=== PATIENT | female | born 1940 | race Caucasian/White ===

== ENCOUNTER 2016-08-16 03:02 | Emergency (ER) | payer MEDICARE, OTHER ==
[2016-08-16 03:07] VITALS: RESP 18; TEMP 98
[2016-08-16] MEDS ORDERED: SODIUM CHLORIDE 0.9% 1,000 ML IV STA (03:54)
[2016-08-16] MEDS ORDERED: METOCLOPRAMIDE 5 MG/ML 2 ML VIAL IVP STA (03:55)
[2016-08-16] MEDS ORDERED: FAMOTIDINE 20 MG/2 ML VIAL IV STA (03:55)
[2016-08-16] MEDS ORDERED: KETOROLAC 30 MG/ML 1 ML VIAL IVP STA (03:55)
[2016-08-16] MEDS ORDERED: diphenhydrAMINE 50 MG/ML 1 ML VIAL IVP STA (03:55)
[2016-08-16] MEDS ORDERED: ONDANSETRON ODT 4 MG TAB PO STA (03:56)
--- NOTE | 2016-08-16 03:58 | ED ---
General Adult HPI - General Chief complaint: Neuro Symptoms/Deficit Stated complaint: numbness Time Seen by Provider: 08/16/16 03:40 Source: patient, RN notes reviewed, old records reviewed Mode of arrival: ambulatory Limitations: no limitations - History of Present Illness Initial comments: This is a 68-year-old female ER with multiple complaints. Patient has multiple nonspecific neurological complaints as well as complaining of rash and itching. Nausea and vomiting. Patient recently had steroid injections in her neck versus severe arthritis. Symptoms having numbness and tingling is tingling in her extremities. Patient also suffered from nausea today. No chest pain or shortness of breath, no fevers. No other complaints - Related Data Home Medications Medication Instructions Recorded Confirmed Omeprazole [PriLOSEC] 20 mg PO AC-BRKFST 01/07/15 12/05/15 Nitroglycerin Sl Tabs [Nitrostat] 0.4 mg SUBLINGUAL Q5M PRN 04/10/15 12/05/15 Dicyclomine [Bentyl] 20 mg PO BID 06/26/15 12/05/15 Aspirin EC [Ecotrin] 325 mg PO DAILY 06/28/15 12/05/15 Simvastatin [Zocor] 20 mg PO HS 08/05/15 12/05/15 Albuterol Inhaler [Ventolin Hfa 2 puff INHALATION RT-Q6H PRN 08/06/15 12/05/15 Inhaler] buPROPion HCL [Wellbutrin SR] 100 mg PO DAILY 08/06/15 12/05/15 Losartan Potassium [Cozaar] 100 mg PO DAILY 09/01/15 12/05/15 Ciprofloxacin HCl [Cipro] 500 mg PO DAILY 12/03/15 12/05/15 Previous Rx's Medication Instructions Recorded Clopidogrel [Plavix] 75 mg PO DAILY tab 07/02/15 Famotidine [Pepcid] 20 mg PO DAILY #30 tablet 08/16/15 traMADol HCL [Ultram] 50 mg PO Q6HR PRN #30 tab 08/16/16 Allergies Allergy/AdvReac Type Severity Reaction Status Date / Time codeine Allergy Severe Dyspnea Verified 08/16/16 03:07 hydromorphone HCl Allergy Severe Hallucinati Verified 08/16/16 03:07 [From Dilaudid] ons iodine Allergy Severe Dyspnea Verified 08/16/16 03:07 Penicillins Allergy Severe Rash/Hives Verified 08/16/16 03:07 Sulfa (Sulfonamide Allergy Severe Rash/Hives Verified 08/16/16 03:07 Antibiotics) prednisone Allergy Unknown Verified 08/16/16 03:07 Review of Systems ROS Statement: Those systems with pertinent positive or pertinent negative responses have been documented in the HPI. ROS Other: All systems not noted in ROS Statement are negative. Past Medical History Past Medical History: CVA/TIA, Deep Vein Thrombosis (DVT), GERD/Reflux, Hyperlipidemia, Hypertension, Myocardial Infarction ([place]), Osteoarthritis (OA) Additional Past Medical History / Comment(s): 06-15-15 admitted with confusion, disorientation,paranoid behavior decreased appetite not eating or drinking, clincial impression: acute psychosis,dehydration,mental status change, hypomagnesemia . 06/08/15 admitted with clinical impression of TIA, spasm cervical paraspinal muscle. Other HX: 01/07/15 TIA, 01/08/15 [place], 2014 DVT to left arm, generalized arthiritis, R index finger injury 3 yrs ago-wears immoblizer. Last Myocardial Infarction Date:: 01/08/15 History of Any Multi-Drug Resistant Organisms: C-DIFF Date of last positivie culture/infection: 09/30/14 MDRO Source:: stool Past Surgical History: Breast Surgery, Section, Cholecystectomy, Heart Catheterization With Stent, Hernia Repair Additional Past Surgical History / Comment(s): 01/09/15 PTCA with stent to obtuse marginal branch of circ and stent to mid LAD, bilateral augmentation, 3 C -Sections, ventral hernia repair, bilateral cataract removal with lens implants , picc line in and out for ABX tx for C-Diff. Past Anesthesia/Blood Transfusion Reactions: No Reported Reaction, Family History of Problems w/ Anesthesia Additional Past Anesthesia/Blood Transfusion Reaction / Comment(s): Pt has never recieved blood. Date of Last Stent Placement:: 01/09/15 Past Psychological History: Anxiety Additional Psychological History / Comment(s): Pt states she lives with her significant other and her cat-Princess Booth. She uses no assistive device. She can drive. Smoking Status: Former smoker Past Alcohol Use History: None Reported Additional Past Alcohol Use History / Comment(s): Pt quit smoking in 2010. Past Drug Use History: None Reported - Past Family History Mother Additional Family Medical History / Comment(s): Mother had a brain aneurysm. She after brain surgery at age 88 yrs. Father Family Medical History: CVA/TIA, Diabetes Mellitus, Hypertension Additional Family Medical History / Comment(s): Father of a CVA. General Exam Limitations: no limitations General appearance: alert, in no apparent distress Head exam: Present: atraumatic, normocephalic, normal inspection Eye exam: Present: normal appearance, PERRL, EOMI. Absent: scleral icterus, conjunctival injection, periorbital swelling ENT exam: Present: normal exam, mucous membranes moist Neck exam: Present: normal inspection. Absent: tenderness, meningismus, lymphadenopathy Respiratory exam: Present: normal lung sounds bilaterally. Absent: respiratory distress, wheezes, rales, rhonchi, stridor Cardiovascular Exam: Present: regular rate, normal rhythm, normal heart sounds. Absent: systolic murmur, diastolic murmur, rubs, gallop, clicks GI/Abdominal exam: Present: soft, normal bowel sounds. Absent: distended, tenderness, guarding, rebound, rigid Extremities exam: Present: normal inspection, full ROM, normal capillary refill. Absent: tenderness, pedal edema, joint swelling, calf tenderness Back exam: Present: normal inspection Neurological exam: Present: alert, oriented X3, CN II-XII intact Psychiatric exam: Present: normal affect, normal mood Skin exam: Present: warm, dry, intact, normal color. Absent: rash Course Vital Signs 08/16/16 08/16/16 08/16/16 03:05 05:06 05:50 Temperature 98 F Pulse Rate 89 64 65 Respiratory 18 18 18 Rate Blood Pressure 131/83 139/92 177/75 O2 Sat by Pulse 99 97 97 Oximetry - Reevaluation(s) Reevaluation #1: 08/16/16 06:05 Patient has known complicate medical history to this hospital. Reevaluation #2: 08/16/16 06:05 Patient is asking for pain medication and she states she is taking nothing for pain or anxiety at this time EKG Findings - EKG Comments: EKG Findings:: EKG shows sinus rhythm rate of 62, CO 178, QRS 86, QTC 448 Medical Decision Making - Medical Decision Making Seven-day female year with multiple nonspecific symptoms, patient found to have low potassium which is replaced, chronic pain and she'll be treated with pain control patient can be discharged home - Lab Data Result diagrams: 08/16/16 04:15 08/16/16 04:15 Lab Results 08/16/16 08/16/16 08/16/16 Range/Units 04:15 04:15 04:15 WBC 8.7 (3.8-10.6) k/uL RBC 4.52 (3.80-5.40) m/uL Hgb 12.9 (11.4-16.0) gm/dL Hct 38.8 (34.0-46.0) % MCV 85.9 (80.0-100.0) fL MCH 28.6 (25.0-35.0) pg MCHC 33.3 (31.0-37.0) g/dL RDW 15.6 H (11.5-15.5) % Plt Count 273 (150-450) k/uL Neutrophils % 66 % Lymphocytes % 24 % Monocytes % 6 % Eosinophils % 2 % Basophils % 1 % Neutrophils # 5.8 (1.3-7.7) k/uL Lymphocytes # 2.1 (1.0-4.8) k/uL Monocytes # 0.5 (0-1.0) k/uL Eosinophils # 0.2 (0-0.7) k/uL Basophils # 0.1 (0-0.2) k/uL Sodium 140 (137-145) mmol/L Potassium 2.8 L* (3.5-5.1) mmol/L Chloride 103 (98-107) mmol/L Carbon Dioxide 23 (22-30) mmol/L Anion Gap 14 mmol/L BUN 31 H (7-17) mg/dL Creatinine 0.94 (0.52-1.04) mg/dL Est GFR (MDRD) Af Amer >60 (>60 ml/min/1.73 sqM) Est GFR (MDRD) Non-Af 58 (>60 ml/min/1.73 sqM) Glucose 107 H (74-99) mg/dL Calcium 9.3 (8.4-10.2) mg/dL Phosphorus 3.4 (2.5-4.5) mg/dL Magnesium 1.7 (1.6-2.3) mg/dL Total Bilirubin 0.6 (0.2-1.3) mg/dL AST 17 (14-36) U/L ALT 24 (9-52) U/L Alkaline Phosphatase 143 H (38-126) U/L Total Creatine Kinase 97 (30-135) U/L CK-MB (CK-2) 1.1 (0.0-2.4) ng/mL CK-MB (CK-2) Rel Index 1.1 C-Reactive Protein 6.4 (<10.0) mg/L Total Protein 7.3 (6.3-8.2) g/dL Albumin 4.1 (3.5-5.0) g/dL Disposition Clinical Impression: Hypokalemia, Paresthesia Disposition: HOME SELF-CARE Condition: Good Instructions: Hypokalemia (ED) Prescriptions: traMADol HCL [Ultram] 50 mg PO Q6HR PRN #30 tab PRN Reason: Pain Referrals: Daren Marinelli MD [Primary Care Provider] - 1-2 days
[2016-08-16 04:44] LABS: ALT 24 U/L (9-52); AST 17 U/L (14-36); Alkaline Phosphatase 143 U/L (38-126); Anion Gap 14 mmol/L; Blood Urea Nitrogen 31 mg/dL (7-17); Calcium 9.3 mg/dL (8.4-10.2); Carbon Dioxide 23 mmol/L (22-30); Chloride 103 mmol/L (98-107); Glucose 107 mg/dL (74-99); Magnesium 1.7 mg/dL (1.6-2.3); Non-African American GFR(MDRD) 58 (>60 ml/min/1.73 sqM); Phosphorous 3.4 mg/dL (2.5-4.5); Sodium 140 mmol/L (137-145); Total Bilirubin 0.6 mg/dL (0.2-1.3); Total Protein 7.3 g/dL (6.3-8.2)
[2016-08-16 04:45] LABS: Potassium 2.8 mmol/L (3.5-5.1)
[2016-08-16 04:46] LABS: Basophils # (A) 0.1 k/uL (0-0.2); Basophils % (A) 1 %; CH 28.2; CHCM 32.9; Eosinophils # (A) 0.2 k/uL (0-0.7); Eosinophils % (A) 2 %; HCT 38.8 % (34.0-46.0); HDW 2.89; HGB 12.9 gm/dL (11.4-16.0); Luc # (Auto) 0.19; Luc % (Auto) 2; Lymphocytes # (A) 2.1 k/uL (1.0-4.8); Lymphocytes % (A) 24 %; MCH 28.6 pg (25.0-35.0); MCHC 33.3 g/dL (31.0-37.0); MCV 85.9 fL (80.0-100.0); Mean Platelet Volume 7.1; Monocytes # (A) 0.5 k/uL (0-1.0); Monocytes % (A) 6 %; Neutrophils # (A) 5.8 k/uL (1.3-7.7); Neutrophils % (A) 66 %; RBC 4.52 m/uL (3.80-5.40); RDW 15.6 % (11.5-15.5); WBC 8.7 k/uL (3.8-10.6); WBC (Perox) 9.27
[2016-08-16 05:01] LABS: C Reactive Protein 6.4 mg/L (<10.0)
[2016-08-16 05:06] LABS: Creatine Kinase MB 1.1 ng/mL (0.0-2.4)
[2016-08-16] MEDS ORDERED: POTASSIUM CHLORIDE ER 20 MEQ TAB.ER PO STA (05:17)
[2016-08-16] MEDS ORDERED: MORPHINE SULFATE 4 MG/ML SYRINGE IVP STA (05:48)
[2016-08-16] MEDS ORDERED: LORazepam 2 MG/ML SYRINGE IV STA (05:48)
[2016-08-16] MEDS ORDERED: ONDANSETRON 4 MG/2 ML VIAL IVP STA (06:10)
[2016-08-16 06:30] VITALS: BP 169/91; PULSE 68
== END 2016-08-16 06:32 | disposition home or self-care (01) ==
LOC: EC 03:02
DX: E87.6 Hypokalemia (principal); R20.9 Unspecified disturbances of skin sensation; G89.29 Other chronic pain; R21 Rash and other nonspecific skin eruption; K21.9 Gastro-esophageal reflux disease without esophagitis; E78.5 Hyperlipidemia, unspecified; I10 Essential (primary) hypertension; I25.2 Old myocardial infarction; M19.90 Unspecified osteoarthritis, unspecified site; F41.9 Anxiety disorder, unspecified; Z53.20 Procedure and treatment not carried out because of patient's decision for unspecified reasons; Z87.891 Personal history of nicotine dependence; Z79.899 Other long term (current) drug therapy; Z79.82 Long term (current) use of aspirin; Z88.5 Allergy status to narcotic agent; Z88.0 Allergy status to penicillin; Z88.2 Allergy status to sulfonamides; Z88.8 Allergy status to other drugs, medicaments and biological substances; Z95.5 Presence of coronary angioplasty implant and graft
CPT/HCPCS: 36415; 93005; 80053; 82550; 82553; 83735; 84100; 85025; 86140; 99284; 96374; 96375 ×5; 96361 ×2; J2270; J1200; J2765; J2405; J1885

== ENCOUNTER 2016-09-27 17:02 | Emergency (ER) | payer MEDICARE, OTHER ==
[2016-09-27 17:15] VITALS: RESP 16
--- NOTE | 2016-09-27 18:11 | ED ---
General Adult HPI - General Chief complaint: Neuro Symptoms/Deficit Stated complaint: Dizzy, swollen feet Time Seen by Provider: 09/27/16 17:40 Source: patient, RN notes reviewed Mode of arrival: wheelchair Limitations: no limitations - History of Present Illness Initial comments: This is a 76-year-old female who presents to the emergency department with past history of cardiac stents. Patient states today she comes in because her feet are more swollen than normal and she had an episode of slight dizziness. Patient states she did not pass out and never believe she was going to. Patient states she's also been dealing with some ruptured breast implant and given her some chronic chest pain. Patient states that pain is been ongoing for weeks and it continues today. Patient denies any shortness of breath or difficulty breathing today. Patient denies any sweating. Patient denies abdominal pain patient denies nausea vomiting diarrhea. Patient denies any visual disturbance or speech disturbance. Patient states she has a very mild headache today. Patient denies any areas of numbness or weakness that are focal. Patient denies any recent history of fever or chills - Related Data Home Medications Medication Instructions Recorded Confirmed Omeprazole [PriLOSEC] 20 mg PO AC-BRKFST 01/07/15 12/05/15 Nitroglycerin Sl Tabs [Nitrostat] 0.4 mg SUBLINGUAL Q5M PRN 04/10/15 12/05/15 Dicyclomine [Bentyl] 20 mg PO BID 06/26/15 12/05/15 Aspirin EC [Ecotrin] 325 mg PO DAILY 06/28/15 12/05/15 Simvastatin [Zocor] 20 mg PO HS 08/05/15 12/05/15 Albuterol Inhaler [Ventolin Hfa 2 puff INHALATION RT-Q6H PRN 08/06/15 12/05/15 Inhaler] buPROPion HCL [Wellbutrin SR] 100 mg PO DAILY 08/06/15 12/05/15 Losartan Potassium [Cozaar] 100 mg PO DAILY 09/01/15 12/05/15 Ciprofloxacin HCl [Cipro] 500 mg PO DAILY 12/03/15 12/05/15 Previous Rx's Medication Instructions Recorded Clopidogrel [Plavix] 75 mg PO DAILY tab 07/02/15 Famotidine [Pepcid] 20 mg PO DAILY #30 tablet 08/16/15 traMADol HCL [Ultram] 50 mg PO Q6HR PRN #30 tab 08/16/16 Allergies Allergy/AdvReac Type Severity Reaction Status Date / Time codeine Allergy Unknown Dyspnea Verified 09/27/16 19:32 Penicillins Allergy Unknown Rash/Hives Verified 09/27/16 19:32 Sulfa (Sulfonamide Allergy Unknown Rash/Hives Verified 09/27/16 19:32 Antibiotics) hydrocodone Allergy Rash/Hives Verified 09/27/16 19:32 prednisone Allergy Dyspnea Verified 09/27/16 19:32 hydromorphone HCl AdvReac Severe Hallucinati Verified 09/27/16 19:32 [From Dilaudid] ons chocolate flavor AdvReac Cough Verified 09/27/16 19:32 Iodinated Contrast Media - AdvReac Nausea & Verified 09/27/16 19:32 Oral and Vomiting milk AdvReac Cough Verified 09/27/16 19:32 Review of Systems ROS Statement: Those systems with pertinent positive or pertinent negative responses have been documented in the HPI. ROS Other: All systems not noted in ROS Statement are negative. Past Medical History Past Medical History: CVA/TIA, Deep Vein Thrombosis (DVT), GERD/Reflux, Hyperlipidemia, Hypertension, Myocardial Infarction ([place]), Osteoarthritis (OA) Additional Past Medical History / Comment(s): 3 admitted with confusion, disorientation,paranoid behavior decreased appetite not eating or drinking, clincial impression: acute psychosis,dehydration,mental status change, hypomagnesemia . 06/08/15 admitted with clinical impression of TIA, spasm cervical paraspinal muscle. Other HX: 01/07/15 TIA, 01/08/15 [place], 2014 DVT to left arm, generalized arthiritis, R index finger injury 3 yrs ago-wears immoblizer. Last Myocardial Infarction Date:: 01/08/15 History of Any Multi-Drug Resistant Organisms: C-DIFF Date of last positivie culture/infection: 09/30/14 MDRO Source:: stool Past Surgical History: Breast Surgery, Section, Cholecystectomy, Heart Catheterization With Stent, Hernia Repair Additional Past Surgical History / Comment(s): 01/09/15 PTCA with stent to obtuse marginal branch of circ and stent to mid LAD, bilateral augmentation, 3 C -Sections, ventral hernia repair, bilateral cataract removal with lens implants , picc line in and out for ABX tx for C-Diff. Past Anesthesia/Blood Transfusion Reactions: No Reported Reaction, Family History of Problems w/ Anesthesia Additional Past Anesthesia/Blood Transfusion Reaction / Comment(s): Pt has never recieved blood. Date of Last Stent Placement:: 01/09/15 Past Psychological History: Anxiety Additional Psychological History / Comment(s): Pt states she lives with her significant other and her cat-Princess Booth. She uses no assistive device. She can drive. Smoking Status: Former smoker Past Alcohol Use History: None Reported Additional Past Alcohol Use History / Comment(s): Pt quit smoking in 2010. Past Drug Use History: None Reported - Past Family History Mother Additional Family Medical History / Comment(s): Mother had a brain aneurysm. She after brain surgery at age 88 yrs. Father Family Medical History: CVA/TIA, Diabetes Mellitus, Hypertension Additional Family Medical History / Comment(s): Father of a CVA. General Exam - General Exam Comments Initial Comments: GENERAL: Patient is well-developed and well-nourished. Patient is nontoxic and well- hydrated and is in no acute distress. ENT: Neck is soft and supple. No significant lymphadenopathy is noted. Oropharynx is clear. Moist mucous membranes. Neck has full range of motion without eliciting any pain. EYES: The sclera were anicteric and conjunctiva were pink and moist. Extraocular movements were intact and pupils were equal round and reactive to light. Eyelids were unremarkable. PULMONARY: Unlabored respirations. Good breath sounds bilaterally. No audible rales rhonchi or wheezing was noted. CARDIOVASCULAR: There is a regular rate and rhythm without any murmurs gallops or rubs. ABDOMEN: Soft and nontender with normal bowel sounds. No palpable organomegaly was noted. There is no palpable pulsatile mass. SKIN: Skin is clear with no lesions or rashes and otherwise unremarkable. NEUROLOGIC: Patient is alert and oriented x3. Cranial nerves II through XII are grossly intact. Motor and sensory are also intact. Normal speech, volume and content. Symmetrical smile. MUSCULOSKELETAL: Normal extremities with adequate strength and full range of motion. Minimal edema to the feet. No calf tenderness. LYMPHATICS: No significant lymphadenopathy is noted PSYCHIATRIC: Normal psychiatric evaluation. Normal interpersonal interactions appears functionally intact in deals appropriately with others. No signs of depression. No signs of anxiety. Limitations: no limitations Course Vital Signs 06/14/17 06/14/17 06/14/17 17:09 19:55 19:58 Temperature 98.2 F 97.6 F 98.3 F Pulse Rate 64 58 L 62 Respiratory 16 20 16 Rate Blood Pressure 120/71 126/77 123/68 O2 Sat by Pulse 97 97 97 Oximetry Medical Decision Making - Medical Decision Making EKG shows a sinus rhythm with occasional PAC at [address] interval is 170 QRS is 80 QT interval is 408 QTC is 424. Patient's EKG shows no ST segment elevation or depression or T-wave abdomen is noted. I compared the EKG to an old EKG no acute abnormalities are noted. I discussed the results with the patient and discussed the possibility of staying patient insisted she does not want to stay and wanted to go home. - Lab Data Result diagrams: 09/27/16 17:50 09/27/16 17:50 Lab Results 09/27/16 09/27/16 09/27/16 Range/Units 17:50 17:50 17:50 WBC 7.6 (3.8-10.6) k/uL RBC 4.34 (3.80-5.40) m/uL Hgb 12.4 (11.4-16.0) gm/dL Hct 38.6 (34.0-46.0) % MCV 88.8 (80.0-100.0) fL MCH 28.5 (25.0-35.0) pg MCHC 32.1 (31.0-37.0) g/dL RDW 15.1 (11.5-15.5) % Plt Count 241 (150-450) k/uL Neutrophils % 67 % Lymphocytes % 21 % Monocytes % 7 % Eosinophils % 2 % Basophils % 1 % Neutrophils # 5.0 (1.3-7.7) k/uL Lymphocytes # 1.6 (1.0-4.8) k/uL Monocytes # 0.6 (0-1.0) k/uL Eosinophils # 0.2 (0-0.7) k/uL Basophils # 0.0 (0-0.2) k/uL PT (9.0-12.0) sec INR (<1.1) APTT (22.0-30.0) sec Sodium 141 (137-145) mmol/L Potassium 3.1 L (3.5-5.1) mmol/L Chloride 105 (98-107) mmol/L Carbon Dioxide 23 (22-30) mmol/L Anion Gap 13 mmol/L BUN 23 H (7-17) mg/dL Creatinine 1.31 H (0.52-1.04) mg/dL Est GFR (MDRD) Af Amer 48 (>60 ml/min/1.73 sqM) Est GFR (MDRD) Non-Af 39 (>60 ml/min/1.73 sqM) Glucose 114 H (74-99) mg/dL Calcium 9.2 (8.4-10.2) mg/dL Magnesium 1.5 L (1.6-2.3) mg/dL Total Bilirubin 0.5 (0.2-1.3) mg/dL AST 20 (14-36) U/L ALT 21 (9-52) U/L Alkaline Phosphatase 113 (38-126) U/L Total Creatine Kinase 103 (30-135) U/L CK-MB (CK-2) 1.1 (0.0-2.4) ng/mL CK-MB (CK-2) Rel Index 1.1 Troponin I <0.012 (0.000-0.034) ng/mL Total Protein 7.0 (6.3-8.2) g/dL Albumin 4.1 (3.5-5.0) g/dL 09/27/16 Range/Units 17:50 WBC (3.8-10.6) k/uL RBC (3.80-5.40) m/uL Hgb (11.4-16.0) gm/dL Hct (34.0-46.0) % MCV (80.0-100.0) fL MCH (25.0-35.0) pg MCHC (31.0-37.0) g/dL RDW (11.5-15.5) % Plt Count (150-450) k/uL Neutrophils % % Lymphocytes % % Monocytes % % Eosinophils % % Basophils % % Neutrophils # (1.3-7.7) k/uL Lymphocytes # (1.0-4.8) k/uL Monocytes # (0-1.0) k/uL Eosinophils # (0-0.7) k/uL Basophils # (0-0.2) k/uL PT 11.7 (9.0-12.0) sec INR 1.2 (<1.1) APTT 19.0 L (22.0-30.0) sec Sodium (137-145) mmol/L Potassium (3.5-5.1) mmol/L Chloride (98-107) mmol/L Carbon Dioxide (22-30) mmol/L Anion Gap mmol/L BUN (7-17) mg/dL Creatinine (0.52-1.04) mg/dL Est GFR (MDRD) Af Amer (>60 ml/min/1.73 sqM) Est GFR (MDRD) Non-Af (>60 ml/min/1.73 sqM) Glucose (74-99) mg/dL Calcium (8.4-10.2) mg/dL Magnesium (1.6-2.3) mg/dL Total Bilirubin (0.2-1.3) mg/dL AST (14-36) U/L ALT (9-52) U/L Alkaline Phosphatase (38-126) U/L Total Creatine Kinase (30-135) U/L CK-MB (CK-2) (0.0-2.4) ng/mL CK-MB (CK-2) Rel Index Troponin I (0.000-0.034) ng/mL Total Protein (6.3-8.2) g/dL Albumin (3.5-5.0) g/dL Disposition Clinical Impression: Pedal edema Disposition: HOME SELF-CARE Condition: Good Instructions: Edema (ED) Referrals: Daren Marinelli MD [Primary Care Provider] - 1-2 days Time of Disposition: 19:29
[2016-09-27 18:29] LABS: Basophils % (A) 1 %; CH 28.7; CHCM 32.5; Eosinophils # (A) 0.2 k/uL (0-0.7); Eosinophils % (A) 2 %; HCT 38.6 % (34.0-46.0); HDW 2.85; HGB 12.4 gm/dL (11.4-16.0); Luc # (Auto) 0.13; Luc % (Auto) 2; Lymphocytes # (A) 1.6 k/uL (1.0-4.8); Lymphocytes % (A) 21 %; MCH 28.5 pg (25.0-35.0); MCHC 32.1 g/dL (31.0-37.0); MCV 88.8 fL (80.0-100.0); Monocytes # (A) 0.6 k/uL (0-1.0); Monocytes % (A) 7 %; Neutrophils % (A) 67 %; RBC 4.34 m/uL (3.80-5.40); RDW 15.1 % (11.5-15.5); WBC 7.6 k/uL (3.8-10.6); WBC (Perox) 7.87
[2016-09-27 18:37] LABS: Calcium 9.2 mg/dL (8.4-10.2); Magnesium 1.5 mg/dL (1.6-2.3); Potassium 3.1 mmol/L (3.5-5.1); Total Bilirubin 0.5 mg/dL (0.2-1.3)
[2016-09-27 18:38] LABS: INR 1.2 (<1.1); Prothrombin Time 11.7 sec (9.0-12.0)
[2016-09-27 18:49] LABS: Creatine Kinase 103 U/L (30-135)
--- NOTE | 2016-09-27 18:49 | XR ---
EXAMINATION TYPE: XR chest 2V DATE OF EXAM: 09/27/2016 COMPARISON: 11/04/2015 HISTORY: Chest pain TECHNIQUE: Frontal and lateral views of the chest are obtained. FINDINGS: There is no heart failure nor confluent pneumonic infiltrate. There are no hilar masses. T here is no sign of pleural effusion. Bony thorax is intact. There are bilateral breast implants with calcification. IMPRESSION: No active cardiopulmonary disease. Normal heart. No change.
[2016-09-27 19:01] LABS: Creatine Kinase MB 1.1 ng/mL (0.0-2.4); Troponin I <0.012 ng/mL (0.000-0.034)
[2016-09-27 20:07] VITALS: BP 123/68; PULSE 62; TEMP 98.3
== END 2016-09-27 20:08 | disposition home or self-care (01) ==
LOC: EC 17:02
DX: R60.0 Localized edema (principal); I49.1 Atrial premature depolarization; R42 Dizziness and giddiness; R51 Headache; R07.9 Chest pain, unspecified; E78.5 Hyperlipidemia, unspecified; I10 Essential (primary) hypertension; K21.9 Gastro-esophageal reflux disease without esophagitis; M19.90 Unspecified osteoarthritis, unspecified site; Z87.891 Personal history of nicotine dependence; Z79.82 Long term (current) use of aspirin; Z79.899 Other long term (current) drug therapy; Z88.0 Allergy status to penicillin; Z88.2 Allergy status to sulfonamides; Z88.5 Allergy status to narcotic agent; Z88.8 Allergy status to other drugs, medicaments and biological substances; Z91.011 Allergy to milk products; Z91.018 Allergy to other foods; Z91.09 Other allergy status, other than to drugs and biological substances; Z95.5 Presence of coronary angioplasty implant and graft
CPT/HCPCS: 36415; 71020; 80053; 82550; 82553; 83735; 84484; 85025; 85610; 85730; 93005; 99284

== ENCOUNTER → 2016-10-02 | Outpatient (CLI) | payer MEDICARE, OTHER ==
--- NOTE | 2016-10-02 19:16 | CT ---
EXAMINATION TYPE: CT brain wo con DATE OF EXAM: 10/02/2016 COMPARISON: 04/03/2016 HISTORY: Dizziness and syncope. CT DLP: 1012.7 mGycm Automated exposure control for dose reduction was used. FINDINGS: There is cerebral cortical atrophy. There is no mass effect nor midline shift. There is no sign of in tracranial hemorrhage. The calvarium is intact. IMPRESSION: CEREBRAL ATROPHY. NO ACUTE INTRACRANIAL ABNORMALITY. NO ADVERSE CHANGE COMPARED TO OLD EXAM. THERE IS PROBABLY MILD CHRONIC SMALL VESSEL ISCHEMIA.
== END | disposition home or self-care (01) ==
LOC: RADCTMAIN 18:57
PROVIDERS: ATTEND Psychiatry & Neurology Neurology
DX: G31.9 Degenerative disease of nervous system, unspecified (principal); Z88.0 Allergy status to penicillin; Z88.2 Allergy status to sulfonamides; Z88.5 Allergy status to narcotic agent
CPT/HCPCS: 70450

== ENCOUNTER → 2017-07-17 | Outpatient (CLI) | payer MEDICARE, OTHER ==
--- NOTE | 2017-07-18 14:35 | XR ---
EXAMINATION TYPE: XR chest 2V DATE OF EXAM: 07/17/2017 COMPARISON: 09/27/2016 INDICATION: Cough chest discomfort TECHNIQUE: Frontal and lateral views of the chest are obtained. FINDINGS: The heart size is normal. The pulmonary vasculature is normal. The lungs are clear. There is hyperinflation flattening the diaphragms suggestive for COPD. Bilatera l breast prostheses are evident. IMPRESSION: 1. No acute pulmonary process.
== END | disposition home or self-care (01) ==
LOC: RADXRMAIN 16:41
PROVIDERS: ATTEND Family Medicine
DX: R05 Cough (principal)
CPT/HCPCS: 71046

== ENCOUNTER 2017-07-21 15:48 | Emergency (ER) | payer MEDICARE, OTHER ==
[2017-07-21] MEDS ORDERED: SODIUM CHLORIDE 0.9% 1,000 ML IV STA (17:38)
[2017-07-21] MEDS ORDERED: HYDROcodone/APAP 10-325MG 1 EACH TAB PO ONE (17:41)
[2017-07-21 18:21] LABS: Basophils % (A) 0 %; Eosinophils # (A) 0.1 k/uL (0-0.7); Eosinophils % (A) 1 %; HCT 43.1 % (34.0-46.0); HGB 14.2 gm/dL (11.4-16.0); Lymphocytes # (A) 2.1 k/uL (1.0-4.8); Lymphocytes % (A) 19 %; MCH 27.8 pg (25.0-35.0); MCHC 32.9 g/dL (31.0-37.0); MCV 84.5 fL (80.0-100.0); Mean Platelet Volume 7.4; Monocytes # (A) 0.8 k/uL (0-1.0); Monocytes % (A) 7 %; Neutrophils # (A) 7.9 k/uL (1.3-7.7); Neutrophils % (A) 71 %; Platelet Count 281 k/uL (150-450); RDW 13.5 % (11.5-15.5); WBC 11.2 k/uL (3.8-10.6)
[2017-07-21 18:30] LABS: Albumin 4.5 g/dL (3.5-5.0); Calcium 10.1 mg/dL (8.4-10.2); Total Bilirubin 0.3 mg/dL (0.2-1.3); Total Protein 7.6 g/dL (6.3-8.2)
[2017-07-21 18:33] LABS: Potassium 2.9 mmol/L (3.5-5.1)
[2017-07-21] MEDS ORDERED: POTASSIUM BICARBONATE/CIT AC 20 MEQ TABLET.EFF PO ONE (18:34)
[2017-07-21 18:36] LABS: INR 1.1 (<1.2); Prothrombin Time 10.4 sec (9.0-12.0)
[2017-07-21 18:42] LABS: Creatine Kinase 60 U/L (30-135)
--- NOTE | 2017-07-21 18:42 | CT ---
EXAMINATION TYPE: CT brain wo con DATE OF EXAM: 07/21/2017 HISTORY: Facial numbness. CT DLP: 1046.4 mGycm. Automated Exposure Control for Dose Reduction was Utilized. TECHNIQUE: CT scan of the head is performed without contrast. COMPARISON: CT brain 06/04/2016 FINDINGS: There is no acute intracranial hemorrhage or midline shift identified. There is diffuse v entricular and sulcal prominence consistent with diffuse age-related cerebral atrophy. There is low- attenuation in the periventricular white matter consistent with chronic small vessel ischemic change. The globes are intact and the visualized sinuses are clear. Patchy soft tissue density bilateral ex tra auditory canals is felt to reflect cerumen. IMPRESSION: No acute intracranial hemorrhage or midline shift. There is mild to moderate diffuse ag e-related cerebral atrophy and chronic small vessel ischemic change redemonstrated without significan t change from prior
[2017-07-21 18:54] LABS: Creatine Kinase MB 0.8 ng/mL (0.0-2.4); Troponin I <0.012 ng/mL (0.000-0.034)
--- NOTE | 2017-07-21 19:04 | XR ---
EXAMINATION TYPE: XR chest 2V DATE OF EXAM: 07/21/2017 COMPARISON: Chest x-ray from 4 days ago. HISTORY: Weakness and altered mental status. TECHNIQUE: Frontal and lateral views of the chest are obtained. FINDINGS: There is chronic parenchymal change without suspicious focal air space opacity, pleural ef fusion, or pneumothorax seen. The cardiac silhouette size is within normal limits. The osseous str uctures are intact. Rim calcified breast implants are redemonstrated. IMPRESSION: Chronic changes without acute cardiopulmonary process. No significant change from prior.
--- NOTE | 2017-07-21 19:05 | XR ---
EXAMINATION TYPE: XR cervical spine comp DATE OF EXAM: 07/21/2017 TECHNIQUE: Frontal, lateral, oblique, swimmers, and open mouth view of the cervical spine are obtaine d. HISTORY: Pain numbness and neck pain. COMPARISON: None FINDINGS: The cervical spine is visualized in its entirety from C1 thru the top of T1 level, it is s traightened in alignment without evidence of acute fracture or dislocation. There is grade 1 retrolis thesis of C4 on C5 and C5 on C6. The pre-vertebral soft tissue appears within normal limits. The C1- C2 articulation is within normal limits on the open mouth view. Vertebral body heights are maintaine d. There is moderate disc space narrowing and spurring C4-C5 and C5-C6 levels. There is mild disc spa ce narrowing C6-C7 level. The oblique images are within normal limits. There is fairly severe left-si ded carotid bulb calcification. Consider nonemergent carotid ultrasound follow-up. IMPRESSION: No acute fracture or dislocation is seen in the cervical spine.
[2017-07-21 19:09] LABS: Partial Thromboplastin Time 21.3 sec (22.0-30.0)
[2017-07-21 20:07] LABS: Appearance,Urine Clear (Clear); Bilirubin,Urine Negative (Negative); Blood,Urine Small (Negative); Color,Urine Light Yellow; Glucose,Urine (UA) Negative (Negative); Hyaline Casts,Urine 29 /lpf (0-2); Ketones,Urine Negative (Negative); Leukocyte Esterase,Urine Negative (Negative); Mucus,Urine Rare /hpf; Nitrite,Urine Negative (Negative); Protein,Urine Negative (Negative); RBC,Urine 8 /hpf (0-5); Specific Gravity,Urine 1.009 (1.001-1.035); Squamous Epithelial Cell,Urine <1 /hpf (0-4); Urobilinogen,Urine <2.0 mg/dL (<2.0); WBC,Urine 1 /hpf (0-5)
[2017-07-21 20:18] VITALS: RESP 18
[2017-07-21] MEDS ORDERED: ONDANSETRON ODT 4 MG TAB PO STA (20:27)
--- NOTE | 2017-07-21 20:27 | ED ---
General Adult HPI - General Chief complaint: Recheck/Abnormal Lab/Rx Stated complaint: Leg numbness Time Seen by Provider: 07/21/17 17:24 Source: patient Mode of arrival: wheelchair Limitations: no limitations - History of Present Illness Initial comments: 77 years O female presents with generalized weakness she said I have a headache never facial numbness she saying my arms hurt my legs hurt and I'm very very weak she also had a UTI and she was treated for UTIs and she is wondering if the UTIs and has resolved she has been taking now diaphoretic she has been taking her metoprolol along with the Lasix which she added she denies any fall that's no trauma to explain the pain in the arms and legs she does have pain medication she does take [place] at home and Motrin for her degenerative joint disease numbness of the head and the face been going on off and on for about a year now review of system is otherwise unremarkable - Related Data Home Medications Medication Instructions Recorded Confirmed Dicyclomine [Bentyl] 20 mg PO BID 06/26/15 07/21/17 Aspirin EC [Ecotrin Low Dose] 81 mg PO DAILY 07/21/17 07/21/17 Bumetanide [Bumex] 1 mg PO DAILY 07/21/17 07/21/17 Ibuprofen [Motrin] 800 mg PO TID PRN 07/21/17 07/21/17 Losartan [Cozaar] 50 mg PO DAILY 07/21/17 07/21/17 Metoprolol Tartrate [Lopressor] 12.5 mg PO DAILY 07/21/17 07/21/17 Pantoprazole [Protonix] 40 mg PO DAILY 07/21/17 07/21/17 Pravastatin Sodium [Pravachol] 20 mg PO HS 07/21/17 07/21/17 Previous Rx's Medication Instructions Recorded Famotidine [Pepcid] 20 mg PO DAILY #30 tablet 08/16/15 Potassium Chloride Oral Liquid 20 meq PO DAILY #10 ml 07/21/17 Allergies Allergy/AdvReac Type Severity Reaction Status Date / Time codeine Allergy Unknown Dyspnea Verified 07/21/17 17:47 Penicillins Allergy Unknown Rash/Hives Verified 07/21/17 17:47 Sulfa (Sulfonamide Allergy Unknown Rash/Hives Verified 07/21/17 17:47 Antibiotics) hydrocodone Allergy Rash/Hives Verified 07/21/17 17:47 prednisone Allergy Dyspnea Verified 07/21/17 17:47 hydromorphone HCl AdvReac Severe Hallucinati Verified 07/21/17 17:47 [From Dilaudid] ons chocolate flavor AdvReac Cough Verified 07/21/17 17:47 Iodinated Contrast- Oral and AdvReac Nausea & Verified 07/21/17 17:47 IV Dye Vomiting [Iodinated Contrast Media - Oral and] milk AdvReac Cough Verified 07/21/17 17:47 Review of Systems ROS Statement: Those systems with pertinent positive or pertinent negative responses have been documented in the HPI. ROS Other: All systems not noted in ROS Statement are negative. Past Medical History Past Medical History: CVA/TIA, Deep Vein Thrombosis (DVT), GERD/Reflux, Hyperlipidemia, Hypertension, Myocardial Infarction ([place]), Osteoarthritis ([place]) Additional Past Medical History / Comment(s): 06-15-15 admitted with confusion, disorientation,paranoid behavior decreased appetite not eating or drinking, clincial impression: acute psychosis,dehydration,mental status change, hypomagnesemia . 06/08/15 admitted with clinical impression of TIA, spasm cervical paraspinal muscle. Other HX: 01/07/15 TIA, 01/08/15 [place], 2014 DVT to left arm, generalized arthiritis, R index finger injury 3 yrs ago-wears immoblizer. Last Myocardial Infarction Date:: 01/08/15 History of Any Multi-Drug Resistant Organisms: C-DIFF Date of last positivie culture/infection: 09/30/14 MDRO Source:: stool Past Surgical History: Breast Surgery, Section, Cholecystectomy, Heart Catheterization With Stent, Hernia Repair Additional Past Surgical History / Comment(s): 01/09/15 PTCA with stent to obtuse marginal branch of circ and stent to mid LAD, bilateral augmentation, 3 C -Sections, ventral hernia repair, bilateral cataract removal with lens implants , picc line in and out for ABX tx for C-Diff. Past Anesthesia/Blood Transfusion Reactions: No Reported Reaction, Family History of Problems w/ Anesthesia Additional Past Anesthesia/Blood Transfusion Reaction / Comment(s): Pt has never recieved blood. Date of Last Stent Placement:: 01/09/15 Past Psychological History: Anxiety Smoking Status: Former smoker Past Alcohol Use History: None Reported Past Drug Use History: None Reported - Past Family History Mother Additional Family Medical History / Comment(s): Mother had a brain aneurysm. She after brain surgery at age 88 yrs. Father Family Medical History: CVA/TIA, Diabetes Mellitus, Hypertension Additional Family Medical History / Comment(s): Father of a CVA. General Exam Limitations: no limitations Course Vital Signs 07/21/17 07/21/17 07/21/17 15:50 18:00 19:37 Temperature 97.2 F L Pulse Rate 102 H 72 88 Respiratory 18 16 16 Rate Blood Pressure 130/58 123/79 124/58 O2 Sat by Pulse 98 93 L 98 Oximetry 07/21/17 20:17 Temperature Pulse Rate 68 Respiratory 18 Rate Blood Pressure 115/75 O2 Sat by Pulse 97 Oximetry During assessment. I noticed potassium is 2.9, she was given 40 mEq by mouth white count is 11.2 INR is unremarkable troponin is unremarkable EKG didn't show any STEMI urinalysis chest x-ray both unremarkable cervical spine is without any fracture brain CT with and without any major pathology my black female was faxed T she feels better now she be gone home on a potassium 20 mEq daily for next 5 days she was advised to eat a banana a day and now follow with family doctor in about 7 days because she is ALSO taking 2 different now than usual takes either she needs one spironolactone or if she needs to stay on a potassium EKG Findings - EKG Comments: EKG Findings:: EKG is normal sinus rhythm with a marked sinus arrhythmia with premature supraventricular complexes ventricular rate 79 MS interval is 192 and QRS duration is 88 QT/QTc is 336/46. This EKG does not reveal any ST elevation or timing Medical Decision Making - Lab Data Result diagrams: 07/21/17 17:50 07/21/17 17:50 Lab Results 07/21/17 07/21/17 07/21/17 Range/Units 17:50 17:50 17:50 WBC 11.2 H (3.8-10.6) k/uL RBC 5.10 (3.80-5.40) m/uL Hgb 14.2 (11.4-16.0) gm/dL Hct 43.1 (34.0-46.0) % MCV 84.5 (80.0-100.0) fL MCH 27.8 (25.0-35.0) pg MCHC 32.9 (31.0-37.0) g/dL RDW 13.5 (11.5-15.5) % Plt Count 281 (150-450) k/uL Neutrophils % 71 % Lymphocytes % 19 % Monocytes % 7 % Eosinophils % 1 % Basophils % 0 % Neutrophils # 7.9 H (1.3-7.7) k/uL Lymphocytes # 2.1 (1.0-4.8) k/uL Monocytes # 0.8 (0-1.0) k/uL Eosinophils # 0.1 (0-0.7) k/uL Basophils # 0.0 (0-0.2) k/uL PT (9.0-12.0) sec INR (<1.2) APTT (22.0-30.0) sec Sodium 141 (137-145) mmol/L Potassium 2.9 L* (3.5-5.1) mmol/L Chloride 96 L (98-107) mmol/L Carbon Dioxide 25 (22-30) mmol/L Anion Gap 20 mmol/L BUN 61 H (7-17) mg/dL Creatinine 1.40 H (0.52-1.04) mg/dL Est GFR (CKD-EPI)AfAm 41 (>60 ml/min/1.73 sqM) Est GFR (CKD-EPI)NonAf 36 (>60 ml/min/1.73 sqM) Glucose 118 H (74-99) mg/dL Calcium 10.1 (8.4-10.2) mg/dL Total Bilirubin 0.3 (0.2-1.3) mg/dL AST 15 (14-36) U/L ALT 21 (9-52) U/L Alkaline Phosphatase 138 H (38-126) U/L Total Creatine Kinase 60 (30-135) U/L CK-MB (CK-2) 0.8 (0.0-2.4) ng/mL CK-MB (CK-2) Rel Index 1.3 Troponin I <0.012 (0.000-0.034) ng/mL Total Protein 7.6 (6.3-8.2) g/dL Albumin 4.5 (3.5-5.0) g/dL Urine Color Urine Appearance (Clear) Urine pH (5.0-8.0) Ur Specific Dexter (1.001-1.035) Urine Protein (Negative) Urine Glucose (UA) (Negative) Urine Ketones (Negative) Urine Blood (Negative) Urine Nitrite (Negative) Urine Bilirubin (Negative) Urine Urobilinogen (<2.0) mg/dL Ur Leukocyte Esterase (Negative) Urine RBC (0-5) /hpf Urine WBC (0-5) /hpf Ur Squamous Epith Cells (0-4) /hpf Hyaline Casts (0-2) /lpf Urine Mucus (None) /hpf 07/21/17 07/21/17 Range/Units 17:50 19:30 WBC (3.8-10.6) k/uL RBC (3.80-5.40) m/uL Hgb (11.4-16.0) gm/dL Hct (34.0-46.0) % MCV (80.0-100.0) fL MCH (25.0-35.0) pg MCHC (31.0-37.0) g/dL RDW (11.5-15.5) % Plt Count (150-450) k/uL Neutrophils % % Lymphocytes % % Monocytes % % Eosinophils % % Basophils % % Neutrophils # (1.3-7.7) k/uL Lymphocytes # (1.0-4.8) k/uL Monocytes # (0-1.0) k/uL Eosinophils # (0-0.7) k/uL Basophils # (0-0.2) k/uL PT 10.4 (9.0-12.0) sec INR 1.1 (<1.2) APTT 21.3 L (22.0-30.0) sec Sodium (137-145) mmol/L Potassium (3.5-5.1) mmol/L Chloride (98-107) mmol/L Carbon Dioxide (22-30) mmol/L Anion Gap mmol/L BUN (7-17) mg/dL Creatinine (0.52-1.04) mg/dL Est GFR (CKD-EPI)AfAm (>60 ml/min/1.73 sqM) Est GFR (CKD-EPI)NonAf (>60 ml/min/1.73 sqM) Glucose (74-99) mg/dL Calcium (8.4-10.2) mg/dL Total Bilirubin (0.2-1.3) mg/dL AST (14-36) U/L ALT (9-52) U/L Alkaline Phosphatase (38-126) U/L Total Creatine Kinase (30-135) U/L CK-MB (CK-2) (0.0-2.4) ng/mL CK-MB (CK-2) Rel Index Troponin I (0.000-0.034) ng/mL Total Protein (6.3-8.2) g/dL Albumin (3.5-5.0) g/dL Urine Color Light Yellow Urine Appearance Clear (Clear) Urine pH 6.0 (5.0-8.0) Ur Specific Dexter 1.009 (1.001-1.035) Urine Protein Negative (Negative) Urine Glucose (UA) Negative (Negative) Urine Ketones Negative (Negative) Urine Blood Small H (Negative) Urine Nitrite Negative (Negative) Urine Bilirubin Negative (Negative) Urine Urobilinogen <2.0 (<2.0) mg/dL Ur Leukocyte Esterase Negative (Negative) Urine RBC 8 H (0-5) /hpf Urine WBC 1 (0-5) /hpf Ur Squamous Epith Cells <1 (0-4) /hpf Hyaline Casts 29 H (0-2) /lpf Urine Mucus Rare H (None) /hpf Disposition Clinical Impression: Generalized weakness, Hypokalemia Disposition: HOME SELF-CARE Condition: Good Instructions: Hypokalemia (ED) Prescriptions: Potassium Chloride Oral Liquid 20 meq PO DAILY #10 ml Referrals: Daren Marinelli MD [Primary Care Provider] - 1-2 days
[2017-07-21 20:35] VITALS: BP 107/62; PULSE 71; TEMP 97.1
== END 2017-07-21 20:44 | disposition home or self-care (01) ==
LOC: EC 15:48
DX: E87.6 Hypokalemia (principal); R53.1 Weakness; K21.9 Gastro-esophageal reflux disease without esophagitis; E78.5 Hyperlipidemia, unspecified; I10 Essential (primary) hypertension; I25.2 Old myocardial infarction; Z87.891 Personal history of nicotine dependence; Z79.82 Long term (current) use of aspirin; Z79.899 Other long term (current) drug therapy; Z88.0 Allergy status to penicillin; Z91.041 Radiographic dye allergy status; Z91.011 Allergy to milk products; Z88.2 Allergy status to sulfonamides; Z88.5 Allergy status to narcotic agent; Z88.8 Allergy status to other drugs, medicaments and biological substances; Z91.018 Allergy to other foods
CPT/HCPCS: 36415; 70450; 71046; 72050; 80053; 81001; 82550; 82553; 82607; 82746; 84484; 85025; 85610; 85730; 93005; 96360; 96361; 99284

== ENCOUNTER 2017-09-03 15:00 | Emergency (ER) | payer MEDICARE, OTHER ==
[2017-09-03 15:11] VITALS: BP 135/75; PULSE 73; RESP 18; TEMP 97.2
--- NOTE | 2017-09-03 15:25 | ED ---
General Adult HPI - General Chief complaint: Wound/Laceration Stated complaint: ripped ear lobe Time Seen by Provider: 09/03/17 15:09 Source: patient, RN notes reviewed Mode of arrival: ambulatory Limitations: no limitations - History of Present Illness Initial comments: 77-year-old female presents to the emergency department for a chief complaint of right earlobe tear. Patient states the tear began quite sometime ago but is not sure of an exact time. Today patient noticed her earring fell out. She states the very bottom of the ear lobe must have torn through earlier today. Patient states she contacted her doctor who told her to go to the emergency department. Patient has no other complaints at this time including shortness of breath, chest pain, abdominal pain, nausea or vomiting, headache, or visual changes. - Related Data Home Medications Medication Instructions Recorded Confirmed Dicyclomine [Bentyl] 20 mg PO BID 06/26/15 07/21/17 Aspirin EC [Ecotrin Low Dose] 81 mg PO DAILY 07/21/17 07/21/17 Bumetanide [Bumex] 1 mg PO DAILY 07/21/17 07/21/17 Ibuprofen [Motrin] 800 mg PO TID PRN 07/21/17 07/21/17 Losartan [Cozaar] 50 mg PO DAILY 07/21/17 07/21/17 Metoprolol Tartrate [Lopressor] 12.5 mg PO DAILY 07/21/17 07/21/17 Pantoprazole [Protonix] 40 mg PO DAILY 07/21/17 07/21/17 Pravastatin Sodium [Pravachol] 20 mg PO HS 07/21/17 07/21/17 Previous Rx's Medication Instructions Recorded Famotidine [Pepcid] 20 mg PO DAILY #30 tablet 08/16/15 Potassium Chloride Oral Liquid 20 meq PO DAILY #10 ml 07/21/17 Allergies Allergy/AdvReac Type Severity Reaction Status Date / Time codeine Allergy Unknown Dyspnea Verified 09/03/17 15:27 Penicillins Allergy Unknown Rash/Hives Verified 09/03/17 15:27 Sulfa (Sulfonamide Allergy Unknown Rash/Hives Verified 09/03/17 15:27 Antibiotics) hydrocodone Allergy Rash/Hives Verified 09/03/17 15:27 prednisone Allergy Dyspnea Verified 09/03/17 15:27 hydromorphone HCl AdvReac Severe Hallucinati Verified 09/03/17 15:27 [From Dilaudid] ons chocolate flavor AdvReac Cough Verified 09/03/17 15:27 Iodinated Contrast- Oral and AdvReac Nausea & Verified 09/03/17 15:27 IV Dye Vomiting [Iodinated Contrast Media - Oral and] milk AdvReac Cough Verified 09/03/17 15:27 Review of Systems ROS Statement: Those systems with pertinent positive or pertinent negative responses have been documented in the HPI. ROS Other: All systems not noted in ROS Statement are negative. Past Medical History Past Medical History: CVA/TIA, Deep Vein Thrombosis (DVT), GERD/Reflux, Hyperlipidemia, Hypertension, Myocardial Infarction ([place]), Osteoarthritis ([place]) Additional Past Medical History / Comment(s): 06-15-15 admitted with confusion, disorientation,paranoid behavior decreased appetite not eating or drinking, clincial impression: acute psychosis,dehydration,mental status change, hypomagnesemia . 06/08/15 admitted with clinical impression of TIA, spasm cervical paraspinal muscle. Other HX: 01/07/15 TIA, 01/08/15 [place], 2014 DVT to left arm, generalized arthiritis, R index finger injury 3 yrs ago-wears immoblizer. Last Myocardial Infarction Date:: 01/08/15 History of Any Multi-Drug Resistant Organisms: C-DIFF Date of last positivie culture/infection: 09/30/14 MDRO Source:: stool Past Surgical History: Breast Surgery, Section, Cholecystectomy, Heart Catheterization With Stent, Hernia Repair Additional Past Surgical History / Comment(s): 01/09/15 PTCA with stent to obtuse marginal branch of circ and stent to mid LAD, bilateral augmentation, 3 C -Sections, ventral hernia repair, bilateral cataract removal with lens implants , picc line in and out for ABX tx for C-Diff. Past Anesthesia/Blood Transfusion Reactions: No Reported Reaction, Family History of Problems w/ Anesthesia Additional Past Anesthesia/Blood Transfusion Reaction / Comment(s): Pt has never recieved blood. Date of Last Stent Placement:: 01/09/15 Past Psychological History: Anxiety Smoking Status: Former smoker Past Alcohol Use History: None Reported Past Drug Use History: None Reported - Past Family History Mother Additional Family Medical History / Comment(s): Mother had a brain aneurysm. She after brain surgery at age 88 yrs. Father Family Medical History: CVA/TIA, Diabetes Mellitus, Hypertension Additional Family Medical History / Comment(s): Father of a CVA. General Exam Limitations: no limitations General appearance: alert, in no apparent distress Head exam: Present: atraumatic, normocephalic, normal inspection ENT exam: Absent: normal external ear exam (There is a 1 cm tear through the right earlobe. Margins of the wound are already completely healed. There is no open skin whatsoever. No signs of infection.) Respiratory exam: Present: normal lung sounds bilaterally. Absent: respiratory distress, wheezes, rales, rhonchi, stridor Cardiovascular Exam: Present: regular rate, normal rhythm, normal heart sounds. Absent: systolic murmur, diastolic murmur, rubs, gallop, clicks Course Vital Signs 09/03/17 15:06 Temperature 97.2 F L Pulse Rate 73 Respiratory 18 Rate Blood Pressure 135/75 O2 Sat by Pulse 96 Oximetry Medical Decision Making - Medical Decision Making 77-year-old female presents to the emergency department for a chief complaint of healed earlobe tear on the right side. Patient states this began quite some time ago although she is unsure of how long, at least months. However, today the very distal aspect of the earlobe tore in her earring fell out. Patient has no other complaints. On exam there is a tear from the mid right earlobe down through the distal aspect. All margins of the tear are completely healed. There is no break in the skin whatsoever. No signs of infection. Patient was educated that we cannot suture this as it is already healed because it will not come together. Patient will have to follow-up with ENT. Steri-Strips were applied to keep the 2 flaps of the earlobe together for comfort. She is to return to the emergency room if she has any worsening symptoms. Disposition Clinical Impression: Healing laceration Disposition: HOME SELF-CARE Condition: Good Instructions: Laceration (ED) Additional Instructions: Please follow-up with ENT at your earliest convenience. Please return to the emergency department if you have any worsening symptoms or signs of infection. Otherwise follow-up with primary care in 1-2 days. Is patient prescribed a controlled substance at d/c from ED?: No Referrals: Daren Marinelli MD [Primary Care Provider] - 1-2 days Rod Schrader MD [STAFF PHYSICIAN] - 1-2 days Time of Disposition: 15:23
== END 2017-09-03 15:50 | disposition home or self-care (01) ==
LOC: EC 15:00
DX: S01.311A Laceration without foreign body of right ear, initial encounter (principal); E78.5 Hyperlipidemia, unspecified; I10 Essential (primary) hypertension; I25.2 Old myocardial infarction; K21.9 Gastro-esophageal reflux disease without esophagitis; Z86.73 Personal history of transient ischemic attack (TIA), and cerebral infarction without residual deficits; F41.9 Anxiety disorder, unspecified; Z87.891 Personal history of nicotine dependence; Z79.82 Long term (current) use of aspirin; Z79.899 Other long term (current) drug therapy; Z88.5 Allergy status to narcotic agent; Z88.0 Allergy status to penicillin; Z88.2 Allergy status to sulfonamides; Z88.8 Allergy status to other drugs, medicaments and biological substances; Z91.011 Allergy to milk products; Z91.041 Radiographic dye allergy status; Z91.018 Allergy to other foods; Z95.5 Presence of coronary angioplasty implant and graft
CPT/HCPCS: 99282

== ENCOUNTER 2017-10-25 09:41 | Emergency (ER) | payer MEDICARE, OTHER ==
[2017-10-25 10:00] VITALS: RESP 18
[2017-10-25] MEDS ORDERED: SODIUM CHLORIDE 0.9% 1,000 ML IV STA (10:18)
[2017-10-25] MEDS ORDERED: ONDANSETRON 4 MG/2 ML VIAL IVP STA ×2 (10:18→12:53)
--- NOTE | 2017-10-25 10:29 | ED ---
General Adult HPI - General Chief complaint: Abdominal Pain Stated complaint: Vomiting, SIde Pain Time Seen by Provider: 10/25/17 10:11 Source: patient Mode of arrival: wheelchair Limitations: no limitations - History of Present Illness Initial comments: Patient 77-year-old female presented to the emergency room today with multiple complaints. Patient does admit that she was feeling constipation she took a laxative. She states that she was on the toilet this morning. She is not sure what happened but she ended up on the ground. She states most of fall off to the left side. She states that she does have some pain to the left lower ribs. Patient admits that she is been feeling nauseated for the last few days appetites been somewhat decreased. She does not that she was able have a loose bowel movement this morning no signs of blood. Denies any other complaints or symptoms currently. Says she talked her family doctor advised come to the emergency room for possible dehydration. Patient denies any recent fever, chills, shortness of breath, chest pain, back pain, numbness or tingling, dysuria or hematuria, constipation or diarrhea, headaches or visual changes, or any other complaints. - Related Data Home Medications Medication Instructions Recorded Confirmed Dicyclomine [Bentyl] 20 mg PO BID 06/26/15 10/25/17 Aspirin EC [Ecotrin Low Dose] 81 mg PO DAILY 07/21/17 10/25/17 Bumetanide [Bumex] 1 mg PO DAILY 07/21/17 10/25/17 Ibuprofen [Motrin] 800 mg PO TID PRN 07/21/17 10/25/17 Losartan [Cozaar] 50 mg PO DAILY 07/21/17 10/25/17 Metoprolol Tartrate [Lopressor] 12.5 mg PO DAILY 07/21/17 10/25/17 Pantoprazole [Protonix] 40 mg PO DAILY 07/21/17 10/25/17 Docusate [Colace] 100 mg PO DAILY 10/25/17 10/25/17 Previous Rx's Medication Instructions Recorded Famotidine [Pepcid] 20 mg PO DAILY #30 tablet 08/16/15 Potassium Chloride [K-Tab ER] 10 meq PO DAILY #6 tablet.er 10/25/17 Allergies Allergy/AdvReac Type Severity Reaction Status Date / Time codeine Allergy Unknown Dyspnea Verified 10/25/17 10:44 Penicillins Allergy Unknown Rash/Hives Verified 10/25/17 10:44 Sulfa (Sulfonamide Allergy Unknown Rash/Hives Verified 10/25/17 10:44 Antibiotics) hydrocodone Allergy Rash/Hives Verified 10/25/17 10:44 prednisone Allergy Dyspnea Verified 10/25/17 10:44 hydromorphone HCl AdvReac Severe Hallucinati Verified 10/25/17 10:44 [From Dilaudid] ons chocolate flavor AdvReac Cough Verified 10/25/17 10:44 Iodinated Contrast- Oral and AdvReac Nausea & Verified 10/25/17 10:44 IV Dye Vomiting [Iodinated Contrast Media - Oral and] milk AdvReac Cough Verified 10/25/17 10:44 Review of Systems ROS Statement: Those systems with pertinent positive or pertinent negative responses have been documented in the HPI. ROS Other: All systems not noted in ROS Statement are negative. Past Medical History Past Medical History: CVA/TIA, Deep Vein Thrombosis (DVT), GERD/Reflux, Hyperlipidemia, Hypertension, Myocardial Infarction (LA), Osteoarthritis (OA) Additional Past Medical History / Comment(s): 06-15-15 admitted with confusion, disorientation,paranoid behavior decreased appetite not eating or drinking, clincial impression: acute psychosis,dehydration,mental status change, hypomagnesemia . 06/08/15 admitted with clinical impression of TIA, spasm cervical paraspinal muscle. Other HX: 01/07/15 TIA, 01/08/15 [place], 2014 DVT to left arm, generalized arthiritis, R index finger injury 3 yrs ago-wears immoblizer. Last Myocardial Infarction Date:: 01/08/15 History of Any Multi-Drug Resistant Organisms: C-DIFF Date of last positivie culture/infection: 09/30/14 MDRO Source:: stool Past Surgical History: Breast Surgery, Section, Cholecystectomy, Heart Catheterization With Stent, Hernia Repair Additional Past Surgical History / Comment(s): 01/09/15 PTCA with stent to obtuse marginal branch of circ and stent to mid LAD, bilateral augmentation, 3 C -Sections, ventral hernia repair, bilateral cataract removal with lens implants , picc line in and out for ABX tx for C-Diff. Past Anesthesia/Blood Transfusion Reactions: No Reported Reaction, Family History of Problems w/ Anesthesia Additional Past Anesthesia/Blood Transfusion Reaction / Comment(s): Pt has never recieved blood. Date of Last Stent Placement:: 01/09/15 Past Psychological History: Anxiety Smoking Status: Former smoker Past Alcohol Use History: None Reported Past Drug Use History: None Reported - Past Family History Mother Additional Family Medical History / Comment(s): Mother had a brain aneurysm. She after brain surgery at age 88 yrs. Father Family Medical History: CVA/TIA, Diabetes Mellitus, Hypertension Additional Family Medical History / Comment(s): Father of a CVA. General Exam - General Exam Comments Initial Comments: General: The patient is awake and alert, in no distress, and does not appear acutely ill. Eye: Pupils are equal, round and reactive to light, extra-ocular movements are intact. No nystagmus. There is normal conjunctiva bilaterally. No signs of icterus. Ears, nose, mouth and throat: There are moist mucous membranes and no oral lesions. Neck: The neck is supple, there is no tenderness or JVD. Cardiovascular: There is a regular rate and rhythm. No murmur, rub or gallop is appreciated. Respiratory: Lungs are clear to auscultation, respirations are non-labored, breath sounds are equal. No wheezes, stridor, rales, or rhonchi. Gastrointestinal: Mild discomfort in the epigastric and upper quadrants. No rebound, guarding or CVA tenderness. Musculoskeletal: Normal ROM, no tenderness. Strength 5/5. Sensation intact. Pulses equal bilaterally 2+. Tender palpation over the left lateral lower ribs. No Step-off or deformity. Neurological: A&O x 3. CN II-XII intact, There are no obvious motor or sensory deficits. Coordination appears grossly intact. Speech is normal. Skin: Skin is warm and dry and no rashes or lesions are noted. Psychiatric: Cooperative, appropriate mood & affect, normal judgment. Limitations: no limitations Course Vital Signs 10/25/17 10/25/17 09:54 11:27 Temperature 98.3 F Pulse Rate 60 66 Respiratory 18 18 Rate Blood Pressure 122/83 129/69 O2 Sat by Pulse 95 99 Oximetry Medical Decision Making - Medical Decision Making Patient's labs been reviewed does show potassium 2.8. Patient does admit that she was told in the past that her potassium was low. Patient states that she was taking potassium supplement for a while but stopped taking it on her own because the pills were too large. Patient states she believes she has a few left over at home. Patient remaining labs been reviewed. Her x-rays are negative for any acute new abnormality. Results were discussed with patient. Patient is doing well at this time feeling better will be discharged home after receiving oral and IV potassium. Advised follow-up with family doctor have a repeat potassium test performed and will be given a prescription for potassium to go home with. - Lab Data Result diagrams: 10/25/17 10:45 10/25/17 10:45 Lab Results 10/25/17 10/25/17 10/25/17 Range/Units 10:45 10:45 10:45 WBC 11.2 H (3.8-10.6) k/uL RBC 5.02 (3.80-5.40) m/uL Hgb 14.6 (11.4-16.0) gm/dL Hct 43.8 (34.0-46.0) % MCV 87.2 (80.0-100.0) fL MCH 29.0 (25.0-35.0) pg MCHC 33.3 (31.0-37.0) g/dL RDW 14.0 (11.5-15.5) % Plt Count 269 (150-450) k/uL Neutrophils % 86 % Lymphocytes % 8 % Monocytes % 5 % Eosinophils % 0 % Basophils % 0 % Neutrophils # 9.6 H (1.3-7.7) k/uL Lymphocytes # 0.9 L (1.0-4.8) k/uL Monocytes # 0.5 (0-1.0) k/uL Eosinophils # 0.0 (0-0.7) k/uL Basophils # 0.0 (0-0.2) k/uL Sodium 140 (137-145) mmol/L Potassium 2.8 L* (3.5-5.1) mmol/L Chloride 101 (98-107) mmol/L Carbon Dioxide 23 (22-30) mmol/L Anion Gap 16 mmol/L BUN 41 H (7-17) mg/dL Creatinine 1.29 H (0.52-1.04) mg/dL Est GFR (CKD-EPI)AfAm 46 (>60 ml/min/1.73 sqM) Est GFR (CKD-EPI)NonAf 40 (>60 ml/min/1.73 sqM) Glucose 143 H (74-99) mg/dL Calcium 9.6 (8.4-10.2) mg/dL Total Bilirubin 0.6 (0.2-1.3) mg/dL AST 32 (14-36) U/L ALT 30 (9-52) U/L Alkaline Phosphatase 161 H (38-126) U/L Total Protein 7.4 (6.3-8.2) g/dL Albumin 4.6 (3.5-5.0) g/dL Amylase 82 (30-110) U/L Lipase 94 (23-300) U/L Urine Color Yellow Urine Appearance Clear (Clear) Urine pH 6.0 (5.0-8.0) Ur Specific [place] 1.005 (1.001-1.035) Urine Protein Negative (Negative) Urine Glucose (UA) Negative (Negative) Urine Ketones Negative (Negative) Urine Blood Small (Negative) Urine Nitrite Negative (Negative) Urine Bilirubin Negative (Negative) Urine Urobilinogen <2.0 (<2.0) mg/dL Ur Leukocyte Esterase Moderate (Negative) Urine RBC 2 (0-5) /hpf Urine WBC 3 (0-5) /hpf Ur Squamous Epith Cells 1 (0-4) /hpf Urine Bacteria Rare H (None) /hpf Disposition Clinical Impression: Hypokalemia Disposition: HOME SELF-CARE Condition: Good Instructions: Hypokalemia (ED), Rib Contusion (ED) Additional Instructions: Please use medication as discussed. Please have repeat potassium level performed Please follow-up with family doctor in the next 2 days. Please return to emergency room if the symptoms increase or worsen or for any other concerns. Prescriptions: Potassium Chloride [K-Tab ER] 10 meq PO DAILY #6 tablet.er Is patient prescribed a controlled substance at d/c from ED?: No Referrals: Daren Marinelli MD [Primary Care Provider] - 1-2 days Time of Disposition: 12:13
[2017-10-25 11:07] LABS: Albumin 4.6 g/dL (3.5-5.0); Total Protein 7.4 g/dL (6.3-8.2)
[2017-10-25 11:08] LABS: Calcium 9.6 mg/dL (8.4-10.2); Total Bilirubin 0.6 mg/dL (0.2-1.3)
[2017-10-25 11:10] LABS: Potassium 2.8 mmol/L (3.5-5.1)
[2017-10-25 11:11] LABS: Basophils % (A) 0 %; Eosinophils % (A) 0 %; HCT 43.8 % (34.0-46.0); HGB 14.6 gm/dL (11.4-16.0); Lymphocytes # (A) 0.9 k/uL (1.0-4.8); Lymphocytes % (A) 8 %; MCHC 33.3 g/dL (31.0-37.0); MCV 87.2 fL (80.0-100.0); Mean Platelet Volume 6.9; Monocytes # (A) 0.5 k/uL (0-1.0); Monocytes % (A) 5 %; Neutrophils # (A) 9.6 k/uL (1.3-7.7); Neutrophils % (A) 86 %; Platelet Count 269 k/uL (150-450); RBC 5.02 m/uL (3.80-5.40); WBC 11.2 k/uL (3.8-10.6)
--- NOTE | 2017-10-25 11:14 | XR ---
EXAMINATION TYPE: XR ribs LT w pa chest xray DATE OF EXAM: 10/25/2017 CLINICAL HISTORY: Left-sided chest and rib pain after fall injury. TECHNIQUE: Single frontal view of the chest is obtained. A frontal and oblique images of the left-nanci ed ribs are acquired. COMPARISON: Chest x-ray July 21, 2017 FINDINGS: There is chronic parenchymal change with lateral right apical scarring. There is no focal air space opacity, pleural effusion, or pneumothorax seen. The cardiac silhouette size is within nor mal limits. Overlying rim calcified breast implants are redemonstrated. The osseous structures remai n demineralized. Dedicated images of the left-sided ribs show no acute displaced fractures. Cholecystectomy clips are incidentally seen. IMPRESSION: 1. Chronic changes without acute pulmonary process. 2. No acute displaced left-sided rib fractures are evident.
--- NOTE | 2017-10-25 11:16 | XR ---
EXAMINATION TYPE: XR KUB DATE OF EXAM: 10/25/2017 11:09 AM CLINICAL HISTORY: Left-sided pain after fall injury. TECHNIQUE: Two Upright KUB images of the abdomen are obtained. COMPARISON: Abdominal x-ray August 12, 2015. FINDINGS: There is some paucity of bowel gas. Gas is seen in nondistended stomach as well as small an d large bowel loops throughout the abdomen and pelvis. Cholecystectomy clips are present. Prominence of right hepatic lobe is redemonstrated. There is underlying scoliosis with moderate multilevel spurr ing and disc space narrowing in the mid to lower lumbar spine. No pneumoperitoneum is present. IMPRESSION: Overall nonobstructive bowel gas pattern.
[2017-10-25] MEDS ORDERED: POTASSIUM CHLORIDE ER 20 MEQ TAB.ER PO STA (11:27)
[2017-10-25] MEDS ORDERED: POTASSIUM CHLORIDE 20 MEQ in WATER FOR INJECTION 1 100ML.BAG IVPB STA (11:27)
[2017-10-25 11:49] LABS: Appearance,Urine Clear (Clear); Color,Urine Yellow; Glucose,Urine (UA) Negative (Negative); Protein,Urine Negative (Negative); Specific Gravity,Urine 1.005 (1.001-1.035)
[2017-10-25 11:50] LABS: Bilirubin,Urine Negative (Negative); Blood,Urine Small (Negative); Ketones,Urine Negative (Negative); Leukocyte Esterase,Urine Moderate (Negative); Nitrite,Urine Negative (Negative); RBC,Urine 2 /hpf (0-5); Urobilinogen,Urine <2.0 mg/dL (<2.0); WBC,Urine 3 /hpf (0-5)
[2017-10-25 11:51] LABS: Bacteria,Urine Rare /hpf; Squamous Epithelial Cell,Urine 1 /hpf (0-4)
[2017-10-25 15:20] VITALS: BP 126/60; PULSE 68; TEMP 97.8
== END 2017-10-25 15:20 | disposition home or self-care (01) ==
LOC: EC 09:41
DX: E87.6 Hypokalemia (principal); R07.81 Pleurodynia; K21.9 Gastro-esophageal reflux disease without esophagitis; I10 Essential (primary) hypertension; I25.2 Old myocardial infarction; F41.9 Anxiety disorder, unspecified; Z90.49 Acquired absence of other specified parts of digestive tract; Z98.61 Coronary angioplasty status; Z86.73 Personal history of transient ischemic attack (TIA), and cerebral infarction without residual deficits; Z87.891 Personal history of nicotine dependence; Z79.82 Long term (current) use of aspirin; Z79.899 Other long term (current) drug therapy; Z88.5 Allergy status to narcotic agent; Z88.0 Allergy status to penicillin; Z88.2 Allergy status to sulfonamides; Z88.8 Allergy status to other drugs, medicaments and biological substances; Z91.018 Allergy to other foods; Z91.041 Radiographic dye allergy status; Z91.011 Allergy to milk products; Z53.20 Procedure and treatment not carried out because of patient's decision for unspecified reasons; W18.12XA Fall from or off toilet with subsequent striking against object, initial encounter
CPT/HCPCS: 36415; 80053; 82150; 83690; 85025; 81001; 71101; 74018; 99284; 96365; 96366 ×2; 96375; 96361; J3480; J2405

== ENCOUNTER → 2018-03-26 | Outpatient (CLI) | payer MEDICARE, OTHER ==
--- NOTE | 2018-03-26 13:09 | US ---
EXAMINATION TYPE: US abdomen complete DATE OF EXAM: 03/26/2018 COMPARISON: US 08/01/17, CT 08/10/13 CLINICAL HISTORY: R10.9 Unspecified abdominal pain. Right sided abdominal pain radiating to back. EXAM MEASUREMENTS: Liver Length: 15.2 cm Gallbladder Wall: Surgically absent cm CBD: 0.6 cm Spleen: 8.3 cm Right Kidney: 9.8 x 5.3 x 4.0 cm Left Kidney: 10.0 x 5.0 x 4.4 cm Pancreas: Tail obscured by overlying bowel gas Liver: wnl Gallbladder: Surgically absent Evidence for sonographic Cai's sign: No CBD: wnl Spleen: wnl Right Kidney: No hydronephrosis or masses seen Left Kidney: cyst medially = 0.9 x 1.0 x 0.7 cm Upper IVC: wnl Abd Aorta: wnl The visualized liver is slightly heterogeneous. The intrahepatic portion of the IVC and proximal abd ominal aorta are within normal limits. Gallbladder is surgically absent. Common bile duct is unremar kable. The visualized portions of the pancreas are homogenous. Distal body and tail are obscured by overlying bowel gas on images saved. The spleen is unremarkable. Kidneys are symmetric and free of h ydronephrosis. No renal lesions are seen on images saved. IMPRESSION: No suspicious findings seen on ultrasound to account for patient's symptoms. Right-sided ventral wall hernia noted on comparison CT may cause symptoms of right-sided pain.
== END | disposition home or self-care (01) ==
LOC: RADUSWWP 10:50
PROVIDERS: ATTEND Family Medicine
DX: K43.9 Ventral hernia without obstruction or gangrene (principal)
CPT/HCPCS: 76700

== ENCOUNTER 2018-07-11 08:13 | Inpatient (IN) | payer MEDICARE, OTHER ==
--- NOTE | 2018-07-11 08:42 | ED ---
General Adult HPI - General Chief complaint: Weakness Stated complaint: weakness, facial numbness Time Seen by Provider: 07/11/18 08:24 Source: patient Mode of arrival: ambulatory Limitations: no limitations - History of Present Illness Initial comments: Dictation was produced using [employer] dictation software. please excuse any grammatical, word or spelling errors. Chief Complaint: 78-year-old female past medical history of hypertension, CVA, GERD, dyslipidemia, hypertension presents with generalized weakness. History of Present Illness: 78-year-old female with multiple comorbidities. She presents today for generalized weakness over the last 3 days. Patient was recently started on Lasix and metolazone. Ever since that she feels like her symptoms have been acutely worsening. Patient has no focal deficits. She does report feeling slightly tingly and her skin especially in the bilateral lower extremities. Denies any shortness of breath. Patient states that she is weak to a point where she is having difficulty walking and needs support. No nausea vomiting or diarrhea. Patient does report having Cheryl urinations. She was prescribed a potassium supplementation however hasn't been taking it as prescri bed. The ROS documented in this emergency department record has been reviewed and confirmed by me. Those systems with pertinent positive or negative responses have been documented in the HPI. All other systems are other negative and/or noncontributory. PHYSICAL EXAM: General Impression: Alert and oriented x3, not in acute distress HEENT: Normocephalic atraumatic, extra-ocular movements intact, pupils equal and reactive to light bilaterally, mucous membranes moist. Cardiovascular: Heart regular rate and rhythm, S1&S2 audible, no murmurs, rubs or gallops Chest: Lungs clear to auscultation bilaterally, no rhonchi, no wheeze, no rales Abdomen: Bowel sounds present, abdomen soft, non-tender, non-distended, no organomegaly Musculoskeletal: Pulses present and equal in all extremities, no peripheral edema Motor: no focal deficits noted, generalized weakness with 4-5 strength to the lower extremity functions Neurological: CN II-XII grossly intact, no focal motor or sensory deficits noted Skin: Intact with no visualized rashes Psych: Normal affect and mood ED course: 78yo Female multiple comorbidities presents with generalized weakness. Vital signs upon arrival are within acceptable limits.EKG shows severely prolonged QT with a QT interval measurement of 595. Laboratory evaluation obtained. CBC is unremarkable. Patient does have a potassium of 2.8 with a mild anion gap acidosis likely secondary to dehydration. Patient given intravenous fluids and potassium replacement. Given degree of hypokalemia with EKG changes we will plan to have patient admitted to cardiac telemetry for cardiac monitoring and inpatient management of symptoms. EKG interpretation: Ventricular rate 82, sinus rhythm with sinus arrhythmia, AR interval 182, QRS 86, QTC 595. EKG consistent with prolonged QT - Related Data Home Medications Medication Instructions Recorded Confirmed Aspirin EC [Ecotrin Low Dose] 81 mg PO DAILY 07/21/17 07/11/18 Ibuprofen [Motrin] 800 mg PO TID PRN 07/21/17 07/11/18 Metoprolol Tartrate [Lopressor] 12.5 mg PO HS 07/21/17 07/11/18 Pantoprazole [Protonix] 40 mg PO DAILY 07/21/17 07/11/18 Dicyclomine [Bentyl] 20 mg PO BID 07/11/18 07/11/18 Furosemide [Lasix] 40 mg PO BID 07/11/18 07/11/18 Hydrocodone/Acetaminophen [[place] 1 tab PO Q12H 07/11/18 07/11/18 10-325] Metolazone [Zaroxolyn] 2.5 mg PO DAILY 07/11/18 07/11/18 Potassium Chloride [Klor-Con 20] 20 meq PO DAILY 07/11/18 07/11/18 Pravastatin Sodium [Pravachol] 20 mg PO HS 07/11/18 07/11/18 Previous Rx's Medication Instructions Recorded Famotidine [Pepcid] 20 mg PO DAILY #30 tablet 08/16/15 Allergies Allergy/AdvReac Type Severity Reaction Status Date / Time codeine Allergy Unknown Dyspnea Verified 07/11/18 08:53 Penicillins Allergy Unknown Rash/Hives Verified 07/11/18 08:53 Sulfa (Sulfonamide Allergy Unknown Rash/Hives Verified 07/11/18 08:53 Antibiotics) hydrocodone Allergy Rash/Hives Verified 07/11/18 08:53 prednisone Allergy Dyspnea Verified 07/11/18 08:53 hydromorphone HCl AdvReac Severe Hallucinati Verified 07/11/18 08:53 [From Dilaudid] ons chocolate flavor AdvReac Cough Verified 07/11/18 08:53 Iodinated Contrast- Oral and AdvReac Nausea & Verified 07/11/18 08:53 IV Dye Vomiting [Iodinated Contrast Media - Oral and] milk AdvReac Cough Verified 07/11/18 08:53 Review of Systems ROS Statement: Those systems with pertinent positive or pertinent negative responses have been documented in the HPI. ROS Other: All systems not noted in ROS Statement are negative. Past Medical History Past Medical History: CVA/TIA, Deep Vein Thrombosis (DVT), GERD/Reflux, Hyperlipidemia, Hypertension, Myocardial Infarction (CT), Osteoarthritis (OA) Additional Past Medical History / Comment(s): 06-15-15 admitted with confusion,disorientation,paranoid behavior decreased appetite not eating or drinking,clincial impression: acute psychosis,dehydration,mental status change,hypomagnesemia . 06/08/15 admitted with clinical impression of TIA, spasm cervical paraspinal muscle. Other HX: 01/07/15 TIA, 01/08/15 CT, 2013 DVT to left arm, generalized arthiritis, R index finger injury 3 yrs ago-wears immoblizer. Last Myocardial Infarction Date:: 01/08/15 History of Any Multi-Drug Resistant Organisms: C-DIFF Date of last positivie culture/infection: 09/30/14 MDRO Source:: stool Past Surgical History: Breast Surgery, Section, Cholecystectomy, Heart Catheterization With Stent, Hernia Repair Additional Past Surgical History / Comment(s): 01/09/15 PTCA with stent to obtuse marginal branch of circ and stent to mid LAD, bilateral augmentation, 3 C-Sections, ventral hernia repair, bilateral cataract removal with lens implan ts, picc line in and out for ABX tx for C-Diff. Past Anesthesia/Blood Transfusion Reactions: No Reported Reaction, Family History of Problems w/ Anesthesia Additional Past Anesthesia/Blood Transfusion Reaction / Comment(s): Pt has never recieved blood. Date of Last Stent Placement:: 01/09/15 Past Psychological History: Anxiety Smoking Status: Former smoker Past Alcohol Use History: None Reported Past Drug Use History: None Reported - Past Family History Mother Additional Family Medical History / Comment(s): Mother had a brain aneurysm. She after brain surgery at age 88 yrs. Father Family Medical History: CVA/TIA, Diabetes Mellitus, Hypertension Additional Family Medical History / Comment(s): Father of a CVA. General Exam Limitations: no limitations Course Vital Signs 07/11/18 07/11/18 07/11/18 08:15 08:58 10:36 Temperature 97.6 F Pulse Rate 91 83 63 Respiratory 20 18 18 Rate Blood Pressure 106/64 116/93 122/78 O2 Sat by Pulse 96 96 98 Oximetry Medical Decision Making - Lab Data Result diagrams: 07/11/18 08:40 07/11/18 08:47 Lab Results 07/11/18 07/11/18 Range/Units 08:40 08:47 WBC 10.4 (3.8-10.6) k/uL RBC 5.69 H (3.80-5.40) m/uL Hgb 16.1 H (11.4-16.0) gm/dL Hct 49.1 H (34.0-46.0) % MCV 86.2 (80.0-100.0) fL MCH 28.3 (25.0-35.0) pg MCHC 32.8 (31.0-37.0) g/dL RDW 13.8 (11.5-15.5) % Plt Count 343 (150-450) k/uL Neutrophils % 73 % Lymphocytes % 18 % Monocytes % 6 % Eosinophils % 1 % Basophils % 1 % Neutrophils # 7.6 (1.3-7.7) k/uL Lymphocytes # 1.8 (1.0-4.8) k/uL Monocytes # 0.6 (0-1.0) k/uL Eosinophils # 0.1 (0-0.7) k/uL Basophils # 0.1 (0-0.2) k/uL Sodium 136 L (137-145) mmol/L Potassium 2.8 L (3.5-5.1) mmol/L Chloride 89 L (98-107) mmol/L Carbon Dioxide 26 (22-30) mmol/L Anion Gap 21 mmol/L BUN 51 H (7-17) mg/dL Creatinine 1.69 H (0.52-1.04) mg/dL Est GFR (CKD-EPI)AfAm 33 (>60 ml/min/1.73 sqM) Est GFR (CKD-EPI)NonAf 28 (>60 ml/min/1.73 sqM) Glucose 171 H (74-99) mg/dL Calcium 10.2 (8.4-10.2) mg/dL Ionized Calcium Yong 4.1 L (4.5-5.3) mg/dL Magnesium 1.9 (1.6-2.3) mg/dL Disposition Clinical Impression: QT prolongation, Dehydration, Hypokalemia Disposition: ADMITTED IP TO THIS HOSP Condition: Fair Referrals: Daren Marinelli MD [Primary Care Provider] - 1-2 days Decision Time: 10:49
[2018-07-11 09:00] LABS: Basophils # (A) 0.1 k/uL (0-0.2); Basophils % (A) 1 %; Eosinophils # (A) 0.1 k/uL (0-0.7); Eosinophils % (A) 1 %; HCT 49.1 % (34.0-46.0); HGB 16.1 gm/dL (11.4-16.0); Lymphocytes # (A) 1.8 k/uL (1.0-4.8); Lymphocytes % (A) 18 %; MCH 28.3 pg (25.0-35.0); MCHC 32.8 g/dL (31.0-37.0); MCV 86.2 fL (80.0-100.0); Mean Platelet Volume 7.2; Monocytes # (A) 0.6 k/uL (0-1.0); Monocytes % (A) 6 %; Neutrophils # (A) 7.6 k/uL (1.3-7.7); Neutrophils % (A) 73 %; Platelet Count 343 k/uL (150-450); RBC 5.69 m/uL (3.80-5.40); RDW 13.8 % (11.5-15.5); WBC 10.4 k/uL (3.8-10.6)
[2018-07-11 09:13] LABS: Calcium 10.2 mg/dL (8.4-10.2)
--- NOTE | 2018-07-11 09:14 | XR ---
EXAMINATION TYPE: XR chest 1V portable DATE OF EXAM: 07/11/2018 HISTORY: Shortness of breath. COMPARISON: 10/25/2017 TECHNIQUE: Single view of the chest is submitted. FINDINGS: Demonstrated are scattered senescent parenchymal change. There is no evidence for focal infiltrate. The heart is stable. Hilar and mediastinal structures are within normal limits. Degenerative changes are seen of the dorsal spine. Calcified breast implants noted. IMPRESSION: 1. Chronic changes without evidence for acute pulmonary disease.
[2018-07-11] MEDS ORDERED: SODIUM CHLORIDE 0.9% 500 ML IV STA (09:27)
[2018-07-11 10:10] LABS: Ionized Calcium 4.1 mg/dL (4.5-5.3)
[2018-07-11 10:18] LABS: Magnesium 1.9 mg/dL (1.6-2.3); Potassium 2.8 mmol/L (3.5-5.1)
[2018-07-11] MEDS ORDERED: MAGNESIUM OXIDE 400 MG TAB PO STA (10:25)
[2018-07-11] MEDS ORDERED: NALOXONE 0.4 MG/ML 1 ML VIAL IV PRN (10:46)
[2018-07-11] MEDS ORDERED: POTASSIUM BICARBONATE/CIT AC 20 MEQ TABLET.EFF PO ONE (10:47)
[2018-07-11] MEDS: POTASSIUM CHLORIDE 20 MEQ in WATER FOR INJECTION 1 100ML.BAG IVPB SCH ×2 (10:58→15:55)
[2018-07-11] MEDS: SODIUM CHLORIDE 0.9% 1,000 ML IV SCH ×2 (11:03→20:54)
[2018-07-11 12:03] VITALS: BMI 25.7
[2018-07-11] MEDS ORDERED: IBUPROFEN 800 MG TAB PO PRN (13:29)
[2018-07-11] MEDS ORDERED: MAGNESIUM SULFATE-D5W PMX 1 GM in DEXTROSE/WATER 1 100ML.BAG IVPB ONE (14:00)
[2018-07-11] MEDS: HYDROcodone/APAP 10-325MG 1 EACH TAB PO SCH (14:45)
[2018-07-11] MEDS: FUROSEMIDE 40 MG TAB PO SCH (15:50)
--- NOTE | 2018-07-11 16:14 | P.HPIM ---
History of Present Illness H&P Date: 07/11/18 Chief Complaint: Muscle cramps. Since physical 78-year-old white female with known history of hypertension who was noncompliant taking her potassium with Lasix and came in with significant muscle cramping and difficulty ambulating. 7 happening for the last several days. She usually is fairly compliant with medication. The patient was evaluated in the emergency room found have hypomagnesemia and hypokalemia which is symptomatic. EKG does show increased QT interval. She states significant lower extremity and "allover body," cramping. The patient is a former smoker with history of element of COPD. Otherwise, remote history of Clostridium difficile. She is tolerating diet without significant diarrhea started. Review of Systems Constitutional: Reports as per HPI Eyes: denies blurred vision, denies pain Ears, nose, mouth and throat: Denies headache, Denies sore throat Cardiovascular: Denies chest pain, Denies shortness of breath Respiratory: Denies cough Gastrointestinal: Denies abdominal pain, Denies diarrhea, Denies nausea, Denies vomiting Genitourinary: Denies dysuria, Denies hematuria Musculoskeletal: Reports muscle cramps, Reports myalgias Integumentary: Denies pruritus, Denies rash Neurological: Denies numbness, Denies weakness Psychiatric: Denies anxiety, Denies depression Endocrine: Reports fatigue, Denies weight change Past Medical History Past Medical History: Chest Pain / Angina, CVA/TIA, Deep Vein Thrombosis (DVT), GERD/Reflux, Hyperlipidemia, Hypertension, Osteoarthritis (OA) Additional Past Medical History / Comment(s): Pt states she never had TIA/CVA-t hey were ruled out however 2016 medical record documents TIA, DVT L arm, arthritis multiple joints, cervical muscle spasms, R index finger injury and uses splint prn, constipation. Last Myocardial Infarction Date:: 01/08/15 History of Any Multi-Drug Resistant Organisms: C-DIFF Date of last positivie culture/infection: 2013 MDRO Source:: stool Past Surgical History: Breast Surgery, Section, Cholecystectomy, Heart Catheterization With Stent, Hernia Repair Additional Past Surgical History / Comment(s): 01/09/15 PTCA with stent to obtuse marginal branch of circ and stent to mid LAD, bilateral augmentation, 3 C-Sections, ventral hernia repair, bilateral cataract removal with lens implants, picc line in and out for ABX tx for C-Diff. Past Anesthesia/Blood Transfusion Reactions: No Reported Reaction, Motion Sickn ess Additional Past Anesthesia/Blood Transfusion Reaction / Comment(s): Pt has never recieved blood. Date of Last Stent Placement:: 01/09/15 Smoking Status: Former smoker - Past Family History Mother Additional Family Medical History / Comment(s): Mother had a brain aneurysm. She after brain surgery at age 88 yrs. Father Family Medical History: CVA/TIA, Diabetes Mellitus, Hypertension Additional Family Medical History / Comment(s): Father of a CVA. Medications and Allergies Home Medications Medication Instructions Recorded Confirmed Type Famotidine [Pepcid] 20 mg PO DAILY #30 tablet 08/16/15 07/11/18 Rx Aspirin EC [Ecotrin Low Dose] 81 mg PO DAILY 07/21/17 07/11/18 History Ibuprofen [Motrin] 800 mg PO TID PRN 07/21/17 07/11/18 History Metoprolol Tartrate [Lopressor] 12.5 mg PO HS 07/21/17 07/11/18 History Pantoprazole [Protonix] 40 mg PO DAILY 07/21/17 07/11/18 History Dicyclomine [Bentyl] 20 mg PO BID 07/11/18 07/11/18 History Furosemide [Lasix] 40 mg PO BID 07/11/18 07/11/18 History Hydrocodone/Acetaminophen [[place] 1 tab PO Q12H 07/11/18 07/11/18 History 10-325] Metolazone [Zaroxolyn] 2.5 mg PO DAILY 07/11/18 07/11/18 History Potassium Chloride [Klor-Con 20] 20 meq PO DAILY 07/11/18 07/11/18 History Pravastatin Sodium [Pravachol] 20 mg PO HS 07/11/18 07/11/18 History Allergies Allergy/AdvReac Type Severity Reaction Status Date / Time codeine Allergy Unknown Dyspnea Verified 07/11/18 08:53 Penicillins Allergy Unknown Rash/Hives Verified 07/11/18 08:53 Sulfa (Sulfonamide Allergy Unknown Rash/Hives Verified 07/11/18 08:53 Antibiotics) prednisone Allergy Dyspnea Verified 07/11/18 08:53 hydromorphone HCl AdvReac Severe Hallucinati Verified 07/11/18 08:53 [From Dilaudid] ons chocolate flavor AdvReac Cough Verified 07/11/18 08:53 Iodinated Contrast- Oral and AdvReac Nausea & Verified 07/11/18 08:53 IV Dye Vomiting [Iodinated Contrast Media - Oral and] milk AdvReac Cough Verified 07/11/18 08:53 Physical Exam Vitals: Vital Signs Temp Pulse Pulse Resp BP BP Pulse Ox 07/11/18 12:00 98.5 F 83 20 155/89 98 07/11/18 11:31 64 18 119/98 98 07/11/18 10:36 63 18 122/78 98 07/11/18 08:58 83 18 116/93 96 07/11/18 08:15 97.6 F 91 20 106/64 96 Intake and Output 07/11/18 07/11/18 07/11/18 06:59 14:59 22:59 Other: # Voids 1 Weight 68.039 kg - Constitutional General appearance: obese - EENT Eyes: no abnormal pupil - Neck Neck: no lymphadenopathy - Respiratory Respiratory: bilateral: CTA - Cardiovascular Rhythm: regular Heart sounds: normal: S1, S2 Abnormal Heart Sounds: no S3 Gallop - Gastrointestinal General gastrointestinal: soft, no tenderness - Integumentary Integumentary: no cellulitis, no cyanotic, no jaundiced, no rash - Musculoskeletal Musculoskeletal: generalized weakness - Psychiatric Psychiatric: A&O x's 3, appropriate affect Results CBC & Chem 7: 07/11/18 08:40 07/11/18 08:47 Labs: Abnormal Lab Results - Last 24 Hours (Table) 07/11/18 07/11/18 Range/Units 08:40 08:47 RBC 5.69 H (3.80-5.40) m/uL Hgb 16.1 H (11.4-16.0) gm/dL Hct 49.1 H (34.0-46.0) % Sodium 136 L (137-145) mmol/L Potassium 2.8 L (3.5-5.1) mmol/L Chloride 89 L (98-107) mmol/L BUN 51 H (7-17) mg/dL Creatinine 1.69 H (0.52-1.04) mg/dL Glucose 171 H (74-99) mg/dL Ionized Calcium Yong 4.1 L (4.5-5.3) mg/dL Thrombosis Risk Factor Assmnt - Choose All That Apply Any of the Below Risk Factors Present?: Yes Other Risk Factors: Yes Each Risk Factor Represents 3 Points: Age 75 years or older, History of DVT/PE Other congenital or acquired thrombophilia - If yes, enter type in comment: No Thrombosis Risk Factor Assessment Total Risk Factor Score: 6 Thrombosis Risk Factor Assessment Level: High Risk Assessment and Plan (1) Dehydration Current Visit: Yes Status: Acute Code(s): E86.0 - DEHYDRATION SNOMED Code(s): 20241524 (2) QT prolongation Current Visit: Yes Status: Acute Code(s): R94.31 - ABNORMAL ELECTROCARDIOGRAM [ECG] [EKG] SNOMED Code(s): 647108843 (3) Essential (primary) hypertension Current Visit: No Status: Acute Code(s): I10 - ESSENTIAL (PRIMARY) HYPERTENSION SNOMED Code(s): 23408345 (4) Hypomagnesemia Current Visit: No Status: Acute Code(s): E83.42 - HYPOMAGNESEMIA SNOMED Code(s): 122886502 (5) Weakness Current Visit: No Status: Acute Code(s): R53.1 - WEAKNESS SNOMED Code(s): 28341880 (6) Hypokalemia Current Visit: Yes Status: Acute Code(s): E87.6 - HYPOKALEMIA SNOMED Code(s): 78778240 Plan: Placed on appropriate electrode protocols for replacement. Check CMP and magnesium in a.m. Appreciate consultants input. Consult medications. Otherwise, she is a full code at this time. Time with Patient: Greater than 30
[2018-07-11 18:58] LABS: Calcium 9.2 mg/dL (8.4-10.2); Magnesium 2.4 mg/dL (1.6-2.3); Potassium 3.1 mmol/L (3.5-5.1)
[2018-07-11] MEDS: PRAVASTATIN SODIUM 20 MG TAB PO SCH (20:52)
[2018-07-11] MEDS: METOPROLOL TARTRATE 12.5 MG TAB PO SCH (20:52)
[2018-07-11] MEDS: DICYCLOMINE 20 MG TAB PO SCH (20:52)
[2018-07-11] MEDS ORDERED: Potassium Replacement Protocol 1 EACH MISC MISCELLANE PRN (21:57)
[2018-07-11] MEDS: POTASSIUM CHLORIDE ER 20 MEQ TAB.ER PO SCH ×2 (22:18→23:13)
[2018-07-11] MEDS: MELATONIN 3 MG TABLET PO SCH (23:14)
[2018-07-12] MEDS: POTASSIUM CHLORIDE ER 20 MEQ TAB.ER PO SCH ×6 (00:46→22:46)
[2018-07-12] MEDS: HYDROcodone/APAP 10-325MG 1 EACH TAB PO SCH ×2 (00:46→13:37)
[2018-07-12] MEDS: SODIUM CHLORIDE 0.9% 1,000 ML IV SCH ×2 (05:18→15:44)
[2018-07-12 06:15] LABS: Appearance,Urine Clear (Clear); Bacteria,Urine Rare /hpf; Bilirubin,Urine Negative (Negative); Blood,Urine Small (Negative); Color,Urine Light Yellow; Glucose,Urine (UA) Negative (Negative); Ketones,Urine Negative (Negative); Leukocyte Esterase,Urine Trace (Negative); Nitrite,Urine Negative (Negative); PH, Urine 7.5 (5.0-8.0); Protein,Urine Negative (Negative); RBC,Urine 9 /hpf (0-5); Specific Gravity,Urine 1.012 (1.001-1.035); Squamous Epithelial Cell,Urine 1 /hpf (0-4); Urobilinogen,Urine <2.0 mg/dL (<2.0)
[2018-07-12] MEDS: PANTOPRAZOLE 40 MG TABLET PO SCH (06:25)
[2018-07-12 07:13] LABS: Calcium 8.9 mg/dL (8.4-10.2); Magnesium 2.4 mg/dL (1.6-2.3); Potassium 2.8 mmol/L (3.5-5.1)
[2018-07-12] MEDS: METOLAZONE 2.5 MG TAB PO SCH (08:13)
[2018-07-12] MEDS: ASPIRIN 81 MG PO SCH (08:13)
[2018-07-12] MEDS: DICYCLOMINE 20 MG TAB PO SCH ×2 (08:13→21:40)
[2018-07-12] MEDS: FAMOTIDINE 20 MG TAB PO SCH (08:13)
[2018-07-12] MEDS: FUROSEMIDE 40 MG TAB PO SCH ×2 (08:14→17:22)
[2018-07-12] MEDS: METOPROLOL TARTRATE 12.5 MG TAB PO SCH (21:40)
[2018-07-12] MEDS: PRAVASTATIN SODIUM 20 MG TAB PO SCH (21:40)
[2018-07-12] MEDS: MELATONIN 3 MG TABLET PO SCH (21:44)
[2018-07-12] MEDS ORDERED: TEMAZEPAM 15 MG CAP PO STA (22:12)
[2018-07-13] MEDS: HYDROcodone/APAP 10-325MG 1 EACH TAB PO SCH ×2 (02:12→11:19)
[2018-07-13] MEDS: SODIUM CHLORIDE 0.9% 1,000 ML IV SCH ×3 (02:15→20:47)
[2018-07-13] MEDS: PANTOPRAZOLE 40 MG TABLET PO SCH (06:36)
[2018-07-13 08:13] LABS: Magnesium 2.2 mg/dL (1.6-2.3); Potassium 3.4 mmol/L (3.5-5.1)
[2018-07-13] MEDS: ASPIRIN 81 MG PO SCH (09:27)
[2018-07-13] MEDS: DICYCLOMINE 20 MG TAB PO SCH ×2 (09:27→20:46)
[2018-07-13] MEDS: FAMOTIDINE 20 MG TAB PO SCH (09:27)
[2018-07-13] MEDS: METOLAZONE 2.5 MG TAB PO SCH (09:27)
[2018-07-13] MEDS: FUROSEMIDE 40 MG TAB PO SCH ×2 (09:27→16:27)
[2018-07-13] MEDS ORDERED: MORPHINE SULFATE 4 MG/ML SYRINGE IVP PRN (17:34)
[2018-07-13] MEDS ORDERED: POTASSIUM CHLORIDE ER 20 MEQ TAB.ER PO STA (17:36)
--- NOTE | 2018-07-13 17:47 | P.PN ---
Subjective conservation worker hospitalist covering for over the weekend, this is the first day i am taking care of the pt This is a pleasant 6 years old female with past medical history of GERD, hyperlipidemia, hypertension, deep venous thrombosis, CVA/TIA, angina. Presents because of pain in her lower extremity for about one week that affects her working. She feels pain in her thighs and legs and when she stands up on the top of her feet as well. She feels like a crampy. She says that her, help her for about one hour. On admission her potassium was 2.8 and she was admitted for low potassium thoughts might causing crampy leg pain. Potassium was replaced and today is 3.4, however patient still complaining from left pain. When examined the nora ent and her strength in both legs looks 5/5 in both for extension and flexion. She does not think is also her legs are weak but she thinks that the pain is affecting her when she walks. Patient couldn't stand up by herself and she worked back and forth however her gait was different than her normal because of her pain. She denies urinary incontinence. She's been constipated for 2 days, she she is ready uses stool softeners which were prescribed here. she denies chest pain or dyspnea. No other complaints. Patient states that she has chronic back pain for many lifetime and she had MRI of the lower back about 1 year ago. She follows up with Dr. Elam for pain management for her to [facility] to get open MRI as she cannot stand the regular MRI for she is claustrophobic. Objective - Vital Signs Vital signs: Vital Signs Temp 98.2 F 07/13/18 04:00 Pulse 63 07/13/18 16:00 Resp 16 07/13/18 16:00 BP 135/83 07/13/18 16:00 Pulse Ox 97 07/13/18 16:00 Intake & Output 07/12/18 07/13/18 07/13/18 18:59 06:59 18:59 Intake Total 720 400 Balance 720 400 Weight 74.2 kg Intake: Oral 720 400 Other: Voiding Method Toilet Toilet # Voids 3 1 2 - Exam GENERAL: The patient is alert and oriented x3, not in any acute distress. Well developed, well nourished. HEENT: Pupils are round and equally reacting to light. EOMI. No scleral icterus. No conjunctival pallor. Normocephalic, atraumatic. No pharyngeal erythema. No thyromegaly. CARDIOVASCULAR: S1 and S2 present. No murmurs, rubs, or gallops. PULMONARY: Chest is clear to auscultation, no wheezing or crackles. ABDOMEN: Soft, nontender, nondistended, normoactive bowel sounds. No palpable organomegaly. MUSCULOSKELETAL: No joint swelling or deformity. EXTREMITIES: No cyanosis, clubbing, or pedal edema. -NEUROLOGICAL: Gross neurological examination did not reveal any focal deficits. her lower extremities are nontender, strength is 5/5 in both lower extremities for with extension and flexion. No back tenderness. Patient couldn't walk with some difficulty due to pain in her legs. SKIN: No rashes. - Labs CBC & Chem 7: 07/11/18 08:40 07/13/18 06:47 Labs: Abnormal Lab Results - Last 24 Hours (Table) 07/13/18 Range/Units 06:47 Potassium 3.4 L (3.5-5.1) mmol/L Assessment and Plan Assessment: bilateral lower extremity pain hypokalemia Difficulty walking secondary to above acute kidney injury, present on admission. Trace CURRENTLY Hypokalemia history of GERD Hyperlipidemia Hypertension Plan: this is a pleasant 6 years old female who presents because of bilateral lower extremity pain with difficulty walking.I offered for the patient to transfer her to another hospital where neurologist can evaluate her as there is no neurologist in this hospital. She understands that however she does not want to be transferred to another facility's. Also I offered to do MRI of the lower back also she refused as she cannot tolerate it. Even if medication is prescribed for her. As an alternative she agrees to do a CAT scan of the lumbar spine. also patient told me she does not want surgery if is indicated for her because of her age. Also we will do Doppler of the lower extremity to rule out DVT. If her pain management with IV morphine to which she agrees to it. also we'll hold metolazone Labs and medication were reviewed.. Continue same treatment. Continue with symptomatic treatment. Resume home medication. Monitor lytes and vitals. DVT and GI prophylaxis. Further recommendations of the clinical course of the patient DVT prophylaxis: Subcutaneous heparin GI Prophylaxis: Pepcid PT/OT: Pending Prognosis is guarded
[2018-07-13] MEDS: DOCUSATE 100 MG CAP PO SCH (18:17)
--- NOTE | 2018-07-13 18:22 | CT ---
EXAMINATION TYPE: CT lumbar spine wo con DATE OF EXAM: 07/13/2018 6:11 PM COMPARISON: MRI of the lumbar spine dated 08/27/2015 HISTORY: Back pain and bilateral leg pain, no injury CT DLP: 826.4 mGycm Automated exposure control for dose reduction was used. TECHNIQUE: Unenhanced CT of the lumbar spine was performed. Bone and soft tissue window settings are submitted as well as coronal and sagittal reconstructions. FINDINGS: There is a levoscoliosis of the thoracolumbar junction with slight dextroconvexity of the l ower lumbar spine. Advanced multilevel degenerative disc disease is seen of the lumbar spine with mul tilevel anterior osteophytes, intervertebral disc space narrowing, vacuum disc disease, endplate scle rosis, Schmorl's nodes, and extensive facet arthropathy. There is grade 1 anterolisthesis of L4 on L5 likely secondary to extensive hypertrophic facet changes. There is very minimal retrolisthesis of L2 on L3 with posterior osteophytes throughout the lumbar spine. No vertebral body height loss. Moderate retained colonic stool burden, cholelithiasis, and moderate atherosclerosis of the abdominal aorta and its branches are seen in the limited visualized portions of the abdomen. Bibasilar atelect asis is seen as well as cardiomegaly and the visualized limited portions of the thorax. Spinal canal is limited in evaluation on CT. There is mild generalized osseous demineralization present L1-L2: There is a posterior projecting osteophyte, broad-based disc bulge, and facet arthropathy resu lting in mild left and moderate right neural foraminal narrowing and mild spinal canal stenosis. L2-L3: There are extensive hypertrophic facet changes, small posterior projecting osteophyte, and at least broad-based disc bulge with ligamentum flavum buckling creating severe spinal canal stenosis, m oderate right neural foraminal narrowing and severe left neural foraminal narrowing. L3-L4: There is ligamentum flavum buckling, facet arthropathy, and a broad-based disc bulge creating moderate spinal canal stenosis, severe left neural foraminal narrowing and moderate right neural fora babs narrowing. L4-L5: There is disc uncovering and a probable left lateral disc herniation in combination with ligam entum flavum buckling and facet arthropathy appearing to create severe impingement of the left exitin g L4 nerve root and moderate right neural foraminal narrowing with moderate spinal canal stenosis. L5-S1: There is a probable central disc herniation superimposed upon a broad-based disc bulge with po sterior projecting osteophyte and facet arthropathy creating moderate bilateral neural foraminal narr owing and mild spinal canal stenosis. IMPRESSION: 1. Advanced multilevel degenerative disc disease, generalized osseous demineralization, multilevel ma lalignment that is likely degenerative basis, and scoliosis of the lumbar spine resulting in variable degrees of neural foraminal narrowing and spinal canal stenosis throughout the lumbar spine as descr ibed above. 2. Probable central disc herniation at L5-S1 and probable left lateral disc herniation at L4-L5 resul ting in impingement of the exiting left L4 nerve root. These findings could be further evaluated with MRI. 3. No evidence of vertebral body height loss nor acute fracture of the lumbar spine.
--- NOTE | 2018-07-13 18:59 | US ---
EXAMINATION TYPE: US venous doppler duplex LE DATE OF EXAM: 07/13/2018 6:45 PM COMPARISON: NONE CLINICAL HISTORY: Rule out DVT. Pain bilateral legs SIDE PERFORMED: bilateral TECHNIQUE: The lower extremity deep venous system is examined utilizing real time linear array sonog renae with graded compression, doppler sonography and color-flow sonography. VESSELS IMAGED: External Iliac Vein (EIV) Common Femoral Vein Deep Femoral Vein Greater Saphenous Vein * Femoral Vein Popliteal Vein Small Saphenous Vein * Proximal Calf Veins (* superficial vessels) Grayscale, color doppler, spectral doppler imaging performed of the deep veins of the lower extremiti es. There is normal flow, compressibility, vascular waveforms as seen. Right Leg: No evidence of DVT Left Leg: No evidence of DVT as visualized, patient unable to tolerate compression at lower femoral vein IMPRESSION: No sonographic evidence of deep venous thrombosis within the bilateral lower extremities however the patient was unable to tolerate compression of the lower femoral vein on the left slightl y limiting evaluation at this location.
[2018-07-13] MEDS: PRAVASTATIN SODIUM 20 MG TAB PO SCH (20:46)
[2018-07-13] MEDS: SENNOSIDES 8.6 MG TAB PO SCH (20:46)
[2018-07-13] MEDS: METOPROLOL TARTRATE 12.5 MG TAB PO SCH (20:46)
[2018-07-13] MEDS: HEPARIN SODIUM,PORCINE 5,000 UNIT/ML 1 ML VIAL SQ SCH (20:46)
[2018-07-13] MEDS: MELATONIN 3 MG TABLET PO SCH (20:47)
[2018-07-13] MEDS ORDERED: DEXAMETHASONE SOD PHOSPHATE 10 MG/ML 1 ML VIAL IV STA (22:48)
[2018-07-14] MEDS: HYDROcodone/APAP 10-325MG 1 EACH TAB PO SCH ×2 (03:06→16:06)
[2018-07-14] MEDS: PANTOPRAZOLE 40 MG TABLET PO SCH (06:25)
[2018-07-14] MEDS: DEXAMETHASONE SOD PHOSPHATE 4 MG/ML 1 ML VIAL IV SCH ×4 (06:25→23:46)
[2018-07-14] MEDS: SENNOSIDES 8.6 MG TAB PO SCH (08:32)
[2018-07-14] MEDS: HEPARIN SODIUM,PORCINE 5,000 UNIT/ML 1 ML VIAL SQ SCH ×2 (08:32→21:04)
[2018-07-14] MEDS: ASPIRIN 81 MG PO SCH (08:33)
[2018-07-14] MEDS: FAMOTIDINE 20 MG TAB PO SCH (08:33)
[2018-07-14] MEDS: DOCUSATE 100 MG CAP PO SCH ×2 (08:33→21:03)
[2018-07-14] MEDS: FUROSEMIDE 40 MG TAB PO SCH ×2 (08:33→22:13)
[2018-07-14] MEDS: DICYCLOMINE 20 MG TAB PO SCH ×2 (08:33→21:03)
[2018-07-14 09:36] LABS: Potassium 3.1 mmol/L (3.5-5.1)
[2018-07-14] MEDS ORDERED: POTASSIUM CHLORIDE ER 20 MEQ TAB.ER PO STA (10:47)
[2018-07-14] MEDS: LIDOCAINE 5% PATCH TOPICAL SCH (11:52)
--- NOTE | 2018-07-14 17:52 | P.PN ---
Subjective loss prevention and safety manager hospitalist covering for over the weekend, This is a pleasant 6 years old female with past medical history of GERD, hyperlipidemia, hypertension, deep venous thrombosis, CVA/TIA, angina. Presents because of pain in her lower extremity for about one week that affects her working. She feels pain in her thighs and legs and when she stands up on the top of her feet as well. She feels like a crampy. She says that her, help her for about one hour. On admission her potassium was 2.8 and she was admitted for low potassium thoug hts might causing crampy leg pain. Potassium was replaced and today is 3.4, however patient still complaining from left pain. When examined the patient and her strength in both legs looks 5/5 in both for extension and flexion. She does not think is also her legs are weak but she thinks that the pain is affecting her when she walks. Patient couldn't stand up by herself and she worked back and forth however her gait was different than her normal because of her pain. She denies urinary incontinence. She's been constipated for 2 days, she she is ready uses stool softeners which were prescribed here. she denies chest pain or dyspnea. No other complaints. Patient states that she has chronic back pain for many lifetime and she had MRI of the lower back about 1 year ago. She follows up with Dr. Elam for pain management for her to [facility] to get open MRI as she cannot stand the regular MRI for she is claustrophobic. 07/14/2018 Patient today still complaining of from her leg pain although she admits some mild improvement in her pain and her walking however it looks abnormal from her baseline but patient can get up by herself and walk without the need for a walker or cane in and out of the room easily but it is more wide-based gait because of pain in her legs. Patient thinks she can manage like this. I have extensive discussion with the patient in the presents of the staff regarding the finding on her CAT scan which shows degenerative disease, spinal stenosis, nerve impingement, neural foraminal narrowing and disc herniation which might contribute to her pain. Patient states that the pain feel it on the whole buttock area on both sides and in both legs and feet. And she says it is a little bit more on the right side than the left side. However on my examination I did not feel weakness in her legs. Also patient denies urinary bowel incontinence or paresthesia in the perineal area. Patient also she does not want to increase her pain medication however she agrees to add lidocaine patches x2, also we added Flexeril. 10 to continue with Decadron which we thought that it might contributed to her improvement. Also we called to consult with orthopedic team. However patient refused to be transferred to another hospital for neurological or neurosurgical evaluation. And she says she is 78 and she does not take she'll need surgery, risks including but not limited to paralysis is explained to the patient and she verbalized understanding but she refused to be transferred, and she said she'll discuss with her sounds first. I gave her the chance if she changes her mind to them the staff know to page me and I will transfer her. CONSTITUTIONAL: No fever, no malaise, no fatigue. HEENT: No recent visual problems or hearing problems. Denied any sore throat. CARDIOVASCULAR: No orthopnea, PND, no palpitations, no syncope. PULMONARY: No shortness of breath, no cough, no hemoptysis. GASTROINTESTINAL: No diarrhea, no nausea, no vomiting, no abdominal pain. Normoactive bowel sounds. NEUROLOGICAL: No headaches, no weakness, HEMATOLOGICAL: Denies any bleeding or petechiae. GENITOURINARY: Denies any burning micturition, frequency, or urgency. MUSCULOSKELETAL/RHEUMATOLOGICAL: Denies any joint pain, swelling, or any muscle pain. ENDOCRINE: Denies any polyuria or polydipsia. Medication: Aspirin, Flexeril, Decadron, Bentyl, Colace, Pepcid, Lasix, heparin, [place], lidocaine patch, melatonin, Lopressor, Protonix, Pravachol, Senokot, norm al saline Objective - Vital Signs Vital signs: Vital Signs Temp 98.3 F 07/14/18 03:59 Pulse 83 07/14/18 16:00 Resp 16 07/14/18 16:00 BP 134/77 07/14/18 16:00 Pulse Ox 96 07/14/18 16:00 Intake & Output 07/13/18 07/14/18 07/14/18 18:59 06:59 18:59 Intake Total 880 236 240 Output Total 650 400 Balance 230 236 -160 Weight 73.5 kg Intake: Oral 880 236 240 Output: Urine 650 400 Other: Voiding Method Toilet Toilet Toilet # Voids 2 1 - Exam GENERAL: The patient is alert and oriented x3, not in any acute distress. Well developed, well nourished. HEENT: Pupils are round and equally reacting to light. EOMI. No scleral icterus. No conjunctival pallor. Normocephalic, atraumatic. No pharyngeal erythema. No thyromegaly. CARDIOVASCULAR: S1 and S2 present. No murmurs, rubs, or gallops. PULMONARY: Chest is clear to auscultation, no wheezing or crackles. ABDOMEN: Soft, nontender, nondistended, normoactive bowel sounds. No palpable organomegaly. MUSCULOSKELETAL: No joint swelling or deformity. EXTREMITIES: No cyanosis, clubbing, or pedal edema. -NEUROLOGICAL: Gross neurological examination did not reveal any focal deficits. her lower extremities are nontender, strength is 5/5 in both lower extremities for with extension and flexion. No back tenderness. Patient couldn't walk with some difficulty due to pain in her legs. SKIN: No rashes. - Labs CBC & Chem 7: 07/11/18 08:40 07/14/18 08:52 Labs: Abnormal Lab Results - Last 24 Hours (Table) 07/14/18 Range/Units 08:52 Potassium 3.1 L (3.5-5.1) mmol/L Assessment and Plan Assessment: bilateral lower extremity pain Gait difficulty secondary to above hypokalemia, replaced Difficulty walking secondary to above CAT scan which shows degenerative disease, spinal stenosis, nerve impingement, neural foraminal narrowing and disc herniation which might contribute to her pain. acute kidney injury, present on admission. Improved Hypokalemia history of GERD Hyperlipidemia Hypertension Plan: this is a pleasant 6 years old female who presents because of bilateral lower extremity pain with difficulty walking.I offered for the patient to transfer her to another hospital where neurologist can evaluate her as there is no neurologist in this hospital. She understands that however she does not want to be transferred to another facility's. Also I offered to do MRI of the lower back also she refused as she cannot tolerate it. also patient told me she does not want surgery if is indicated for her because of her age. Also we will do Doppler of the lower extremity was negative for DVT. pain management with IV morphine to which she agrees to it. also we'll hold metolazone Labs and medication were reviewed.. Continue same treatment. Continue with symptomatic treatment. Resume home medication. Monitor lytes and vitals. DVT and GI prophylaxis. Further recommendations of the clinical course of the patient DVT prophylaxis: Subcutaneous heparin GI Prophylaxis: Pepcid PT/OT: Pending Prognosis is guarded Dr. Marinelli will resume the care of the patient tomorrow
[2018-07-14] MEDS: METOPROLOL TARTRATE 12.5 MG TAB PO SCH (21:02)
[2018-07-14] MEDS: PRAVASTATIN SODIUM 20 MG TAB PO SCH (21:03)
[2018-07-14] MEDS: SODIUM CHLORIDE 0.9% 1,000 ML IV SCH (21:09)
[2018-07-14] MEDS: MELATONIN 3 MG TABLET PO SCH (21:12)
[2018-07-15] MEDS: HYDROcodone/APAP 10-325MG 1 EACH TAB PO SCH ×2 (02:04→12:41)
[2018-07-15] MEDS: DEXAMETHASONE SOD PHOSPHATE 4 MG/ML 1 ML VIAL IV SCH ×3 (05:17→17:09)
--- NOTE | 2018-07-15 08:04 | P.PN ---
Subjective Progress Note Date: 07/15/18 Principal diagnosis: Lower extremity pain with weakness. Difficulty ambulating. Hypokalemia The patient is still struggling with electrode imbalance. No overt chest pressure stated. She's been started on steroid treatment for presumed arthritic type pain. She states no numbness or tingling but has elements of lower extremity pain at times. However, she states she is ambulating at times better Objective - Vital Signs Vital signs: Vital Signs Temp 98.3 F 07/15/18 04:32 Pulse 63 07/15/18 04:32 Resp 18 07/15/18 04:32 BP 138/75 07/15/18 04:32 Pulse Ox 96 07/15/18 04:32 Intake & Output 07/14/18 07/15/18 07/15/18 18:59 06:59 18:59 Intake Total 240 Output Total 400 Balance -160 Weight 73.4 kg Intake: Oral 240 Output: Urine 400 Other: Voiding Method Toilet # Voids 3 - Constitutional General appearance: Present: obese - EENT Eyes: Absent: abnormal pupil - Neck Neck: Absent: lymphadenopathy - Respiratory Respiratory: bilateral: CTA - Cardiovascular Rhythm: regular Heart sounds: normal: S1, S2 Abnormal Heart Sounds: Absent: S3 Gallop - Gastrointestinal General gastrointestinal: Present: soft. Absent: tenderness - Integumentary Integumentary: Absent: normal turgor - Labs CBC & Chem 7: 07/11/18 08:40 07/14/18 08:52 Labs: Abnormal Lab Results - Last 24 Hours (Table) 07/14/18 Range/Units 08:52 Potassium 3.1 L (3.5-5.1) mmol/L Assessment and Plan (1) Dehydration Current Visit: Yes Status: Acute Code(s): E86.0 - DEHYDRATION SNOMED Code(s): 30611260 (2) QT prolongation Current Visit: Yes Status: Acute Code(s): R94.31 - ABNORMAL ELECTROCARDIOGRAM [ECG] [EKG] SNOMED Code(s): 197023228 (3) Essential (primary) hypertension Current Visit: No Status: Acute Code(s): I10 - ESSENTIAL (PRIMARY) HYPERTENSION SNOMED Code(s): 49093896 (4) Hypomagnesemia Current Visit: No Status: Acute Code(s): E83.42 - HYPOMAGNESEMIA SNOMED Code(s): 332641242 (5) Weakness Current Visit: No Status: Acute Code(s): R53.1 - WEAKNESS SNOMED Code(s): 75819183 (6) Hypokalemia Current Visit: Yes Status: Acute Code(s): E87.6 - HYPOKALEMIA SNOMED Code(s): 11368548 Plan: Continue potassium protocol. CMP in a.m. Await orthopedic consultation. Place on sliding scale. Time with Patient: Greater than 30
[2018-07-15] MEDS: FAMOTIDINE 20 MG TAB PO SCH (08:28)
[2018-07-15] MEDS: DICYCLOMINE 20 MG TAB PO SCH ×2 (08:28→20:28)
[2018-07-15] MEDS: CYCLOBENZAPRINE 5 MG TAB PO PRN (08:28)
[2018-07-15] MEDS: ASPIRIN 81 MG PO SCH (08:28)
[2018-07-15] MEDS: FUROSEMIDE 40 MG TAB PO SCH ×2 (08:29→15:52)
[2018-07-15] MEDS: DOCUSATE 100 MG CAP PO SCH ×2 (08:29→20:29)
[2018-07-15] MEDS: HEPARIN SODIUM,PORCINE 5,000 UNIT/ML 1 ML VIAL SQ SCH ×2 (08:29→20:30)
[2018-07-15] MEDS: PANTOPRAZOLE 40 MG TABLET PO SCH (08:37)
--- NOTE | 2018-07-15 08:44 | P.CNOR ---
History of Present Illness - [facility] Consult date: 07/15/18 Requesting physician: Raymon Gillis Consult reason: low back pain, other (Bilateral lower extremity radiculopathy; difficulty with ambulation) History of present illness: Patient is a very pleasant 78-year-old female who is seen and examined at bedside after consultation was placed in regards to her spine. Patient presented to the emergency department on 07/11/2018 due to difficulty with ambulation and muscle cramping. At that time she was found to have hypokalemia and hypomagnesemia along with increased QT interval. Since her admittance she has been being treated for electrolyte imbalance. She was started on steroid medication by medicine for presumed arthritic type pain. Patient states during her admittance her symptoms are some better but continued be present. She does have chronic low back pain. She states during standing and ambulation her lower extremities feel heavy. She has difficulty ambulating long distances. She feels during standing she does have pain that radiates down the entire bilateral lower extremities. She is able to move her legs independently without any significant difficulty. She has been able to ambulate to the restroom and is voiding without difficulty. Patient states she does have significant degenerative changes at her lumbar spine. A CT of the lumbar spine was performed during her admission to the hospital. Over the weekend that CT was reviewed by medicine who discussed the possibility of transferring the patient to a tertiary facility for surgical consultation regards to her lumbar spine. Patient states she does not wish to be transferred to a tertiary facility. She does not wish to undergo any sort of surgical intervention at her lumbar spine given her age. She states she has been previously seen in the outpatient setting and has undergone injections with Dr. Stark at [facility] with these injections being performed some period of time ago and she does not recall when they were performed. She also follows with Dr. Elam in the outpatient setting for pain control with medications. She does not wear a brace and states she does not want a brace prescribed for her. She would like to continue with conservative treatment measures. She would be willing to see pain management during her admission to the hospital. She states again at the bedside and she does not wish to have any surgical intervention at her lumbar spine as she knows it would be significant and given her age and independent living, she would like to avoid any invasive treatment. Pain has been contr olled during admission with pain medication as well as lidocaine patches. Patient asks for her lidocaine patches to be removed today during physical examination. Past Medical History Past Medical History: Chest Pain / Angina, CVA/TIA, Deep Vein Thrombosis (DVT), GERD/Reflux, Hyperlipidemia, Hypertension, Osteoarthritis (OA) Additional Past Medical History / Comment(s): Pt states she never had TIA/CVA- they were ruled out however 2016 medical record documents TIA, DVT L arm, arthritis multiple joints, cervical muscle spasms, R index finger injury and uses splint prn, constipation. Last Myocardial Infarction Date:: 01/08/15 History of Any Multi-Drug Resistant Organisms: C-DIFF Year Discovered:: 2013 MDRO Source:: stool Past Surgical History: Breast Surgery, Section, Cholecystectomy, Heart Catheterization With Stent, Hernia Repair Additional Past Surgical History / Comment(s): 01/09/15 PTCA with stent to obtuse marginal branch of circ and stent to mid LAD, bilateral augmentation, 3 C-Sections, ventral hernia repair, bilateral cataract removal with lens implants, picc line in and out for ABX tx for C-Diff. Past Anesthesia/Blood Transfusion Reactions: No Reported Reaction, Motion Sickness Additional Past Anesthesia/Blood Transfusion Reaction / Comm: Pt has never recieved blood. Date of Last Stent Placement:: 01/09/15 Smoking Status: Former smoker - Past Family History Mother Additional Family Medical History / Comment(s): Mother had a brain aneurysm. She after brain surgery at age 88 yrs. Father Family Medical History: CVA/TIA, Diabetes Mellitus, Hypertension Additional Family Medical History / Comment(s): Father of a CVA. Medications and Allergies Home Medications Medication Instructions Recorded Confirmed Type Famotidine [Pepcid] 20 mg PO DAILY #30 tablet 08/16/15 07/11/18 Rx Aspirin EC [Ecotrin Low Dose] 81 mg PO DAILY 07/21/17 07/11/18 History Ibuprofen [Motrin] 800 mg PO TID PRN 07/21/17 07/11/18 History Metoprolol Tartrate [Lopressor] 12.5 mg PO HS 07/21/17 07/11/18 History Pantoprazole [Protonix] 40 mg PO DAILY 07/21/17 07/11/18 History Dicyclomine [Bentyl] 20 mg PO BID 07/11/18 07/11/18 History Furosemide [Lasix] 40 mg PO BID 07/11/18 07/11/18 History Hydrocodone/Acetaminophen [Raymond 1 tab PO Q12H 07/11/18 07/11/18 History 10-325] Metolazone [Zaroxolyn] 2.5 mg PO DAILY 07/11/18 07/11/18 History Potassium Chloride [Klor-Con 20] 20 meq PO DAILY 07/11/18 07/11/18 History Pravastatin Sodium [Pravachol] 20 mg PO HS 07/11/18 07/11/18 History Allergies Allergy/AdvReac Type Severity Reaction Status Date / Time codeine Allergy Unknown Dyspnea Verified 07/11/18 08:53 Penicillins Allergy Unknown Rash/Hives Verified 07/11/18 08:53 Sulfa (Sulfonamide Allergy Unknown Rash/Hives Verified 07/11/18 08:53 Antibiotics) prednisone Allergy Dyspnea Verified 07/11/18 08:53 hydromorphone HCl AdvReac Severe Hallucinati Verified 07/11/18 08:53 [From Dilaudid] ons chocolate flavor AdvReac Cough Verified 07/11/18 08:53 Iodinated Contrast- Oral and AdvReac Nausea & Verified 07/11/18 08:53 IV Dye Vomiting [Iodinated Contrast Media - Oral and] Physical Examination Physical exam: Patient is awake, alert, and oriented 3 Vital signs stable Good chest excursion with deep inspiration and expiration Examination of lumbar spine reveals skin is intact with no abrasions, lacerations, or bruises; no erythema, purulence or signs of infection Evidence of 2 lidocaine patches over the midline of the lumbar spine; patches are removed during physical examination No pain with palpation along the midline of the lumbosacral spine Dorsiflexion, plantarflexion, and extensor hallucis longus positive sustained bilaterally Lower extremity strength 5/5 bilaterally Patient is able to move legs independently and change positions in bed without significant difficulty No lower extremity hyperreflexia bilaterally Straight leg test negative bilateral lower extremities Negative Lasegue's test bilaterally No signs or symptoms of DVT; no calf pain No pain with internal and external rotation of the hips bilaterally Neurovascularly intact Results Pertinent studies: CT of the lumbar spine performed on 07/13/2018: Significant degenerative changes throughout the lumbar spine; degenerative scoliosis; L1-2 asymmetric degenerative disc disease, posterior osteophytic spurring, broad-based disc bulge, and facet arthropathy resulted in mild spinal canal stenosis and mild left and moderate neural foraminal narrowing; L2-3 extensive hypertrophic facet change and lateral spondylolisthesis resulting in severe spinal canal stenosis and moderate right severe left neural foraminal narrowing; L3-4 broad-based disc bulge and facet hypertrophy resulting in moderate spinal canal stenosis and severe left and moderate right neural foraminal narrowing; L4-5 asymmetric degenerative disc disease, spondylolisthesis, lateral listhesis, and facet hypertrophy with probable disc herniation with impingement of the exiting L4 nerve root and moderate central canal stenosis; L5-S1 retrolisthesis, facet hypertrophy and probable disc herniation resulting in mild central canal stenosis and moderate bilateral neural foraminal narrowing; significant degenerative disc disease throughout the lumbar spine; no evidence of vertebral body compression fracture multiple anterior osteophytic spurring and lateral osteophytic spurring; generalized osseous demineralization - Labs Labs: Abnormal Lab Results - Last 24 Hours (Table) 07/14/18 Range/Units 08:52 Potassium 3.1 L (3.5-5.1) mmol/L H & H 07/11/18 Range/Units 08:40 Hgb 16.1 H (11.4-16.0) gm/dL Hct 49.1 H (34.0-46.0) % Result Diagrams: 07/11/18 08:40 07/14/18 08:52 Assessment and Plan Assessment: Assessment: Chronic low back pain Bilateral lower extremity radiculopathy without specific pattern Neurogenic claudication resulting from lumbar spinal canal stenosis Difficulty with prolonged ambulation Lumbar degenerative scoliosis L4-5 spondylolisthesis L5-S1 retrolisthesis Significant degenerative changes at the lumbar spine including facet arthropathy and degenerative disc disease Osteopenia Acute electrolyte imbalance with hypokalemia and hypomagnesemia and resultant Q- T prolongation History of hypertension (1) Neurogenic claudication due to lumbar spinal stenosis Current Visit: Yes Status: Acute Code(s): M48.062 - SPINAL STENOSIS, LUMBAR REGION WITH NEUROGENIC CLAUDICATION SNOMED Code(s): 470927217 (2) Spondylolisthesis, lumbar region Current Visit: Yes Status: Acute Code(s): M43.16 - SPONDYLOLISTHESIS, LUMBAR REGION SNOMED Code(s): 806268843011169 (3) Spondylolisthesis, lumbosacral region Current Visit: Yes Status: Acute Code(s): M43.17 - SPONDYLOLISTHESIS, LUMBOSACRAL REGION SNOMED Code(s): 554603383 (4) Lumbar degenerative disc disease Current Visit: Yes Status: Acute Code(s): M51.36 - OTHER INTERVERTEBRAL DISC DEGENERATION, LUMBAR REGION SNOMED Code(s): 12786047 (5) Lumbar facet arthropathy Current Visit: Yes Status: Acute Code(s): M47.816 - SPONDYLOSIS W/O MYELOPATHY OR RADICULOPATHY, LUMBAR REGION SNOMED Code(s): 543535601 (6) Chronic low back pain Current Visit: Yes Status: Acute Code(s): M54.5 - LOW BACK PAIN; G89.29 - OTHER CHRONIC PAIN SNOMED Code(s): 078140178 (7) Radiculopathy with lower extremity symptoms Current Visit: Yes Status: Acute Code(s): M54.10 - RADICULOPATHY, SITE UNSPECIFIED SNOMED Code(s): 06595073 (8) Degenerative scoliosis Current Visit: Yes Status: Acute Code(s): M41.9 - SCOLIOSIS, UNSPECIFIED SNOMED Code(s): 324580683 (9) Hypokalemia Current Visit: Yes Status: Acute Code(s): E87.6 - HYPOKALEMIA SNOMED Code(s): 07135672 (10) QT prolongation Current Visit: Yes Status: Acute Code(s): R94.31 - ABNORMAL ELECTROCARDIOGRAM [ECG] [EKG] SNOMED Code(s): 858169161 (11) Hypomagnesemia Current Visit: No Status: Acute Code(s): E83.42 - HYPOMAGNESEMIA SNOMED Code(s): 002567687 Plan: Plan: 1. After physical examination of the patient, further discussion with the patient, and reviewing of imaging, we will currently planning to continue with conservative treatment at her lumbar spine. She does have significant and extensive degenerative changes at her lumbar spine resulting in multilevel lumbar spinal canal stenosis. She does have difficulty with standing and prolonged ambulation and feels her legs are heavy. She has generalized pain radiating down the entire bilateral lower extremities which is exacerbating with standing. She does have full active range of motion bilateral lower extremities while lying in bed. She is known have chronic back pain but her pain is adequately controlled and manageable in the outpatient setting. She follows with Dr. Elam in the outpatient setting for pain management with medication. She does have a history of previous epidural injections but states she has not had anything recently performed. At this time she would like to exhaust all conservative treatment and is not interested in any surgical procedures. She does not wish to be transferred her tertiary facility and I do not feel it is necessary for her to be transferred. If the patient were to fail all conservative treatment options and were planning to proceed forward with surgical intervention, the surgical intervention could be performed here in [place], [place]. At this time will not plan for surgical intervention as surgery would be quite extensive and given the patient's age, independence, and her also wanting to avoid surgical intervention, we will exhaust conservative treatment options. We will plan for consultation with pain management during her admission here to the hospital to discuss further treatment options including the possibility of injections. Patient will be cleared for discharge from orthopedic spine standpoint. We will have the patient follow-up in the outpatient setting on an as-needed basis. Patient may call office in follow-up with Jim Che PA-C or Dr. Eliot Weinberg at [facility] as needed following discharge. 2. Patient will continue to be seen and examined by Dr. Marinelli in medicine Time with Patient: Greater than 30 (Including obtaining history, physical examination, reviewing of imaging, and dictation.)
--- NOTE | 2018-07-15 10:01 | P.PAINCN ---
History of Present Illness - Reason for Consult Consult date: 07/15/18 back pain with neurogenic claudication - History of Present Illness Mrs. Puckett is a very pleasant 78-year-old female who presented to the hospital with complaints of back pain and lower extremity pain along with cramping in her lower extremities. She is found to be dehydrated with multiple electrolyte imbalances which are treated and her cramping resolved. She reports she's had chronic back pain with lower extremity pain which has been treated in the past with some injections with Dr. Stark. She reports injections were helping for a while but after while did not help very much and she stopped having them done. She continues to take [id number] medications along with Cornelius 10 mg 2 times per day from her neurologist. She reports that the pain medication does help when she does taken but doesn't last long enough. At this point she complains of pain over her lower extremity and back and down her legs when she stands up. She reports the pain is usually worse when she stands up and starts walking but is better at rest. She has been on muscle relaxants and pain medications in the Hospital reports that she is comfortable laying down but when she stands up that the pain is significant. She she has requested not to have any surgical intervention given her a. Computed tomography scan she had show significant degenerative changes along with multiple areas of stenosis of the lumbar spine. She has been seen by orthopedic surgeon and again she does not want to have any surgery. Past Medical History Past Medical History: Chest Pain / Angina, CVA/TIA, Deep Vein Thrombosis (DVT), GERD/Reflux, Hyperlipidemia, Hypertension, Osteoarthritis (OA) Additional Past Medical History / Comment(s): Pt states she never had TIA/CVA- they were ruled out however 2016 medical record documents TIA, DVT L arm, arthritis multiple joints, cervical muscle spasms, R index finger injury and uses splint prn, constipation. Last Myocardial Infarction Date:: 01/08/15 History of Any Multi-Drug Resistant Organisms: C-DIFF Year Discovered:: 2013 MDRO Source:: stool Past Surgical History: Breast Surgery, Section, Cholecystectomy, Heart Catheterization With Stent, Hernia Repair Additional Past Surgical History / Comment(s): 01/09/15 PTCA with stent to obtuse marginal branch of circ and stent to mid LAD, bilateral augmentation, 3 C-Sections, ventral hernia repair, bilateral cataract removal with lens implants, picc line in and out for ABX tx for C-Diff. Past Anesthesia/Blood Transfusion Reactions: No Reported Reaction, Motion Sickness Additional Past Anesthesia/Blood Transfusion Reaction / Comm: Pt has never recieved blood. Date of Last Stent Placement:: 01/09/15 Smoking Status: Former smoker - Past Family History Mother Additional Family Medical History / Comment(s): Mother had a brain aneurysm. She after brain surgery at age 88 yrs. Father Family Medical History: CVA/TIA, Diabetes Mellitus, Hypertension Additional Family Medical History / Comment(s): Father of a CVA. Medications and Allergies Home Medications Medication Instructions Recorded Confirmed Type Famotidine [Pepcid] 20 mg PO DAILY #30 tablet 08/16/15 07/11/18 Rx Aspirin EC [Ecotrin Low Dose] 81 mg PO DAILY 07/21/17 07/11/18 History Ibuprofen [Motrin] 800 mg PO TID PRN 07/21/17 07/11/18 History Metoprolol Tartrate [Lopressor] 12.5 mg PO HS 07/21/17 07/11/18 History Pantoprazole [Protonix] 40 mg PO DAILY 07/21/17 07/11/18 History Dicyclomine [Bentyl] 20 mg PO BID 07/11/18 07/11/18 History Furosemide [Lasix] 40 mg PO BID 07/11/18 07/11/18 History Hydrocodone/Acetaminophen [Cornelius 1 tab PO Q12H 07/11/18 07/11/18 History 10-325] Metolazone [Zaroxolyn] 2.5 mg PO DAILY 07/11/18 07/11/18 History Potassium Chloride [Klor-Con 20] 20 meq PO DAILY 07/11/18 07/11/18 History Pravastatin Sodium [Pravachol] 20 mg PO HS 07/11/18 07/11/18 History Allergies Allergy/AdvReac Type Severity Reaction Status Date / Time codeine Allergy Unknown Dyspnea Verified 07/11/18 08:53 Penicillins Allergy Unknown Rash/Hives Verified 07/11/18 08:53 Sulfa (Sulfonamide Allergy Unknown Rash/Hives Verified 07/11/18 08:53 Antibiotics) prednisone Allergy Dyspnea Verified 07/11/18 08:53 hydromorphone HCl AdvReac Severe Hallucinati Verified 07/11/18 08:53 [From Dilaudid] ons chocolate flavor AdvReac Cough Verified 07/11/18 08:53 Iodinated Contrast- Oral and AdvReac Nausea & Verified 07/11/18 08:53 IV Dye Vomiting [Iodinated Contrast Media - Oral and] Physical Exam Vitals: Vital Signs Temp Pulse Resp BP Pulse Ox 07/15/18 04:32 98.3 F 63 18 138/75 96 07/15/18 00:39 65 18 123/78 97 07/14/18 20:21 98.3 F 74 20 147/83 96 07/14/18 16:00 83 16 134/77 96 07/14/18 14:30 16 07/14/18 12:00 78 16 139/74 97 07/14/18 11:26 16 Intake and Output 07/14/18 07/15/18 07/15/18 22:59 06:59 14:59 Other: # Voids 3 Weight 73.4 kg General: Awake and alert oriented 3 no distress Respiratory exam: No audible wheezing no accessory muscle usage Cardiovascular exam: regular rate, palpable bilateral pulses, no lower extremity edema Abdominal exam: No distention nontender to palpation Cervical spine: Normal alignment, Spurling's negative, facet loading negative Lumbar spine: Loss of lumbar lordosis, normal alignment, tender to palpation over bilateral paraspinal muscles, facet loading is positive bilaterally. Straight leg raise is positive bilateral Sacroiliac joints: tender to palpation, DEBBI is negative Neuro exam: Normal sensation in bilateral upper extremities, deep tendon reflexe s are 2+ bilateral upper extremities. Normal sensation in bilateral lower extremities. Deep tendon reflexes are absent in lower extremities Psych exam: Cooperative, appropriate mood Results CBC & Chem 7: 07/11/18 08:40 07/15/18 08:47 Labs: Abnormal Lab Results - Last 24 Hours (Table) 07/15/18 Range/Units 08:47 Potassium 3.0 L (3.5-5.1) mmol/L Assessment and Plan Assessment: #1 lumbar spinal stenosis with neurogenic claudication #2 degenerative disc disease Plan: After discussion with the patient we had discussion regarding injections. I advised the risks benefits and alternatives of the procedures including but not limited to infection, bleeding, nerve damage and potentially no benefit from the injection. Patient reports she's had no benefit from the last injections in the outpatient setting and is not think they will help at this time. I advised that she needs to potentially be in some type of rehab to get stronger and overall improve her mobility. I did offer to do the injection should like at the earliest time would be tomorrow. I advised her that she may also benefit from a few extra tablets of Cornelius when she goes home. On the outpatient basis it would recommend that she is prescribed 7 tablets to go home for 1 week which would increase her daily Cornelius to 10 mg 3 times a day for one week and then return to her normal twice a day dosing until she sees her prescribing physician. She already has twice a day Cornelius prescribed home. Thank you for allowing us to participate in the care of your patient if you have any questions please feel free reach out to be directly. PQRS Measure Charge Sheet PQRS Narrative: Smoking Status Former smoker Do You Want the Pneumonia Vaccine Up to Date Vaccine AT THIS TIME? Blood Pressure [Right Arm 138/75 Supine] Blood Pressure 119/98 Pain Intensity [Head] 0 Pain Intensity [Bilateral 3 Lower Leg] Pain Intensity [Left Arm] 0 Pain Intensity 3 Pain Scale Used Numeric (1 - 10) Scale Used Numeric (1 - 10) Home Medications: Ambulatory Orders Famotidine [Pepcid] 20 mg PO DAILY #30 tablet 08/16/15 Aspirin EC [Ecotrin Low Dose] 81 mg PO DAILY 07/21/17 Ibuprofen [Motrin] 800 mg PO TID PRN 07/21/17 Metoprolol Tartrate [Lopressor] 12.5 mg PO HS 07/21/17 Pantoprazole [Protonix] 40 mg PO DAILY 07/21/17 Dicyclomine [Bentyl] 20 mg PO BID 07/11/18 Furosemide [Lasix] 40 mg PO BID 07/11/18 Hydrocodone/Acetaminophen [Cornelius 10-325] 1 tab PO Q12H 07/11/18 Metolazone [Zaroxolyn] 2.5 mg PO DAILY 07/11/18 Potassium Chloride [Klor-Con 20] 20 meq PO DAILY 07/11/18 Pravastatin Sodium [Pravachol] 20 mg PO HS 07/11/18
[2018-07-15 12:27] LABS: Glucose,Whole Blood 119 mg/dL (75-99)
[2018-07-15] MEDS: LIDOCAINE 5% PATCH TOPICAL SCH (12:41)
[2018-07-15] MEDS: SODIUM CHLORIDE 0.9% 1,000 ML IV SCH (15:43)
[2018-07-15 16:47] LABS: Glucose,Whole Blood 174 mg/dL (75-99)
[2018-07-15] MEDS: POTASSIUM CHLORIDE ER 20 MEQ TAB.ER PO SCH ×3 (17:09→22:55)
[2018-07-15] MEDS: PRAVASTATIN SODIUM 20 MG TAB PO SCH (20:28)
[2018-07-15] MEDS: MELATONIN 3 MG TABLET PO SCH (20:29)
[2018-07-15] MEDS: METOPROLOL TARTRATE 12.5 MG TAB PO SCH (20:29)
[2018-07-15 23:14] LABS: Glucose,Whole Blood 157 mg/dL (75-99)
[2018-07-16] MEDS: DEXAMETHASONE SOD PHOSPHATE 4 MG/ML 1 ML VIAL IV SCH ×4 (00:29→18:54)
[2018-07-16] MEDS: POTASSIUM CHLORIDE ER 20 MEQ TAB.ER PO SCH ×3 (00:29→21:32)
[2018-07-16] MEDS: CYCLOBENZAPRINE 5 MG TAB PO PRN (01:59)
[2018-07-16] MEDS: HYDROcodone/APAP 10-325MG 1 EACH TAB PO SCH ×2 (01:59→13:21)
[2018-07-16 05:26] LABS: Glucose,Whole Blood 129 mg/dL (75-99)
[2018-07-16 07:15] LABS: Albumin 4.4 g/dL (3.5-5.0); Calcium 9.6 mg/dL (8.4-10.2); Potassium 3.4 mmol/L (3.5-5.1); Total Bilirubin 0.4 mg/dL (0.2-1.3); Total Protein 7.5 g/dL (6.3-8.2)
[2018-07-16 07:26] LABS: HCT 40.3 % (34.0-46.0); HGB 13.8 gm/dL (11.4-16.0); MCH 28.6 pg (25.0-35.0); MCHC 34.2 g/dL (31.0-37.0); MCV 83.5 fL (80.0-100.0); Mean Platelet Volume 8.3; Platelet Count 359 k/uL (150-450); RBC 4.82 m/uL (3.80-5.40); RDW 14.8 % (11.5-15.5); WBC 16.6 k/uL (3.8-10.6)
[2018-07-16] MEDS: ASPIRIN 81 MG PO SCH (08:54)
[2018-07-16] MEDS: PANTOPRAZOLE 40 MG TABLET PO SCH (08:54)
[2018-07-16] MEDS: DOCUSATE 100 MG CAP PO SCH ×2 (08:54→21:32)
[2018-07-16] MEDS: FUROSEMIDE 40 MG TAB PO SCH ×2 (08:55→16:16)
[2018-07-16] MEDS: HEPARIN SODIUM,PORCINE 5,000 UNIT/ML 1 ML VIAL SQ SCH ×2 (08:55→21:32)
[2018-07-16] MEDS: FAMOTIDINE 20 MG TAB PO SCH (08:55)
[2018-07-16] MEDS: DICYCLOMINE 20 MG TAB PO SCH ×2 (08:55→21:32)
[2018-07-16] MEDS: LIDOCAINE 5% PATCH TOPICAL SCH (11:38)
[2018-07-16] MEDS: SODIUM CHLORIDE 0.9% 1,000 ML IV SCH (11:39)
[2018-07-16 11:50] LABS: Glucose,Whole Blood 123 mg/dL (75-99)
[2018-07-16 16:26] LABS: Glucose,Whole Blood 128 mg/dL (75-99)
[2018-07-16] MEDS: PRAVASTATIN SODIUM 20 MG TAB PO SCH (21:32)
[2018-07-16] MEDS: METOPROLOL TARTRATE 12.5 MG TAB PO SCH (21:32)
[2018-07-16 21:55] LABS: Glucose,Whole Blood 172 mg/dL (75-99)
[2018-07-16] MEDS: MELATONIN 3 MG TABLET PO SCH (22:03)
--- NOTE | 2018-07-16 22:49 | P.PN ---
Subjective Principal diagnosis: Lower extremity pain with weakness. Difficulty ambulating. Hypokalemia The patient is still struggling with Electrolyte imbalance. No overt chest pressure stated. She's been started on steroid treatment for presumed arthritic type pain. She states no numbness or tingling but has elements of lower extremity pain at times. However, she states she is ambulating at times better.Overall, she seems to be feeling better but she does haveContinued weakness and back pain. Orthopedic surgery was consulted and has now recommended pain management consultation. No overt voiding difficulties are stated. Objective - Vital Signs Vital signs: Vital Signs Temp 98.4 F 07/16/18 20:00 Pulse 71 07/16/18 20:00 Resp 17 07/16/18 20:00 BP 130/83 07/16/18 20:00 Pulse Ox 95 07/16/18 12:00 Intake & Output 07/16/18 07/16/18 07/17/18 06:59 18:59 06:59 Intake Total 360 600 400 Output Total 1400 Balance -1040 600 400 Weight 73.8 kg Intake: Oral 360 600 400 Output: Urine 1400 Other: Voiding Method Toilet Toilet # Voids 2 - Constitutional General appearance: Present: obese - EENT Eyes: Absent: abnormal pupil - Neck Neck: Absent: lymphadenopathy - Respiratory Respiratory: bilateral: CTA - Cardiovascular Rhythm: regular - Gastrointestinal General gastrointestinal: Present: soft. Absent: tenderness - Integumentary Integumentary: Absent: cellulitis - Musculoskeletal Musculoskeletal: Present: generalized weakness - Psychiatric Psychiatric: Present: A&O x's 3 - Labs CBC & Chem 7: 07/16/18 06:28 07/16/18 06:28 Labs: Abnormal Lab Results - Last 24 Hours (Table) 07/15/18 07/16/18 07/16/18 Range/Units 22:19 05:25 06:28 WBC 16.6 H (3.8-10.6) k/uL Potassium (3.5-5.1) mmol/L BUN (7-17) mg/dL Glucose (74-99) mg/dL POC Glucose (mg/dL) 157 H 129 H (75-99) mg/dL Alkaline Phosphatase (38-126) U/L 07/16/18 07/16/18 07/16/18 Range/Units 06:28 11:48 16:24 WBC (3.8-10.6) k/uL Potassium 3.4 L (3.5-5.1) mmol/L BUN 52 H (7-17) mg/dL Glucose 156 H (74-99) mg/dL POC Glucose (mg/dL) 123 H 128 H (75-99) mg/dL Alkaline Phosphatase 128 H (38-126) U/L 07/16/18 Range/Units 21:45 WBC (3.8-10.6) k/uL Potassium (3.5-5.1) mmol/L BUN (7-17) mg/dL Glucose (74-99) mg/dL POC Glucose (mg/dL) 172 H (75-99) mg/dL Alkaline Phosphatase (38-126) U/L Assessment and Plan (1) Dehydration Current Visit: Yes Status: Acute Code(s): E86.0 - DEHYDRATION SNOMED Code(s): 76619310 (2) QT prolongation Current Visit: Yes Status: Acute Code(s): R94.31 - ABNORMAL ELECTROCARDIOGRAM [ECG] [EKG] SNOMED Code(s): 319432224 (3) Essential (primary) hypertension Current Visit: No Status: Acute Code(s): I10 - ESSENTIAL (PRIMARY) HYPERTENSION SNOMED Code(s): 20791081 (4) Hypomagnesemia Current Visit: No Status: Acute Code(s): E83.42 - HYPOMAGNESEMIA SNOMED Code(s): 296348996 (5) Weakness Current Visit: No Status: Acute Code(s): R53.1 - WEAKNESS SNOMED Code(s): 15465020 (6) Hypokalemia Current Visit: Yes Status: Acute Code(s): E87.6 - HYPOKALEMIA SNOMED Code(s): 42025779 Plan: Electrolyte imbalance is improving. Continue potassium protocol. Check CMP in a.m. Appreciate orthopedic and pain managemen consultation. With her overall improvement, I anticipate discharge in the a.m.
[2018-07-17] MEDS: MELATONIN 3 MG TABLET PO SCH (00:20)
[2018-07-17] MEDS: DEXAMETHASONE SOD PHOSPHATE 4 MG/ML 1 ML VIAL IV SCH ×5 (00:21→23:52)
[2018-07-17] MEDS: HYDROcodone/APAP 10-325MG 1 EACH TAB PO SCH ×2 (01:40→16:26)
[2018-07-17 05:44] LABS: Glucose,Whole Blood 134 mg/dL (75-99)
[2018-07-17] MEDS: SODIUM CHLORIDE 0.9% 1,000 ML IV SCH (06:16)
[2018-07-17] MEDS: PANTOPRAZOLE 40 MG TABLET PO SCH (06:32)
[2018-07-17 07:32] LABS: Albumin 4.5 g/dL (3.5-5.0); Calcium 9.4 mg/dL (8.4-10.2); Potassium 3.1 mmol/L (3.5-5.1); Total Bilirubin 0.5 mg/dL (0.2-1.3); Total Protein 7.7 g/dL (6.3-8.2)
[2018-07-17] MEDS ORDERED: Potassium Replacement Protocol 1 EACH MISC MISCELLANE PRN (07:39)
[2018-07-17] MEDS: FAMOTIDINE 20 MG TAB PO SCH (08:20)
[2018-07-17] MEDS: HEPARIN SODIUM,PORCINE 5,000 UNIT/ML 1 ML VIAL SQ SCH ×2 (08:20→20:41)
[2018-07-17] MEDS: DOCUSATE 100 MG CAP PO SCH ×2 (08:20→20:40)
[2018-07-17] MEDS: FUROSEMIDE 40 MG TAB PO SCH ×2 (08:20→16:26)
[2018-07-17] MEDS: ASPIRIN 81 MG PO SCH (08:20)
[2018-07-17] MEDS: DICYCLOMINE 20 MG TAB PO SCH ×2 (08:20→20:41)
[2018-07-17] MEDS: POTASSIUM CHLORIDE ER 20 MEQ TAB.ER PO SCH ×5 (08:31→20:52)
--- NOTE | 2018-07-17 10:45 | P.PN ---
Subjective Principal diagnosis: Lower extremity pain with weakness. Difficulty ambulating. Hypokalemia The patient is still struggling with Electrolyte imbalance. No overt chest pressure stated. She's been started on steroid treatment for presumed arthritic type pain. She states no numbness or tingling but has elements of lower extremity pain at times. However, she states she is ambulating at times better.Overall, she seems to be feeling better but she does haveContinued weakness and back pain. Orthopedic surgery was consulted and has now recommended pain management consultation. No overt voiding difficulties are stated. Objective - Vital Signs Vital signs: Vital Signs Temp 98.1 F 07/17/18 08:00 Pulse 84 07/17/18 08:00 Resp 16 07/17/18 08:00 BP 151/85 07/17/18 08:00 Pulse Ox 97 07/17/18 08:00 Intake & Output 07/16/18 07/17/18 07/17/18 18:59 06:59 18:59 Intake Total 600 900 300 Balance 600 900 300 Intake: Oral 600 900 300 Other: Voiding Method Toilet Toilet # Voids 2 2 - Constitutional General appearance: Absent: average body habitus - EENT Eyes: Absent: abnormal pupil - Neck Neck: Absent: lymphadenopathy - Respiratory Respiratory: bilateral: CTA - Cardiovascular Rhythm: regular Heart sounds: normal: S1, S2 Abnormal Heart Sounds: Present: S3 Gallop - Gastrointestinal General gastrointestinal: Present: soft. Absent: tenderness - Psychiatric Psychiatric: Present: A&O x's 3, appropriate affect - Labs CBC & Chem 7: 07/16/18 06:28 07/17/18 06:24 Labs: Abnormal Lab Results - Last 24 Hours (Table) 07/16/18 07/16/18 07/16/18 Range/Units 11:48 16:24 21:45 Potassium (3.5-5.1) mmol/L Carbon Dioxide (22-30) mmol/L BUN (7-17) mg/dL Glucose (74-99) mg/dL POC Glucose (mg/dL) 123 H 128 H 172 H (75-99) mg/dL Alkaline Phosphatase (38-126) U/L 07/17/18 07/17/18 Range/Units 05:43 06:24 Potassium 3.1 L (3.5-5.1) mmol/L Carbon Dioxide 20 L (22-30) mmol/L BUN 51 H (7-17) mg/dL Glucose 132 H (74-99) mg/dL POC Glucose (mg/dL) 134 H (75-99) mg/dL Alkaline Phosphatase 130 H (38-126) U/L Assessment and Plan (1) Dehydration Current Visit: Yes Status: Acute Code(s): E86.0 - DEHYDRATION SNOMED Code(s): 41934944 (2) QT prolongation Current Visit: Yes Status: Acute Code(s): R94.31 - ABNORMAL ELECTROCARDIOGRAM [ECG] [EKG] SNOMED Code(s): 457844409 (3) Essential (primary) hypertension Current Visit: No Status: Acute Code(s): I10 - ESSENTIAL (PRIMARY) HYPERTENSION SNOMED Code(s): 38677510 (4) Hypomagnesemia Current Visit: No Status: Acute Code(s): E83.42 - HYPOMAGNESEMIA SNOMED Code(s): 576688437 (5) Weakness Current Visit: No Status: Acute Code(s): R53.1 - WEAKNESS SNOMED Code(s): 72539835 (6) Hypokalemia Current Visit: Yes Status: Acute Code(s): E87.6 - HYPOKALEMIA SNOMED Code(s): 52474983 Plan: Electrolyte imbalance is improving. Continue potassium protocol. Check CMP in a.m. Appreciate orthopedic and pain managemen consultation. With her overall improvement, I anticipate discharge in the a.m. Time with Patient: Less than 30
[2018-07-17 11:23] LABS: Glucose,Whole Blood 103 mg/dL (75-99)
[2018-07-17] MEDS: LIDOCAINE 5% PATCH TOPICAL SCH (12:13)
[2018-07-17 17:29] LABS: Glucose,Whole Blood 144 mg/dL (75-99)
[2018-07-17] MEDS: METOPROLOL TARTRATE 25 MG TAB PO SCH ×3 (17:40→23:29)
[2018-07-17] MEDS: PRAVASTATIN SODIUM 20 MG TAB PO SCH (20:40)
[2018-07-17 21:05] LABS: Glucose,Whole Blood 274 mg/dL (75-99)
[2018-07-17] MEDS: CYCLOBENZAPRINE 5 MG TAB PO PRN (23:26)
[2018-07-17 23:41] LABS: Glucose,Whole Blood 144 mg/dL (75-99)
[2018-07-18] MEDS: HYDROcodone/APAP 10-325MG 1 EACH TAB PO SCH ×2 (00:52→12:49)
[2018-07-18] MEDS: SODIUM CHLORIDE 0.9% 1,000 ML IV SCH (03:00)
[2018-07-18] MEDS: PANTOPRAZOLE 40 MG TABLET PO SCH (06:17)
[2018-07-18] MEDS: DEXAMETHASONE SOD PHOSPHATE 4 MG/ML 1 ML VIAL IV SCH ×2 (06:18→12:30)
[2018-07-18 06:20] LABS: Glucose,Whole Blood 119 mg/dL (75-99)
--- NOTE | 2018-07-18 07:46 | P.DS ---
Providers Date of admission: 07/13/18 10:28 Attending physician: Daren Marinelli Consults: 07/14/18 10:48 Consult Physician Urgent Consulting Provider: Tootie Weinberg Consult Reason/Comments: detenerative disc disease Do you want consulting provider notified?: Yes 07/15/18 08:45 Consult to Anesthesia Routine Consulting Provider: Anesthesia,Services Consult Reason/Comments: Chronic low back pain with bilateral lower extremity radiculopathy Primary care physician: Daren Marinelli - Discharge Diagnosis(es) (1) Dehydration Current Visit: Yes Status: Acute (2) QT prolongation Current Visit: Yes Status: Acute (3) Essential (primary) hypertension Current Visit: No Status: Acute (4) Hypomagnesemia Current Visit: No Status: Acute (5) Weakness Current Visit: No Status: Acute (6) Hypokalemia Current Visit: Yes Status: Acute Patient Condition at Discharge: Fair Plan - Discharge Summary Discharge Rx Participant: No New Discharge Prescriptions: New Docusate [Colace] 100 mg PO BID #60 cap Potassium Chloride ER [K-Dur 20] 20 meq PO BID tab.er.prt Lidocaine 5% Patch [Lidoderm 5% Patch] 2 patch TOPICAL DAILY@1100 #60 patch Continue Famotidine [Pepcid] 20 mg PO DAILY #30 tablet Pantoprazole [Protonix] 40 mg PO DAILY Ibuprofen [Motrin] 800 mg PO TID PRN PRN Reason: Pain Aspirin EC [Ecotrin Low Dose] 81 mg PO DAILY Potassium Chloride [Klor-Con 20] 20 meq PO DAILY Dicyclomine [Bentyl] 20 mg PO BID Pravastatin Sodium [Pravachol] 20 mg PO HS Metolazone [Zaroxolyn] 2.5 mg PO DAILY Hydrocodone/Acetaminophen [Pyrites 10-325] 1 tab PO Q12H Furosemide [Lasix] 40 mg PO BID Changed Metoprolol Tartrate [Lopressor] 12.5 mg PO BID #60 tab Discharge Medication List Famotidine [Pepcid] 20 mg PO DAILY #30 tablet 08/16/15 [Rx] Aspirin EC [Ecotrin Low Dose] 81 mg PO DAILY 07/21/17 [History] Ibuprofen [Motrin] 800 mg PO TID PRN 07/21/17 [History] Pantoprazole [Protonix] 40 mg PO DAILY 07/21/17 [History] Dicyclomine [Bentyl] 20 mg PO BID 07/11/18 [History] Furosemide [Lasix] 40 mg PO BID 07/11/18 [History] Hydrocodone/Acetaminophen [Pyrites 10-325] 1 tab PO Q12H 07/11/18 [History] Metolazone [Zaroxolyn] 2.5 mg PO DAILY 07/11/18 [History] Potassium Chloride [Klor-Con 20] 20 meq PO DAILY 07/11/18 [History] Pravastatin Sodium [Pravachol] 20 mg PO HS 07/11/18 [History] Docusate [Colace] 100 mg PO BID #60 cap 07/18/18 [Rx] Lidocaine 5% Patch [Lidoderm 5% Patch] 2 patch TOPICAL DAILY@1100 #60 patch [Rx] Metoprolol Tartrate [Lopressor] 12.5 mg PO BID #60 tab 07/18/18 [Rx] Potassium Chloride ER [K-Dur 20] 20 meq PO BID tab.er.prt 07/18/18 [Rx] Follow up Appointment(s)/Referral(s): Daren Marinelli MD [Primary Care Provider] - 07/22/18 2:10 pm (Sunday) Jim Che PAC [PHYSICIAN RELEASE ENGINEER] - As Needed (Patient may follow-up with Jim Che PA-C or Dr. Eliot Weinberg at [facility] on an as-needed basis following discharge. ) Patient Instructions/Handouts: Hypokalemia (DC)
[2018-07-18 07:47] LABS: Albumin 4.2 g/dL (3.5-5.0); Calcium 9.4 mg/dL (8.4-10.2); Potassium 3.6 mmol/L (3.5-5.1); Total Bilirubin 0.4 mg/dL (0.2-1.3); Total Protein 7.1 g/dL (6.3-8.2)
[2018-07-18] MEDS: FUROSEMIDE 40 MG TAB PO SCH (08:07)
[2018-07-18] MEDS: FAMOTIDINE 20 MG TAB PO SCH (08:07)
[2018-07-18] MEDS: DOCUSATE 100 MG CAP PO SCH (08:07)
[2018-07-18] MEDS: METOPROLOL TARTRATE 25 MG TAB PO SCH (08:07)
[2018-07-18] MEDS: DICYCLOMINE 20 MG TAB PO SCH (08:07)
[2018-07-18] MEDS: POTASSIUM CHLORIDE ER 20 MEQ TAB.ER PO SCH (08:07)
[2018-07-18] MEDS: ASPIRIN 81 MG PO SCH (08:07)
[2018-07-18] MEDS: HEPARIN SODIUM,PORCINE 5,000 UNIT/ML 1 ML VIAL SQ SCH (08:08)
[2018-07-18 08:54] VITALS: TEMP 98.5
[2018-07-18] MEDS: LIDOCAINE 5% PATCH TOPICAL SCH (10:52)
[2018-07-18 12:01] LABS: Glucose,Whole Blood 86 mg/dL (75-99)
[2018-07-18 12:27] VITALS: BP 145/70; PULSE 58; RESP 20
== END 2018-07-18 14:50 | disposition home or self-care (01) | DRG 641 ==
LOC: EC 08:13 → 3SCARD 11:01 → OBSVTOIN 07-13 10:28
PROVIDERS: ADMIT Family Medicine; ATTEND Family Medicine
DX: E87.6 Hypokalemia (principal); M51.06 Intervertebral disc disorders with myelopathy, lumbar region; N17.9 Acute kidney failure, unspecified; E83.42 Hypomagnesemia; E78.5 Hyperlipidemia, unspecified; E86.0 Dehydration; E87.2 Acidosis; G89.29 Other chronic pain; I10 Essential (primary) hypertension; I25.2 Old myocardial infarction; J44.9 Chronic obstructive pulmonary disease, unspecified; Z87.891 Personal history of nicotine dependence; K21.9 Gastro-esophageal reflux disease without esophagitis; K59.00 Constipation, unspecified; M41.56 Other secondary scoliosis, lumbar region; M43.16 Spondylolisthesis, lumbar region; M46.96 Unspecified inflammatory spondylopathy, lumbar region; M48.062 Spinal stenosis, lumbar region with neurogenic claudication; M51.16 Intervertebral disc disorders with radiculopathy, lumbar region; M85.80 Other specified disorders of bone density and structure, unspecified site; Z79.82 Long term (current) use of aspirin; Z79.899 Other long term (current) drug therapy; Z82.3 Family history of stroke; Z82.49 Family history of ischemic heart disease and other diseases of the circulatory system; Z83.3 Family history of diabetes mellitus; Z86.718 Personal history of other venous thrombosis and embolism; R25.2 Cramp and spasm; T50.3X6A Underdosing of electrolytic, caloric and water-balance agents, initial encounter; Z91.128 Patient's intentional underdosing of medication regimen for other reason; Z95.5 Presence of coronary angioplasty implant and graft; Z96.1 Presence of intraocular lens; Z98.41 Cataract extraction status, right eye; Z98.42 Cataract extraction status, left eye; Z88.5 Allergy status to narcotic agent; Z88.0 Allergy status to penicillin; Z88.2 Allergy status to sulfonamides; Z88.8 Allergy status to other drugs, medicaments and biological substances; Z91.041 Radiographic dye allergy status; T14.90XD Injury, unspecified, subsequent encounter; S69.91XD Unspecified injury of right wrist, hand and finger(s), subsequent encounter
CPT/HCPCS: 36415; 71045; 72131; 80048; 80051; 80053; 81001; 82330; 83735; 84132; 85025; 85027; 93005; 93970; 96361; 96365; 99285

== ENCOUNTER 2018-07-20 03:49 | Inpatient (IN) | payer MEDICARE, OTHER ==
[2018-07-20] MEDS ORDERED: TRIMETHOBENZAMIDE 100 MG/ML 2 ML VIAL IM STA (04:27)
[2018-07-20 04:41] LABS: Anisocytosis Slight; HCT 50.3 % (34.0-46.0); MCH 27.5 pg (25.0-35.0); MCHC 33.5 g/dL (31.0-37.0); MCV 82.1 fL (80.0-100.0); Mean Platelet Volume 9.3; Platelet Count 398 k/uL (150-450); RBC 6.12 m/uL (3.80-5.40); RDW 16.2 % (11.5-15.5)
[2018-07-20 04:53] LABS: HGB 16.8 gm/dL (11.4-16.0)
--- NOTE | 2018-07-20 05:05 | XR ---
EXAM: XR Chest, 1 View CLINICAL HISTORY: Chest Pain TECHNIQUE: Frontal view of the chest. COMPARISON: 10-25-17 FINDINGS: Lungs: Unremarkable. No consolidation. Pleural space: Unremarkable. No pneumothorax. Heart: Unremarkable. No cardiomegaly. Mediastinum: Unremarkable. Bones/joints: Osteopenia. Soft tissues: capsular calcifications of bilateral breast implants. IMPRESSION: No acute findings.
[2018-07-20 05:09] LABS: Albumin 4.8 g/dL (3.5-5.0); Calcium 10.4 mg/dL (8.4-10.2); Magnesium 2.3 mg/dL (1.6-2.3); Total Bilirubin 0.6 mg/dL (0.2-1.3); Total Protein 8.3 g/dL (6.3-8.2)
--- NOTE | 2018-07-20 05:16 | XR ---
EXAM: XR Abdomen, 1 View CLINICAL HISTORY: N/V TECHNIQUE: Frontal supine view of the abdomen/pelvis. COMPARISON: No relevant prior studies available. FINDINGS: Gastrointestinal tract: Nonspecific bowel gas pattern. No dilation. Organs: Cholecystectomy clips. Bones/joints: Osteopenia. Thoracolumbar scoliosis convexed to the left with apex at T12-L1 IMPRESSION: Nonspecific bowel gas pattern.
[2018-07-20 05:18] LABS: Potassium 2.6 mmol/L (3.5-5.1)
[2018-07-20] MEDS ORDERED: SODIUM CHLORIDE 0.9% 2,000 ML IV ONE (05:22)
[2018-07-20] MEDS ORDERED: NALOXONE 0.4 MG/ML 1 ML VIAL IV PRN (05:23)
[2018-07-20 05:28] LABS: Prothrombin Time 10.9 sec (9.0-12.0)
--- NOTE | 2018-07-20 05:33 | ED ---
General Adult HPI - General Chief complaint: Nausea/Vomiting/Diarrhea Stated complaint: Chest Pain Time Seen by Provider: 07/20/18 03:52 Source: patient Mode of arrival: EMS Limitations: no limitations - History of Present Illness Initial comments: Reena 78-year-old female who is recently admitted to the hospital for generalized weakness, she returned home 2 days ago she presents the emergency department today via EMS for evaluation of nausea, vomiting, diarrhea and generalized weakness. EMS reports that they were called after the patient's found her slumped between the toilet and the wall 2 weeks to get up. Patient reports that throughout the day she's had persistent nausea, vomiting and diarrhea. She reports that she's been unable to get out of the bathroom due to this. She's been in able to eat or drink anything. She reports she feels worse now than she did when she was admitted. Patient denies any suspicious food intake. does not have any similar symptoms. - Related Data Home Medications Medication Instructions Recorded Confirmed Aspirin EC [Ecotrin Low Dose] 81 mg PO DAILY 07/21/17 07/11/18 Ibuprofen [Motrin] 800 mg PO TID PRN 07/21/17 07/11/18 Pantoprazole [Protonix] 40 mg PO DAILY 07/21/17 07/11/18 Dicyclomine [Bentyl] 20 mg PO BID 07/11/18 07/11/18 Furosemide [Lasix] 40 mg PO BID 07/11/18 07/11/18 Hydrocodone/Acetaminophen [Chetek 1 tab PO Q12H 07/11/18 07/11/18 10-325] Metolazone [Zaroxolyn] 2.5 mg PO DAILY 07/11/18 07/11/18 Potassium Chloride [Klor-Con 20] 20 meq PO DAILY 07/11/18 07/11/18 Pravastatin Sodium [Pravachol] 20 mg PO HS 07/11/18 07/11/18 Previous Rx's Medication Instructions Recorded Famotidine [Pepcid] 20 mg PO DAILY #30 tablet 08/16/15 Docusate [Colace] 100 mg PO BID #60 cap 07/18/18 Lidocaine 5% Patch [Lidoderm 5% 2 patch TOPICAL DAILY@1100 #60 07/18/18 Patch] patch Metoprolol Tartrate [Lopressor] 12.5 mg PO BID #60 tab 07/18/18 Potassium Chloride ER [K-Dur 20] 20 meq PO BID tab.er.prt 07/18/18 Allergies Allergy/AdvReac Type Severity Reaction Status Date / Time codeine Allergy Unknown Dyspnea Verified 07/11/18 08:53 Penicillins Allergy Unknown Rash/Hives Verified 07/11/18 08:53 Sulfa (Sulfonamide Allergy Unknown Rash/Hives Verified 07/11/18 08:53 Antibiotics) prednisone Allergy Dyspnea Verified 07/11/18 08:53 hydromorphone HCl AdvReac Severe Hallucinati Verified 07/11/18 08:53 [From Dilaudid] ons chocolate flavor AdvReac Cough Verified 07/11/18 08:53 Iodinated Contrast- Oral and AdvReac Nausea & Verified 07/11/18 08:53 IV Dye Vomiting [Iodinated Contrast Media - Oral and] Review of Systems ROS Statement: Those systems with pertinent positive or pertinent negative responses have been documented in the HPI. ROS Other: All systems not noted in ROS Statement are negative. Past Medical History Past Medical History: Chest Pain / Angina, CVA/TIA, Deep Vein Thrombosis (DVT), GERD/Reflux, Hyperlipidemia, Hypertension, Osteoarthritis (OA) Additional Past Medical History / Comment(s): Pt states she never had TIA/CVA- they were ruled out however 2016 medical record documents TIA, DVT L arm, arthritis multiple joints, cervical muscle spasms, R index finger injury and uses splint prn, constipation. Last Myocardial Infarction Date:: 01/08/15 History of Any Multi-Drug Resistant Organisms: C-DIFF Date of last positivie culture/infection: 2013 MDRO Source:: stool Past Surgical History: Breast Surgery, Section, Cholecystectomy, Heart Catheterization With Stent, Hernia Repair Additional Past Surgical History / Comment(s): 01/09/15 PTCA with stent to obtuse marginal branch of circ and stent to mid LAD, bilateral augmentation, 3 C-Sections, ventral hernia repair, bilateral cataract removal with lens implants, picc line in and out for ABX tx for C-Diff. Past Anesthesia/Blood Transfusion Reactions: No Reported Reaction, Motion Sickness Additional Past Anesthesia/Blood Transfusion Reaction / Comment(s): Pt has never recieved blood. Date of Last Stent Placement:: 01/09/15 Past Psychological History: Anxiety Smoking Status: Former smoker - Past Family History Mother Additional Family Medical History / Comment(s): Mother had a brain aneurysm. She after brain surgery at age 88 yrs. Father Family Medical History: CVA/TIA, Diabetes Mellitus, Hypertension Additional Family Medical History / Comment(s): Father of a CVA. General Exam - General Exam Comments Initial Comments: Physical Exam GENERAL: Chronically ill appearing very dehydrated female in moderate distress Very unwell-appearing HENT: Normocephalic, Atraumatic. Edentulous EYES: PERRL, EOMI [place] PULMONARY: Unlabored respirations. No audible rales rhonchi or wheezing was noted. CARDIOVASCULAR: There is a regular rate and rhythm without any murmurs gallops or rubs. ABDOMEN: Soft and nontender with hyperactive bowel sounds. SKIN: Dry Tenting : Normal external genitalia NEUROLOGIC: Patient is alert and oriented x3. Moving all extremities spontaneously MUSCULOSKELETAL: Generalized weakness PSYCHIATRIC: Situational depression - very upset about needing to return to the hospitla Limitations: no limitations Course Vital Signs 07/20/18 03:50 Temperature 97.7 F Pulse Rate 90 Respiratory 20 Rate Blood Pressure 85/64 O2 Sat by Pulse 97 Oximetry EKG Findings - EKG Comments: EKG Findings:: EKG was obtained for 3 AM, rate is 91 rhythm is sinus, there is a normal axis, DE is 174, QRS is 80 QTc is prolonged at 492 there are no acute ST elevations or depressions or evidence of acute ischemia or infarction Medical Decision Making - Medical Decision Making She was seen and evaluated history is obtained from patient, and review of medical record This is a chronically ill 78-year-old female presenting via EMS for severe dehydration nausea or vomiting Upon initial evaluation the patient appears very unwell she is very dehydrated her skin is dry and tenting she is actively heaving EKG did reveal a prolonged QTC therefore additional doses of Zofran were held that she did receive some in route from EMS. She is given Tigan in the emergency department only minimal improvement in her nausea. Labs and imaging ordered Labs with multiple significant abnormalities including new profound leukocytosis, hemoglobin has increased significant which is consistent with hemoconcentration There is acute kidney injury, hypokalemia which is consistent with patient's history of vomiting and diarrhea is also noted to be hyperglycemic this is likely an acute stress reaction and she has no history of diabetes IV fluid resuscitation was ordered as well as potassium replacement The patient's advanced age and severe dehydration I do feel she requires admission to hospital for further management. Patient agreeable this. Primary care physician Dr. Marinelli does not admit his own patients awake and therefore patient will be admitted to [facility]. - Lab Data Result diagrams: 07/20/18 04:25 07/20/18 04:25 Lab Results 07/20/18 07/20/18 07/20/18 Range/Units 04:25 04:25 04:25 WBC 24.0 H (3.8-10.6) k/uL RBC 6.12 H (3.80-5.40) m/uL Hgb 16.8 H D (11.4-16.0) gm/dL Hct 50.3 H (34.0-46.0) % MCV 82.1 (80.0-100.0) fL MCH 27.5 (25.0-35.0) pg MCHC 33.5 (31.0-37.0) g/dL RDW 16.2 H (11.5-15.5) % Plt Count 398 (150-450) k/uL Sodium 132 L (137-145) mmol/L Potassium 2.6 L* (3.5-5.1) mmol/L Chloride 91 L (98-107) mmol/L Carbon Dioxide 17 L (22-30) mmol/L Anion Gap 24 mmol/L BUN 64 H (7-17) mg/dL Creatinine 1.54 H (0.52-1.04) mg/dL Est GFR (CKD-EPI)AfAm 36 (>60 ml/min/1.73 sqM) Est GFR (CKD-EPI)NonAf 32 (>60 ml/min/1.73 sqM) Glucose 293 H (74-99) mg/dL Calcium 10.4 H (8.4-10.2) mg/dL Magnesium 2.3 (1.6-2.3) mg/dL Total Bilirubin 0.6 (0.2-1.3) mg/dL AST 20 (14-36) U/L ALT 42 (9-52) U/L Alkaline Phosphatase 164 H (38-126) U/L Troponin I 0.014 (0.000-0.034) ng/mL Total Protein 8.3 H (6.3-8.2) g/dL Albumin 4.8 (3.5-5.0) g/dL Amylase 227 H (30-110) U/L Disposition Clinical Impression: Gastroenteritis, Renal insufficiency, Hypokalemia, Intractable vomiting, QT prolongation, Weakness, Dehydration, Diarrhea Disposition: ADMITTED IP TO THIS [facility] Condition: Serious Is patient prescribed a controlled substance at d/c from ED?: No Referrals: Daren Marinelli MD [Primary Care Provider] - 1-2 days
[2018-07-20 05:39] LABS: Partial Thromboplastin Time 21.9 sec (22.0-30.0)
[2018-07-20 06:53] LABS: Band Neutrophils % 9 %; Eosinophils # (M) 0.24 k/uL (0-0.7); Lymphocytes # (M) 2.64 k/uL (1.0-4.8); Monocytes # (M) 2.88 k/uL (0-1.0); Neutrophils % (M) 67 %; Nucleated Red Blood Cells 0 /100 WBC (0-0); Total Cells Counted 100
[2018-07-20] MEDS: PANTOPRAZOLE 40 MG/10 ML VIAL IV SCH (10:13)
[2018-07-20] MEDS: 0.9% NACL WITH KCL 20 MEQ/L 1,000 ML IV SCH ×3 (10:13→21:09)
[2018-07-20 12:15] LABS: Glucose,Whole Blood 166 mg/dL (75-99)
--- NOTE | 2018-07-20 12:52 | P.HPIM ---
History of Present Illness H&P Date: 07/20/18 Chief Complaint: Nausea vomiting diarrhea/weakness 78-year-old female who is recently admitted to the hospital for generalized weakness, she returned home 2 days ago she presents the emergency department today via EMS for evaluation of nausea, vomiting, diarrhea and generalized weakness. EMS reports that they were called after the patient's found her slumped between the toilet and the wall 2 weeks to get up. Patient reports that throughout the day she's had persistent nausea, vomiting and diarrhea. She reports that she's been unable to get out of the bathroom due to this. She's been in able to eat or drink anything. She reports she feels worse now than she did when she was admitted. Patient denies any suspicious food intake. does not have any similar symptoms. Workup in ED; EKG with normal sinus rhythm with no acute ST-T wave changes; lab work done in ED showed profound leukocytosis and markedly decreased hemoglobin consistent with hemoconcentration; patient also had evidence of acute renal injury with marked hypokalemia and hyperglycemia; patient has no history of diabetes Patient was given IV fluid resuscitation with potassium replacement in ED and is admitted to the hospital for further evaluation Upon reviewing patient's chart, it does not appear that patient had urine analysis done in ED Review of Systems Constitutional: Denies chills, Denies fever Eyes: denies blurred vision Cardiovascular: Denies chest pain, Denies shortness of breath Respiratory: Denies cough with sputum Gastrointestinal: Reports diarrhea, Reports nausea, Reports vomiting, Denies abdominal pain Musculoskeletal: Reports gait dysfunction, Reports muscle weakness Neurological: Denies confusion, Denies double vision, Denies numbness Hematologic/Lymphatic: Denies easy bruising, Denies lymphadenopathy Past Medical History Past Medical History: Chest Pain / Angina, CVA/TIA, Deep Vein Thrombosis (DVT), GERD/Reflux, Hyperlipidemia, Hypertension, Osteoarthritis (OA) Additional Past Medical History / Comment(s): Pt states she never had TIA/CVA- they were ruled out however 2016 medical record documents TIA, DVT L arm, arthritis multiple joints, cervical muscle spasms, R index finger injury and uses splint prn, constipation. Last Myocardial Infarction Date:: 01/08/15 History of Any Multi-Drug Resistant Organisms: C-DIFF Date of last positivie culture/infection: 2013 MDRO Source:: stool Past Surgical History: Breast Surgery, Section, Cholecystectomy, Heart Catheterization With Stent, Hernia Repair Additional Past Surgical History / Comment(s): 01/09/15 PTCA with stent to obtuse marginal branch of circ and stent to mid LAD, bilateral augmentation, 3 C-Sections, ventral hernia repair, bilateral cataract removal with lens implants, picc line in and out for ABX tx for C-Diff. Past Anesthesia/Blood Transfusion Reactions: No Reported Reaction, Motion Sickness Additional Past Anesthesia/Blood Transfusion Reaction / Comment(s): Pt has never recieved blood. Date of Last Stent Placement:: 01/09/15 Past Psychological History: Anxiety Smoking Status: Former smoker - Past Family History Mother Additional Family Medical History / Comment(s): Mother had a brain aneurysm. She after brain surgery at age 88 yrs. Father Family Medical History: CVA/TIA, Diabetes Mellitus, Hypertension Additional Family Medical History / Comment(s): Father of a CVA. Medications and Allergies Home Medications Medication Instructions Recorded Confirmed Type Famotidine [Pepcid] 20 mg PO DAILY #30 tablet 08/16/15 07/20/18 Rx Aspirin EC [Ecotrin Low Dose] 81 mg PO DAILY 07/21/17 07/20/18 History Ibuprofen [Motrin] 800 mg PO TID PRN 07/21/17 07/20/18 History Pantoprazole [Protonix] 40 mg PO DAILY 07/21/17 07/20/18 History Dicyclomine [Bentyl] 20 mg PO BID 07/11/18 07/20/18 History Furosemide [Lasix] 40 mg PO BID 07/11/18 07/20/18 History Hydrocodone/Acetaminophen [[place] 1 tab PO Q12H 07/11/18 07/20/18 History 10-325] Metolazone [Zaroxolyn] 2.5 mg PO DAILY 07/11/18 07/20/18 History Pravastatin Sodium [Pravachol] 20 mg PO HS 07/11/18 07/20/18 History Docusate [Colace] 100 mg PO BID #60 cap 07/18/18 07/20/18 Rx Lidocaine 5% Patch [Lidoderm 5% 2 patch TOPICAL DAILY@1100 #60 07/18/18 07/20/18 Rx Patch] patch Metoprolol Tartrate [Lopressor] 12.5 mg PO BID #60 tab 07/18/18 07/20/18 Rx Potassium Chloride ER [K-Dur 20] 20 meq PO BID tab.er.prt 07/18/18 07/20/18 Rx Allergies Allergy/AdvReac Type Severity Reaction Status Date / Time codeine Allergy Unknown Dyspnea Verified 07/20/18 08:02 Penicillins Allergy Unknown Rash/Hives Verified 07/20/18 08:02 Sulfa (Sulfonamide Allergy Unknown Rash/Hives Verified 07/20/18 08:02 Antibiotics) prednisone Allergy Dyspnea Verified 07/20/18 08:02 hydromorphone HCl AdvReac Severe Hallucinati Verified 07/20/18 08:02 [From Dilaudid] ons chocolate flavor AdvReac Cough Verified 07/20/18 08:02 Iodinated Contrast- Oral and AdvReac Nausea & Verified 07/20/18 08:02 IV Dye Vomiting [Iodinated Contrast Media - Oral and] ondansetron [From Zofran] AdvReac Rapid Verified 07/20/18 08:02 Heart Rate Physical Exam Vitals: Vital Signs Temp Pulse Pulse Resp BP BP Pulse Ox 07/20/18 07:50 66 07/20/18 07:48 97.9 F 66 16 140/84 91 L 07/20/18 05:51 68 16 118/88 100 07/20/18 03:50 97.7 F 90 20 85/64 97 Intake and Output 07/19/18 07/20/18 07/20/18 22:59 06:59 14:59 Other: Weight 70.307 kg - Constitutional General appearance: Present: average body habitus, cooperative, no acute distress - EENT Eyes: Present: anicteric sclerae, EOMI, PERRLA, normal appearance ENT: Present: hearing grossly normal, normal oropharynx Ears: bilateral: normal - Neck Neck: Present: normal ROM. Absent: lymphadenopathy, rigidity, thyromegaly Carotids: negative: bruit present Thyroid: bilateral: normal size, negative: enlarged, nodule - Respiratory Respiratory: bilateral: CTA, negative: rales, rhonchi, wheezing - Cardiovascular Rhythm: regular Heart sounds: normal: S1, S2 Abnormal Heart Sounds: Absent: systolic murmur, diastolic murmur - Gastrointestinal General gastrointestinal: Present: normal bowel sounds, soft. Absent: distended, organomegaly, tenderness - Genitourinary Genitourinary Comment(s): deferred - Integumentary Integumentary: turgor; dry. Absent: jaundiced, rash, ulcer - Neurologic Neurologic: Present: CNII-XII intact. Absent: focal deficits - Musculoskeletal Musculoskeletal: Present: gait normal, strength equal bilaterally - Psychiatric Psychiatric: Present: A&O x's 3, appropriate affect, intact judgment & insight Results CBC & Chem 7: 07/20/18 04:25 07/20/18 04:25 Labs: Abnormal Lab Results - Last 24 Hours (Table) 07/20/18 07/20/18 07/20/18 Range/Units 04:25 04:25 04:25 WBC 24.0 H (3.8-10.6) k/uL RBC 6.12 H (3.80-5.40) m/uL Hgb 16.8 H D (11.4-16.0) gm/dL Hct 50.3 H (34.0-46.0) % RDW 16.2 H (11.5-15.5) % Neutrophils # (Manual) 18.20 H (1.3-7.7) k/uL Monocytes # (Manual) 2.88 H (0-1.0) k/uL APTT 21.9 L (22.0-30.0) sec Sodium 132 L (137-145) mmol/L Potassium 2.6 L* (3.5-5.1) mmol/L Chloride 91 L (98-107) mmol/L Carbon Dioxide 17 L (22-30) mmol/L BUN 64 H (7-17) mg/dL Creatinine 1.54 H (0.52-1.04) mg/dL Glucose 293 H (74-99) mg/dL Calcium 10.4 H (8.4-10.2) mg/dL Alkaline Phosphatase 164 H (38-126) U/L Total Protein 8.3 H (6.3-8.2) g/dL Amylase 227 H (30-110) U/L Lipase (23-300) U/L 07/20/18 Range/Units 04:25 WBC (3.8-10.6) k/uL RBC (3.80-5.40) m/uL Hgb (11.4-16.0) gm/dL Hct (34.0-46.0) % RDW (11.5-15.5) % Neutrophils # (Manual) (1.3-7.7) k/uL Monocytes # (Manual) (0-1.0) k/uL APTT (22.0-30.0) sec Sodium (137-145) mmol/L Potassium (3.5-5.1) mmol/L Chloride (98-107) mmol/L Carbon Dioxide (22-30) mmol/L BUN (7-17) mg/dL Creatinine (0.52-1.04) mg/dL Glucose (74-99) mg/dL Calcium (8.4-10.2) mg/dL Alkaline Phosphatase (38-126) U/L Total Protein (6.3-8.2) g/dL Amylase (30-110) U/L Lipase 480 H (23-300) U/L Assessment and Plan Assessment: 1. Intractable nausea vomiting diarrhea - Patient is started on IV fluid resuscitation with normal saline mixed with 20 mEq of KCl chronic at 1 50 mL an hour - We will monitor electrolytes and renal function; we will send stool for C. diff toxin - Start patient on Protonix 40 mg IV daily; symptomatic treatment with IV Zofran 2. Leukocytosis; stress-induced versus infectious - No UA/urine culture done in ED; we will send for UA with reflex culture - Patient is ALLERGIC to penicillin; we will start patient empirically on IV Levaquin and IV Flagyl since patient remains quite nauseated - Await urine and blood culture for further recommendations - ID is consulted 3. Profound hypokalemia; continue with supplementation - We will monitor electrolytes closely and supplement as needed 4. Acute renal injury - IV fluid resuscitation as indicated above - We will monitor strict ABIGAIL's, daily weights, renal function and electrolytes - Avoid hypotension and nephrotoxins 5. Hyperglycemia; no history of diabetes - We will order Accu-Cheks with insulin sliding scale - Further recommendations pending Accu-Chek results 6. Hyperlipidemia; patient takes pravastatin 20 mg daily at bedtime; we will hold until nausea/vomiting improves 7. Hypertension; patient was hypotensive in ED - Blood pressures improved with IV fluid resuscitation - We will restart patient on home dose of metoprolol 12.5 mg twice a day 8. DVT prophylaxis; subcu heparin CODE STATUS; full code
[2018-07-20 13:51] LABS: Calcium 9.1 mg/dL (8.4-10.2); Potassium 2.8 mmol/L (3.5-5.1)
[2018-07-20] MEDS ORDERED: LEVOFLOXACIN 250MG-D5W PMX 250 MG in DEXTROSE/WATER 1 50ML.BAG IVPB SCH (14:00)
--- NOTE | 2018-07-20 15:50 | US ---
EXAMINATION TYPE: US abdomen comp/pelvis limited DATE OF EXAM: 07/20/2018 COMPARISON: US CLINICAL HISTORY: cholangitis,pancreatitis. N, V, D/ pancreatitis, dehydration, abnormal labs EXAM MEASUREMENTS: Liver Length: 17.1 cm CBD: 0.6 cm Spleen: Unable to visualize spleen Right Kidney: 9.3 x 4.0 x 4.4 cm Left Kidney: 10.0 x 5.2 x 4.4 cm Pancreas: 2mm panc duct, tail obscured by overlying bowel gas Liver: Upper limits of normal for size Gallbladder: Surgically absent CBD: wnl Spleen: unable to visualize due to overlying bowel gas Right Kidney: wnl Left Kidney: Visualized portions appeared wnl, somewhat difficult to visualize due to overlying julian l gas Upper IVC: wnl Abd Aorta: wnl Bladder: wnl Bilateral Jets Seen No IMPRESSION: 1. Hepatomegaly. 2. Bowel gas prevents some visualization of structures during this exam. 3. No suspicious ultrasound abnormality for acute pancreatitis. CT can be performed for sufficient cl inical suspicion. Patella pancreas could not be identified during this exam.
[2018-07-20] MEDS ORDERED: metroNIDAZOLE-NS PMX 500 MG in SALINE 1 100ML.BAG IVPB SCH (16:00)
[2018-07-20] MEDS: ERTAPENEM 1 GM in SODIUM CHLORIDE 0.9% 50 ML IVPB SCH (16:21)
[2018-07-20] MEDS: FUROSEMIDE 40 MG TAB PO SCH (16:21)
[2018-07-20] MEDS ORDERED: Potassium Replacement Protocol 1 EACH MISC MISCELLANE PRN (16:32)
[2018-07-20 16:48] LABS: Glucose,Whole Blood 140 mg/dL (75-99)
[2018-07-20] MEDS: HYDROcodone/APAP 10-325MG 1 EACH TAB PO PRN (17:42)
[2018-07-20] MEDS: INSULIN ASPART (NovoLOG) 100 UNIT/ML VIAL SQ SCH ×2 (18:11→21:10)
[2018-07-20 18:38] LABS: Appearance,Urine Clear (Clear); Bilirubin,Urine Negative (Negative); Blood,Urine Small (Negative); Color,Urine Colorless; Glucose,Urine (UA) Negative (Negative); Ketones,Urine Negative (Negative); Leukocyte Esterase,Urine Negative (Negative); Nitrite,Urine Negative (Negative); PH, Urine 6.5 (5.0-8.0); Protein,Urine Negative (Negative); RBC,Urine 11 /hpf (0-5); Specific Gravity,Urine 1.007 (1.001-1.035); Squamous Epithelial Cell,Urine <1 /hpf (0-4); Urobilinogen,Urine <2.0 mg/dL (<2.0)
[2018-07-20 19:33] LABS: Glucose,Whole Blood 157 mg/dL (75-99)
--- NOTE | 2018-07-20 19:46 | P.CONS ---
History of Present Illness - Reason for Consult Consult date: 07/20/18 - Chief Complaint Weakness - History of Present Illness 78-year-old female who presents to Hospital from home after becoming so weak she could not get up and had fallen to the floor and was trapped between the toilet and the wall. The patient which she was recently hospitalized for several days where she was acutely ill. Eventually she was discharged home but was still quite weak and was worried about her potassium. At home she worsened rapidly she has significant nausea and emesis and progressive weakness. She got to the point in time nor she could not even navigate she was unable to eat or drink endorse her urine was dark. She doesn't was brought to the hospital by EMS where she was on evidence of significant acute kidney injury and electrolyte disorders including significant hypo-kalemia. The patient's nausea and emesis have now improved since coming to Hospital receiving hydration and antiemetics. She is not having significant diarrhea at this point in time. She feels very poorly overall better than at admission. Review of Systems HEENT:Denies headache or acute visual change. Denies sinus or mouth discomforts. Denies neck stiffness or pain. Denies significant oral cavity pain. Denies difficulty on swallowing. Lungs: Denies significant shortness of breath, cough, sputum production, or hemoptysis. Cardiovascular: Denies significant shortness of breath, chest pain, chest wall pain, orthopnea, dyspnea on exertion, syncope Gastrointestinal: Had several days of increasing nausea emesis and loose stool. She had inability to take in significant amounts of food and fluids which worsened her dehydration. She has some abdominal pain that is improved. Musculoskeletal: Profound generalized weakness but no acute joint swelling Skin: Denies new rash or lesions. No new ulcers or wounds are related.. Neuro: Denies headache or visual change. Denies any new onset weakness or difficulty with ambulation. Denies falls or seizures. Psychiatric:Denies anxiety or depression. Endocrine: Profound fatigue and weight loss Past Medical History Past Medical History: Chest Pain / Angina, CVA/TIA, Deep Vein Thrombosis (DVT), GERD/Reflux, Hyperlipidemia, Hypertension, Osteoarthritis (OA) Additional Past Medical History / Comment(s): Pt states she never had TIA/CVA- they were ruled out however 2016 medical record documents TIA, DVT L arm, arthritis multiple joints, cervical muscle spasms, R index finger injury and uses splint prn, constipation. Last Myocardial Infarction Date:: 01/08/15 History of Any Multi-Drug Resistant Organisms: C-DIFF Year Discovered:: 2013 MDRO Source:: stool Past Surgical History: Breast Surgery, Section, Cholecystectomy, Heart Catheterization With Stent, Hernia Repair Additional Past Surgical History / Comment(s): 01/09/15 PTCA with stent to obtuse marginal branch of circ and stent to mid LAD, bilateral augmentation, 3 C-Sections, ventral hernia repair, bilateral cataract removal with lens implants, picc line in and out for ABX tx for C-Diff. Past Anesthesia/Blood Transfusion Reactions: No Reported Reaction, Motion Sickness Additional Past Anesthesia/Blood Transfusion Reaction / Comm: Pt has never recieved blood. Date of Last Stent Placement:: 01/09/15 Past Psychological History: Anxiety Additional Psychological History / Comment(s): With her current male chief yeoman for the last 13 years. History of having 3 children. Retired nurse's aide. No experience. No tobacco or alcohol use no recreational drug use. No animal exposures Smoking Status: Former smoker - Past Family History Mother Additional Family Medical History / Comment(s): Mother had a brain aneurysm. She after brain surgery at age 88 yrs. Father Family Medical History: CVA/TIA, Diabetes Mellitus, Hypertension Additional Family Medical History / Comment(s): Father of a CVA. Medications and Allergies Home Medications and Allergies Comment(s): Current Medications Hydrocodone Bitart/Acetaminophen ([place] 10) 1 each PO Q12H PRN PRN Reason: Pain Last Admin: 07/20/18 17:42 Dose: 1 each Documented by: Aspirin (Aspirin) 81 mg PO DAILY [facility] Dicyclomine HCl (Bentyl) 20 mg PO BID [facility] Docusate Sodium (Colace) 100 mg PO BID [facility] Furosemide (Lasix) 40 mg PO BID@0900,1600 [facility] Last Admin: 07/20/18 16:21 Dose: 40 mg Documented by: Potassium Chloride/Sodium Chloride (Ns-Kcl 20 Meq/L Iv Solution) 1,000 mls @ 150 mls/hr IV .Q6H40M [facility] Last Admin: 07/20/18 18:10 Dose: Not Given Documented by: Ertapenem 1 gm/ Sodium (Chloride) 50 mls @ 100 mls/hr IVPB DAILY@1600 [facility]; Protocol Last Admin: 07/20/18 16:21 Dose: 100 mls/hr Documented by: Ibuprofen (Motrin) 800 mg PO TID PRN PRN Reason: Pain Insulin Aspart (Novolog) 0 unit SQ ACHS [facility]; Protocol Stop: 07/27/18 17:31 Last Admin: 07/20/18 18:11 Dose: Not Given Documented by: Metolazone (Zaroxolyn) 2.5 mg PO DAILY [facility] Metoprolol Tartrate (Lopressor) 12.5 mg PO BID [facility] Miscellaneous Information (Potassium Per Protocol) 1 each MISCELLANE DAILY PRN; Protocol PRN Reason: Per Protocol Naloxone HCl (Narcan) 0.2 mg IV Q2M PRN PRN Reason: Opioid Reversal Pantoprazole Sodium (Protonix) 40 mg IV DAILY [facility] Last Admin: 07/20/18 10:13 Dose: 40 mg Documented by: Potassium Chloride (K-Dur 20) 20 meq PO BID [facility] Potassium Chloride (K-Dur 20) 20 meq PO Q1HR [facility] Stop: 07/20/18 21:01 Pravastatin Sodium (Pravachol) 20 mg PO [facility] Home Medications Medication Instructions Recorded Confirmed Type Famotidine [Pepcid] 20 mg PO DAILY #30 tablet 08/16/15 07/20/18 Rx Aspirin EC [Ecotrin Low Dose] 81 mg PO DAILY 07/21/17 07/20/18 History Ibuprofen [Motrin] 800 mg PO TID PRN 07/21/17 07/20/18 History Pantoprazole [Protonix] 40 mg PO DAILY 07/21/17 07/20/18 History Dicyclomine [Bentyl] 20 mg PO BID 07/11/18 07/20/18 History Furosemide [Lasix] 40 mg PO BID 07/11/18 07/20/18 History Hydrocodone/Acetaminophen [[place] 1 tab PO Q12H 07/11/18 07/20/18 History 10-325] Metolazone [Zaroxolyn] 2.5 mg PO DAILY 07/11/18 07/20/18 History Pravastatin Sodium [Pravachol] 20 mg PO HS 07/11/18 07/20/18 History Docusate [Colace] 100 mg PO BID #60 cap 07/18/18 07/20/18 Rx Lidocaine 5% Patch [Lidoderm 5% 2 patch TOPICAL DAILY@1100 #60 07/18/18 07/20/18 Rx Patch] patch Metoprolol Tartrate [Lopressor] 12.5 mg PO BID #60 tab 07/18/18 07/20/18 Rx Potassium Chloride ER [K-Dur 20] 20 meq PO BID tab.er.prt 07/18/18 07/20/18 Rx Allergies Allergy/AdvReac Type Severity Reaction Status Date / Time codeine Allergy Unknown Dyspnea Verified 07/20/18 08:02 Penicillins Allergy Unknown Rash/Hives Verified 07/20/18 08:02 Sulfa (Sulfonamide Allergy Unknown Rash/Hives Verified 07/20/18 08:02 Antibiotics) prednisone Allergy Dyspnea Verified 07/20/18 08:02 hydromorphone HCl AdvReac Severe Hallucinati Verified 07/20/18 08:02 [From Dilaudid] ons chocolate flavor AdvReac Cough Verified 07/20/18 08:02 Iodinated Contrast- Oral and AdvReac Nausea & Verified 07/20/18 08:02 IV Dye Vomiting [Iodinated Contrast Media - Oral and] ondansetron [From Zofran] AdvReac Rapid Verified 07/20/18 08:02 Heart Rate Physical Exam Vitals: Vital Signs Temp Pulse Pulse Resp BP BP Pulse Ox 07/20/18 15:00 99.2 F 72 16 114/65 97 07/20/18 07:50 66 07/20/18 07:48 97.9 F 66 16 140/84 91 L 07/20/18 05:51 68 16 118/88 100 07/20/18 03:50 97.7 F 90 20 85/64 97 Intake and Output 07/20/18 07/20/18 07/20/18 06:59 14:59 22:59 Intake Total 236 Balance 236 Intake: Oral 236 Other: # Voids 2 Weight 70.307 kg 78-year-old woman who is anxious and upset that she was recently hospitalized and comes back so ill HEENT: Anicteric conjunctiva are pink and moist nasal mucosa grossly intact without significant lesions, there is no thrush. Neck: The neck is supple without significant lymphadenopathy or thyromegaly. Lungs: Good bilateral air entry without significant crackles or wheezing. There is no significant bronchial sounds. There is no egophony or dullness. Heart: Regular rate and rhythm with an audible S1-S2, no S3 no S4. There is no significant murmur click or rub, PMI was nondisplaced. Abdomen: Few bowel sounds are noted. She has distinct tenderness in the right upper quadrant. There is some minimal lower quadrant discomfort but there is no palpable hepatosplenomegaly. There is no palpable mass. No guarding rebound or rigidity Extremities: The upper extremities have excellent pulses they are symmetric, no significant petechiae or telangiectasia. No splinter hemorrhages were noted. The lower extremities are free from significant edema. The peripheral pulses were 2+ and symmetric. Neuro: Awake alert oriented to person place and time. There are no acute new gross focal sensory motor deficits. Results CBC & Chem 7: 07/20/18 04:25 07/20/18 12:30 Labs: Abnormal Lab Results - Last 24 Hours (Table) 07/20/18 07/20/18 07/20/18 Range/Units 04:25 04:25 04:25 WBC 24.0 H (3.8-10.6) k/uL RBC 6.12 H (3.80-5.40) m/uL Hgb 16.8 H D (11.4-16.0) gm/dL Hct 50.3 H (34.0-46.0) % RDW 16.2 H (11.5-15.5) % Neutrophils # (Manual) 18.20 H (1.3-7.7) k/uL Monocytes # (Manual) 2.88 H (0-1.0) k/uL APTT 21.9 L (22.0-30.0) sec Sodium 132 L (137-145) mmol/L Potassium 2.6 L* (3.5-5.1) mmol/L Chloride 91 L (98-107) mmol/L Carbon Dioxide 17 L (22-30) mmol/L BUN 64 H (7-17) mg/dL Creatinine 1.54 H (0.52-1.04) mg/dL Glucose 293 H (74-99) mg/dL POC Glucose (mg/dL) (75-99) mg/dL Calcium 10.4 H (8.4-10.2) mg/dL Alkaline Phosphatase 164 H (38-126) U/L Total Protein 8.3 H (6.3-8.2) g/dL Amylase 227 H (30-110) U/L Lipase (23-300) U/L Urine Blood (Negative) Urine RBC (0-5) /hpf 07/20/18 07/20/18 07/20/18 Range/Units 04:25 12:13 12:30 WBC (3.8-10.6) k/uL RBC (3.80-5.40) m/uL Hgb (11.4-16.0) gm/dL Hct (34.0-46.0) % RDW (11.5-15.5) % Neutrophils # (Manual) (1.3-7.7) k/uL Monocytes # (Manual) (0-1.0) k/uL APTT (22.0-30.0) sec Sodium 135 L (137-145) mmol/L Potassium 2.8 L (3.5-5.1) mmol/L Chloride (98-107) mmol/L Carbon Dioxide 17 L (22-30) mmol/L BUN 57 H (7-17) mg/dL Creatinine 1.10 H (0.52-1.04) mg/dL Glucose 147 H (74-99) mg/dL POC Glucose (mg/dL) 166 H (75-99) mg/dL Calcium (8.4-10.2) mg/dL Alkaline Phosphatase (38-126) U/L Total Protein (6.3-8.2) g/dL Amylase (30-110) U/L Lipase 480 H (23-300) U/L Urine Blood (Negative) Urine RBC (0-5) /hpf 07/20/18 07/20/18 07/20/18 Range/Units 16:46 18:08 19:28 WBC (3.8-10.6) k/uL RBC (3.80-5.40) m/uL Hgb (11.4-16.0) gm/dL Hct (34.0-46.0) % RDW (11.5-15.5) % Neutrophils # (Manual) (1.3-7.7) k/uL Monocytes # (Manual) (0-1.0) k/uL APTT (22.0-30.0) sec Sodium (137-145) mmol/L Potassium (3.5-5.1) mmol/L Chloride (98-107) mmol/L Carbon Dioxide (22-30) mmol/L BUN (7-17) mg/dL Creatinine (0.52-1.04) mg/dL Glucose (74-99) mg/dL POC Glucose (mg/dL) 140 H 157 H (75-99) mg/dL Calcium (8.4-10.2) mg/dL Alkaline Phosphatase (38-126) U/L Total Protein (6.3-8.2) g/dL Amylase (30-110) U/L Lipase (23-300) U/L Urine Blood Small H (Negative) Urine RBC 11 H (0-5) /hpf Assessment and Plan (1) Dehydration Current Visit: Yes Status: Acute Code(s): E86.0 - DEHYDRATION SNOMED Code(s): 63836021 (2) Pancreatitis Narrative/Plan: 78-year-old female who was recently hospitalized who relates shortly after getting home he had rapid decline of her status. She developed increasing nausea emesis some loose stool. She felt increasingly weak. And finally fell to the floor and could not get up. Brought to Hospital is not evidence of multiple episodes including profound hypokalemia, elevated amylase and lipase and abnormality on a recent computed tomography scan with cholelithiasis being seen on 07/13/2018. At this time there are concerns to the biliary tract and that there could be a retained stone is resulted in some obstruction and onset of pancreatitis. This could be causing her current constellation of symptoms and making her feel very poorly overall. At this time further evaluation of the biliary tract will be needed. Ultrasounds been requested. Will likely need a gastroenterology evaluation if there is any obstruction possibly ERCP. Antibiotic therapy with her ALLERGY history will be transitioned to ertapenem and she will be monitored. Current Visit: Yes Status: Acute Code(s): K85.90 - ACUTE PANCREATITIS WITHOUT NECROSIS OR INFECTION, UNSP SNOMED Code(s): 86525874 (3) Intractable vomiting Current Visit: Yes Status: Acute Code(s): R11.10 - VOMITING, UNSPECIFIED SNOMED Code(s): 972394580
[2018-07-20] MEDS ORDERED: HYDROcodone/APAP 10-325MG 1 EACH TAB PO SCH (21:00)
[2018-07-20] MEDS ORDERED: METOPROLOL TARTRATE 25 MG TAB PO SCH (21:00)
[2018-07-20] MEDS: POTASSIUM CHLORIDE ER 20 MEQ TAB.ER PO SCH ×2 (21:09→22:05)
[2018-07-20] MEDS: PRAVASTATIN SODIUM 20 MG TAB PO SCH (21:10)
[2018-07-20] MEDS: METOPROLOL TARTRATE 12.5 MG TAB PO SCH (21:10)
[2018-07-20] MEDS: DICYCLOMINE 20 MG TAB PO SCH (21:10)
[2018-07-20] MEDS: DOCUSATE 100 MG CAP PO SCH (21:10)
[2018-07-21] MEDS: POTASSIUM CHLORIDE ER 20 MEQ TAB.ER PO SCH ×9 (00:09→23:21)
[2018-07-21] MEDS: IBUPROFEN 800 MG TAB PO PRN ×2 (01:35→22:18)
[2018-07-21] MEDS: 0.9% NACL WITH KCL 20 MEQ/L 1,000 ML IV SCH ×4 (02:31→23:22)
[2018-07-21 06:57] LABS: Glucose,Whole Blood 117 mg/dL (75-99)
[2018-07-21] MEDS: INSULIN ASPART (NovoLOG) 100 UNIT/ML VIAL SQ SCH ×4 (07:30→20:33)
[2018-07-21] MEDS: ASPIRIN 81 MG PO SCH (09:39)
[2018-07-21] MEDS: DOCUSATE 100 MG CAP PO SCH ×2 (09:39→20:46)
[2018-07-21] MEDS: FUROSEMIDE 40 MG TAB PO SCH ×2 (09:39→18:22)
[2018-07-21] MEDS: METOPROLOL TARTRATE 12.5 MG TAB PO SCH ×2 (09:40→20:46)
[2018-07-21] MEDS: PANTOPRAZOLE 40 MG/10 ML VIAL IV SCH (09:40)
[2018-07-21] MEDS: DICYCLOMINE 20 MG TAB PO SCH ×2 (09:55→20:26)
[2018-07-21] MEDS: METOLAZONE 2.5 MG TAB PO SCH (09:56)
[2018-07-21 11:41] LABS: Glucose,Whole Blood 122 mg/dL (75-99)
[2018-07-21 11:43] LABS: Amylase 119 U/L (30-110); Lipase 242 U/L (23-300)
[2018-07-21] MEDS ORDERED: POTASSIUM CHLORIDE 40 MEQ in WATER FOR INJECTION 1 100ML.BAG IVPB STA (12:06)
[2018-07-21] MEDS: POTASSIUM CHLORIDE 20 MEQ in WATER FOR INJECTION 1 100ML.BAG IVPB SCH ×2 (13:27→18:22)
[2018-07-21] MEDS: HYDROcodone/APAP 10-325MG 1 EACH TAB PO PRN (14:07)
[2018-07-21 16:56] LABS: Glucose,Whole Blood 128 mg/dL (75-99)
[2018-07-21 20:34] LABS: Glucose,Whole Blood 156 mg/dL (75-99)
[2018-07-21] MEDS: PRAVASTATIN SODIUM 20 MG TAB PO SCH (20:46)
[2018-07-21] MEDS: CALCIUM CARBONATE 500 MG CHEWABLE PO PRN (22:15)
[2018-07-21] MEDS: ERTAPENEM 1 GM in SODIUM CHLORIDE 0.9% 50 ML IVPB SCH (22:25)
--- NOTE | 2018-07-21 23:22 | P.PN ---
Subjective Progress Note Date: 07/21/18 78-year-old female who presents to Hospital from home after becoming so weak she could not get up and had fallen to the floor and was trapped between the toilet and the wall. The patient which she was recently hospitalized for several days where she was acutely ill. Eventually she was discharged home but was still quite weak and was worried about her potassium. At home she worsened rapidly she has significant nausea and emesis and progressive weakness. She got to the point in time nor she could not even navigate she was unable to eat or drink endorse her urine was dark. She doesn't was brought to the hospital by EMS where she was on evidence of significant acute kidney injury and electrolyte disorders including significant hypo-kalemia. The patient's nausea and emesis have now improved since coming to Hospital receiving hydration and antiemetics. She is not having significant diarrhea at this point in time. She feels very poorly overall better than at admission. 07/21/2018 patient's feeling better. She's been able to ingest some food. Nausea and emesis have improved. Abdominal pain is improved overall feeling somewhat better but has not yet resolved all of her symptoms. Continues to have hypokalemia is being supplemented. However with her acute renal failure the potassium replacement has been going slowly. Patient was found evidence of pancreatitis admission seems to be improving and her abdominal pain and nausea and emesis have improved. Objective - Vital Signs Vital signs: Vital Signs Temp 98.2 F 07/21/18 20:00 Pulse 75 07/21/18 20:00 Resp 14 07/21/18 20:00 BP 127/74 07/21/18 20:00 Pulse Ox 95 07/21/18 20:00 Intake & Output 07/21/18 07/21/18 07/22/18 06:59 18:59 06:59 Intake Total 1461 675 Balance 1461 675 Intake: Intake, IV Titration 825 675 Amount 0.9% NaCl with KCl 20 Meq 825 675 /l 1,000 ml @ 150 mls/hr IV .Q6H40M [facility] Rx#: [id number] Oral 636 Other: Voiding Method Toilet Toilet # Voids 2 - Exam 78-year-old woman who feels considerably better today. Anxiety is improved but is unhappy about intravenous potassium due to its burning of her veins HEENT: Anicteric conjunctiva are pink and moist nasal mucosa grossly intact without significant lesions, there is no thrush. Neck: The neck is supple without significant lymphadenopathy or thyromegaly. Lungs: Good bilateral air entry without significant crackles or wheezing. There is no significant bronchial sounds. There is no egophony or dullness. Heart: Regular rate and rhythm with an audible S1-S2, no S3 no S4. There is no significant murmur click or rub, PMI was nondisplaced. Abdomen: Few bowel sounds are noted. She has distinct tenderness in the right upper quadrant. There is some minimal lower quadrant discomfort but there is no palpable hepatosplenomegaly. There is no palpable mass. No guarding rebound or rigidity Extremities: The upper extremities have excellent pulses they are symmetric, no significant petechiae or telangiectasia. No splinter hemorrhages were noted. The lower extremities are free from significant edema. The peripheral pulses were 2+ and symmetric. Neuro: Awake alert oriented to person place and time. There are no acute new gross focal sensory motor deficits. - Labs CBC & Chem 7: 07/20/18 04:25 07/21/18 15:36 Labs: Abnormal Lab Results - Last 24 Hours (Table) 07/21/18 07/21/18 07/21/18 Range/Units 06:55 08:42 08:42 Potassium 2.7 L* (3.5-5.1) mmol/L POC Glucose (mg/dL) 117 H (75-99) mg/dL Amylase 119 H (30-110) U/L 07/21/18 07/21/18 07/21/18 Range/Units 11:37 15:36 16:49 Potassium 3.1 L (3.5-5.1) mmol/L POC Glucose (mg/dL) 122 H 128 H (75-99) mg/dL Amylase (30-110) U/L 07/21/18 Range/Units 20:33 Potassium (3.5-5.1) mmol/L POC Glucose (mg/dL) 156 H (75-99) mg/dL Amylase (30-110) U/L Laboratory Results WBC 24.0 k/uL (3.8-10.6) H 07/20/18 04:25 RBC 6.12 m/uL (3.80-5.40) H 07/20/18 04:25 Hgb 16.8 gm/dL (11.4-16.0) H D 07/20/18 04:25 Hct 50.3 % (34.0-46.0) H 07/20/18 04:25 MCV 82.1 fL (80.0-100.0) 07/20/18 04:25 MCH 27.5 pg (25.0-35.0) 07/20/18 04:25 MCHC 33.5 g/dL (31.0-37.0) 07/20/18 04:25 RDW 16.2 % (11.5-15.5) H 07/20/18 04:25 Plt Count 398 k/uL (150-450) 07/20/18 04:25 Neutrophils % (Manual) 67 % 07/20/18 04:25 Band Neutrophils % 9 % 07/20/18 04:25 Lymphocytes % (Manual) 11 % 07/20/18 04:25 Monocytes % (Manual) 12 % 07/20/18 04:25 Eosinophils % (Manual) 1 % 07/20/18 04:25 Neutrophils # (Manual) 18.20 k/uL (1.3-7.7) H 07/20/18 04:25 Lymphocytes # (Manual) 2.64 k/uL (1.0-4.8) 07/20/18 04:25 Monocytes # (Manual) 2.88 k/uL (0-1.0) H 07/20/18 04:25 Eosinophils # (Manual) 0.24 k/uL (0-0.7) 07/20/18 04:25 Nucleated RBCs 0 /100 WBC (0-0) 07/20/18 04:25 Manual Slide Review Performed 07/20/18 04:25 Anisocytosis Slight 07/20/18 04:25 PT 10.9 sec (9.0-12.0) 07/20/18 04:25 INR 1.0 (<1.2) 07/20/18 04:25 APTT 21.9 sec (22.0-30.0) L 07/20/18 04:25 Sodium 135 mmol/L (137-145) L 07/20/18 12:30 Potassium 3.1 mmol/L (3.5-5.1) L 07/21/18 15:36 Chloride 101 mmol/L (98-107) 07/20/18 12:30 Carbon Dioxide 17 mmol/L (22-30) L 07/20/18 12:30 Anion Gap 17 mmol/L 07/20/18 12:30 BUN 57 mg/dL (7-17) H 07/20/18 12:30 Creatinine 1.10 mg/dL (0.52-1.04) H 07/20/18 12:30 Est GFR (CKD-EPI)AfAm 55 (>60 ml/min/1.73 sqM) 07/20/18 12:30 Est GFR (CKD-EPI)NonAf 48 (>60 ml/min/1.73 sqM) 07/20/18 12:30 Glucose 147 mg/dL (74-99) H 07/20/18 12:30 POC Glucose (mg/dL) 156 mg/dL (75-99) H 07/21/18 20:33 POC Glu Textile Knitter СЕРГЕЙ Otoniel Douglass 07/21/18 20:33 Calcium 9.1 mg/dL (8.4-10.2) 07/20/18 12:30 Magnesium 2.3 mg/dL (1.6-2.3) 07/20/18 04:25 Total Bilirubin 0.6 mg/dL (0.2-1.3) 07/20/18 04:25 AST 20 U/L (14-36) 07/20/18 04:25 ALT 42 U/L (9-52) 07/20/18 04:25 Alkaline Phosphatase 164 U/L (38-126) H 07/20/18 04:25 Troponin I 0.014 ng/mL (0.000-0.034) 07/20/18 04:25 NT-Pro-B Natriuret Pep 395 pg/mL 07/20/18 04:25 Total Protein 8.3 g/dL (6.3-8.2) H 07/20/18 04:25 Albumin 4.8 g/dL (3.5-5.0) 07/20/18 04:25 Amylase 119 U/L (30-110) H 07/21/18 08:42 Lipase 242 U/L (23-300) 07/21/18 08:42 Urine Color Colorless 07/20/18 18:08 Urine Appearance Clear (Clear) 07/20/18 18:08 Urine pH 6.5 (5.0-8.0) 07/20/18 18:08 Ur Specific [place] 1.007 (1.001-1.035) 07/20/18 18:08 Urine Protein Negative (Negative) 07/20/18 18:08 Urine Glucose (UA) Negative (Negative) 07/20/18 18:08 Urine Ketones Negative (Negative) 07/20/18 18:08 Urine Blood Small (Negative) H 07/20/18 18:08 Urine Nitrite Negative (Negative) 07/20/18 18:08 Urine Bilirubin Negative (Negative) 07/20/18 18:08 Urine Urobilinogen <2.0 mg/dL (<2.0) 07/20/18 18:08 Ur Leukocyte Esterase Negative (Negative) 07/20/18 18:08 Urine RBC 11 /hpf (0-5) H 07/20/18 18:08 Urine WBC 2 /hpf (0-5) 07/20/18 18:08 Ur Squamous Epith Cells <1 /hpf (0-4) 07/20/18 18:08 Laboratory Results WBC 24.0 k/uL (3.8-10.6) H 07/20/18 04:25 RBC 6.12 m/uL (3.80-5.40) H 07/20/18 04:25 Hgb 16.8 gm/dL (11.4-16.0) H D 07/20/18 04:25 Hct 50.3 % (34.0-46.0) H 07/20/18 04:25 MCV 82.1 fL (80.0-100.0) 07/20/18 04:25 MCH 27.5 pg (25.0-35.0) 07/20/18 04:25 MCHC 33.5 g/dL (31.0-37.0) 07/20/18 04:25 RDW 16.2 % (11.5-15.5) H 07/20/18 04:25 Plt Count 398 k/uL (150-450) 07/20/18 04:25 Neutrophils % (Manual) 67 % 07/20/18 04:25 Band Neutrophils % 9 % 07/20/18 04:25 Lymphocytes % (Manual) 11 % 07/20/18 04:25 Monocytes % (Manual) 12 % 07/20/18 04:25 Eosinophils % (Manual) 1 % 07/20/18 04:25 Neutrophils # (Manual) 18.20 k/uL (1.3-7.7) H 07/20/18 04:25 Lymphocytes # (Manual) 2.64 k/uL (1.0-4.8) 07/20/18 04:25 Monocytes # (Manual) 2.88 k/uL (0-1.0) H 07/20/18 04:25 Eosinophils # (Manual) 0.24 k/uL (0-0.7) 07/20/18 04:25 Nucleated RBCs 0 /100 WBC (0-0) 07/20/18 04:25 Manual Slide Review Performed 07/20/18 04:25 Anisocytosis Slight 07/20/18 04:25 PT 10.9 sec (9.0-12.0) 07/20/18 04:25 INR 1.0 (<1.2) 07/20/18 04:25 APTT 21.9 sec (22.0-30.0) L 07/20/18 04:25 Sodium 135 mmol/L (137-145) L 07/20/18 12:30 Potassium 3.1 mmol/L (3.5-5.1) L 07/21/18 15:36 Chloride 101 mmol/L (98-107) 07/20/18 12:30 Carbon Dioxide 17 mmol/L (22-30) L 07/20/18 12:30 Anion Gap 17 mmol/L 07/20/18 12:30 BUN 57 mg/dL (7-17) H 07/20/18 12:30 Creatinine 1.10 mg/dL (0.52-1.04) H 07/20/18 12:30 Est GFR (CKD-EPI)AfAm 55 (>60 ml/min/1.73 sqM) 07/20/18 12:30 Est GFR (CKD-EPI)NonAf 48 (>60 ml/min/1.73 sqM) 07/20/18 12:30 Glucose 147 mg/dL (74-99) H 07/20/18 12:30 POC Glucose (mg/dL) 156 mg/dL (75-99) H 07/21/18 20:33 POC Glu Textile Knitter Otoniel Elaine 07/21/18 20:33 Calcium 9.1 mg/dL (8.4-10.2) 07/20/18 12:30 Magnesium 2.3 mg/dL (1.6-2.3) 07/20/18 04:25 Total Bilirubin 0.6 mg/dL (0.2-1.3) 07/20/18 04:25 AST 20 U/L (14-36) 07/20/18 04:25 ALT 42 U/L (9-52) 07/20/18 04:25 Alkaline Phosphatase 164 U/L (38-126) H 07/20/18 04:25 Troponin I 0.014 ng/mL (0.000-0.034) 07/20/18 04:25 NT-Pro-B Natriuret Pep 395 pg/mL 07/20/18 04:25 Total Protein 8.3 g/dL (6.3-8.2) H 07/20/18 04:25 Albumin 4.8 g/dL (3.5-5.0) 07/20/18 04:25 Amylase 119 U/L (30-110) H 07/21/18 08:42 Lipase 242 U/L (23-300) 07/21/18 08:42 Urine Color Colorless 07/20/18 18:08 Urine Appearance Clear (Clear) 07/20/18 18:08 Urine pH 6.5 (5.0-8.0) 07/20/18 18:08 Ur Specific [place] 1.007 (1.001-1.035) 07/20/18 18:08 Urine Protein Negative (Negative) 07/20/18 18:08 Urine Glucose (UA) Negative (Negative) 07/20/18 18:08 Urine Ketones Negative (Negative) 07/20/18 18:08 Urine Blood Small (Negative) H 07/20/18 18:08 Urine Nitrite Negative (Negative) 07/20/18 18:08 Urine Bilirubin Negative (Negative) 07/20/18 18:08 Urine Urobilinogen <2.0 mg/dL (<2.0) 07/20/18 18:08 Ur Leukocyte Esterase Negative (Negative) 07/20/18 18:08 Urine RBC 11 /hpf (0-5) H 07/20/18 18:08 Urine WBC 2 /hpf (0-5) 07/20/18 18:08 Ur Squamous Epith Cells <1 /hpf (0-4) 07/20/18 18:08 Assessment and Plan (1) Dehydration Current Visit: Yes Status: Acute Code(s): E86.0 - DEHYDRATION SNOMED Code(s): 70042088 (2) Pancreatitis Narrative/Plan: 78-year-old female who was recently hospitalized who relates shortly after getting home he had rapid decline of her status. She developed increasing nausea emesis some loose stool. She felt increasingly weak. And finally fell to the floor and could not get up. Brought to Hospital is not evidence of multiple episodes including profound hypokalemia, elevated amylase and lipase and abnormality on a recent computed tomography scan with cholelithiasis being seen on 07/13/2018. At this time there are concerns to the biliary tract and that there could be a retained stone is resulted in some obstruction and onset of pancreatitis. This could be causing her current constellation of symptoms and making her feel very poorly overall. At this time further evaluation of the biliary tract will be needed. Ultrasounds been requested. Will likely need a gastroenterology evaluation if there is any obstruction possibly ERCP. Antibiotic therapy with her ALLERGY history will be transitioned to ertapenem and she will be monitored. 07/21/2018 patient feels better today. Imaging failed to reveal evidence of any significant obstruction of the biliary tract. Amylase and lipase are improving. Fevers improved. Appetite improved. Abdominal pain has improved. At this time continue supportive care with fluids and introduction of diet. Antibiotic therapy with ertapenem is being utilized for now given the concerns to sepsis and intra-abdominal process with the pancreas. We transitioned intramuscular antibiotic for the next day or so if IV access remains a problem. We'll expect if she improves should be able to tolerate oral potassium supplement. The acute renal failure appears to be improving also at this time. Current Visit: Yes Status: Acute Code(s): K85.90 - ACUTE PANCREATITIS WITHOUT NECROSIS OR INFECTION, UNSP SNOMED Code(s): 18677081 (3) Intractable vomiting Current Visit: Yes Status: Acute Code(s): R11.10 - VOMITING, UNSPECIFIED SNOMED Code(s): 551156187
[2018-07-22] MEDS: POTASSIUM CHLORIDE ER 20 MEQ TAB.ER PO SCH ×2 (03:02→04:47)
[2018-07-22] MEDS: CALCIUM CARBONATE 500 MG CHEWABLE PO PRN ×4 (03:05→22:54)
[2018-07-22] MEDS: 0.9% NACL WITH KCL 20 MEQ/L 1,000 ML IV SCH ×3 (04:49→17:26)
[2018-07-22 07:07] LABS: Glucose,Whole Blood 119 mg/dL (75-99)
[2018-07-22] MEDS: INSULIN ASPART (NovoLOG) 100 UNIT/ML VIAL SQ SCH ×4 (08:11→21:42)
[2018-07-22] MEDS: DICYCLOMINE 20 MG TAB PO SCH ×2 (08:12→21:50)
[2018-07-22] MEDS: FUROSEMIDE 40 MG TAB PO SCH ×2 (08:13→15:48)
--- NOTE | 2018-07-22 08:15 | P.PN ---
Subjective Progress Note Date: 07/22/18 Principal diagnosis: Hypokalemia with dehydration This is an 78-year-old white female who was recently discharged for having QT interval prolongation with hypokalemia. 2 days later, the patient started having significant nausea vomiting. The patient presented again with profound hypokalemia. She was not able to take her supplementation her medication at home. Element of enzymatic elevation from a pancreatic standpoint was noted. Appreciate consultations. The patient is lucid and seems much more active today. She complains of significant leg weakness. Objective - Vital Signs Vital signs: Vital Signs Temp 98.5 F 07/22/18 01:08 Pulse 55 L 07/22/18 01:08 Resp 16 07/22/18 01:08 BP 103/67 07/22/18 01:08 Pulse Ox 97 07/22/18 01:08 Intake & Output 07/21/18 07/22/18 07/22/18 18:59 06:59 18:59 Intake Total 675 300 Balance 675 300 Intake: Intake, IV Titration 675 Amount 0.9% NaCl with KCl 20 Meq 675 /l 1,000 ml @ 150 mls/hr IV .Q6H40M [facility] Rx#: [id number] Oral 300 Other: Voiding Method Toilet Toilet # Voids 1 - Constitutional General appearance: Present: average body habitus - EENT Eyes: Absent: abnormal pupil - Neck Neck: Absent: lymphadenopathy - Respiratory Respiratory: bilateral: CTA - Cardiovascular Rhythm: regular Heart sounds: normal: S1, S2 Abnormal Heart Sounds: Absent: S3 Gallop - Gastrointestinal General gastrointestinal: Present: soft. Absent: tenderness - Musculoskeletal Musculoskeletal: Present: generalized weakness - Psychiatric Psychiatric: Present: A&O x's 3, appropriate affect - Labs CBC & Chem 7: 07/20/18 04:25 07/22/18 00:38 Labs: Abnormal Lab Results - Last 24 Hours (Table) 07/21/18 07/21/18 07/21/18 Range/Units 08:42 08:42 11:37 Potassium 2.7 L* (3.5-5.1) mmol/L POC Glucose (mg/dL) 122 H (75-99) mg/dL Amylase 119 H (30-110) U/L 07/21/18 07/21/18 07/21/18 Range/Units 15:36 16:49 20:33 Potassium 3.1 L (3.5-5.1) mmol/L POC Glucose (mg/dL) 128 H 156 H (75-99) mg/dL Amylase (30-110) U/L 07/22/18 07/22/18 Range/Units 00:38 06:56 Potassium 3.3 L (3.5-5.1) mmol/L POC Glucose (mg/dL) 119 H (75-99) mg/dL Amylase (30-110) U/L Assessment and Plan (1) Dehydration Current Visit: Yes Status: Acute Code(s): E86.0 - DEHYDRATION SNOMED Code(s): 47311724 (2) Diarrhea Current Visit: Yes Status: Acute Code(s): R19.7 - DIARRHEA, UNSPECIFIED SNOMED Code(s): 74584596 (3) Gastroenteritis Current Visit: Yes Status: Acute Code(s): K52.9 - NONINFECTIVE GASTROENTERITIS AND COLITIS, UNSPECIFIED SNOMED Code(s): 95740132 (4) Hypokalemia Current Visit: Yes Status: Acute Code(s): E87.6 - HYPOKALEMIA SNOMED Code(s): 51627172 (5) Intractable vomiting Current Visit: Yes Status: Acute Code(s): R11.10 - VOMITING, UNSPECIFIED SNOMED Code(s): 879984495 (6) Pancreatitis Current Visit: Yes Status: Acute Code(s): K85.90 - ACUTE PANCREATITIS WITHOUT NECROSIS OR INFECTION, UNSP SNOMED Code(s): 08138998 Plan: Increase potassium supplementation. Otherwise, check CMP and amylase and lipase in a.m. Hopefully increase activity. Question need for discharge planning element for home health versus ECF if weakness continues. Appreciate multiple consultants. Time with Patient: Greater than 30
[2018-07-22] MEDS: DOCUSATE 100 MG CAP PO SCH ×2 (08:17→21:50)
[2018-07-22] MEDS: ASPIRIN 81 MG PO SCH (08:17)
[2018-07-22] MEDS: METOPROLOL TARTRATE 12.5 MG TAB PO SCH ×2 (08:17→21:50)
[2018-07-22] MEDS: PANTOPRAZOLE 40 MG/10 ML VIAL IV SCH (08:18)
[2018-07-22] MEDS: METOLAZONE 2.5 MG TAB PO SCH (08:19)
[2018-07-22] MEDS: POTASSIUM CHLORIDE ER 10 MEQ TAB.ER.PRT PO SCH ×2 (08:25→21:50)
[2018-07-22] MEDS: ERTAPENEM 1 GM VIAL IM SCH (08:27)
[2018-07-22] MEDS: HYDROcodone/APAP 10-325MG 1 EACH TAB PO PRN (08:36)
[2018-07-22 08:40] LABS: Basophils # (A) 0.1 k/uL (0-0.2); Basophils % (A) 0 %; Eosinophils # (A) 0.4 k/uL (0-0.7); Eosinophils % (A) 3 %; HCT 45.1 % (34.0-46.0); HGB 15.2 gm/dL (11.4-16.0); Lymphocytes # (A) 2.8 k/uL (1.0-4.8); Lymphocytes % (A) 18 %; MCH 27.9 pg (25.0-35.0); MCHC 33.6 g/dL (31.0-37.0); MCV 83.2 fL (80.0-100.0); Monocytes # (A) 1.3 k/uL (0-1.0); Monocytes % (A) 8 %; Neutrophils # (A) 10.7 k/uL (1.3-7.7); Neutrophils % (A) 69 %; Platelet Count 259 k/uL (150-450); RBC 5.42 m/uL (3.80-5.40); WBC 15.5 k/uL (3.8-10.6)
[2018-07-22 09:02] LABS: Bilirubin, Delta 0.3 mg/dL (0.0-0.2); Bilirubin,Unconjugated 0.5 mg/dL (0.0-1.1); Calcium 10.3 mg/dL (8.4-10.2); Total Bilirubin 0.8 mg/dL (0.2-1.3)
[2018-07-22 11:51] LABS: Glucose,Whole Blood 140 mg/dL (75-99)
--- NOTE | 2018-07-22 12:51 | P.CONS ---
History of Present Illness - Reason for Consult Consult date: 07/21/18 Pancreatitis and CBD stone - History of Present Illness The patient is an 78-year-old female who was recently admitted to the hospital for generalized weakness, she was discharged home 2 days prior to this admission with Dx of prolonged QT interval. She presented to the Emergency Department this admission via EMS for evaluation of nausea, vomiting, diarrhea and generalized weakness. EMS reports that they were called after the patient's found her slumped between the toilet and the wall too weak to get up. Patient reports that throughout the day she had persistent nausea, vomiting and diarrhea. She reports that she's been unable to get out of the bathroom due to this. She's been in able to eat or drink anything. She reports she feels worse now than she did when she was admitted. Patient denies any suspicious food intake. does not have any similar symptoms. Workup in ED showed EKG with normal sinus rhythm with no acute ST-T wave changes; lab work done in ED showed profound leukocytosis and markedly increased hemoglobin consistent with hemoconcentration; patient also had evidence of acute renal injury with marked hypokalemia and hyperglycemia; patient has no prior history of diabetes mellitus. Where asked to see this patient because of possible pancreatitis and for consideration of gallstone disease. She had an elevated amylase and lipase yesterday at 227 and 480 and today her amylase is slightly elevated at 119 and her lipase is normal at 242. Her transaminases were normal. An ultrasound of the abdomen showed hepatomegaly but no other abnormalities. She had prior cholecystectomy. At this time, she is not experiencing abdominal pain. Review of Systems CONSTITUTIONAL: Denies any fevers, chills, weight change or fatigue. CARDIOVASCULAR: Denies any chest pain, palpitations high or low blood pressures RESPIRATORY: Denies any shortness of breath, hemoptysis or cough. GENITOURINARY: No dysuria or hematuria. MUSCULOSKELETAL: No weakness reported. SKIN: Denies any new rashes or lesions, jaundice or pallor. PSYCHIATRIC: Denies any depression or anxiety. NEUROLOGY: Denies headache, denies any new focal deficits. EARS/NOSE/THROAT: No recent hearing change, congestion, nasal discharge or sore throat. EYES: No pain in eyes, discharge or change in vision. GASTROINTESTINAL: As per HPI. Past Medical History Past Medical History: Chest Pain / Angina, CVA/TIA, Deep Vein Thrombosis (DVT), GERD/Reflux, Hyperlipidemia, Hypertension, Osteoarthritis (OA) Additional Past Medical History / Comment(s): Pt states she never had TIA/CVA- they were ruled out however 2016 medical record documents TIA, DVT L arm, arthritis multiple joints, cervical muscle spasms, R index finger injury and uses splint prn, constipation. Last Myocardial Infarction Date:: 01/08/15 History of Any Multi-Drug Resistant Organisms: C-DIFF Year Discovered:: 2013 MDRO Source:: stool Past Surgical History: Breast Surgery, Section, Cholecystectomy, Heart Catheterization With Stent, Hernia Repair Additional Past Surgical History / Comment(s): 01/09/15 PTCA with stent to obtuse marginal branch of circ and stent to mid LAD, bilateral augmentation, 3 C-Sections, ventral hernia repair, bilateral cataract removal with lens implants, picc line in and out for ABX tx for C-Diff. Past Anesthesia/Blood Transfusion Reactions: No Reported Reaction, Motion Sickness Additional Past Anesthesia/Blood Transfusion Reaction / Comm: Pt has never recieved blood. Date of Last Stent Placement:: 01/09/15 Past Psychological History: Anxiety Additional Psychological History / Comment(s): With her current male health and wellness sales consultant for the last 13 years. History of having 3 children. Retired nurse's aide. No experience. No tobacco or alcohol use no recreational drug use. No animal exposures Smoking Status: Former smoker - Past Family History Mother Additional Family Medical History / Comment(s): Mother had a brain aneurysm. She after brain surgery at age 88 yrs. Father Family Medical History: CVA/TIA, Diabetes Mellitus, Hypertension Additional Family Medical History / Comment(s): Father of a CVA. Medications and Allergies Home Medications Medication Instructions Recorded Confirmed Type Famotidine [Pepcid] 20 mg PO DAILY #30 tablet 08/16/15 07/20/18 Rx Aspirin EC [Ecotrin Low Dose] 81 mg PO DAILY 07/21/17 07/20/18 History Ibuprofen [Motrin] 800 mg PO TID PRN 07/21/17 07/20/18 History Pantoprazole [Protonix] 40 mg PO DAILY 07/21/17 07/20/18 History Dicyclomine [Bentyl] 20 mg PO BID 07/11/18 07/20/18 History Furosemide [Lasix] 40 mg PO BID 07/11/18 07/20/18 History Hydrocodone/Acetaminophen [[place] 1 tab PO Q12H 07/11/18 07/20/18 History 10-325] Metolazone [Zaroxolyn] 2.5 mg PO DAILY 07/11/18 07/20/18 History Pravastatin Sodium [Pravachol] 20 mg PO HS 07/11/18 07/20/18 History Docusate [Colace] 100 mg PO BID #60 cap 07/18/18 07/20/18 Rx Lidocaine 5% Patch [Lidoderm 5% 2 patch TOPICAL DAILY@1100 #60 07/18/18 07/20/18 Rx Patch] patch Metoprolol Tartrate [Lopressor] 12.5 mg PO BID #60 tab 07/18/18 07/20/18 Rx Potassium Chloride ER [K-Dur 20] 20 meq PO BID tab.er.prt 07/18/18 07/20/18 Rx Allergies Allergy/AdvReac Type Severity Reaction Status Date / Time codeine Allergy Unknown Dyspnea Verified 07/20/18 08:02 Penicillins Allergy Unknown Rash/Hives Verified 07/20/18 08:02 Sulfa (Sulfonamide Allergy Unknown Rash/Hives Verified 07/20/18 08:02 Antibiotics) prednisone Allergy Dyspnea Verified 07/20/18 08:02 hydromorphone HCl AdvReac Severe Hallucinati Verified 07/20/18 08:02 [From Dilaudid] ons chocolate flavor AdvReac Cough Verified 07/20/18 08:02 Iodinated Contrast- Oral and AdvReac Nausea & Verified 07/20/18 08:02 IV Dye Vomiting [Iodinated Contrast Media - Oral and] ondansetron [From Zofran] AdvReac Rapid Verified 07/20/18 08:02 Heart Rate Physical Exam Vitals: Vital Signs Temp Pulse Resp BP Pulse Ox 07/21/18 14:53 98.1 F 67 16 115/67 96 07/21/18 08:22 98.4 F 72 16 111/58 97 07/21/18 01:30 124/62 07/21/18 01:14 98.4 F 65 16 156/65 96 07/20/18 19:30 98.5 F 76 16 151/73 94 L Intake and Output 07/21/18 07/21/18 07/21/18 06:59 14:59 22:59 Intake Total 1225 675 Balance 1225 675 Intake: Intake, IV Titration 825 675 Amount 0.9% NaCl with KCl 20 Meq 825 675 /l 1,000 ml @ 150 mls/hr IV .Q6H40M [facility] Rx#: [id number] Oral 400 Other: Voiding Method Toilet # Voids 2 On physical examination, patient appears very pleasant, stated age in no apparent distress. HEAD: Normocephalic, atraumatic. EYES: No scleral icterus. No conjunctival injection. MOUTH: No lesions, tongue midline. NECK: Trachea midline, no gross abnormalities. CHEST: Clear to auscultation with no wheezing or rhonchi appreciated. HEART: Regular, no abnormal solids, murmurs or friction rubs. ABDOMEN: Soft. Bowel sounds are positive. No organomegaly. No guarding or rigidity. EXTREMITIES: No pedal edema. SKIN: No rashes, no jaundice. NEUROLOGIC: Alert and oriented. No focal deficits. Results CBC & Chem 7: 07/22/18 07:12 07/22/18 07:12 Labs: Abnormal Lab Results - Last 24 Hours (Table) 07/20/18 07/20/18 07/20/18 Range/Units 16:46 18:08 19:28 Potassium (3.5-5.1) mmol/L POC Glucose (mg/dL) 140 H 157 H (75-99) mg/dL Amylase (30-110) U/L Urine Blood Small H (Negative) Urine RBC 11 H (0-5) /hpf 07/21/18 07/21/18 07/21/18 Range/Units 06:55 08:42 08:42 Potassium 2.7 L* (3.5-5.1) mmol/L POC Glucose (mg/dL) 117 H (75-99) mg/dL Amylase 119 H (30-110) U/L Urine Blood (Negative) Urine RBC (0-5) /hpf 07/21/18 Range/Units 11:37 Potassium (3.5-5.1) mmol/L POC Glucose (mg/dL) 122 H (75-99) mg/dL Amylase (30-110) U/L Urine Blood (Negative) Urine RBC (0-5) /hpf Assessment and Plan Assessment: Increased lipase and amylase could reflect transient hypoperfusion secondary to dehydration and hemoconcentration. Patient had prior cholecystectomy, her liver enzymes and ultrasound is not showing any dilation of the common bile duct or suggestion of common bile duct stone. Plan: Agree with your current management. We will continue to watch her pancreas enzymes while continuing supportive care and correction of her hemodynamic status and fluid and electrolyte abnormalities. Did not schedule imaging wilber dies or endoscopic workup at this time. Will continue to follow with you with interest.
[2018-07-22] MEDS ORDERED: FUROSEMIDE 40 MG TAB PO STA (15:58)
[2018-07-22] MEDS: FAMOTIDINE 20 MG TAB PO SCH (16:09)
[2018-07-22 16:52] LABS: Glucose,Whole Blood 152 mg/dL (75-99)
[2018-07-22] MEDS: IBUPROFEN 800 MG TAB PO PRN (17:29)
[2018-07-22 21:42] LABS: Glucose,Whole Blood 138 mg/dL (75-99)
[2018-07-22] MEDS: PRAVASTATIN SODIUM 20 MG TAB PO SCH (21:50)
--- NOTE | 2018-07-22 23:14 | P.PN ---
Subjective Progress Note Date: 07/22/18 Principal diagnosis: Elevated amylase and lipase Patient seen sitting bedside with her . She is eating regular diet. No abdominal pain. No nausea or vomiting. Objective - Vital Signs Vital signs: Vital Signs Temp 97.8 F 07/22/18 19:20 Pulse 78 07/22/18 19:20 Resp 16 07/22/18 19:20 BP 145/83 07/22/18 19:20 Pulse Ox 96 07/22/18 19:20 Intake & Output 07/22/18 07/22/18 07/23/18 06:59 18:59 06:59 Intake Total 300 150 Balance 300 150 Intake: Oral 300 150 Other: Voiding Method Toilet Toilet Toilet # Voids 1 2 1 - Exam On physical examination, patient appears comfortable in no apparent distress. HEAD: Normocephalic, atraumatic. EYES: No scleral icterus. No conjunctival injection. MOUTH: No lesions, tongue midline. NECK: Trachea midline, no gross abnormalities. CHEST: Decreased air entry in all lung aparicio. HEART: S1-S2 appreciated. ABDOMEN: Soft, obese. Bowel sounds are positive. No organomegaly. No guarding or rigidity. EXTREMITIES: No pedal edema. SKIN: No rashes, no jaundice. NEUROLOGIC: Alert and oriented x3. No focal deficits. - Labs CBC & Chem 7: 07/22/18 07:12 07/22/18 07:12 Labs: Abnormal Lab Results - Last 24 Hours (Table) 07/22/18 07/22/18 07/22/18 Range/Units 00:38 06:56 07:12 WBC 15.5 H (3.8-10.6) k/uL RBC 5.42 H (3.80-5.40) m/uL Neutrophils # 10.7 H (1.3-7.7) k/uL Monocytes # 1.3 H (0-1.0) k/uL Sodium (137-145) mmol/L Potassium 3.3 L (3.5-5.1) mmol/L Carbon Dioxide (22-30) mmol/L BUN (7-17) mg/dL Glucose (74-99) mg/dL POC Glucose (mg/dL) 119 H (75-99) mg/dL Calcium (8.4-10.2) mg/dL Delta Bilirubin (0.0-0.2) mg/dL 07/22/18 07/22/18 07/22/18 Range/Units 07:12 11:29 16:29 WBC (3.8-10.6) k/uL RBC (3.80-5.40) m/uL Neutrophils # (1.3-7.7) k/uL Monocytes # (0-1.0) k/uL Sodium 134 L (137-145) mmol/L Potassium (3.5-5.1) mmol/L Carbon Dioxide 16 L (22-30) mmol/L BUN 55 H (7-17) mg/dL Glucose 114 H (74-99) mg/dL POC Glucose (mg/dL) 140 H 152 H (75-99) mg/dL Calcium 10.3 H (8.4-10.2) mg/dL Delta Bilirubin 0.3 H (0.0-0.2) mg/dL 07/22/18 Range/Units 21:40 WBC (3.8-10.6) k/uL RBC (3.80-5.40) m/uL Neutrophils # (1.3-7.7) k/uL Monocytes # (0-1.0) k/uL Sodium (137-145) mmol/L Potassium (3.5-5.1) mmol/L Carbon Dioxide (22-30) mmol/L BUN (7-17) mg/dL Glucose (74-99) mg/dL POC Glucose (mg/dL) 138 H (75-99) mg/dL Calcium (8.4-10.2) mg/dL Delta Bilirubin (0.0-0.2) mg/dL Assessment and Plan (1) Gastroenteritis Narrative/Plan: Patient presenting with multiple symptoms suggestive of gastroenteritis. Currently reporting improvement in symptoms. She also had associated elevation in her amylase and lipase which were felt to be secondary to dehydration, and they have improved with IV fluid hydration. She is tolerating her diet. Liver enzymes total bilirubin 0.8, alkaline phosphatase 120, AST 22 and AST 34 with ultrasound showing surgically absent gallbladder and a normal CBD. Current Visit: Yes Status: Acute Code(s): K52.9 - NONINFECTIVE GASTROENTERITIS AND COLITIS, UNSPECIFIED SNOMED Code(s): 79134764 Plan: Supportive care Okay for diet Continue to monitor CBC, CMP No plans for endoscopic intervention at this time Okay for discharge from GI standpoint Thank you for allowing us dysphagia in the care of the patient, the GI service will stand by, please call us back with any questions or concerns
[2018-07-23] MEDS: 0.9% NACL WITH KCL 20 MEQ/L 1,000 ML IV SCH ×3 (00:50→10:08)
[2018-07-23] MEDS: HYDROcodone/APAP 10-325MG 1 EACH TAB PO PRN ×2 (03:29→21:52)
[2018-07-23] MEDS: CALCIUM CARBONATE 500 MG CHEWABLE PO PRN ×2 (03:29→08:12)
[2018-07-23 07:20] LABS: Glucose,Whole Blood 121 mg/dL (75-99)
[2018-07-23] MEDS: INSULIN ASPART (NovoLOG) 100 UNIT/ML VIAL SQ SCH ×4 (08:01→21:40)
[2018-07-23] MEDS: ASPIRIN 81 MG PO SCH (08:11)
[2018-07-23] MEDS: METOPROLOL TARTRATE 12.5 MG TAB PO SCH ×2 (08:11→21:40)
[2018-07-23] MEDS: DOCUSATE 100 MG CAP PO SCH ×2 (08:11→21:40)
[2018-07-23] MEDS: FUROSEMIDE 40 MG TAB PO SCH ×2 (08:11→16:09)
[2018-07-23] MEDS: ERTAPENEM 1 GM VIAL IM SCH (08:12)
[2018-07-23] MEDS: DICYCLOMINE 20 MG TAB PO SCH ×2 (08:12→21:40)
[2018-07-23] MEDS: POTASSIUM CHLORIDE ER 10 MEQ TAB.ER.PRT PO SCH ×2 (08:12→21:40)
[2018-07-23] MEDS: PANTOPRAZOLE 40 MG/10 ML VIAL IV SCH ×2 (08:12→08:15)
[2018-07-23] MEDS: FAMOTIDINE 20 MG TAB PO SCH (09:48)
[2018-07-23] MEDS: ONDANSETRON 4 MG/2 ML VIAL IVP PRN ×2 (10:02→17:48)
[2018-07-23 11:06] LABS: Calcium 10.4 mg/dL (8.4-10.2); Total Bilirubin 0.9 mg/dL (0.2-1.3)
[2018-07-23 11:10] LABS: Potassium 3.4 mmol/L (3.5-5.1)
[2018-07-23 11:39] LABS: HCT 43.3 % (34.0-46.0); HGB 14.8 gm/dL (11.4-16.0); MCH 28.5 pg (25.0-35.0); MCHC 34.2 g/dL (31.0-37.0); MCV 83.4 fL (80.0-100.0); Mean Platelet Volume 8.3; Platelet Count 317 k/uL (150-450); RBC 5.19 m/uL (3.80-5.40); WBC 15.5 k/uL (3.8-10.6)
[2018-07-23 12:15] LABS: Glucose,Whole Blood 117 mg/dL (75-99)
[2018-07-23] MEDS: IBUPROFEN 800 MG TAB PO PRN (13:42)
[2018-07-23 16:49] LABS: Glucose,Whole Blood 88 mg/dL (75-99)
[2018-07-23 21:16] LABS: Glucose,Whole Blood 114 mg/dL (75-99)
[2018-07-23] MEDS: PRAVASTATIN SODIUM 20 MG TAB PO SCH (21:40)
--- NOTE | 2018-07-23 22:59 | P.PN ---
Subjective Progress Note Date: 07/23/18 78-year-old female who presents to Hospital from home after becoming so weak she could not get up and had fallen to the floor and was trapped between the toilet and the wall. The patient which she was recently hospitalized for several days where she was acutely ill. Eventually she was discharged home but was still quite weak and was worried about her potassium. At home she worsened rapidly she has significant nausea and emesis and progressive weakness. She got to the point in time nor she could not even navigate she was unable to eat or drink endorse her urine was dark. She doesn't was brought to the hospital by EMS where she was on evidence of significant acute kidney injury and electrolyte disorders including significant hypo-kalemia. The patient's nausea and emesis have now improved since coming to Hospital receiving hydration and antiemetics. She is not having significant diarrhea at this point in time. She feels very poorly overall better than at admission. 07/21/2018 patient's feeling better. She's been able to ingest some food. Nausea and emesis have improved. Abdominal pain is improved overall feeling somewhat better but has not yet resolved all of her symptoms. Continues to have hypokalemia is being supplemented. However with her acute renal failure the potassium replacement has been going slowly. Patient was found evidence of pancreatitis admission seems to be improving and her abdominal pain and nausea and emesis have improved. 07/23/2018 patient was feeling better but had another bout of significant indigestion and had some emesis this morning. Tonight she is feeling somewhat better she is able to eat some potato chips. Her abdominal pain seems to be improving but she still complaining of severe reflux type symptoms. She is on Protonix. His been seen by GI and is thought to have elevated enzymes from some dehydration and do not believe that she has any obstructive of the biliary tract. Objective - Vital Signs Vital signs: Vital Signs Temp 98.0 F 07/23/18 21:58 Pulse 69 07/23/18 21:58 Resp 17 07/23/18 21:58 BP 135/83 07/23/18 21:58 Pulse Ox 95 07/23/18 21:58 Intake & Output 07/23/18 07/23/18 07/24/18 06:59 18:59 06:59 Intake Total 300 Balance 300 Intake: Oral 300 Other: Voiding Method Toilet Toilet # Voids 2 2 - Exam 78-year-old woman who feels considerably better today. Anxiety is improved but is unhappy about intravenous potassium due to its burning of her veins HEENT: Anicteric conjunctiva are pink and moist nasal mucosa grossly intact without significant lesions, there is no thrush. Neck: The neck is supple without significant lymphadenopathy or thyromegaly. Lungs: Good bilateral air entry without significant crackles or wheezing. There is no significant bronchial sounds. There is no egophony or dullness. Heart: Regular rate and rhythm with an audible S1-S2, no S3 no S4. There is no significant murmur click or rub, PMI was nondisplaced. Abdomen: Few bowel sounds are noted. She has distinct tenderness in the right upper quadrant. There is some minimal lower quadrant discomfort but there is no palpable hepatosplenomegaly. There is no palpable mass. No guarding rebound or rigidity Extremities: The upper extremities have excellent pulses they are symmetric, no significant petechiae or telangiectasia. No splinter hemorrhages were noted. The lower extremities are free from significant edema. The peripheral pulses were 2+ and symmetric. Neuro: Awake alert oriented to person place and time. There are no acute new gross focal sensory motor deficits. - Labs CBC & Chem 7: 07/23/18 08:51 07/23/18 08:51 Labs: Abnormal Lab Results - Last 24 Hours (Table) 07/23/18 07/23/18 07/23/18 Range/Units 06:59 08:51 08:51 WBC 15.5 H (3.8-10.6) k/uL Sodium 136 L (137-145) mmol/L Potassium 3.4 L (3.5-5.1) mmol/L Carbon Dioxide 19 L (22-30) mmol/L BUN 44 H (7-17) mg/dL Glucose 125 H (74-99) mg/dL POC Glucose (mg/dL) 121 H (75-99) mg/dL Calcium 10.4 H (8.4-10.2) mg/dL Alkaline Phosphatase 137 H (38-126) U/L Amylase 130 H (30-110) U/L Lipase 357 H (23-300) U/L 07/23/18 07/23/18 Range/Units 11:44 21:15 WBC (3.8-10.6) k/uL Sodium (137-145) mmol/L Potassium (3.5-5.1) mmol/L Carbon Dioxide (22-30) mmol/L BUN (7-17) mg/dL Glucose (74-99) mg/dL POC Glucose (mg/dL) 117 H 114 H (75-99) mg/dL Calcium (8.4-10.2) mg/dL Alkaline Phosphatase (38-126) U/L Amylase (30-110) U/L Lipase (23-300) U/L Laboratory Results WBC 15.5 k/uL (3.8-10.6) H 07/23/18 08:51 RBC 5.19 m/uL (3.80-5.40) 07/23/18 08:51 Hgb 14.8 gm/dL (11.4-16.0) 07/23/18 08:51 Hct 43.3 % (34.0-46.0) 07/23/18 08:51 MCV 83.4 fL (80.0-100.0) 07/23/18 08:51 MCH 28.5 pg (25.0-35.0) 07/23/18 08:51 MCHC 34.2 g/dL (31.0-37.0) 07/23/18 08:51 RDW 14.0 % (11.5-15.5) 07/23/18 08:51 Plt Count 317 k/uL (150-450) 07/23/18 08:51 Neutrophils % 69 % 07/22/18 07:12 Neutrophils % (Manual) 67 % 07/20/18 04:25 Band Neutrophils % 9 % 07/20/18 04:25 Lymphocytes % 18 % 07/22/18 07:12 Lymphocytes % (Manual) 11 % 07/20/18 04:25 Monocytes % 8 % 07/22/18 07:12 Monocytes % (Manual) 12 % 07/20/18 04:25 Eosinophils % 3 % 07/22/18 07:12 Eosinophils % (Manual) 1 % 07/20/18 04:25 Basophils % 0 % 07/22/18 07:12 Neutrophils # 10.7 k/uL (1.3-7.7) H 07/22/18 07:12 Neutrophils # (Manual) 18.20 k/uL (1.3-7.7) H 07/20/18 04:25 Lymphocytes # 2.8 k/uL (1.0-4.8) 07/22/18 07:12 Lymphocytes # (Manual) 2.64 k/uL (1.0-4.8) 07/20/18 04:25 Monocytes # 1.3 k/uL (0-1.0) H 07/22/18 07:12 Monocytes # (Manual) 2.88 k/uL (0-1.0) H 07/20/18 04:25 Eosinophils # 0.4 k/uL (0-0.7) 07/22/18 07:12 Eosinophils # (Manual) 0.24 k/uL (0-0.7) 07/20/18 04:25 Basophils # 0.1 k/uL (0-0.2) 07/22/18 07:12 Nucleated RBCs 0 /100 WBC (0-0) 07/20/18 04:25 Manual Slide Review Performed 07/20/18 04:25 Anisocytosis Slight 07/20/18 04:25 PT 10.9 sec (9.0-12.0) 07/20/18 04:25 INR 1.0 (<1.2) 07/20/18 04:25 APTT 21.9 sec (22.0-30.0) L 07/20/18 04:25 Sodium 136 mmol/L (137-145) L 07/23/18 08:51 Potassium 3.4 mmol/L (3.5-5.1) L 07/23/18 08:51 Chloride 103 mmol/L (98-107) 07/23/18 08:51 Carbon Dioxide 19 mmol/L (22-30) L 07/23/18 08:51 Anion Gap 14 mmol/L 07/23/18 08:51 BUN 44 mg/dL (7-17) H 07/23/18 08:51 Creatinine 0.89 mg/dL (0.52-1.04) 07/23/18 08:51 Est GFR (CKD-EPI)AfAm 71 (>60 ml/min/1.73 sqM) 07/23/18 08:51 Est GFR (CKD-EPI)NonAf 61 (>60 ml/min/1.73 sqM) 07/23/18 08:51 Glucose 125 mg/dL (74-99) H 07/23/18 08:51 POC Glucose (mg/dL) 114 mg/dL (75-99) H 07/23/18 21:15 POC Glu Systems Engineer ID Adarsh Parr 07/23/18 21:15 Calcium 10.4 mg/dL (8.4-10.2) H 07/23/18 08:51 Magnesium 2.3 mg/dL (1.6-2.3) 07/20/18 04:25 Total Bilirubin 0.9 mg/dL (0.2-1.3) 07/23/18 08:51 Conjugated Bilirubin 0.0 mg/dL (0.0-0.3) 07/22/18 07:12 Unconjugated Bilirubin 0.5 mg/dL (0.0-1.1) 07/22/18 07:12 Delta Bilirubin 0.3 mg/dL (0.0-0.2) H 07/22/18 07:12 AST 34 U/L (14-36) 07/23/18 08:51 ALT 20 U/L (9-52) 07/23/18 08:51 Alkaline Phosphatase 137 U/L (38-126) H 07/23/18 08:51 Troponin I 0.014 ng/mL (0.000-0.034) 07/20/18 04:25 NT-Pro-B Natriuret Pep 395 pg/mL 07/20/18 04:25 Total Protein 7.0 g/dL (6.3-8.2) 07/23/18 08:51 Albumin 4.0 g/dL (3.5-5.0) 07/23/18 08:51 Amylase 130 U/L (30-110) H 07/23/18 08:51 Lipase 357 U/L (23-300) H 07/23/18 08:51 Urine Color Colorless 07/20/18 18:08 Urine Appearance Clear (Clear) 07/20/18 18:08 Urine pH 6.5 (5.0-8.0) 07/20/18 18:08 Ur Specific [place] 1.007 (1.001-1.035) 07/20/18 18:08 Urine Protein Negative (Negative) 07/20/18 18:08 Urine Glucose (UA) Negative (Negative) 07/20/18 18:08 Urine Ketones Negative (Negative) 07/20/18 18:08 Urine Blood Small (Negative) H 07/20/18 18:08 Urine Nitrite Negative (Negative) 07/20/18 18:08 Urine Bilirubin Negative (Negative) 07/20/18 18:08 Urine Urobilinogen <2.0 mg/dL (<2.0) 07/20/18 18:08 Ur Leukocyte Esterase Negative (Negative) 07/20/18 18:08 Urine RBC 11 /hpf (0-5) H 07/20/18 18:08 Urine WBC 2 /hpf (0-5) 07/20/18 18:08 Ur Squamous Epith Cells <1 /hpf (0-4) 07/20/18 18:08 Assessment and Plan (1) Dehydration Current Visit: Yes Status: Acute Code(s): E86.0 - DEHYDRATION SNOMED Code(s): 18408144 (2) Pancreatitis Narrative/Plan: 78-year-old female who was recently hospitalized who relates shortly after getting home he had rapid decline of her status. She developed increasing nausea emesis some loose stool. She felt increasingly weak. And finally fell to the floor and could not get up. Brought to Hospital is not evidence of multiple episodes including profound hypokalemia, elevated amylase and lipase and abnormality on a recent computed tomography scan with cholelithiasis being seen on 07/13/2018. At this time there are concerns to the biliary tract and that there could be a retained stone is resulted in some obstruction and onset of pancreatitis. This could be causing her current constellation of symptoms and making her feel very poorly overall. At this time further evaluation of the biliary tract will be needed. Ultrasounds been requested. Will likely need a gastroenterology evaluation if there is any obstruction possibly ERCP. Antibiotic therapy with her ALLERGY history will be transitioned to ertapenem and she will be monitored. 07/21/2018 patient feels better today. Imaging failed to reveal evidence of any significant obstruction of the biliary tract. Amylase and lipase are improving. Fevers improved. Appetite improved. Abdominal pain has improved. At this time continue supportive care with fluids and introduction of diet. Antibiotic therapy with ertapenem is being utilized for now given the concerns to sepsis and intra-abdominal process with the pancreas. We transitioned intramuscular antibiotic for the next day or so if IV access remains a problem. We'll expect if she improves should be able to tolerate oral potassium supplement. The acute renal failure appears to be improving also at this time. apronlike styles 19 patient does have some improvement but has had some worsening of her GERD symptoms. Or he receiving Protonix. We'll add in Carafate to see if this can give her some relief of her severe reflux. Unclear if she would require Reglan or similar agents. Her leukocytosis has improved but not resolved, hyperkalemia is improving but not resolved. She's had slight elevationalso the amylase and lipase. continue hydration, proton pump inhibitor and advancement of her diet and replacement of her potassium. We'll try to discontinue antibiotic therapyif she has further improvement with resolution of her leukocytosis. Current Visit: Yes Status: Acute Code(s): K85.90 - ACUTE PANCREATITIS WITHOUT NECROSIS OR INFECTION, UNSP SNOMED Code(s): 80562971 (3) Intractable vomiting Current Visit: Yes Status: Acute Code(s): R11.10 - VOMITING, UNSPECIFIED SNOMED Code(s): 903720809
[2018-07-24] MEDS: ONDANSETRON 4 MG/2 ML VIAL IVP PRN ×2 (02:25→16:04)
[2018-07-24] MEDS: 0.9% NACL WITH KCL 20 MEQ/L 1,000 ML IV SCH ×3 (02:55→18:10)
[2018-07-24] MEDS: SUCRALFATE 1 GM TAB PO SCH ×5 (02:56→20:43)
[2018-07-24 06:53] LABS: Glucose,Whole Blood 105 mg/dL (75-99)
--- NOTE | 2018-07-24 07:36 | P.PN ---
Subjective Progress Note Date: 07/23/18 Principal diagnosis: Hypokalemia with dehydration This is an 78-year-old white female who was recently discharged for having QT interval prolongation with hypokalemia. 2 days later, the patient started having significant nausea vomiting. The patient presented again with profound hypokalemia. She was not able to take her supplementation her medication at home. Element of enzymatic elevation from a pancreatic standpoint was noted. Appreciate consultations. The patient is lucid and seems much more active today. She complains of significant leg weakness. Objective - Vital Signs Vital signs: Vital Signs Temp 97.4 F L 07/24/18 01:35 Pulse 52 L 07/24/18 01:35 Resp 17 07/24/18 01:35 BP 108/67 07/24/18 01:35 Pulse Ox 95 07/24/18 01:35 Intake & Output 07/23/18 07/24/18 07/24/18 18:59 06:59 18:59 Intake Total 350 Balance 350 Intake: Oral 350 Other: Voiding Method Toilet # Voids 2 1 - Constitutional General appearance: Present: obese - EENT Eyes: Absent: abnormal pupil - Neck Neck: Absent: lymphadenopathy - Respiratory Respiratory: bilateral: CTA - Cardiovascular Rhythm: regular Heart sounds: normal: S1, S2 Abnormal Heart Sounds: Absent: S3 Gallop - Gastrointestinal General gastrointestinal: Present: soft. Absent: tenderness - Labs CBC & Chem 7: 07/23/18 08:51 07/23/18 08:51 Labs: Abnormal Lab Results - Last 24 Hours (Table) 07/23/18 07/23/18 07/23/18 Range/Units 08:51 08:51 11:44 WBC 15.5 H (3.8-10.6) k/uL Sodium 136 L (137-145) mmol/L Potassium 3.4 L (3.5-5.1) mmol/L Carbon Dioxide 19 L (22-30) mmol/L BUN 44 H (7-17) mg/dL Glucose 125 H (74-99) mg/dL POC Glucose (mg/dL) 117 H (75-99) mg/dL Calcium 10.4 H (8.4-10.2) mg/dL Alkaline Phosphatase 137 H (38-126) U/L Amylase 130 H (30-110) U/L Lipase 357 H (23-300) U/L 07/23/18 07/24/18 Range/Units 21:15 06:51 WBC (3.8-10.6) k/uL Sodium (137-145) mmol/L Potassium (3.5-5.1) mmol/L Carbon Dioxide (22-30) mmol/L BUN (7-17) mg/dL Glucose (74-99) mg/dL POC Glucose (mg/dL) 114 H 105 H (75-99) mg/dL Calcium (8.4-10.2) mg/dL Alkaline Phosphatase (38-126) U/L Amylase (30-110) U/L Lipase (23-300) U/L Assessment and Plan (1) Dehydration Current Visit: Yes Status: Acute Code(s): E86.0 - DEHYDRATION SNOMED Code(s): 34521564 (2) Diarrhea Current Visit: Yes Status: Acute Code(s): R19.7 - DIARRHEA, UNSPECIFIED SNOMED Code(s): 16853463 (3) Gastroenteritis Current Visit: Yes Status: Acute Code(s): K52.9 - NONINFECTIVE GASTROENTERITIS AND COLITIS, UNSPECIFIED SNOMED Code(s): 63016897 (4) Hypokalemia Current Visit: Yes Status: Acute Code(s): E87.6 - HYPOKALEMIA SNOMED Code(s): 57091917 (5) Intractable vomiting Current Visit: Yes Status: Acute Code(s): R11.10 - VOMITING, UNSPECIFIED SNOMED Code(s): 993701748 (6) Pancreatitis Current Visit: Yes Status: Acute Code(s): K85.90 - ACUTE PANCREATITIS WITHOUT NECROSIS OR INFECTION, UNSP SNOMED Code(s): 79527365 Plan: Continue to follow CBC and CMP. Hypokalemia seems to be stabilizing. Obtain IV access. We'll continue follow. Appreciate multiple consultants input. Time with Patient: Less than 30
--- NOTE | 2018-07-24 07:51 | P.PN ---
Subjective Progress Note Date: 07/24/18 Principal diagnosis: The patient is much improved this morning. Potassium is still slightly low. But she feels much better. No voiding difficulties. Nausea is been minimized. Objective - Vital Signs Vital signs: Vital Signs Temp 97.4 F L 07/24/18 01:35 Pulse 52 L 07/24/18 01:35 Resp 17 07/24/18 01:35 BP 108/67 07/24/18 01:35 Pulse Ox 95 07/24/18 01:35 Intake & Output 07/23/18 07/24/18 07/24/18 18:59 06:59 18:59 Intake Total 350 Balance 350 Intake: Oral 350 Other: Voiding Method Toilet # Voids 2 1 - Constitutional General appearance: Present: obese - EENT Eyes: Absent: abnormal pupil - Neck Neck: Absent: lymphadenopathy - Respiratory Respiratory: bilateral: CTA - Cardiovascular Rhythm: regular Heart sounds: normal: S1, S2 Abnormal Heart Sounds: Absent: S3 Gallop - Gastrointestinal General gastrointestinal: Present: soft. Absent: tenderness - Neurologic Neurologic: Absent: CNII-XII intact - Musculoskeletal Musculoskeletal: Present: generalized weakness - Labs CBC & Chem 7: 07/23/18 08:51 07/23/18 08:51 Labs: Abnormal Lab Results - Last 24 Hours (Table) 07/23/18 07/23/18 07/23/18 Range/Units 08:51 08:51 11:44 WBC 15.5 H (3.8-10.6) k/uL Sodium 136 L (137-145) mmol/L Potassium 3.4 L (3.5-5.1) mmol/L Carbon Dioxide 19 L (22-30) mmol/L BUN 44 H (7-17) mg/dL Glucose 125 H (74-99) mg/dL POC Glucose (mg/dL) 117 H (75-99) mg/dL Calcium 10.4 H (8.4-10.2) mg/dL Alkaline Phosphatase 137 H (38-126) U/L Amylase 130 H (30-110) U/L Lipase 357 H (23-300) U/L 07/23/18 07/24/18 Range/Units 21:15 06:51 WBC (3.8-10.6) k/uL Sodium (137-145) mmol/L Potassium (3.5-5.1) mmol/L Carbon Dioxide (22-30) mmol/L BUN (7-17) mg/dL Glucose (74-99) mg/dL POC Glucose (mg/dL) 114 H 105 H (75-99) mg/dL Calcium (8.4-10.2) mg/dL Alkaline Phosphatase (38-126) U/L Amylase (30-110) U/L Lipase (23-300) U/L Assessment and Plan (1) Dehydration Current Visit: Yes Status: Acute Code(s): E86.0 - DEHYDRATION SNOMED Code(s): 05190251 (2) Diarrhea Current Visit: Yes Status: Acute Code(s): R19.7 - DIARRHEA, UNSPECIFIED SNOMED Code(s): 66932967 (3) Gastroenteritis Current Visit: Yes Status: Acute Code(s): K52.9 - NONINFECTIVE GASTROENTERITIS AND COLITIS, UNSPECIFIED SNOMED Code(s): 27575376 (4) Hypokalemia Current Visit: Yes Status: Acute Code(s): E87.6 - HYPOKALEMIA SNOMED Code(s): 32156846 (5) Intractable vomiting Current Visit: Yes Status: Acute Code(s): R11.10 - VOMITING, UNSPECIFIED SNOMED Code(s): 849781963 (6) Pancreatitis Current Visit: Yes Status: Acute Code(s): K85.90 - ACUTE PANCREATITIS WITHOUT NECROSIS OR INFECTION, UNSP SNOMED Code(s): 16764212 Plan: Slight elevation of amylase lipase today. Check CBC and CMP with amylase and lipase in a.m. per The patient does not have any worsening abdominal pain with diet. Reflux esophagitis is significantly improved. Decrease IV fluid hydration rate today. Time with Patient: Greater than 30
[2018-07-24] MEDS: INSULIN ASPART (NovoLOG) 100 UNIT/ML VIAL SQ SCH ×4 (09:21→22:00)
[2018-07-24] MEDS: DOCUSATE 100 MG CAP PO SCH ×3 (09:31→20:43)
[2018-07-24] MEDS: METOPROLOL TARTRATE 12.5 MG TAB PO SCH ×2 (09:31→20:43)
[2018-07-24] MEDS: FAMOTIDINE 20 MG/2 ML VIAL IV SCH (09:31)
[2018-07-24] MEDS: DICYCLOMINE 20 MG TAB PO SCH ×2 (09:31→20:43)
[2018-07-24] MEDS: PANTOPRAZOLE 40 MG TABLET PO SCH (09:32)
[2018-07-24] MEDS: ASPIRIN 81 MG PO SCH (09:32)
[2018-07-24] MEDS: FUROSEMIDE 40 MG TAB PO SCH ×2 (09:32→16:04)
[2018-07-24 11:17] LABS: Glucose,Whole Blood 119 mg/dL (75-99)
[2018-07-24] MEDS: ERTAPENEM 1 GM VIAL IM SCH (11:58)
[2018-07-24] MEDS ORDERED: ERTAPENEM 1 GM VIAL IVPB SCH (11:59)
[2018-07-24 12:28] LABS: Albumin 3.3 g/dL (3.5-5.0); Calcium 9.5 mg/dL (8.4-10.2); Potassium 3.5 mmol/L (3.5-5.1); Total Bilirubin 0.5 mg/dL (0.2-1.3); Total Protein 6.2 g/dL (6.3-8.2)
[2018-07-24 13:14] LABS: HCT 40.2 % (34.0-46.0); HGB 13.6 gm/dL (11.4-16.0); MCV 85.5 fL (80.0-100.0); Mean Platelet Volume 8.8; Platelet Count 267 k/uL (150-450); RDW 14.7 % (11.5-15.5); WBC 13.2 k/uL (3.8-10.6)
[2018-07-24] MEDS: ERTAPENEM 1 GM in SODIUM CHLORIDE 0.9% 50 ML IVPB SCH (13:15)
[2018-07-24] MEDS: POTASSIUM CHLORIDE ER 10 MEQ TAB.ER.PRT PO SCH ×2 (13:15→20:43)
[2018-07-24] MEDS: HYDROcodone/APAP 10-325MG 1 EACH TAB PO PRN (14:18)
[2018-07-24 16:35] LABS: Glucose,Whole Blood 111 mg/dL (75-99)
[2018-07-24] MEDS: PRAVASTATIN SODIUM 20 MG TAB PO SCH (20:43)
[2018-07-24 21:39] LABS: Glucose,Whole Blood 96 mg/dL (75-99)
[2018-07-24] MEDS: IBUPROFEN 800 MG TAB PO PRN (22:05)
[2018-07-25] MEDS: INSULIN ASPART (NovoLOG) 100 UNIT/ML VIAL SQ SCH (07:45)
[2018-07-25] MEDS: SUCRALFATE 1 GM TAB PO SCH ×4 (07:58→21:37)
[2018-07-25] MEDS: PANTOPRAZOLE 40 MG TABLET PO SCH (07:58)
[2018-07-25] MEDS: FUROSEMIDE 20 MG TAB PO SCH ×2 (09:00→16:38)
[2018-07-25] MEDS: POTASSIUM CHLORIDE ER 10 MEQ TAB.ER.PRT PO SCH ×2 (09:00→21:37)
[2018-07-25] MEDS: ASPIRIN 81 MG PO SCH (09:00)
[2018-07-25] MEDS ORDERED: ERTAPENEM 1 GM VIAL IVPB SCH (09:00)
[2018-07-25] MEDS: DOCUSATE 100 MG CAP PO SCH ×2 (09:00→21:37)
[2018-07-25] MEDS: DICYCLOMINE 20 MG TAB PO SCH ×2 (09:00→21:37)
[2018-07-25] MEDS: METOPROLOL TARTRATE 12.5 MG TAB PO SCH ×2 (09:00→21:37)
[2018-07-25] MEDS: ERTAPENEM 1 GM in SODIUM CHLORIDE 0.9% 50 ML IVPB SCH (09:01)
[2018-07-25] MEDS: FAMOTIDINE 20 MG/2 ML VIAL IV SCH (09:01)
[2018-07-25 10:17] LABS: HCT 35.6 % (34.0-46.0); HGB 12.4 gm/dL (11.4-16.0); MCH 29.6 pg (25.0-35.0); MCHC 34.7 g/dL (31.0-37.0); MCV 85.3 fL (80.0-100.0); Mean Platelet Volume 7.5; Platelet Count 223 k/uL (150-450); RBC 4.18 m/uL (3.80-5.40); RDW 14.8 % (11.5-15.5); WBC 10.7 k/uL (3.8-10.6)
[2018-07-25] MEDS: HYDROcodone/APAP 10-325MG 1 EACH TAB PO PRN (13:19)
[2018-07-25] MEDS: 0.9% NACL WITH KCL 20 MEQ/L 1,000 ML IV SCH ×2 (13:47→16:52)
[2018-07-25 13:51] LABS: Albumin 3.1 g/dL (3.5-5.0); Calcium 8.2 mg/dL (8.4-10.2); Potassium 3.6 mmol/L (3.5-5.1); Total Bilirubin 0.3 mg/dL (0.2-1.3); Total Protein 5.6 g/dL (6.3-8.2)
[2018-07-25] MEDS: PRAVASTATIN SODIUM 20 MG TAB PO SCH (21:36)
[2018-07-25] MEDS: IBUPROFEN 800 MG TAB PO PRN (21:47)
--- NOTE | 2018-07-25 23:15 | P.PN ---
Subjective Principal diagnosis: The patient is much improved this morning. Potassium is still slightly low. But she feels much better. No voiding difficulties. Nausea is been minimized. Objective - Vital Signs Vital signs: Vital Signs Temp 98.0 F 07/25/18 19:21 Pulse 91 07/25/18 21:35 Resp 19 07/25/18 20:24 BP 118/72 07/25/18 21:35 Pulse Ox 98 07/25/18 19:21 Intake & Output 07/25/18 07/25/18 07/26/18 06:59 18:59 06:59 Intake Total 400 800 690 Balance 400 800 690 Intake: Intake, IV Titration 400 400 150 Amount 0.9% NaCl with KCl 20 Meq 400 350 150 /l 1,000 ml @ 50 mls/hr IV .Q20H [facility] Rx#: [id number] Ertapenem 1 gm In Sodium 50 Chloride 0.9% 50 ml @ 100 mls/hr IVPB DAILY [facility] Rx #:[id number] Oral 400 540 Other: Voiding Method Toilet Toilet Toilet # Voids 1 1 - Constitutional General appearance: Present: obese - EENT Eyes: Absent: abnormal pupil - Neck Neck: Present: normal ROM. Absent: lymphadenopathy - Respiratory Respiratory: bilateral: CTA - Cardiovascular Heart sounds: normal: S1, S2 Abnormal Heart Sounds: Absent: S3 Gallop - Gastrointestinal General gastrointestinal: Present: soft. Absent: tenderness - Musculoskeletal Musculoskeletal: Present: generalized weakness - Labs CBC & Chem 7: 07/25/18 09:45 07/25/18 12:53 Labs: Abnormal Lab Results - Last 24 Hours (Table) 07/25/18 07/25/18 Range/Units 09:45 12:53 WBC 10.7 H (3.8-10.6) k/uL Chloride 113 H (98-107) mmol/L Carbon Dioxide 18 L (22-30) mmol/L BUN 28 H (7-17) mg/dL Glucose 153 H (74-99) mg/dL Calcium 8.2 L (8.4-10.2) mg/dL Total Protein 5.6 L (6.3-8.2) g/dL Albumin 3.1 L (3.5-5.0) g/dL Assessment and Plan (1) Dehydration Current Visit: Yes Status: Acute Code(s): E86.0 - DEHYDRATION SNOMED Code(s): 81390550 (2) Diarrhea Current Visit: Yes Status: Acute Code(s): R19.7 - DIARRHEA, UNSPECIFIED SNOMED Code(s): 50027370 (3) Gastroenteritis Current Visit: Yes Status: Acute Code(s): K52.9 - NONINFECTIVE GASTROENTERITIS AND COLITIS, UNSPECIFIED SNOMED Code(s): 65162705 (4) Hypokalemia Current Visit: Yes Status: Acute Code(s): E87.6 - HYPOKALEMIA SNOMED Code(s): 45251076 (5) Intractable vomiting Current Visit: Yes Status: Acute Code(s): R11.10 - VOMITING, UNSPECIFIED SNOMED Code(s): 156920718 (6) Pancreatitis Current Visit: Yes Status: Acute Code(s): K85.90 - ACUTE PANCREATITIS WITHOUT NECROSIS OR INFECTION, UNSP SNOMED Code(s): 03347776 Plan: We will go ahead and decrease Lasix today to assist with the hypokalemia. Anticipate discharge in a.m.
[2018-07-26] MEDS: HYDROcodone/APAP 10-325MG 1 EACH TAB PO PRN (00:22)
[2018-07-26] MEDS: SUCRALFATE 1 GM TAB PO SCH ×2 (07:37→12:25)
[2018-07-26] MEDS: PANTOPRAZOLE 40 MG TABLET PO SCH (07:37)
--- NOTE | 2018-07-26 07:55 | P.DS ---
Providers Date of admission: 07/20/18 05:25 Attending physician: Daren Marinelli Consults: 07/20/18 11:32 Consult Physician Routine Consulting Provider: Henrik Figueredo Reason/Comments: Leukocytosis Do you want consulting provider notified?: Yes Primary care physician: Daren Marinelli - Discharge Diagnosis(es) (1) Dehydration Current Visit: Yes Status: Acute (2) Diarrhea Current Visit: Yes Status: Acute (3) Gastroenteritis Current Visit: Yes Status: Acute (4) Hypokalemia Current Visit: Yes Status: Acute (5) Intractable vomiting Current Visit: Yes Status: Acute (6) Pancreatitis Current Visit: Yes Status: Acute Hospital Course: This discharge summary 78-year-old white female essentially admitted for dehydration pancreatitis and hypokalemia. The patient was stabilized medically with multiple consultants. The patient did quite well was tolerating diet. We had a long discussion regarding lifestyle improvement with increased caloric intake. Albumin was low. We will go ahead and discharged in stable condition and follow-up with one in 2 days and recheck potassium. Diuretic doses were decreased and she seemed to tolerate that well area again, prognosis somewhat guarded secondary to multiple comorbidities and advanced age but she will be discharged in stable condition. Patient Condition at Discharge: Fair Plan - Discharge Summary New Discharge Prescriptions: New Sucralfate [Carafate] 1 gm PO ACHS #120 tab Potassium Chloride ER [K-Dur 10] 30 meq PO BID #180 tab.er.prt Furosemide [Lasix] 20 mg PO BID@0900,1600 #60 tab Calcium Carbonate [Tums] 500 mg PO QID PRN chew PRN Reason: Heartburn Continue Famotidine [Pepcid] 20 mg PO DAILY #30 tablet Pantoprazole [Protonix] 40 mg PO DAILY Ibuprofen [Motrin] 800 mg PO TID PRN PRN Reason: Pain Aspirin EC [Ecotrin Low Dose] 81 mg PO DAILY Dicyclomine [Bentyl] 20 mg PO BID Pravastatin Sodium [Pravachol] 20 mg PO HS Docusate [Colace] 100 mg PO BID #60 cap Potassium Chloride ER [K-Dur 20] 20 meq PO BID tab.er.prt Lidocaine 5% Patch [Lidoderm 5% Patch] 2 patch TOPICAL DAILY@1100 #60 patch Metoprolol Tartrate [Lopressor] 12.5 mg PO BID #60 tab Discontinued Metolazone [Zaroxolyn] 2.5 mg PO DAILY Hydrocodone/Acetaminophen [[place] 10-325] 1 tab PO Q12H Furosemide [Lasix] 40 mg PO BID Discharge Medication List Famotidine [Pepcid] 20 mg PO DAILY #30 tablet 08/16/15 [Rx] Aspirin EC [Ecotrin Low Dose] 81 mg PO DAILY 07/21/17 [History] Ibuprofen [Motrin] 800 mg PO TID PRN 07/21/17 [History] Pantoprazole [Protonix] 40 mg PO DAILY 07/21/17 [History] Dicyclomine [Bentyl] 20 mg PO BID 07/11/18 [History] Pravastatin Sodium [Pravachol] 20 mg PO HS 07/11/18 [History] Docusate [Colace] 100 mg PO BID #60 cap 07/18/18 [Rx] Lidocaine 5% Patch [Lidoderm 5% Patch] 2 patch TOPICAL DAILY@1100 #60 patch 07/18/18 [Rx] Metoprolol Tartrate [Lopressor] 12.5 mg PO BID #60 tab 07/18/18 [Rx] Potassium Chloride ER [K-Dur 20] 20 meq PO BID tab.er.prt 07/18/18 [Rx] Calcium Carbonate [Tums] 500 mg PO QID PRN chew 07/26/18 [Rx] Furosemide [Lasix] 20 mg PO BID@0900,1600 #60 tab 07/26/18 [Rx] Potassium Chloride ER [K-Dur 10] 30 meq PO BID #180 tab.er.prt 07/26/18 [Rx] Sucralfate [Carafate] 1 gm PO ACHS #120 tab 07/26/18 [Rx] Follow up Appointment(s)/Referral(s): Daren Marinelli MD [Primary Care Provider] - 1-2 days [facility] Visiting Nurse, [NON-STAFF] - Discharge Disposition: HOME SELF-CARE
[2018-07-26 08:33] VITALS: BP 102/56; PULSE 59; RESP 12; TEMP 98.7
[2018-07-26 08:54] LABS: HGB 12.3 gm/dL (11.4-16.0); MCH 28.6 pg (25.0-35.0); MCHC 32.5 g/dL (31.0-37.0); MCV 88.1 fL (80.0-100.0); Mean Platelet Volume 8.5; Platelet Count 209 k/uL (150-450); RBC 4.31 m/uL (3.80-5.40); RDW 14.3 % (11.5-15.5); WBC 10.8 k/uL (3.8-10.6)
[2018-07-26 09:07] LABS: Calcium 8.3 mg/dL (8.4-10.2); Total Bilirubin 0.4 mg/dL (0.2-1.3); Total Protein 5.5 g/dL (6.3-8.2)
[2018-07-26 09:13] LABS: Potassium 4.4 mmol/L (3.5-5.1)
[2018-07-26] MEDS: DICYCLOMINE 20 MG TAB PO SCH (09:21)
[2018-07-26] MEDS: ASPIRIN 81 MG PO SCH (09:21)
[2018-07-26] MEDS: DOCUSATE 100 MG CAP PO SCH (09:21)
[2018-07-26] MEDS: METOPROLOL TARTRATE 12.5 MG TAB PO SCH (09:22)
[2018-07-26] MEDS: FAMOTIDINE 20 MG/2 ML VIAL IV SCH (09:22)
[2018-07-26] MEDS: POTASSIUM CHLORIDE ER 10 MEQ TAB.ER.PRT PO SCH (09:22)
[2018-07-26] MEDS: ERTAPENEM 1 GM in SODIUM CHLORIDE 0.9% 50 ML IVPB SCH (09:22)
[2018-07-26] MEDS: FUROSEMIDE 20 MG TAB PO SCH (09:22)
--- NOTE | 2018-07-30 10:28 | CDI ---
Documentation Clarification Form Date: 07/30/2018 9:19:00 AM From: Shagufta Vernon Delia Edmondson, Manager Story Hours-8:30 am & 5 pm William Admit Date: 07/20/2018 5:25:00 AM Patient Name: Reena Mckeon Visit Number: [id number] Discharge Date: 07/26/2018 1:29:00 PM ATTENTION: The Clinical Documentation Specialists (CDI) and [facility] Coding Staff appreciate your assistance in clarifying documentation. Please respond to the clarification below the line at the bottom and electronically sign. The CDI & [facility] Coding staff will review the response and follow-up if needed. Please note: Queries are made part of the Legal Health Record. If you have any questions, please contact the author of this message via ITS. Dr. Daren Marinelli Sepsis is documented in the prog notes. But is not included in your Dischrg Summary. History/Risk Factors: Pancreatitis, ARF, Leukocytosis WBC: 24.0, 15.5, 15.5 Vitals signs on admission: T 97.7, BP 140/84, RR 20, TX 66 Treatment: IV Abx ID Consult: Yes In your professional opinion, please clarify if these findings signify one of the following conditions: Sepsis ruled out Sepsis ruled in Other, please specify Unable to determine MTDD
== END 2018-07-26 13:29 | disposition home or self-care (01) | DRG 391 ==
LOC: EC 03:49 → 4MS4W 05:25 → 4SSUR 06:00
PROVIDERS: ADMIT Family Medicine; ATTEND Family Medicine
PROC: 05HF33Z Insertion of Infusion Device into Left Cephalic Vein, Percutaneous Approach (ICD-10-PCS; principal; 2018-07-23 09:15)
DX: K52.9 Noninfective gastroenteritis and colitis, unspecified (principal); K85.90 Acute pancreatitis without necrosis or infection, unspecified; N17.9 Acute kidney failure, unspecified; I95.9 Hypotension, unspecified; E86.0 Dehydration; K80.50 Calculus of bile duct without cholangitis or cholecystitis without obstruction; K21.9 Gastro-esophageal reflux disease without esophagitis; I10 Essential (primary) hypertension; E78.5 Hyperlipidemia, unspecified; M19.90 Unspecified osteoarthritis, unspecified site; F41.9 Anxiety disorder, unspecified; F43.0 Acute stress reaction; E87.6 Hypokalemia; R73.9 Hyperglycemia, unspecified; R74.8 Abnormal levels of other serum enzymes; I25.2 Old myocardial infarction; Z79.82 Long term (current) use of aspirin; Z79.899 Other long term (current) drug therapy; Z86.73 Personal history of transient ischemic attack (TIA), and cerebral infarction without residual deficits; Z90.49 Acquired absence of other specified parts of digestive tract; Z95.5 Presence of coronary angioplasty implant and graft; Z96.1 Presence of intraocular lens; Z98.41 Cataract extraction status, right eye; Z98.42 Cataract extraction status, left eye; Z87.891 Personal history of nicotine dependence; Z91.041 Radiographic dye allergy status; Z88.5 Allergy status to narcotic agent; Z88.0 Allergy status to penicillin; Z88.2 Allergy status to sulfonamides; Z91.02 Food additives allergy status; Z83.3 Family history of diabetes mellitus; Z82.49 Family history of ischemic heart disease and other diseases of the circulatory system; Z82.3 Family history of stroke; E87.5 Hyperkalemia
CPT/HCPCS: 36410; 36415; 71045; 74018; 76700; 76857; 76937; 80048; 80053; 80076; 81001; 82150; 83690; 83735; 83880; 84132; 84484; 85025; 85027; 85610; 85730; 93005; 96360; 96372; 99285

== ENCOUNTER → 2018-08-16 | Outpatient (CLI) | payer MEDICARE, OTHER ==
--- NOTE | 2018-08-17 11:23 | XR ---
EXAMINATION TYPE: XR lumbar spine 2 or 3V DATE OF EXAM: 08/16/2018 CLINICAL HISTORY: pain TECHNIQUE: Three views of the lumbar spine are submitted. COMPARISON: None. FINDINGS: Rotoscoliosis convex to the left. Severe multilevel degenerative disc space narrowing with vacuum dis c at multiple levels. Endplate sclerosis and spondylosis. Severe facet joint arthropathy. Grade 1 ant erolisthesis L4 and L5 of 4 mm. No compression fracture noted. No bony lesions seen. IMPRESSION: No acute fracture or dislocation is seen in the lumbar spine. ICD 10 NO FRACTURE, INITIAL EVALUATION
--- NOTE | 2018-08-17 11:24 | XR ---
EXAMINATION TYPE: XR sacrum coccyx DATE OF EXAM: 08/16/2018 CLINICAL HISTORY: pain TECHNIQUE: Three views of the sacrum and coccyx are submitted. COMPARISON: None Sacral alae appear symmetric. No evidence for fracture or bony lesion. Sacroiliac joints are within normal limits. Visualized coccygeal segments are free of fracture or lesion. IMPRESSION: Normal study
== END | disposition home or self-care (01) ==
LOC: RADXRMAIN 15:19
PROVIDERS: ATTEND Family Medicine
DX: M54.5 Low back pain (principal)
CPT/HCPCS: 72100; 72220

== ENCOUNTER 2018-09-23 16:17 | Emergency (ER) | payer MEDICARE, OTHER ==
[2018-09-23 17:23] VITALS: RESP 18
[2018-09-23] MEDS ORDERED: MORPHINE SULFATE 4 MG/ML SYRINGE IVP STA (19:45)
--- NOTE | 2018-09-23 19:54 | ED ---
General Adult HPI - General Chief complaint: Back Pain/Injury Stated complaint: pain in legs/feet/back Time Seen by Provider: 09/23/18 19:06 Source: patient Mode of arrival: ambulatory Limitations: no limitations - History of Present Illness Initial comments: 78-year-old female patient presents to the emergency department today for evaluation of lower abdominal pain and low back pain. Patient states she's had the pain for the last week that has been gradually worsening. Patient states that her abdomen and back feel "numb", but she is able to feel when the areas are touched. Patient states that she has been having normal bowel movements. Patient states she's been having difficulty urinating. States it is hard to push out the urine. Denies any dysuria or hematuria with this. Denies any fever or chills. States she has been nauseated but has not vomited. Patient states she has had cholecystectomy, 3 C-sections, and a hernia repair in the past. She is unsure of her appendix has been removed. Patient is also reporting swelling to her lower extremities. States that she is having some intermittent shortness of breath with this. Denies any cough. Patient denies any recent rash, chest pain, abdominal pain, numbness, tingling, dizziness, weakness, headache, visual changes, or any other complaints. - Related Data Home Medications Medication Instructions Recorded Confirmed Aspirin EC [Ecotrin Low Dose] 81 mg PO DAILY 07/21/17 09/23/18 Ibuprofen [Motrin] 800 mg PO TID PRN 07/21/17 09/23/18 Pantoprazole [Protonix] 40 mg PO DAILY 07/21/17 09/23/18 Dicyclomine [Bentyl] 20 mg PO BID 07/11/18 09/23/18 Pravastatin Sodium [Pravachol] 20 mg PO HS 07/11/18 09/23/18 Furosemide [Lasix] 20 mg PO DAILY 09/23/18 09/23/18 HYDROcodone/APAP 10-325MG [[place] 1 tab PO BID 09/23/18 09/23/18 10-325] Previous Rx's Medication Instructions Recorded Famotidine [Pepcid] 20 mg PO DAILY #30 tablet 08/16/15 Metoprolol Tartrate [Lopressor] 12.5 mg PO BID #60 tab 07/18/18 Calcium Carbonate [Tums] 500 mg PO QID PRN chew 07/26/18 Potassium Chloride ER [K-Dur 10] 30 meq PO BID #180 tab.er.prt 07/26/18 Sucralfate [Carafate] 1 gm PO ACHS #120 tab 07/26/18 Cephalexin [Keflex] 500 mg PO Q6H #28 cap 09/23/18 Allergies Allergy/AdvReac Type Severity Reaction Status Date / Time codeine Allergy Unknown Dyspnea Verified 09/23/18 19:30 Penicillins Allergy Unknown Rash/Hives Verified 09/23/18 19:30 Sulfa (Sulfonamide Allergy Unknown Rash/Hives Verified 09/23/18 19:30 Antibiotics) prednisone Allergy Dyspnea Verified 09/23/18 19:30 hydromorphone HCl AdvReac Severe Hallucinati Verified 09/23/18 19:30 [From Dilaudid] ons Iodinated Contrast- Oral and AdvReac Nausea & Verified 09/23/18 19:30 IV Dye Vomiting [Iodinated Contrast Media - Oral and] ondansetron [From Zofran] AdvReac Rapid Verified 09/23/18 19:30 Heart Rate Review of Systems ROS Statement: Those systems with pertinent positive or pertinent negative responses have been documented in the HPI. ROS Other: All systems not noted in ROS Statement are negative. Past Medical History Past Medical History: Chest Pain / Angina, CVA/TIA, Deep Vein Thrombosis (DVT), GERD/Reflux, Hyperlipidemia, Hypertension, Osteoarthritis (OA) Additional Past Medical History / Comment(s): Pt states she never had TIA/CVA- they were ruled out however 2016 medical record documents TIA, DVT L arm, arthri tis multiple joints, cervical muscle spasms, R index finger injury and uses splint prn, constipation. Last Myocardial Infarction Date:: 01/08/15 History of Any Multi-Drug Resistant Organisms: C-DIFF Date of last positivie culture/infection: 2013 MDRO Source:: stool Past Surgical History: Breast Surgery, Section, Cholecystectomy, Heart Catheterization With Stent, Hernia Repair Additional Past Surgical History / Comment(s): 01/09/15 PTCA with stent to obtuse marginal branch of circ and stent to mid LAD, bilateral augmentation, 3 C-Sections, ventral hernia repair, bilateral cataract removal with lens implants, picc line in and out for ABX tx for C-Diff. Past Anesthesia/Blood Transfusion Reactions: No Reported Reaction, Motion Sickness Additional Past Anesthesia/Blood Transfusion Reaction / Comment(s): Pt has never recieved blood. Date of Last Stent Placement:: 01/09/15 Past Psychological History: Anxiety Smoking Status: Former smoker Past Alcohol Use History: None Reported Past Drug Use History: None Reported - Past Family History Mother Additional Family Medical History / Comment(s): Mother had a brain aneurysm. She after brain surgery at age 88 yrs. Father Family Medical History: CVA/TIA, Diabetes Mellitus, Hypertension Additional Family Medical History / Comment(s): Father of a CVA. General Exam Limitations: no limitations General appearance: alert, in no apparent distress, other (Physical well- developed, well-nourished elderly female patient in no acute distress. Vital signs upon presentation are temperature 98.2F, pulse 65, respirations 18, blood pressure 147/83, pulse ox 96% on room air.) Eye exam: Present: normal appearance, PERRL, EOMI. Absent: scleral icterus, conjunctival injection, periorbital swelling ENT exam: Present: normal exam, normal oropharynx, mucous membranes moist Respiratory exam: Present: normal lung sounds bilaterally. Absent: respiratory distress, wheezes, rales, rhonchi, stridor Cardiovascular Exam: Present: regular rate, normal rhythm, normal heart sounds. Absent: systolic murmur, diastolic murmur, rubs, gallop, clicks GI/Abdominal exam: Present: soft, tenderness (Right lower quadrant tenderness, suprapubic tenderness), normal bowel sounds. Absent: distended, guarding, rebound, rigid Back exam: Present: normal inspection. Absent: CVA tenderness (R), CVA tend erness (L), vertebral tenderness Neurological exam: Present: alert, oriented X3, CN II-XII intact Psychiatric exam: Present: normal affect, normal mood Skin exam: Present: warm, dry, intact, normal color. Absent: rash Course Vital Signs 09/23/18 09/23/18 09/23/18 17:19 19:18 20:40 Temperature 98.2 F Pulse Rate 65 56 L 57 L Respiratory 18 18 18 Rate Blood Pressure 147/83 149/92 146/80 O2 Sat by Pulse 96 97 99 Oximetry 09/23/18 09/23/18 22:00 23:08 Temperature 97.8 F Pulse Rate 54 L 53 L Respiratory 18 18 Rate Blood Pressure 135/90 137/69 O2 Sat by Pulse 96 95 Oximetry EKG Findings - EKG Comments: EKG Findings:: EKG obtained at 1954 shows sinus rhythm with premature supraventricular complexes. Ventricular rate is 65, [place] interval 186, QRS duration 84, QTC 440, QTC 457. No evidence of ST elevation or depression. Medical Decision Making - Medical Decision Making 78-year-old female patient presented to the emergency department today for evaluation of lower abdominal pain and low back pain. Physical examination did reveal some mild tenderness over the right and left lower quadrants. Patient is afebrile, vital signs are within normal ranges. Labs reviewed and are unremarkable other than evidence for acute urinary tract infection. I did recommend CT with contrast however patient refused stating she did not want premedications and she is ALLERGIC to iodine. CT abdomen and pelvis without c ontrast was obtained and showed no acute findings however did show advanced lumbar spondylosis. Patient has had no vomiting no fever. Discuss findings and results with her. Did offer admission for further evaluation of her abdominal pain and antibiotics for urinary tract infection. Patient would rather be discharged home at this time. She will be started on antibiotics for UTI. She is instructed to follow-up with her primary care physician for recheck in 1-2 days. We did discuss return parameters and great detail. She verbalizes understanding and agrees with this plan. - Lab Data Result diagrams: 09/23/18 20:20 09/23/18 20:20 Lab Results 09/23/18 09/23/18 09/23/18 Range/Units 20:20 20:20 20:20 WBC 8.3 (3.8-10.6) k/uL RBC 4.69 (3.80-5.40) m/uL Hgb 13.1 (11.4-16.0) gm/dL Hct 40.8 (34.0-46.0) % MCV 87.0 (80.0-100.0) fL MCH 27.9 (25.0-35.0) pg MCHC 32.0 (31.0-37.0) g/dL RDW 14.6 (11.5-15.5) % Plt Count 210 (150-450) k/uL Neutrophils % 57 % Lymphocytes % 32 % Monocytes % 6 % Eosinophils % 3 % Basophils % 1 % Neutrophils # 4.7 (1.3-7.7) k/uL Lymphocytes # 2.6 (1.0-4.8) k/uL Monocytes # 0.5 (0-1.0) k/uL Eosinophils # 0.2 (0-0.7) k/uL Basophils # 0.0 (0-0.2) k/uL Sodium 139 (137-145) mmol/L Potassium 4.8 (3.5-5.1) mmol/L Chloride 108 H (98-107) mmol/L Carbon Dioxide 22 (22-30) mmol/L Anion Gap 9 mmol/L BUN 21 H (7-17) mg/dL Creatinine 1.04 (0.52-1.04) mg/dL Est GFR (CKD-EPI)AfAm 59 (>60 ml/min/1.73 sqM) Est GFR (CKD-EPI)NonAf 51 (>60 ml/min/1.73 sqM) Glucose 87 (74-99) mg/dL Plasma Lactic Acid Andre 1.0 (0.7-2.0) mmol/L Calcium 8.9 (8.4-10.2) mg/dL Magnesium 1.8 (1.6-2.3) mg/dL Total Bilirubin 1.0 (0.2-1.3) mg/dL AST 41 H (14-36) U/L ALT <6 L (9-52) U/L Alkaline Phosphatase 119 (38-126) U/L Troponin I (0.000-0.034) ng/mL Total Protein 7.4 (6.3-8.2) g/dL Albumin 4.4 (3.5-5.0) g/dL Amylase 85 (30-110) U/L Lipase 85 (23-300) U/L Urine Color Urine Appearance (Clear) Urine pH (5.0-8.0) Ur Specific [place] (1.001-1.035) Urine Protein (Negative) Urine Glucose (UA) (Negative) Urine Ketones (Negative) Urine Blood (Negative) Urine Nitrite (Negative) Urine Bilirubin (Negative) Urine Urobilinogen (<2.0) mg/dL Ur Leukocyte Esterase (Negative) Urine RBC (0-5) /hpf Urine WBC (0-5) /hpf Ur Squamous Epith Cells (0-4) /hpf Hyaline Casts (0-2) /lpf Urine Mucus (None) /hpf 09/23/18 09/23/18 Range/Units 20:20 20:28 WBC (3.8-10.6) k/uL RBC (3.80-5.40) m/uL Hgb (11.4-16.0) gm/dL Hct (34.0-46.0) % MCV (80.0-100.0) fL MCH (25.0-35.0) pg MCHC (31.0-37.0) g/dL RDW (11.5-15.5) % Plt Count (150-450) k/uL Neutrophils % % Lymphocytes % % Monocytes % % Eosinophils % % Basophils % % Neutrophils # (1.3-7.7) k/uL Lymphocytes # (1.0-4.8) k/uL Monocytes # (0-1.0) k/uL Eosinophils # (0-0.7) k/uL Basophils # (0-0.2) k/uL Sodium (137-145) mmol/L Potassium (3.5-5.1) mmol/L Chloride (98-107) mmol/L Carbon Dioxide (22-30) mmol/L Anion Gap mmol/L BUN (7-17) mg/dL Creatinine (0.52-1.04) mg/dL Est GFR (CKD-EPI)AfAm (>60 ml/min/1.73 sqM) Est GFR (CKD-EPI)NonAf (>60 ml/min/1.73 sqM) Glucose (74-99) mg/dL Plasma Lactic Acid Andre (0.7-2.0) mmol/L Calcium (8.4-10.2) mg/dL Magnesium (1.6-2.3) mg/dL Total Bilirubin (0.2-1.3) mg/dL AST (14-36) U/L ALT (9-52) U/L Alkaline Phosphatase (38-126) U/L Troponin I <0.012 (0.000-0.034) ng/mL Total Protein (6.3-8.2) g/dL Albumin (3.5-5.0) g/dL Amylase (30-110) U/L Lipase (23-300) U/L Urine Color Yellow Urine Appearance Clear (Clear) Urine pH 5.5 (5.0-8.0) Ur Specific [place] 1.015 (1.001-1.035) Urine Protein Trace H (Negative) Urine Glucose (UA) Negative (Negative) Urine Ketones Negative (Negative) Urine Blood Small H (Negative) Urine Nitrite Negative (Negative) Urine Bilirubin Negative (Negative) Urine Urobilinogen <2.0 (<2.0) mg/dL Ur Leukocyte Esterase Large H (Negative) Urine RBC 8 H (0-5) /hpf Urine WBC 23 H (0-5) /hpf Ur Squamous Epith Cells 2 (0-4) /hpf Hyaline Casts 17 H (0-2) /lpf Urine Mucus Rare H (None) /hpf - Radiology Data Radiology results: report reviewed, image reviewed CT abdomen and pelvis without contrast was obtained. Report was reviewed in its entirety. Impression by Dr. Dre Rangel shows advanced lumbar spondylosis, with levoscoliosis apex without 2-3 level. Disposition Clinical Impression: Acute exacerbation of chronic low back pain, Abdominal pain, Urinary tract infection Disposition: HOME SELF-CARE Condition: Good Instructions (If sedation given, give patient instructions): Urinary Tract Infection in Women (ED), Acute Low Back Pain (ED), Abdominal Pain (ED) Additional Instructions: Increase fluids. Complete antibiotic prescription in full. Follow up with your primary care physician for recheck in 1-2 days. Return to the emergency department immediately for any new, worsening, or concerning symptoms. Prescriptions: Cephalexin [Keflex] 500 mg PO Q6H #28 cap Is patient prescribed a controlled substance at d/c from ED?: No Referrals: Daren Marinelli MD [Primary Care Provider] - 1-2 days Time of Disposition: 22:48
[2018-09-23] MEDS ORDERED: diphenhydrAMINE 50 MG/ML 1 ML VIAL IVP STA (20:25)
[2018-09-23] MEDS ORDERED: methylPREDNISolone SOD SUCCI 125 MG/2 ML VIAL IV STA (20:25)
[2018-09-23] MEDS ORDERED: FAMOTIDINE 20 MG/2 ML VIAL IV STA (20:25)
[2018-09-23 20:43] LABS: Basophils % (A) 1 %; Eosinophils # (A) 0.2 k/uL (0-0.7); Eosinophils % (A) 3 %; HCT 40.8 % (34.0-46.0); HGB 13.1 gm/dL (11.4-16.0); Lymphocytes # (A) 2.6 k/uL (1.0-4.8); Lymphocytes % (A) 32 %; MCH 27.9 pg (25.0-35.0); Mean Platelet Volume 8.1; Monocytes # (A) 0.5 k/uL (0-1.0); Monocytes % (A) 6 %; Neutrophils # (A) 4.7 k/uL (1.3-7.7); Neutrophils % (A) 57 %; Platelet Count 210 k/uL (150-450); RBC 4.69 m/uL (3.80-5.40); RDW 14.6 % (11.5-15.5); WBC 8.3 k/uL (3.8-10.6)
[2018-09-23 20:47] LABS: Appearance,Urine Clear (Clear); Bilirubin,Urine Negative (Negative); Blood,Urine Small (Negative); Color,Urine Yellow; Glucose,Urine (UA) Negative (Negative); Hyaline Casts,Urine 17 /lpf (0-2); Ketones,Urine Negative (Negative); Leukocyte Esterase,Urine Large (Negative); Mucus,Urine Rare /hpf; Nitrite,Urine Negative (Negative); PH, Urine 5.5 (5.0-8.0); Protein,Urine Trace (Negative); RBC,Urine 8 /hpf (0-5); Specific Gravity,Urine 1.015 (1.001-1.035); Squamous Epithelial Cell,Urine 2 /hpf (0-4); Urobilinogen,Urine <2.0 mg/dL (<2.0); WBC,Urine 23 /hpf (0-5)
[2018-09-23 20:49] LABS: ALT <6 U/L (9-52); AST 41 U/L (14-36); African American GFR (CKD) 59 (>60 ml/min/1.73 sqM); Albumin 4.4 g/dL (3.5-5.0); Alkaline Phosphatase 119 U/L (38-126); Amylase 85 U/L (30-110); Anion Gap 9 mmol/L; Blood Urea Nitrogen 21 mg/dL (7-17); Calcium 8.9 mg/dL (8.4-10.2); Carbon Dioxide 22 mmol/L (22-30); Chloride 108 mmol/L (98-107); Glucose 87 mg/dL (74-99); Lipase 85 U/L (23-300); Magnesium 1.8 mg/dL (1.6-2.3); Potassium 4.8 mmol/L (3.5-5.1); Sodium 139 mmol/L (137-145); Total Protein 7.4 g/dL (6.3-8.2)
--- NOTE | 2018-09-23 22:22 | CT ---
EXAMINATION TYPE: CT abdomen pelvis wo con DATE OF EXAM: 09/23/2018 COMPARISON: HISTORY: Pt has pain in back, radiating into legs/feet. Difficulty walking CT DLP: 482.5 mGycm Automated exposure control for dose reduction was used. TECHNIQUE: Helical acquisition of images was performed from the lung bases through the pelvis. FINDINGS: Given the limitations of noncontrast CT the following observations are made: LUNG BASES: No acute findings. However, coronary calcifications and mild cardiomegaly noted. LIVER/GB: No significant abnormality is appreciated. PANCREAS: No significant abnormality is seen. SPLEEN: No significant abnormality is seen. ADRENALS: No significant abnormality is seen. KIDNEYS: No significant abnormality is seen. FREE AIR: No free air is visualized RETROPERITONEAL ADENOPATHY: None visualized REPRODUCTIVE ORGANS: No significant abnormality is seen URINARY BLADDER: No significant abnormality is seen. PELVIC ADENOPATHY: None visualized. OSSEOUS STRUCTURES: Multilevel advanced lumbar spondylosis changes are noted, with spinal stenosis a ppearing most pronounced at the L2-3 level BOWEL: No significant abnormality is seen. IMPRESSION: ADVANCED LUMBAR SPONDYLOSIS, WITH LEVOSCOLIOSIS APEX AT THE L2-3 LEVEL.
[2018-09-23] MEDS ORDERED: cefTRIAXone IN SWFI 1,000 MG/10 ML SYRINGE IVP STA (22:46)
[2018-09-23 23:09] VITALS: BP 137/69; PULSE 53; TEMP 97.8
== END 2018-09-23 23:09 | disposition home or self-care (01) ==
LOC: EC 16:17
DX: M54.5 Low back pain (principal); G89.29 Other chronic pain; N39.0 Urinary tract infection, site not specified; R10.31 Right lower quadrant pain; M47.896 Other spondylosis, lumbar region; K21.9 Gastro-esophageal reflux disease without esophagitis; E78.5 Hyperlipidemia, unspecified; I10 Essential (primary) hypertension; M19.90 Unspecified osteoarthritis, unspecified site; F41.9 Anxiety disorder, unspecified; Z86.73 Personal history of transient ischemic attack (TIA), and cerebral infarction without residual deficits; Z86.718 Personal history of other venous thrombosis and embolism; Z87.891 Personal history of nicotine dependence; Z79.891 Long term (current) use of opiate analgesic; Z79.82 Long term (current) use of aspirin; Z79.899 Other long term (current) drug therapy; Z88.0 Allergy status to penicillin; Z88.2 Allergy status to sulfonamides; Z88.5 Allergy status to narcotic agent; Z88.8 Allergy status to other drugs, medicaments and biological substances; Z91.041 Radiographic dye allergy status; Z90.49 Acquired absence of other specified parts of digestive tract; Z95.5 Presence of coronary angioplasty implant and graft; Z53.29 Procedure and treatment not carried out because of patient's decision for other reasons
CPT/HCPCS: 36415; 93005; 80053; 82150; 83605; 83690; 83735; 84484; 85025; 81001; 74176; 99284; 96374; 96375; J2270; J0696

== ENCOUNTER 2018-10-05 08:43 | Inpatient (IN) | payer MEDICARE, OTHER ==
[2018-10-05] MEDS ORDERED: SODIUM CHLORIDE 0.9% 1,000 ML IV STA (09:36)
[2018-10-05] MEDS ORDERED: MORPHINE SULFATE 4 MG/ML SYRINGE IV STA (09:36)
[2018-10-05] MEDS ORDERED: KETOROLAC 30 MG/ML 1 ML VIAL IVP STA (09:38)
--- NOTE | 2018-10-05 09:47 | ED ---
General Adult HPI - General Chief complaint: Extremity Problem,Nontraumatic Stated complaint: leg pain Time Seen by Provider: 10/05/18 09:02 Source: patient, RN notes reviewed Mode of arrival: wheelchair Limitations: no limitations - History of Present Illness Initial comments: Patient is a pleasant 78-year-old female presenting to the emergency Department with complaints of extremity pain. Symptoms have been present over the past 2-3 months. Symptoms have progressively worsened. Patient did see her neurologist 2 days ago however did not receive any answers. Patient is also seen her primary care physician. Patient complains of discomfort bilateral legs and bilateral arms. Patient does state that the right arm is somewhat worse the left arm. Patient states it is difficult to walk around because of the discomfort. Patient is on [place] chronically for her chronic neck and back pain. - Related Data Home Medications Medication Instructions Recorded Confirmed Aspirin EC [Ecotrin Low Dose] 81 mg PO DAILY 07/21/17 10/05/18 Pantoprazole [Protonix] 40 mg PO DAILY 07/21/17 10/05/18 Dicyclomine [Bentyl] 20 mg PO BID 07/11/18 10/05/18 Pravastatin Sodium [Pravachol] 20 mg PO HS 07/11/18 10/05/18 Furosemide [Lasix] 20 mg PO DAILY 09/23/18 10/05/18 Cephalexin [Keflex] 500 mg PO BID 10/05/18 10/05/18 Metoprolol Tartrate [Lopressor] 25 mg PO BID 10/05/18 10/05/18 Previous Rx's Medication Instructions Recorded Famotidine [Pepcid] 20 mg PO DAILY #30 tablet 08/16/15 Potassium Chloride ER [K-Dur 10] 30 meq PO BID #180 tab.er.prt 07/26/18 Sucralfate [Carafate] 1 gm PO ACHS #120 tab 07/26/18 Allergies Allergy/AdvReac Type Severity Reaction Status Date / Time codeine Allergy Unknown Dyspnea Verified 10/05/18 09:22 Penicillins Allergy Unknown Rash/Hives Verified 10/05/18 09:22 Sulfa (Sulfonamide Allergy Unknown Rash/Hives Verified 10/05/18 09:22 Antibiotics) prednisone Allergy Dyspnea Verified 10/05/18 09:22 hydromorphone HCl AdvReac Severe Hallucinati Verified 10/05/18 09:22 [From Dilaudid] ons Iodinated Contrast- Oral and AdvReac Nausea & Verified 10/05/18 09:22 IV Dye Vomiting [Iodinated Contrast Media - Oral and] ondansetron [From Zofran] AdvReac Rapid Verified 10/05/18 09:22 Heart Rate Review of Systems ROS Statement: Those systems with pertinent positive or pertinent negative responses have been documented in the HPI. ROS Other: All systems not noted in ROS Statement are negative. Constitutional: Denies: fever Eyes: Denies: eye pain ENT: Denies: ear pain Respiratory: Denies: cough, dyspnea Cardiovascular: Denies: palpitations Endocrine: Denies: fatigue Gastrointestinal: Denies: abdominal pain Genitourinary: Denies: dysuria Musculoskeletal: Reports: as per HPI, back pain (Chronic and unchanged) Skin: Denies: rash Neurological: Denies: headache, confusion Past Medical History Past Medical History: Chest Pain / Angina, CVA/TIA, Deep Vein Thrombosis (DVT), GERD/Reflux, Hyperlipidemia, Hypertension, Osteoarthritis (OA) Additional Past Medical History / Comment(s): Pt states she never had TIA/CVA- they were ruled out however 2016 medical record documents TIA, DVT L arm, arthritis multiple joints, cervical muscle spasms, R index finger injury and uses splint prn, constipation. Last Myocardial Infarction Date:: 01/08/15 History of Any Multi-Drug Resistant Organisms: C-DIFF Date of last positivie culture/infection: 2013 MDRO Source:: stool Past Surgical History: Breast Surgery, Section, Cholecystectomy, Heart Catheterization With Stent, Hernia Repair Additional Past Surgical History / Comment(s): 01/09/15 PTCA with stent to obtuse marginal branch of circ and stent to mid LAD, bilateral augmentation, 3 C-Sections, ventral hernia repair, bilateral cataract removal with lens implants, picc line in and out for ABX tx for C-Diff. Past Anesthesia/Blood Transfusion Reactions: No Reported Reaction, Motion Sickness Additional Past Anesthesia/Blood Transfusion Reaction / Comment(s): Pt has never recieved blood. Date of Last Stent Placement:: 01/09/15 Past Psychological History: Anxiety Smoking Status: Former smoker Past Alcohol Use History: None Reported Past Drug Use History: None Reported - Past Family History Mother Additional Family Medical History / Comment(s): Mother had a brain aneurysm. She after brain surgery at age 88 yrs. Father Family Medical History: CVA/TIA, Diabetes Mellitus, Hypertension Additional Family Medical History / Comment(s): Father of a CVA. General Exam Limitations: no limitations General appearance: alert, in no apparent distress Head exam: Present: atraumatic Eye exam: Present: normal appearance, PERRL ENT exam: Present: normal oropharynx Neck exam: Present: normal inspection Respiratory exam: Present: normal lung sounds bilaterally Cardiovascular Exam: Present: regular rate, normal rhythm Expanded Peripheral pulses: 2+: Radial (R), Radial (L), Posterior Tibialis (R), Posterior Tibialis (L) GI/Abdominal exam: Present: soft. Absent: tenderness Extremities exam: Present: normal inspection. Absent: pedal edema, calf tenderness Neurological exam: Present: alert, oriented X3, CN II-XII intact. Absent: motor sensory deficit Expanded Motor strength exam: RUE: 5, LUE: 5, RLE: 5, LLE: 5 Psychiatric exam: Present: normal affect, normal mood Skin exam: Present: normal color Course Vital Signs 10/05/18 08:51 Temperature 97.9 F Pulse Rate 72 Respiratory 18 Rate Blood Pressure 117/63 O2 Sat by Pulse 98 Oximetry Medical Decision Making - Medical Decision Making Patient reevaluated without significant change. Patient and family updated on results and plan. Case was discussed in detail with Dr. Willis, who will admit covering for Dr. Marinelli. - Lab Data Result diagrams: 10/05/18 10:52 10/05/18 10:52 Lab Results 10/05/18 10/05/18 Range/Units 10:52 10:52 WBC 13.3 H (3.8-10.6) k/uL RBC 4.53 (3.80-5.40) m/uL Hgb 12.9 (11.4-16.0) gm/dL Hct 40.1 (34.0-46.0) % MCV 88.4 (80.0-100.0) fL MCH 28.5 (25.0-35.0) pg MCHC 32.3 (31.0-37.0) g/dL RDW 14.2 (11.5-15.5) % Plt Count 207 (150-450) k/uL Neutrophils % 86 % Lymphocytes % 6 % Monocytes % 5 % Eosinophils % 1 % Basophils % 0 % Neutrophils # 11.5 H (1.3-7.7) k/uL Lymphocytes # 0.8 L (1.0-4.8) k/uL Monocytes # 0.7 (0-1.0) k/uL Eosinophils # 0.1 (0-0.7) k/uL Basophils # 0.0 (0-0.2) k/uL Sodium 141 (137-145) mmol/L Potassium 3.4 L (3.5-5.1) mmol/L Chloride 107 (98-107) mmol/L Carbon Dioxide 22 (22-30) mmol/L Anion Gap 12 mmol/L BUN 21 H (7-17) mg/dL Creatinine 1.03 (0.52-1.04) mg/dL Est GFR (CKD-EPI)AfAm 59 (>60 ml/min/1.73 sqM) Est GFR (CKD-EPI)NonAf 52 (>60 ml/min/1.73 sqM) Glucose 101 H (74-99) mg/dL Calcium 8.9 (8.4-10.2) mg/dL Phosphorus 3.2 (2.5-4.5) mg/dL Magnesium 2.0 (1.6-2.3) mg/dL Total Bilirubin 0.5 (0.2-1.3) mg/dL AST 14 (14-36) U/L ALT 8 L (9-52) U/L Alkaline Phosphatase 117 (38-126) U/L Creatine Kinase 85 (30-135) U/L C-Reactive Protein 78.2 H (<10.0) mg/L Total Protein 6.8 (6.3-8.2) g/dL Albumin 4.1 (3.5-5.0) g/dL - Radiology Data Radiology results: image reviewed (Right hand x-ray reveals no acute) Disposition Clinical Impression: Polymyalgia Disposition: ADMITTED IP TO THIS HOSP Is patient prescribed a controlled substance at d/c from ED?: No Referrals: Daren Marinelli MD [Primary Care Provider] - 1-2 days Decision Time: 13:09
[2018-10-05 11:19] LABS: Basophils % (A) 0 %; Eosinophils # (A) 0.1 k/uL (0-0.7); Eosinophils % (A) 1 %; HCT 40.1 % (34.0-46.0); HGB 12.9 gm/dL (11.4-16.0); Lymphocytes # (A) 0.8 k/uL (1.0-4.8); Lymphocytes % (A) 6 %; MCH 28.5 pg (25.0-35.0); MCHC 32.3 g/dL (31.0-37.0); MCV 88.4 fL (80.0-100.0); Monocytes # (A) 0.7 k/uL (0-1.0); Monocytes % (A) 5 %; Neutrophils # (A) 11.5 k/uL (1.3-7.7); Neutrophils % (A) 86 %; Platelet Count 207 k/uL (150-450); RBC 4.53 m/uL (3.80-5.40); RDW 14.2 % (11.5-15.5); WBC 13.3 k/uL (3.8-10.6)
--- NOTE | 2018-10-05 11:22 | XR ---
EXAMINATION TYPE: XR hand complete RT , 3 VIEWS DATE OF EXAM ORDERED: 10/05/2018 HISTORY: Pain. COMPARISON: Previous study dated 11/20/2011. FINDINGS: The bones are diffusely osteopenic likely on the basis of osteoporosis. The fingers are flexed in all projections. This makes assessment of the joint spaces difficult. There appears to be joint space loss in the PIP and DIP joints of all the fingers. No fracture or dis location is seen. No other acute osseous lesion is seen. IMPRESSION: 1. NO ACUTE OSSEOUS LESION. 2. SUBOPTIMAL EXAMINATION FOR ASSESSING ARTHRITIC CHANGE. I DO NOT BELIEVE THERE IS JOINT SPACE LOSS IN THE PIP AND DIP JOINTS OF ALL THE DIGITS.
[2018-10-05 11:32] LABS: Albumin 4.1 g/dL (3.5-5.0); C Reactive Protein 78.2 mg/L (<10.0); Calcium 8.9 mg/dL (8.4-10.2); Phosphorus 3.2 mg/dL (2.5-4.5); Potassium 3.4 mmol/L (3.5-5.1); Total Bilirubin 0.5 mg/dL (0.2-1.3); Total Protein 6.8 g/dL (6.3-8.2)
[2018-10-05] MEDS ORDERED: methylPREDNISolone SOD SUCCI 125 MG/2 ML VIAL IV STA (13:09)
[2018-10-05] MEDS ORDERED: NALOXONE 0.4 MG/ML 1 ML VIAL IV PRN (13:10)
[2018-10-05] MEDS ORDERED: DEXAMETHASONE SOD PHOSPHATE 10 MG/ML 1 ML VIAL IV STA (13:13)
[2018-10-05] MEDS: SODIUM CHLORIDE 0.9% 1,000 ML IV SCH (13:44)
[2018-10-05 14:36] VITALS: BMI 27.4
[2018-10-05] MEDS: PANTOPRAZOLE 40 MG TABLET PO SCH (15:07)
[2018-10-05] MEDS: MORPHINE SULFATE 4 MG/ML SYRINGE IV PRN ×2 (15:26→19:45)
[2018-10-05] MEDS: DEXAMETHASONE SOD PHOSPHATE 4 MG/ML 1 ML VIAL IV SCH ×2 (16:56→23:30)
[2018-10-05] MEDS: SUCRALFATE 1 GM TAB PO SCH ×2 (16:56→21:09)
[2018-10-05] MEDS ORDERED: methylPREDNISolone SOD SUCCI 125 MG/2 ML VIAL IV SCH (18:00)
--- NOTE | 2018-10-05 18:07 | XR ---
EXAMINATION TYPE: XR chest 1V portable DATE OF EXAM: 10/05/2018 COMPARISON: 07/20/2018 HISTORY: Chest pain TECHNIQUE: Single frontal view of the chest is obtained. FINDINGS: Heart and mediastinum are within normal limits. Lungs are clear. There are calcified breas t implants. There is no pleural effusion. Bony thorax is intact. IMPRESSION: No active cardiopulmonary disease. Atheromatous aorta. No change.
[2018-10-05] MEDS: POTASSIUM CHLORIDE ER 10 MEQ TAB.ER.PRT PO SCH (19:09)
[2018-10-05 19:40] LABS: Appearance,Urine Clear (Clear); Bilirubin,Urine Negative (Negative); Blood,Urine Small (Negative); Color,Urine Yellow; Glucose,Urine (UA) Negative (Negative); Ketones,Urine Negative (Negative); Leukocyte Esterase,Urine Negative (Negative); Mucus,Urine Rare /hpf; Nitrite,Urine Negative (Negative); Protein,Urine Negative (Negative); RBC,Urine 20 /hpf (0-5); Specific Gravity,Urine 1.013 (1.001-1.035); Squamous Epithelial Cell,Urine <1 /hpf (0-4); Urobilinogen,Urine <2.0 mg/dL (<2.0); WBC,Urine <1 /hpf (0-5)
[2018-10-05 19:58] LABS: Amphetamine Screen,Urine Not Detected (NotDetected); Barbiturate Screen,Urine Not Detected (NotDetected); Benzodiazepines Screen,Urine Not Detected (NotDetected); Cocaine Screen,Urine Not Detected (NotDetected); Methadone Screen, Urine Not Detected (NotDetected); Opiate Screen,Urine Detected (NotDetected); Oxycodone Screen, Urine Not Detected (NotDetected); Phencyclidine Screen,Urine Not Detected (NotDetected); Tricyclic Antidepressant,Urine Not Detected (NotDetected); Urn Cannabinoid Scrn Not Detected (NotDetected)
[2018-10-05] MEDS: PRAVASTATIN SODIUM 20 MG TAB PO SCH (21:09)
[2018-10-05] MEDS: METOPROLOL TARTRATE 25 MG TAB PO SCH (21:09)
[2018-10-05] MEDS: CEPHALEXIN 500 MG CAP PO SCH (21:09)
[2018-10-05] MEDS: HEPARIN SODIUM,PORCINE 5,000 UNIT/ML 1 ML VIAL SQ SCH (21:09)
[2018-10-05] MEDS: DICYCLOMINE 20 MG TAB PO SCH (21:09)
--- NOTE | 2018-10-05 23:00 | HP ---
HISTORY AND PHYSICAL I am covering for Dr. Marinelli. CHIEF COMPLAINT: Generalized aches and pains and difficulty walking. HISTORY OF PRESENT ILLNESS: This 78-year-old woman with a past medical history of DVT, GERD, hypertension, hyperlipidemia, history of DJD, history of C difficile colitis, history of CAD/stent being followed by Dr. Marinelli in the outpatient setting apparently had difficulty getting from the bed today because of severe pain. The patient had ongoing aches and pains all over the body, especially both lower limbs and upper limbs also. The patient also seen in Neurology. Because of increasing difficulty, the patient came to [facility] and admitted for further evaluation and treatment. There is no history of fever, rigors or chills. No history of headache, loss of consciousness or seizures. The patient had an abdominal pelvis CAT scan recently which showed advanced lumbar spondylosis with levoscoliosis. There is no history of fever, rigors, chills at this time. PAST MEDICAL HISTORY: History of CVA, TIA, DVT, GERD, hypertension, hyperlipidemia, DJD, history of C difficile colitis, anxiety. MEDICATIONS: Prior to admission, home medications are: 1. Carafate 1 g a.c. q.h.s. 2. Lopressor 25 mg p.o. b.i.d. 3. Lasix 20 mg daily. 4. Bentyl 20 mg p.o. b.i.d. 5. Pravachol 20 mg q.h.s. 6. K-Dur 30 mEq p.o. b.i.d. 7. Protonix 40 mg p.o. daily. 8. Pepcid 20 mg p.o. daily. 9. Keflex 500 mg p.o. b.i.d. 10.Ecotrin 81 mg p.o. daily. ALLERGIES: CODEINE, PENICILLIN, SULFA, PREDNISONE, HYDROMORPHONE, IODINATED CONTRAST DYES, ZOFRAN. FAMILY HISTORY: History of CVA, TIA, diabetes, hypertension in the family. SOCIAL HISTORY: Previous history of smoking. No history of current smoking or alcohol intake. REVIEW OF SYSTEMS: ENT: Diminished vision. Diminished hearing. CARDIOVASCULAR: No angina or palpitations. RESPIRATORY: As mentioned earlier. GI no nausea or vomiting. no dysuria. NERVOUS SYSTEM: No numbness, weakness. ALLERGY/IMMUNOLOGY: No asthma or hayfever. MUSCULOSKELETAL as mentioned earlier. HEMATOLOGY/ONCOLOGY: No history of anemia. ENDOCRINE: No history of diabetes or hypothyroidism. CONSTITUTIONAL: As mentioned earlier. DERMATOLOGY: Negative. RHEUMATOLOGY: Negative. PSYCHIATRIC: As mentioned earlier. PHYSICAL EXAMINATION: The patient is alert and oriented times three. Pulse is 64, blood pressure 108/60, respiratory rate 18. Temperature 98.3, pulse ox 94% on room air. HEENT: Conjunctivae normal. Oral mucosa. NECK is no jugular venous distention. No carotid bruit. No lymph node enlargement. Cardiovascular system: S1, S2 muffled. RESPIRATORY: Breath sounds diminished in the bases. No rhonchi. No crackles. ABDOMEN: Soft, nontender. No mass palpable. LEGS no edema. No swelling. Pulses felt normally. NERVOUS SYSTEM: Higher functions as mentioned earlier. Moves all 4 limbs. No focal motor or sensory deficits. LYMPHATICS: No lymph nodes palpable in the neck or axilla. SKIN: No ulcers, rashes or bleeding. JOINTS: No active deforming arthropathy. NERVOUS SYSTEM: The power minimal weakness present. Otherwise some local tenderness also present. LAB STUDIES: WBC 13.3, sodium 140, potassium 3.4, C-reactive protein 78.2. ASSESSMENT: 1. Diffuse aches and pains, rule out polymyalgia rheumatica. 2. Increased WBC. 3. Hypokalemia, mild. 4. History of cerebrovascular accident/transient ischemic attack. 5. History of deep vein thrombosis. 6. Gastroesophageal reflux disease. 7. Hypertension. 8. Hyperlipidemia. 9. History of degenerative joint disease. 10.History of breast surgery. 11.History of C difficile colitis. 12.History of coronary artery disease/stent. 13.History of anxiety. 14.History of degenerative joint disease. 15.Remote history of nicotine dependence. RECOMMENDATIONS AND DISCUSSION: In this 86-year-old woman who presented with multiple complex medical issues, we will monitor the patient closely, continue the current medications, management and symptomatic treatment. I recommend empiric IV steroids, sedimentation rate, CRP. Otherwise, I would also recommend repeat labs, resume the home medications. Guarded prognosis because of multiple complex medical conditions. Further recommendations to follow. A copy of dictation being forwarded to Dr. Marinelli who is the primary care physician. MMODL / IJN: [id number] /
[2018-10-06] MEDS: MORPHINE SULFATE 4 MG/ML SYRINGE IV PRN ×2 (05:11→08:28)
[2018-10-06] MEDS: DEXAMETHASONE SOD PHOSPHATE 4 MG/ML 1 ML VIAL IV SCH ×4 (05:11→23:32)
[2018-10-06 07:52] LABS: Calcium 9.1 mg/dL (8.4-10.2); Potassium 4.8 mmol/L (3.5-5.1)
[2018-10-06] MEDS: HEPARIN SODIUM,PORCINE 5,000 UNIT/ML 1 ML VIAL SQ SCH ×2 (08:18→21:27)
[2018-10-06] MEDS: POTASSIUM CHLORIDE ER 10 MEQ TAB.ER.PRT PO SCH ×2 (08:19→21:27)
[2018-10-06] MEDS: SUCRALFATE 1 GM TAB PO SCH ×4 (08:19→21:24)
[2018-10-06] MEDS: PANTOPRAZOLE 40 MG TABLET PO SCH (08:19)
[2018-10-06] MEDS: FUROSEMIDE 20 MG TAB PO SCH (08:20)
[2018-10-06] MEDS: CEPHALEXIN 500 MG CAP PO SCH ×2 (08:20→21:24)
[2018-10-06] MEDS: DICYCLOMINE 20 MG TAB PO SCH ×2 (08:20→21:24)
[2018-10-06] MEDS: FAMOTIDINE 20 MG TAB PO SCH (08:20)
[2018-10-06] MEDS: ASPIRIN 81 MG PO SCH (08:20)
[2018-10-06] MEDS: METOPROLOL TARTRATE 25 MG TAB PO SCH ×2 (08:20→21:24)
[2018-10-06 08:27] LABS: Basophils % (A) 0 %; Eosinophils # (A) 0.1 k/uL (0-0.7); Eosinophils % (A) 1 %; HCT 37.3 % (34.0-46.0); HGB 12.1 gm/dL (11.4-16.0); Lymphocytes # (A) 0.8 k/uL (1.0-4.8); Lymphocytes % (A) 6 %; MCH 28.2 pg (25.0-35.0); MCHC 32.3 g/dL (31.0-37.0); MCV 87.3 fL (80.0-100.0); Mean Platelet Volume 10.2; Monocytes # (A) 0.4 k/uL (0-1.0); Monocytes % (A) 3 %; Neutrophils # (A) 11.5 k/uL (1.3-7.7); Neutrophils % (A) 89 %; Platelet Count 184 k/uL (150-450); RBC 4.28 m/uL (3.80-5.40); RDW 14.1 % (11.5-15.5); WBC 12.9 k/uL (3.8-10.6)
[2018-10-06] MEDS: SODIUM CHLORIDE 0.9% 1,000 ML IV SCH (08:51)
--- NOTE | 2018-10-06 20:46 | PN ---
PROGRESS NOTE DATE OF SERVICE: 10/06/2018 I am covering for Dr. Marinelli. HISTORY OF PRESENT ILLNESS: This 78-year-old woman with a past medical history of multiple medical problems was admitted with diffuse aches and pains. Patient also had issues with joint pain into the proximal interphalangeal joint on the right hand and as well as the foot also. Uric acid elevated at 10.4, ESR and CRP is also elevated. Patient on empiric IV steroids at this time. PAST MEDICAL HISTORY: Reviewed. REVIEW OF SYSTEMS: CARDIOVASCULAR: No angina or palpitations. RESPIRATORY: As mentioned earlier. GI no nausea or vomiting. no dysuria. CENTRAL NERVOUS SYSTEM: No focal deficits. MUSCULOSKELETAL: As mentioned earlier. CURRENT MEDICATIONS: Reviewed and include: 1. Aspirin 81 mg p.o. daily. 2. Keflex 500 mg p.o. b.i.d. 3. Colcrys 0.6 mg b.i.d. 4. Decadron 4 mg IV q.6h. 5. Bentyl 20 mg p.o. b.i.d. 6. Pepcid 20 mg p.o. daily. 7. Lasix 20 mg daily. 8. Heparin 5000 subcu b.i.d. 9. Lopressor 25 mg p.o. b.i.d. 10.Morphine sulfate 4 mg q.4. 11.Narcan 0.2 q.2h p.r.n. 12.Protonix 40 mg with breakfast. 13.K-Dur 30 mEq p.o. b.i.d. 14.Pravachol 20 mg q.h.s. 15.Carafate 1 g p.o. a.c. q.h.s. ALLERGIES: ntd PHYSICAL EXAM: Patient is alert and oriented times three. Pulse 50, blood pressure 119/54, respiration 18, temperature 98.1, pulse ox 94% on room air. HEENT is conjunctivae normal. Oral mucosa moist. NECK is no jugular venous distention. No carotid bruit. No lymph node enlargement. CARDIOVASCULAR: S1, S2 muffled. RESPIRATORY: Breath sounds diminished in the bases. No rhonchi. No crackles. ABDOMEN: Soft, nontender. LEGS: No edema. No swelling. CENTRAL NERVOUS SYSTEM: No focal deficits. JOINTS: Minimal tenderness and swelling of the right third proximal interphalangeal joint and multiple joints in the foot also. LABORATORY DATA: WBC 12.9, hemoglobin 12.1, sodium 130, potassium 3.8, and uric acid 10.4. C- reactive protein 88. UA noted. ASSESSMENT: 1. Diffuse aches and pains, possible acute gout, possible polymyalgia rheumatica. 2. Increased WBC. 3. Hypokalemia mild. 4. History of cerebrovascular accident, transient ischemic attack. 5. History of deep vein thrombosis. 6. Gastroesophageal reflux disease. 7. Hypertension. 8. Hyperlipidemia. 9. History of degenerative joint disease. 10.History of breast surgery. 11.History of C difficile colitis. 12.History of coronary artery disease/stent. 13.History of anxiety. 14.History of degenerative joint disease. 15.Remote history of nicotine dependence. RECOMMENDATIONS AND DISCUSSION: Recommend to continue current medications, management and symptomatic treatment. Otherwise, uric acid definitely elevated indicating possible acute gout. I would recommend Colchicine and followed by Zyloprim, uricosuric agents later once acute condition is over. Otherwise the patient is on empiric IV steroids. We will continue to monitor ESR and CRP is elevated but not much. If the patient responds to Colchicine, we will continue the same. Otherwise, on a long-term bases a small dose of steroids may be added for the possibility of polymyalgia rheumatica. The prognosis guarded and Dr. Marinelli will follow. MMODL / IJN: [id number] / MTDD
[2018-10-06] MEDS: PRAVASTATIN SODIUM 20 MG TAB PO SCH (21:24)
[2018-10-06] MEDS: COLCHICINE 0.6 MG EACH PO SCH (21:27)
[2018-10-07] MEDS: MORPHINE SULFATE 4 MG/ML SYRINGE IV PRN (04:14)
[2018-10-07] MEDS: DEXAMETHASONE SOD PHOSPHATE 4 MG/ML 1 ML VIAL IV SCH ×3 (05:10→17:03)
[2018-10-07] MEDS: COLCHICINE 0.6 MG EACH PO SCH ×2 (08:20→20:46)
[2018-10-07] MEDS: PANTOPRAZOLE 40 MG TABLET PO SCH (08:22)
[2018-10-07] MEDS: SUCRALFATE 1 GM TAB PO SCH ×4 (08:22→20:51)
[2018-10-07] MEDS: METOPROLOL TARTRATE 25 MG TAB PO SCH ×2 (08:22→20:40)
[2018-10-07] MEDS: FUROSEMIDE 20 MG TAB PO SCH (08:22)
[2018-10-07] MEDS: CEPHALEXIN 500 MG CAP PO SCH ×2 (08:22→20:45)
[2018-10-07] MEDS: ASPIRIN 81 MG PO SCH (08:22)
[2018-10-07] MEDS: FAMOTIDINE 20 MG TAB PO SCH (08:23)
[2018-10-07] MEDS: POTASSIUM CHLORIDE ER 10 MEQ TAB.ER.PRT PO SCH ×2 (08:23→20:46)
[2018-10-07] MEDS: HEPARIN SODIUM,PORCINE 5,000 UNIT/ML 1 ML VIAL SQ SCH ×2 (08:27→20:46)
[2018-10-07] MEDS: DICYCLOMINE 20 MG TAB PO SCH ×2 (09:02→20:47)
[2018-10-07] MEDS: SODIUM CHLORIDE 0.9% 1,000 ML IV SCH (09:03)
[2018-10-07] MEDS ORDERED: MORPHINE SULFATE 2 MG/ML SYRINGE IVP PRN (13:06)
--- NOTE | 2018-10-07 13:06 | P.PN ---
Subjective Progress Note Date: 10/07/18 Principal diagnosis: This is a continuing progress note on and 78 y.o female who is struggling with polymyalgia. The patient has been seeing neurology and been receiving hydrocodo ne without significant relief. The patient states morphine has been helping her and she would like to try this orally. I made note that I am not comfortable giving her chronic opiate medication given her previous history with using Percocet in the past. No other voiding difficulties. No significant fever or chills are stated. The patient seems to be resting comfortably today. Objective - Vital Signs Vital signs: Vital Signs Temp 98.2 F 10/07/18 07:21 Pulse 50 L 10/07/18 07:21 Resp 16 10/07/18 07:21 BP 142/66 10/07/18 07:21 Pulse Ox 95 10/07/18 07:21 Intake & Output 10/06/18 10/07/18 10/07/18 18:59 06:59 18:59 Intake Total 160 180 Balance 160 180 Intake: Intake, IV Titration 160 Amount Sodium Chloride 0.9% 1, 160 000 ml @ 20 mls/hr IV . Q24H [facility] Rx#:[id number] Oral 180 Other: Voiding Method Toilet Toilet # Voids 1 1 - Constitutional General appearance: Present: obese - EENT Eyes: Absent: abnormal pupil - Neck Neck: Absent: lymphadenopathy - Respiratory Respiratory: bilateral: CTA - Cardiovascular Rhythm: regular Heart sounds: normal: S1, S2 Abnormal Heart Sounds: Absent: S3 Gallop - Gastrointestinal General gastrointestinal: Present: soft. Absent: tenderness - Integumentary Integumentary: Absent: cellulitis - Neurologic Neurologic: Present: CNII-XII intact. Absent: focal deficits - Labs CBC & Chem 7: 10/06/18 07:02 10/06/18 07:02 Labs: Abnormal Lab Results - Last 24 Hours (Table) 10/06/18 Range/Units 07:02 Uric Acid 10.4 H (3.7-7.4) mg/dL Assessment and Plan (1) Polymyalgia Current Visit: Yes Status: Acute Code(s): M35.3 - POLYMYALGIA RHEUMATICA SNOMED Code(s): 59989922 (2) Anxiety Current Visit: No Status: Acute Code(s): F41.9 - ANXIETY DISORDER, UNSPECIFIED SNOMED Code(s): 76057577 (3) Burning or prickling sensation Current Visit: No Status: Acute Code(s): R20.2 - PARESTHESIA OF SKIN SNOMED Code(s): 84360457 (4) Essential (primary) hypertension Current Visit: No Status: Acute Code(s): I10 - ESSENTIAL (PRIMARY) HYPERTENSION SNOMED Code(s): 94876248 (5) High risk for readmission Current Visit: No Status: Acute Code(s): Z91.89 - OTH PERSONAL RISK FACTORS, NOT ELSEWHERE CLASSIFIED SNOMED Code(s): 763146642 Plan: Continue current regimen of treatment as far as pain control. Slowly wean off of morphine at this time. Pain control will be deferred to neurology. Time with Patient: Less than 30
[2018-10-07] MEDS: ONDANSETRON 4 MG/2 ML VIAL IVP PRN (20:36)
[2018-10-07] MEDS: PRAVASTATIN SODIUM 20 MG TAB PO SCH (20:46)
[2018-10-08] MEDS: DEXAMETHASONE SOD PHOSPHATE 4 MG/ML 1 ML VIAL IV SCH ×4 (00:01→18:00)
[2018-10-08] MEDS: ONDANSETRON 4 MG/2 ML VIAL IVP PRN ×2 (04:47→16:02)
[2018-10-08] MEDS: METOPROLOL TARTRATE 25 MG TAB PO SCH ×2 (05:23→19:58)
[2018-10-08] MEDS: FAMOTIDINE 20 MG TAB PO SCH (07:48)
[2018-10-08] MEDS: ASPIRIN 81 MG PO SCH (07:48)
[2018-10-08] MEDS: FUROSEMIDE 20 MG TAB PO SCH (07:48)
[2018-10-08] MEDS: CEPHALEXIN 500 MG CAP PO SCH ×2 (07:48→19:58)
[2018-10-08] MEDS: PANTOPRAZOLE 40 MG TABLET PO SCH (07:48)
[2018-10-08] MEDS: HEPARIN SODIUM,PORCINE 5,000 UNIT/ML 1 ML VIAL SQ SCH ×2 (07:49→19:59)
[2018-10-08] MEDS: POTASSIUM CHLORIDE ER 10 MEQ TAB.ER.PRT PO SCH ×2 (07:49→19:58)
[2018-10-08] MEDS: SUCRALFATE 1 GM TAB PO SCH ×3 (07:49→20:14)
[2018-10-08] MEDS: DICYCLOMINE 20 MG TAB PO SCH ×2 (07:50→19:58)
[2018-10-08] MEDS: COLCHICINE 0.6 MG EACH PO SCH ×2 (07:50→19:58)
--- NOTE | 2018-10-08 09:05 | P.PN ---
Subjective Principal diagnosis: Worsening myalgia. This 78-year-old white female essentially admitted for arthralgia and myalgia. Uric acid is elevated. She is currently on Colcrys as of this time. We will go ahead and add allopurinol today. Check CBC CMP in the a.m. also. But pressure has been elevated although I do suspect this related to her worsening pain. I'm holding down titrating her morphine at this time. We'll go ahead and add Norvasc 5 mg for blood pressure elevation. No other voiding difficulties. Objective - Vital Signs Vital signs: Vital Signs Temp 98.2 F 10/08/18 07:00 Pulse 85 10/08/18 07:00 Resp 15 10/08/18 07:00 BP 172/72 10/08/18 07:00 Pulse Ox 96 10/08/18 07:00 Intake & Output 10/07/18 10/08/18 10/08/18 18:59 06:59 18:59 Intake Total 757 Balance 757 Intake: Intake, IV Titration 160 Amount Sodium Chloride 0.9% 1, 160 000 ml @ 20 mls/hr IV . Q24H [facility] Rx#:[id number] Oral 597 Other: # Voids 4 - Constitutional General appearance: Present: no acute distress, obese - EENT Eyes: Absent: abnormal pupil - Neck Neck: Absent: lymphadenopathy - Respiratory Respiratory: bilateral: CTA - Cardiovascular Rhythm: regular Heart sounds: normal: S1, S2 Abnormal Heart Sounds: Absent: S3 Gallop - Gastrointestinal General gastrointestinal: Present: soft. Absent: splenomegaly, tenderness - Psychiatric Psychiatric: Present: A&O x's 3 - Labs CBC & Chem 7: 10/06/18 07:02 10/06/18 07:02 Assessment and Plan (1) Polymyalgia Current Visit: Yes Status: Acute Code(s): M35.3 - POLYMYALGIA RHEUMATICA SNOMED Code(s): 93517995 (2) Anxiety Current Visit: No Status: Acute Code(s): F41.9 - ANXIETY DISORDER, UNSPECIFIED SNOMED Code(s): 88456903 (3) Burning or prickling sensation Current Visit: No Status: Acute Code(s): R20.2 - PARESTHESIA OF SKIN SNOMED Code(s): 21049294 (4) Essential (primary) hypertension Current Visit: No Status: Acute Code(s): I10 - ESSENTIAL (PRIMARY) HYPERTENSION SNOMED Code(s): 57863193 (5) High risk for readmission Current Visit: No Status: Acute Code(s): Z91.89 - OTH PERSONAL RISK FACTORS, NOT ELSEWHERE CLASSIFIED SNOMED Code(s): 190164801 Plan: We'll go ahead and check CMP and amylase lipase today. Add allopurinol. Dr. Bernard's group will covering as of Sunday. Time with Patient: Less than 30
[2018-10-08 12:00] LABS: ALT 23 U/L (9-52); AST 27 U/L (14-36); African American GFR (CKD) >90 (>60 ml/min/1.73 sqM); Albumin 3.7 g/dL (3.5-5.0); Alkaline Phosphatase 102 U/L (38-126); Amylase 103 U/L (30-110); Anion Gap 12 mmol/L; Blood Urea Nitrogen 22 mg/dL (7-17); Calcium 8.9 mg/dL (8.4-10.2); Carbon Dioxide 17 mmol/L (22-30); Chloride 113 mmol/L (98-107); Glucose 120 mg/dL (74-99); Lipase 154 U/L (23-300); Sodium 142 mmol/L (137-145); Total Bilirubin 0.5 mg/dL (0.2-1.3); Total Protein 6.6 g/dL (6.3-8.2)
[2018-10-08 12:02] LABS: Potassium 4.6 mmol/L (3.5-5.1)
[2018-10-08] MEDS: ALLOPURINOL 100 MG TAB PO SCH (12:34)
[2018-10-08] MEDS: amLODIPine 5 MG TAB PO SCH (12:34)
[2018-10-08] MEDS: SODIUM CHLORIDE 0.9% 1,000 ML IV SCH (12:45)
[2018-10-08] MEDS: PRAVASTATIN SODIUM 20 MG TAB PO SCH (19:57)
[2018-10-09] MEDS ORDERED: DEXAMETHASONE SOD PHOSPHATE 4 MG/ML 1 ML VIAL ONE
[2018-10-09] MEDS ORDERED: ONDANSETRON 4 MG/2 ML VIAL ONE
[2018-10-09] MEDS ORDERED: MORPHINE SULFATE 2 MG/ML SYRINGE ONE
[2018-10-09] MEDS: DEXAMETHASONE SOD PHOSPHATE 4 MG/ML 1 ML VIAL IV SCH ×3 (05:09→11:27)
[2018-10-09] MEDS: PANTOPRAZOLE 40 MG TABLET PO SCH (08:10)
[2018-10-09] MEDS: SUCRALFATE 1 GM TAB PO SCH ×4 (08:10→21:31)
[2018-10-09] MEDS: METOPROLOL TARTRATE 25 MG TAB PO SCH ×2 (08:10→21:30)
[2018-10-09] MEDS: POTASSIUM CHLORIDE ER 10 MEQ TAB.ER.PRT PO SCH ×2 (08:10→21:30)
[2018-10-09] MEDS: FAMOTIDINE 20 MG TAB PO SCH (08:10)
[2018-10-09] MEDS: FUROSEMIDE 20 MG TAB PO SCH (08:10)
[2018-10-09] MEDS: COLCHICINE 0.6 MG EACH PO SCH ×2 (08:11→12:01)
[2018-10-09] MEDS: ASPIRIN 81 MG PO SCH (08:11)
[2018-10-09] MEDS: amLODIPine 5 MG TAB PO SCH (08:11)
[2018-10-09] MEDS: DICYCLOMINE 20 MG TAB PO SCH ×2 (08:11→21:30)
[2018-10-09] MEDS: HEPARIN SODIUM,PORCINE 5,000 UNIT/ML 1 ML VIAL SQ SCH ×2 (08:11→21:30)
[2018-10-09] MEDS: ALLOPURINOL 100 MG TAB PO SCH (08:11)
[2018-10-09 09:15] LABS: ALT 22 U/L (9-52); AST 19 U/L (14-36); African American GFR (CKD) >90 (>60 ml/min/1.73 sqM); Albumin 4.1 g/dL (3.5-5.0); Alkaline Phosphatase 115 U/L (38-126); Anion Gap 14 mmol/L; Blood Urea Nitrogen 20 mg/dL (7-17); Calcium 8.9 mg/dL (8.4-10.2); Carbon Dioxide 17 mmol/L (22-30); Chloride 112 mmol/L (98-107); Glucose 143 mg/dL (74-99); Potassium 3.7 mmol/L (3.5-5.1); Sodium 143 mmol/L (137-145); Total Bilirubin 0.4 mg/dL (0.2-1.3); Total Protein 7.2 g/dL (6.3-8.2)
[2018-10-09 09:25] LABS: HCT 41.1 % (34.0-46.0); HGB 13.2 gm/dL (11.4-16.0); MCH 27.9 pg (25.0-35.0); MCHC 32.1 g/dL (31.0-37.0); MCV 86.8 fL (80.0-100.0); Mean Platelet Volume 10.1; Platelet Count 312 k/uL (150-450); RBC 4.74 m/uL (3.80-5.40); RDW 14.8 % (11.5-15.5); WBC 8.2 k/uL (3.8-10.6)
[2018-10-09] MEDS: HYDROcodone/APAP 10-325MG 1 EACH TAB PO PRN ×2 (10:53→20:58)
[2018-10-09] MEDS ORDERED: LOPERAMIDE 2 MG CAP PO PRN (14:39)
--- NOTE | 2018-10-09 16:39 | PN ---
PROGRESS NOTE I am covering for Dr. Marinelli. DATE OF SERVICE: 10/09/2018 This 78-year-old woman was admitted generalized aches and pains, possibly gouty attack. The possibility of polymyalgia is also being considered. The patient is on colchicine, and allopurinol also has been started. Serum uric acid was extremely high. Otherwise, the patient has some intolerance to steroids on the p.o. dosage. There is swelling of the metatarsophalangeal joint as well as the foot, and the right arm is improving slightly. The patient has significant diarrhea, as mentioned earlier. Past medical history reviewed. REVIEW OF SYSTEMS: CARDIOVASCULAR SYSTEM: No angina, palpitations. RESPIRATORY SYSTEM: As mentioned earlier. GI: As mentioned earlier. : No dysuria or retention. NERVOUS SYSTEM: No numbness, weakness. CURRENT MEDICATIONS: Reviewed. They include: 1. Erwin 10 mg q.6 p.r.n. 2. Zyloprim. 3. Norvasc 5 mg daily. 4. Aspirin 81 mg daily. 5. Colcrys 0.6 b.i.d. 6. Decadron 2 mg IV b.i.d. 7. Bentyl. 8. Pepcid. 9. Lasix. 10.Heparin. 11.Imodium. 12.Zofran. 13.Protonix. 14.Pravachol. 15.Carafate. Doses are reviewed. PHYSICAL EXAMINATION: Patient is alert, oriented x3. Pulse 64, blood pressure 167/74, respirations 16, temperature 97.3, pulse ox 96% on room air. HEENT: Conjunctivae normal. Oral mucosa moist. NECK: No jugular venous distention. No carotid bruit. No lymph node enlargement. CARDIOVASCULAR SYSTEM: S1, S2 muffled. RESPIRATORY SYSTEM: Breath sounds diminished at the bases. Scattered rhonchi and crackles. ABDOMEN: Soft. Minimally distended. Non-tender. No mass palpable. LEGS: No edema. No swelling. NERVOUS SYSTEM: No focal deficit. MUSCULOSKELETAL SYSTEM: Minimal joint swelling as well as pain in the right foot and right hand present. LABS: WBC 8.2, hemoglobin 13.2, sodium 143, potassium 3.6, CO2 17. ASSESSMENT: 1. Diffuse aches and pains; possible acute gout, possible polymyalgia rheumatica. 2. Increased white count. 3. Diarrhea for evaluation. 4. Hypokalemia, mild. 5. History of cerebrovascular accident, transient ischemic attack. 6. History of deep venous thrombosis. 7. History of gastroesophageal reflux disease. 8. Hypertension. 9. Hyperlipidemia. 10.History of degenerative joint disease. 11.History of breast surgery. 12.History of Clostridium difficile colitis. 13.History of coronary artery disease, stent. 14.History of anxiety. 15.Remote history of nicotine dependence. RECOMMENDATIONS AND DISCUSSION: In this 78-year-old woman who presented with multiple medical issues, we will monitor the patient closely, continue the current medications. We will stop the colchicine. Will check C difficile toxin. If it is negative, Imodium p.r.n. Cut down the diet if the diarrhea continues. Otherwise, as far as the pain is concerned, we will taper the steroid from dexamethasone IV to p.o., 2 mg p.o. b.i.d. Otherwise, ESR and CRP are noted. Will closely monitor. Guarded prognosis because of multiple complex medical issues. Further recommendations to follow. See orders for further details. We will monitor the blood pressure closely. MMODL / IJN: [id number] /
[2018-10-09] MEDS: SODIUM CHLORIDE 0.9% 1,000 ML IV SCH (17:27)
[2018-10-09] MEDS ORDERED: DEXAMETHASONE 4 MG TAB PO SCH (21:00)
[2018-10-09] MEDS ORDERED: DEXAMETHASONE SOD PHOSPHATE 4 MG/ML 1 ML VIAL IV SCH (21:00)
[2018-10-09] MEDS: PRAVASTATIN SODIUM 20 MG TAB PO SCH (21:30)
[2018-10-10 07:10] VITALS: BP 141/75; PULSE 56; RESP 14; TEMP 99
[2018-10-10] MEDS: FAMOTIDINE 20 MG TAB PO SCH (07:29)
[2018-10-10] MEDS: ASPIRIN 81 MG PO SCH (07:29)
[2018-10-10] MEDS: FUROSEMIDE 20 MG TAB PO SCH (07:29)
[2018-10-10] MEDS: SUCRALFATE 1 GM TAB PO SCH ×2 (07:30→13:21)
[2018-10-10] MEDS: HYDROcodone/APAP 10-325MG 1 EACH TAB PO PRN (07:30)
[2018-10-10] MEDS: PANTOPRAZOLE 40 MG TABLET PO SCH (07:30)
[2018-10-10] MEDS: amLODIPine 5 MG TAB PO SCH (07:30)
[2018-10-10] MEDS: ALLOPURINOL 100 MG TAB PO SCH (07:30)
[2018-10-10] MEDS: POTASSIUM CHLORIDE ER 10 MEQ TAB.ER.PRT PO SCH (07:31)
[2018-10-10] MEDS: METOPROLOL TARTRATE 25 MG TAB PO SCH (07:31)
[2018-10-10] MEDS: HEPARIN SODIUM,PORCINE 5,000 UNIT/ML 1 ML VIAL SQ SCH (07:31)
[2018-10-10] MEDS: DICYCLOMINE 20 MG TAB PO SCH (07:32)
[2018-10-10] MEDS ORDERED: DEXAMETHASONE 2 MG TAB PO SCH (09:00)
[2018-10-10] MEDS ORDERED: COLCHICINE 0.6 MG EACH PO SCH (09:00)
--- NOTE | 2018-10-10 22:26 | DS ---
DISCHARGE SUMMARY FINAL DIAGNOSES: 1. Diffuse aches and pains; possible acute gout, acute exacerbation, with severe gait dysfunction, present on admission. 2. Rule out possible polymyalgia rheumatica. 3. Increased white count. 4. Diarrhea, improved. 5. Hypokalemia, mild, improved. 6. History of cerebrovascular accident, transient ischemic attack. 7. History of deep venous thrombosis. 8. History of gastroesophageal reflux disease. 9. Hypertension. 10.Hyperlipidemia. 11.History of degenerative joint disease. 12.History of breast surgery. 13.History of Clostridium difficile colitis. 14.History of coronary artery disease, stent. 15.History of anxiety. 16.Remote history of nicotine dependence. DISCHARGE DISPOSITION: The patient will be discharged in stable condition with guarded prognosis. HISTORY OF PRESENT ILLNESS: This 78-year-old woman with a past medical history of multiple medical problems, being followed by Dr. Marinelli in the outpatient setting, was admitted with diffuse aches and pains. Evaluation showed uric acid elevated up to 10. The patient was treated symptomatically with steroids as well as colchicine. The patient improved significantly. The possibility of polymyalgia rheumatica was also considered; however, the patient will need outpatient workup and evaluation. On exam, vital signs are stable. CARDIOVASCULAR SYSTEM: S1, S2 muffled. ABDOMEN: Soft. NERVOUS SYSTEM: No focal deficit. DISCHARGE ADVICE AND MEDICATIONS: 1. Diet is cardiac. 2. Activity limited until followup. 3. Follow up with Dr. Marinelli in 2 to 3 days. 4. Bentyl 20 mg p.o. b.i.d. 5. Ecotrin 81 mg p.o. daily. 6. Keflex 500 mg p.o. b.i.d. 7. Lasix 20 mg p.o. daily. 8. Lopressor 25 mg p.o. b.i.d. 9. Pravachol 20 mg at bedtime. 10.Protonix 40 mg daily. 11.Carafate 1 gram before meals and at bedtime. 12.Colcrys (colchicine) 0.6 mg p.o. daily. 13.Hexadrol (Decadron) 2 mg p.o. b.i.d. for 3 days, 2 mg p.o. daily for 3 days, and then stop. 14.K-Dur 30 mEq p.o. b.i.d. 15.Norvasc 5 mg p.o. daily. 16.Pepcid 20 mg p.o. daily. 17.Zyloprim 100 mg p.o. daily. The patient's ESR was 33 and CRP was elevated up to 88. Recommend continued followup in the outpatient setting if the patient continues to be symptomatic. MMODL / IJN: [id number] /
== END 2018-10-10 15:28 | disposition home or self-care (01) | DRG 554 ==
LOC: EC 08:43 → 4SSUR 13:10 → OBSVTOIN 10-07 19:47
PROVIDERS: ADMIT Family Medicine; ATTEND Family Medicine
DX: M10.9 Gout, unspecified (principal); M41.9 Scoliosis, unspecified; M35.3 Polymyalgia rheumatica; E78.5 Hyperlipidemia, unspecified; E87.6 Hypokalemia; R26.2 Difficulty in walking, not elsewhere classified; I10 Essential (primary) hypertension; K21.9 Gastro-esophageal reflux disease without esophagitis; I25.10 Atherosclerotic heart disease of native coronary artery without angina pectoris; I25.2 Old myocardial infarction; M19.90 Unspecified osteoarthritis, unspecified site; M47.816 Spondylosis without myelopathy or radiculopathy, lumbar region; G89.29 Other chronic pain; M54.2 Cervicalgia; M54.9 Dorsalgia, unspecified; Z79.82 Long term (current) use of aspirin; Z79.899 Other long term (current) drug therapy; Z87.891 Personal history of nicotine dependence; Z86.718 Personal history of other venous thrombosis and embolism; Z98.890 Other specified postprocedural states; Z98.891 History of uterine scar from previous surgery; Z90.49 Acquired absence of other specified parts of digestive tract; Z95.5 Presence of coronary angioplasty implant and graft; Z86.19 Personal history of other infectious and parasitic diseases; Z86.59 Personal history of other mental and behavioral disorders; Z86.73 Personal history of transient ischemic attack (TIA), and cerebral infarction without residual deficits; Z96.1 Presence of intraocular lens; Z98.41 Cataract extraction status, right eye; Z98.42 Cataract extraction status, left eye; Z88.5 Allergy status to narcotic agent; Z88.0 Allergy status to penicillin; Z88.2 Allergy status to sulfonamides; Z88.8 Allergy status to other drugs, medicaments and biological substances; Z91.041 Radiographic dye allergy status; Z82.3 Family history of stroke; Z83.3 Family history of diabetes mellitus; Z82.49 Family history of ischemic heart disease and other diseases of the circulatory system
CPT/HCPCS: 36415; 71045; 80048; 80053; 80306; 81001; 82150; 82550; 83690; 83735; 84100; 84550; 85025; 85027; 85652; 86140; 86431; 96374; 96375; 99284

== ENCOUNTER 2018-10-11 19:54 | Emergency (ER) | payer MEDICARE, OTHER ==
[2018-10-11 20:30] VITALS: TEMP 97.9
[2018-10-11 22:33] VITALS: PULSE 57
[2018-10-11 22:34] VITALS: BP 165/80; RESP 16
--- NOTE | 2018-10-11 22:52 | ED ---
General Adult HPI - General Chief complaint: Recheck/Abnormal Lab/Rx Stated complaint: HTN/Discharged last night for HTN Time Seen by Provider: 10/11/18 21:33 Source: patient, RN notes reviewed, old records reviewed Mode of arrival: ambulatory Limitations: no limitations - History of Present Illness Initial comments: 78-year-old female patient presents with history of hypertension, hyperlipidemia, prior DVT presents to ED for evaluation of hypertension. Patient reports that she does take Norvasc and pressor for hypertension. Patient states that earlier today she felt a very mild headache as if her blood pressures elevated, she states that she took her blood pressure on a home blood pressure cuff and was approximately 180/110. Patient reports that she then repeated at [facility] aid was around the same reading. Patient states that the headache resolved without intervention. Patient is currently asymptomatic. Denies any headache chest pain changes in vision nausea vomiting diarrhea abdominal pain. Patient presents for blood pressure recheck. Systemic: Pt denies fatigue, fever/chills, rash. Pt denies weakness, night sweats, weight loss. Neuro: Pt denies headache, visual disturbances, syncope or pre-syncope. HEENT: Pt denies ocular discharge or irritation, otalgia, rhinorrhea, pharyngitis or notable lymphadenopathy. Cardiopulmonary: Pt denies chest pain, SOB, heart palpitations, dyspnea on exertion. Abdominal/GI: Pt denies abdominal pain, n/v/d. : Pt denies dysuria, burning w/ urination, frequency/urgency. Denies new onset urinary or bowel incontinence. MSK: Pt denies myalgia, loss of strength or function in extremities. Neuro: Pt denies new onset weakness, paresthesias. - Related Data Home Medications Medication Instructions Recorded Confirmed Aspirin EC [Ecotrin Low Dose] 81 mg PO DAILY 07/21/17 10/11/18 Pantoprazole [Protonix] 40 mg PO DAILY 07/21/17 10/11/18 Dicyclomine [Bentyl] 20 mg PO BID 07/11/18 10/11/18 Pravastatin Sodium [Pravachol] 20 mg PO HS 07/11/18 10/11/18 Furosemide [Lasix] 20 mg PO DAILY 09/23/18 10/11/18 Cephalexin [Keflex] 500 mg PO BID 10/05/18 10/11/18 Metoprolol Tartrate [Lopressor] 25 mg PO BID 10/05/18 10/11/18 Previous Rx's Medication Instructions Recorded Famotidine [Pepcid] 20 mg PO DAILY #30 tablet 08/16/15 Potassium Chloride ER [K-Dur 10] 30 meq PO BID #180 tab.er.prt 07/26/18 Sucralfate [Carafate] 1 gm PO ACHS #120 tab 07/26/18 Allopurinol [Zyloprim] 100 mg PO DAILY #30 tab 10/10/18 Colchicine [Colcrys] 0.6 mg PO DAILY #30 each 10/10/18 Dexamethasone [Hexadrol] 2 mg PO ONCE #10 tab 10/10/18 amLODIPine [Norvasc] 5 mg PO DAILY #30 tab 10/10/18 Allergies Allergy/AdvReac Type Severity Reaction Status Date / Time codeine Allergy Unknown Dyspnea Verified 10/05/18 09:22 Penicillins Allergy Unknown Rash/Hives Verified 10/05/18 09:22 Sulfa (Sulfonamide Allergy Unknown Rash/Hives Verified 10/05/18 09:22 Antibiotics) prednisone Allergy Dyspnea Verified 10/05/18 09:22 hydromorphone HCl AdvReac Severe Hallucinati Verified 10/05/18 09:22 [From Dilaudid] ons Iodinated Contrast- Oral and AdvReac Nausea & Verified 10/05/18 09:22 IV Dye Vomiting [Iodinated Contrast Media - Oral and] ondansetron [From Zofran] AdvReac Rapid Verified 10/05/18 09:22 Heart Rate Review of Systems ROS Statement: Those systems with pertinent positive or pertinent negative responses have been documented in the HPI. ROS Other: All systems not noted in ROS Statement are negative. Past Medical History Past Medical History: Chest Pain / Angina, CVA/TIA, Deep Vein Thrombosis (DVT), GERD/Reflux, Hyperlipidemia, Hypertension, Osteoarthritis (OA) Additional Past Medical History / Comment(s): Pt states she never had TIA/CVA- they were ruled out however 2016 medical record documents TIA, DVT L arm, arthritis multiple joints, cervical muscle spasms, R index finger injury and uses splint prn, constipation. Last Myocardial Infarction Date:: 01/08/15 History of Any Multi-Drug Resistant Organisms: C-DIFF Date of last positivie culture/infection: 2013 MDRO Source:: stool Past Surgical History: Breast Surgery, Section, Cholecystectomy, Heart Catheterization With Stent, Hernia Repair Additional Past Surgical History / Comment(s): 01/09/15 PTCA with stent to obtuse marginal branch of circ and stent to mid LAD, bilateral augmentation, 3 C-Sections, ventral hernia repair, bilateral cataract removal with lens implants, picc line in and out for ABX tx for C-Diff. Past Anesthesia/Blood Transfusion Reactions: No Reported Reaction, Motion Sickness Additional Past Anesthesia/Blood Transfusion Reaction / Comment(s): Pt has never recieved blood. Date of Last Stent Placement:: 01/09/15 Past Psychological History: Anxiety Smoking Status: Former smoker Past Alcohol Use History: None Reported Past Drug Use History: None Reported - Past Family History Mother Additional Family Medical History / Comment(s): Mother had a brain aneurysm. She after brain surgery at age 88 yrs. Father Family Medical History: CVA/TIA, Diabetes Mellitus, Hypertension Additional Family Medical History / Comment(s): Father of a CVA. General Exam - General Exam Comments Initial Comments: Constitutional: NAD, AOX3, Pt has pleasant affect. HEENT: NC/AT, trachea midline, neck supple, no lymphadenopathy. Posterior pharynx non erythematous, without exudates. External ears appear normal, without discharge. Mucous membranes moist. Eyes PERRLA, EOM intact. There is no scleral icterus. No pallor noted. Cardiopulmonary: RRR, no murmurs, rubs or gallops, no JVD noted. Lungs CTAB in anterior and posterior aparicio. No peripheral edema. Abdominal exam: Abdomen soft and non-distended. Abdomen non-tender to palpation in all 4 quadrants. Bowel sounds active in LLQ. No hepatosplenomegaly. No ecchymosis Neuro: CN II-XII intact. No nuchal rigidity. No raccon eyes, no williamson sign, no hemotympanum. No cervical spinal tenderness. NIH 0. MSK: No posterior calf tenderness bilaterally, homans sign negative bilaterally. Posterior tibialis and radial pulse +2 bilaterally. Sensation intact in upper and lower extremities. Full active ROM in upper and lower extremities, 5/5 stregnth. Limitations: no limitations Course Vital Signs 10/11/18 10/11/18 10/11/18 20:26 22:31 22:33 Temperature 97.9 F Pulse Rate 49 L 57 L Pulse Rate [ [address] ] Respiratory 20 16 Rate Blood Pressure 171/86 165/80 O2 Sat by Pulse 97 99 Oximetry Medical Decision Making - Medical Decision Making 78-year-old female patient presents with history of hypertension, hyperlipidemia, prior DVT presents to ED for evaluation of hypertension. Patient reports that she does take Norvasc and pressor for hypertension. Patient states that earlier today she felt a very mild headache as if her blood pressures elevated, she states that she took her blood pressure on a home blood pressure cuff and was approximately 180/110. Patient reports that she then repeated at [facility] aid was around the same reading. Patient states that the headache resolved without intervention. Patient is currently asymptomatic. Denies any headache chest pain changes in vision nausea vomiting diarrhea abdominal pain. Patient presents for blood pressure recheck. Patient I'll sign this displayed blood pressure 1 [id number], repeat blood pressure 165/80. Otherwise stable. Physical exam did not acute pathology neurologic exam within normal limits. Chair decision making with patient. Discussed with patient that blood pressure is stable and neurologic exam is within normal limits. As patient continues to be asymptomatic for the treatment that warranted at this time. Patient was agreeable with plan. Patient will be discharged, follow up with primary care provider tomorrow and monitor blood pressure at home. Return precautions discussed, patient return if patient worsens. Case discussed with Dr. Espinoza. Disposition Clinical Impression: Elevated blood pressure reading Disposition: HOME SELF-CARE Condition: Stable Instructions (If sedation given, give patient instructions): Chronic Hypertension (ED), Hypertension in the Older Adult (ED) Additional Instructions: Patient to adhere to previously discussed treatment plan and will take medicati on(s) as directed. Patient to follow up with PCP in 1-2 days. Patient to return to ED if symptoms do not improve. Follow-up with primary care provider tomorrow. Return to ER immediately if condition worsens in anyway. Is patient prescribed a controlled substance at d/c from ED?: No Referrals: Daren Marinelli MD [Primary Care Provider] - 1-2 days
== END 2018-10-11 23:00 | disposition home or self-care (01) ==
LOC: EC 19:54
DX: I10 Essential (primary) hypertension (principal); K21.9 Gastro-esophageal reflux disease without esophagitis; E78.5 Hyperlipidemia, unspecified; Z86.73 Personal history of transient ischemic attack (TIA), and cerebral infarction without residual deficits; Z98.61 Coronary angioplasty status; Z87.891 Personal history of nicotine dependence; Z79.82 Long term (current) use of aspirin; Z79.899 Other long term (current) drug therapy; Z88.5 Allergy status to narcotic agent; Z88.0 Allergy status to penicillin; Z88.2 Allergy status to sulfonamides; Z88.8 Allergy status to other drugs, medicaments and biological substances; Z91.041 Radiographic dye allergy status
CPT/HCPCS: 99283

== ENCOUNTER → 2019-04-22 | Outpatient (CLI) | payer MEDICARE, OTHER ==
--- NOTE | 2019-04-22 16:48 | CT ---
EXAMINATION TYPE: CT abdomen wo con DATE OF EXAM: 04/22/2019 COMPARISON: 09/23/2018 INDICATION: right sided abdominal pain DLP: 301.4 mGycm, Automated exposure control for dose reduction was used. CONTRAST: 0 mL of Isovue 300. Study performed with Oral Contrast TECHNIQUE: Axial images were obtained from above the diaphragm to the pubic rami in the axial plane a t 5 mm thick sections. Reconstructed images are reviewed on the computer in the coronal plane. FINDINGS: Limited CT sections are obtained the lung bases. Emphysematous changes are in the posterior lung bas es bilaterally.. CT ABDOMEN: Liver: Normal Spleen: Normal Pancreas: Atrophic Adrenal glands: The adrenal glands are normal. Gallbladder: Surgically absent Kidneys: No masses are evident. No hydronephrosis is present. No cysts are present. No renal stone s are evident Aorta: Vascular calcification is within the aorta. Inferior vena cava: Normal. Loops of bowel within the abdomen and upper pelvis are normal. Limited oral contrast present with some loops of bowel lacking oral contrast limiting their evaluation. Scoliosis within the lumbar spine. IMPRESSIONS: 1. No suspicious acute changes within the abdomen.
== END | disposition home or self-care (01) ==
LOC: RADCTMAIN 14:48
PROVIDERS: ATTEND Family Medicine
DX: R19.4 Change in bowel habit (principal)
CPT/HCPCS: 74150

== ENCOUNTER 2020-03-15 10:39 | Emergency (ER) | payer MEDICARE, OTHER ==
[2020-03-15 10:50] VITALS: RESP 18
[2020-03-15] MEDS ORDERED: FAMOTIDINE 20 MG/2 ML VIAL IV STA (11:07)
[2020-03-15] MEDS ORDERED: METOCLOPRAMIDE 5 MG/ML 2 ML VIAL IVP STA (11:09)
--- NOTE | 2020-03-15 11:11 | ED ---
General Adult HPI - General Chief complaint: Nausea/Vomiting/Diarrhea Stated complaint: Nausea Time Seen by Provider: 03/15/20 10:52 Source: patient, RN notes reviewed Mode of arrival: ambulatory Limitations: no limitations - History of Present Illness Initial comments: Patient is a pleasant 79-year-old female presenting to the emergency department complaints of nausea. Onset of symptoms was around a week ago. No vomiting. Patient has had some decreased oral intake. No diarrhea. Patient may be slightly constipated. Occasional mild abdominal discomfort, none at this time. Patient did have tender lymph nodes anterior cervical neck yesterday however those have essentially resolved. No significant sore throat. No vomiting. No fever. - Related Data Home Medications Medication Instructions Recorded Confirmed Aspirin EC [Ecotrin Low Dose] 81 mg PO DAILY 07/21/17 03/15/20 Pantoprazole [Protonix] 40 mg PO DAILY 07/21/17 03/15/20 Dicyclomine [Bentyl] 20 mg PO BID 07/11/18 03/15/20 Pravastatin Sodium [Pravachol] 20 mg PO DAILY 07/11/18 03/15/20 Furosemide [Lasix] 20 mg PO BID 09/23/18 03/15/20 Metoprolol Tartrate [Lopressor] 25 mg PO BID 10/05/18 03/15/20 Febuxostat [Uloric] 80 mg PO DAILY 03/15/20 03/15/20 HYDROcodone/APAP 10-325MG [[place] 1 tab PO TID PRN 03/15/20 03/15/20 10-325] Ibuprofen [Motrin] 800 mg PO BID PRN 03/15/20 03/15/20 amLODIPine [Norvasc] 5 mg PO HS 03/15/20 03/15/20 Previous Rx's Medication Instructions Recorded Famotidine [Pepcid] 20 mg PO DAILY #30 tablet 08/16/15 Potassium Chloride ER [K-Dur 10] 30 meq PO BID #180 tab.er.prt 07/26/18 Sucralfate [Carafate] 1 gm PO ACHS #120 tab 07/26/18 Colchicine [Colcrys] 0.6 mg PO DAILY #30 each 10/10/18 Metoclopramide HCl [Reglan] 10 mg PO Q6HR PRN #15 tablet 03/15/20 Allergies Allergy/AdvReac Type Severity Reaction Status Date / Time codeine Allergy Unknown Dyspnea Verified 03/15/20 13:00 Penicillins Allergy Unknown Rash/Hives Verified 03/15/20 13:00 Sulfa (Sulfonamide Allergy Unknown Rash/Hives Verified 03/15/20 13:00 Antibiotics) prednisone Allergy Dyspnea Verified 03/15/20 13:00 hydromorphone HCl AdvReac Severe Hallucinati Verified 03/15/20 13:00 [From Dilaudid] ons Iodinated Contrast Media AdvReac Nausea & Verified 03/15/20 13:00 [Iodinated Contrast Media - Vomiting Oral and] ondansetron [From Zofran] AdvReac Rapid Verified 03/15/20 13:00 Heart Rate Review of Systems ROS Statement: Those systems with pertinent positive or pertinent negative responses have been documented in the HPI. ROS Other: All systems not noted in ROS Statement are negative. Constitutional: Denies: fever, chills Eyes: Denies: eye pain ENT: Reports: as per HPI. Denies: ear pain Respiratory: Reports: dyspnea (Patient has mild chronic dyspnea from previous smoking, no change). Denies: cough Cardiovascular: Denies: chest pain Endocrine: Reports: fatigue Gastrointestinal: Reports: nausea. Denies: vomiting, diarrhea Genitourinary: Denies: dysuria Musculoskeletal: Denies: back pain Skin: Denies: rash Neurological: Denies: headache Past Medical History Past Medical History: Chest Pain / Angina, CVA/TIA, Deep Vein Thrombosis (DVT), GERD/Reflux, Hyperlipidemia, Hypertension, Osteoarthritis (OA) Additional Past Medical History / Comment(s): Pt states she never had TIA/CVA- they were ruled out however 2016 medical record documents TIA, DVT L arm, arthritis multiple joints, cervical muscle spasms, R index finger injury and uses splint prn, constipation. Last Myocardial Infarction Date:: 01/08/15 History of Any Multi-Drug Resistant Organisms: C-DIFF Date of last positivie culture/infection: 2013 MDRO Source:: stool Past Surgical History: Breast Surgery, Section, Cholecystectomy, Heart Catheterization With Stent, Hernia Repair Additional Past Surgical History / Comment(s): 01/09/15 PTCA with stent to obtuse marginal branch of circ and stent to mid LAD, bilateral augmentation, 3 C-Sections, ventral hernia repair, bilateral cataract removal with lens implants, picc line in and out for ABX tx for C-Diff. Past Anesthesia/Blood Transfusion Reactions: No Reported Reaction, Motion Sickness Additional Past Anesthesia/Blood Transfusion Reaction / Comment(s): Pt has never recieved blood. Date of Last Stent Placement:: 01/09/15 Past Psychological History: Anxiety Past Alcohol Use History: None Reported Past Drug Use History: None Reported - Past Family History Mother Additional Family Medical History / Comment(s): Mother had a brain aneurysm. She after brain surgery at age 88 yrs. Father Family Medical History: CVA/TIA, Diabetes Mellitus, Hypertension Additional Family Medical History / Comment(s): Father of a CVA. General Exam Limitations: no limitations General appearance: alert, in no apparent distress Head exam: Present: normocephalic Eye exam: Present: normal appearance ENT exam: Present: normal oropharynx Neck exam: Present: normal inspection. Absent: tenderness Respiratory exam: Present: normal lung sounds bilaterally Cardiovascular Exam: Present: regular rate, normal rhythm GI/Abdominal exam: Present: soft. Absent: distended, tenderness, pulsatile mass Extremities exam: Present: normal inspection Neurological exam: Present: alert Psychiatric exam: Present: normal affect, normal mood Skin exam: Present: normal color Course Vital Signs 03/15/20 03/15/20 03/15/20 10:47 11:50 12:50 Temperature 98.8 F Pulse Rate 51 L 64 68 Respiratory 18 18 18 Rate Blood Pressure 121/80 130/96 154/95 O2 Sat by Pulse 96 95 95 Oximetry EKG Findings - EKG Comments: EKG Findings:: Sinus bradycardia 54. SC 196. QRS 82. QT 4:30. QTC 47. Normal axis. Normal QRS. No acute ST change. Premature atrial complexes are present Medical Decision Making - Medical Decision Making Patient reevaluated and actually is feeling better. Patient does feel comfortable with discharge home. Patient updated on results and need for follow-up. Patient updated on need to quarantine - Lab Data Result diagrams: 03/15/20 12:36 03/15/20 12:36 Lab Results 03/15/20 03/15/20 03/15/20 Range/Units 12:23 12:36 12:36 WBC 5.8 (3.8-10.6) k/uL RBC 5.19 (3.80-5.40) m/uL Hgb 15.2 (11.4-16.0) gm/dL Hct 46.5 H (34.0-46.0) % MCV 89.5 (80.0-100.0) fL MCH 29.2 (25.0-35.0) pg MCHC 32.6 (31.0-37.0) g/dL RDW 13.7 (11.5-15.5) % Plt Count 186 (150-450) k/uL MPV 7.3 Neutrophils % 57 % Lymphocytes % 31 % Monocytes % 6 % Eosinophils % 3 % Basophils % 1 % Neutrophils # 3.3 (1.3-7.7) k/uL Lymphocytes # 1.8 (1.0-4.8) k/uL Monocytes # 0.4 (0-1.0) k/uL Eosinophils # 0.2 (0-0.7) k/uL Basophils # 0.1 (0-0.2) k/uL PT 11.1 (9.0-12.0) sec INR 1.1 (<1.2) APTT 22.0 (22.0-30.0) sec Sodium (137-145) mmol/L Potassium (3.5-5.1) mmol/L Chloride (98-107) mmol/L Carbon Dioxide (22-30) mmol/L Anion Gap mmol/L BUN (7-17) mg/dL Creatinine (0.52-1.04) mg/dL Est GFR (CKD-EPI)AfAm (>60 ml/min/1.73 sqM) Est GFR (CKD-EPI)NonAf (>60 ml/min/1.73 sqM) Glucose (74-99) mg/dL Plasma Lactic Acid Andre (0.7-2.0) mmol/L Calcium (8.4-10.2) mg/dL Magnesium (1.6-2.3) mg/dL Total Bilirubin (0.2-1.3) mg/dL AST (14-36) U/L ALT (4-34) U/L Alkaline Phosphatase (38-126) U/L Lactate Dehydrogenase (313-618) U/L C-Reactive Protein (<10.0) mg/L Total Protein (6.3-8.2) g/dL Albumin (3.5-5.0) g/dL Coronavirus (PCR) Detected A (Not Detectd) 03/15/20 03/15/20 Range/Units 12:36 12:36 WBC (3.8-10.6) k/uL RBC (3.80-5.40) m/uL Hgb (11.4-16.0) gm/dL Hct (34.0-46.0) % MCV (80.0-100.0) fL MCH (25.0-35.0) pg MCHC (31.0-37.0) g/dL RDW (11.5-15.5) % Plt Count (150-450) k/uL MPV Neutrophils % % Lymphocytes % % Monocytes % % Eosinophils % % Basophils % % Neutrophils # (1.3-7.7) k/uL Lymphocytes # (1.0-4.8) k/uL Monocytes # (0-1.0) k/uL Eosinophils # (0-0.7) k/uL Basophils # (0-0.2) k/uL PT (9.0-12.0) sec INR (<1.2) APTT (22.0-30.0) sec Sodium 138 (137-145) mmol/L Potassium 4.1 (3.5-5.1) mmol/L Chloride 106 (98-107) mmol/L Carbon Dioxide 24 (22-30) mmol/L Anion Gap 8 mmol/L BUN 14 (7-17) mg/dL Creatinine 1.02 (0.52-1.04) mg/dL Est GFR (CKD-EPI)AfAm 60 (>60 ml/min/1.73 sqM) Est GFR (CKD-EPI)NonAf 52 (>60 ml/min/1.73 sqM) Glucose 100 H (74-99) mg/dL Plasma Lactic Acid Andre 1.0 (0.7-2.0) mmol/L Calcium 9.6 (8.4-10.2) mg/dL Magnesium 1.7 (1.6-2.3) mg/dL Total Bilirubin 0.5 (0.2-1.3) mg/dL AST 36 (14-36) U/L ALT 36 H (4-34) U/L Alkaline Phosphatase 143 H (38-126) U/L Lactate Dehydrogenase 501 (313-618) U/L C-Reactive Protein <5.0 (<10.0) mg/L Total Protein 7.6 (6.3-8.2) g/dL Albumin 4.6 (3.5-5.0) g/dL Coronavirus (PCR) (Not Detectd) - Radiology Data Radiology results: image reviewed (Chest x-ray shows no acute process) Disposition Clinical Impression: COVID-19 Disposition: HOME SELF-CARE Condition: Stable Instructions (If sedation given, give patient instructions): Acute Nausea and Vomiting (ED) Additional Instructions: Please follow-up with primary care physician in the next couple of days for recheck. Return for not tolerating fluids, uncontrolled fevers, difficulty breathing, worsening symptoms or other concerns. Prescription sent to your pharmacy, [facility] [address]. [id number] daily vitamin D, vitamin C, and zinc. [id number] Tylenol if needed for fevers. Prescriptions: Metoclopramide HCl [Reglan] 10 mg PO Q6HR PRN #15 tablet PRN Reason: Nausea Is patient prescribed a controlled substance at d/c from ED?: No Referrals: Daren Marinelli MD [Primary Care Provider] - 1-2 days Time of Disposition: 14:15
--- NOTE | 2020-03-15 12:52 | XR ---
EXAMINATION TYPE: XR chest 1V portable DATE OF EXAM: 03/15/2020 Comparison: 10/05/2018 Clinical History: 79-year-old female Suspected COVID-19 pneumonia Findings: Heart normal size. Similar tortuosity of the thoracic aorta with mild atherosclerotic arch calcificat ions. Mild interstitial prominence is unchanged. Bilateral calcified breast implants. No consolidatio n or pleural effusion. Impression: Chronic changes without acute cardiopulmonary process.
[2020-03-15 13:01] LABS: Basophils # (A) 0.1 k/uL (0-0.2); Basophils % (A) 1 %; Eosinophils # (A) 0.2 k/uL (0-0.7); Eosinophils % (A) 3 %; HCT 46.5 % (34.0-46.0); HGB 15.2 gm/dL (11.4-16.0); Lymphocytes # (A) 1.8 k/uL (1.0-4.8); Lymphocytes % (A) 31 %; MCH 29.2 pg (25.0-35.0); MCHC 32.6 g/dL (31.0-37.0); MCV 89.5 fL (80.0-100.0); Mean Platelet Volume 7.3; Monocytes # (A) 0.4 k/uL (0-1.0); Monocytes % (A) 6 %; Neutrophils # (A) 3.3 k/uL (1.3-7.7); Neutrophils % (A) 57 %; Platelet Count 186 k/uL (150-450); RBC 5.19 m/uL (3.80-5.40); RDW 13.7 % (11.5-15.5); WBC 5.8 k/uL (3.8-10.6)
[2020-03-15 13:09] LABS: INR 1.1 (<1.2); Prothrombin Time 11.1 sec (9.0-12.0)
[2020-03-15 13:12] LABS: ALT 36 U/L (4-34); AST 36 U/L (14-36); African American GFR (CKD) 60 (>60 ml/min/1.73 sqM); Albumin 4.6 g/dL (3.5-5.0); Alkaline Phosphatase 143 U/L (38-126); Anion Gap 8 mmol/L; Blood Urea Nitrogen 14 mg/dL (7-17); C Reactive Protein <5.0 mg/L (<10.0); Calcium 9.6 mg/dL (8.4-10.2); Carbon Dioxide 24 mmol/L (22-30); Chloride 106 mmol/L (98-107); Glucose 100 mg/dL (74-99); LDH 501 U/L (313-618); Magnesium 1.7 mg/dL (1.6-2.3); Non-African American GFR(CKD) 52 (>60 ml/min/1.73 sqM); Potassium 4.1 mmol/L (3.5-5.1); Sodium 138 mmol/L (137-145); Total Bilirubin 0.5 mg/dL (0.2-1.3); Total Protein 7.6 g/dL (6.3-8.2)
[2020-03-15 14:40] VITALS: BP 128/78; PULSE 78; TEMP 98.9
[2020-03-15 19:02] LABS: Ferritin 22.5 ng/mL (10.0-291.0)
== END 2020-03-15 14:39 | disposition home or self-care (01) ==
LOC: EC 10:39
DX: U07.1 COVID-19 (principal); I10 Essential (primary) hypertension; M19.90 Unspecified osteoarthritis, unspecified site; I20.9 Angina pectoris, unspecified; K21.9 Gastro-esophageal reflux disease without esophagitis; E78.5 Hyperlipidemia, unspecified; I25.2 Old myocardial infarction; Z79.899 Other long term (current) drug therapy; Z79.82 Long term (current) use of aspirin; Z88.5 Allergy status to narcotic agent; Z88.0 Allergy status to penicillin; Z88.2 Allergy status to sulfonamides; Z88.8 Allergy status to other drugs, medicaments and biological substances; Z91.041 Radiographic dye allergy status; Z86.73 Personal history of transient ischemic attack (TIA), and cerebral infarction without residual deficits; Z90.49 Acquired absence of other specified parts of digestive tract; Z86.718 Personal history of other venous thrombosis and embolism
CPT/HCPCS: 36410; 36415; 71045; 76937; 80053; 82728; 83605; 83615; 83735; 84145; 85025; 85610; 85730; 86140; 87040; 87635; 99284

== ENCOUNTER 2020-03-23 08:43 | Inpatient (IN) | payer MEDICARE, OTHER ==
[2020-03-23] MEDS ORDERED: SODIUM CHLORIDE 0.9% 1,000 ML IV ONE (09:27)
[2020-03-23] MEDS ORDERED: ACETAMINOPHEN TAB 325 MG TAB PO STA (09:27)
[2020-03-23] MEDS ORDERED: diphenhydrAMINE 50 MG/ML 1 ML VIAL IVP STA (09:51)
[2020-03-23] MEDS ORDERED: METOCLOPRAMIDE 5 MG/ML 2 ML VIAL IVP STA (09:51)
--- NOTE | 2020-03-23 10:03 | ED ---
Fever HPI - General Chief Complaint: Fever Stated Complaint: Vomiting/Fever/Covid+ Time Seen by Provider: 03/23/20 08:50 Source: patient Mode of arrival: wheelchair Limitations: no limitations - History of Present Illness Initial Comments: The patient is an 79-year-old female with past medical history of CVA, DVT, hypertension who presents emergency Department with reported Covid symptoms. Patient was seen in the emergency department on the for similar complaint. She did test positive for Covid and went home. States she's been following up w yasmany Marinelli. Denies any shortness of breath or chest pain. Reports that she had intractable nausea, vomiting and diarrhea. She has been unable to tolerate any food, water or her medications. She has had fevers. States she last took Tylenol at 4:30 this morning. Denies any abdominal pain. No other alleviating, precipitating or modifying factors - Related Data Home Medications Medication Instructions Recorded Confirmed Aspirin EC [Ecotrin Low Dose] 81 mg PO DAILY 07/21/17 03/23/20 Pantoprazole [Protonix] 40 mg PO DAILY 07/21/17 03/23/20 Dicyclomine [Bentyl] 20 mg PO BID 07/11/18 03/23/20 Pravastatin Sodium [Pravachol] 20 mg PO DAILY 07/11/18 03/23/20 Furosemide [Lasix] 20 mg PO BID 09/23/18 03/23/20 Metoprolol Tartrate [Lopressor] 25 mg PO BID 10/05/18 03/23/20 Febuxostat [Uloric] 80 mg PO DAILY 03/15/20 03/23/20 HYDROcodone/APAP 10-325MG [[place] 1 tab PO TID PRN 03/15/20 03/23/20 10-325] Ibuprofen [Motrin] 800 mg PO BID PRN 03/15/20 03/23/20 amLODIPine [Norvasc] 5 mg PO HS 03/15/20 03/23/20 Acetaminophen Tab [Tylenol] 500 mg PO DAILY PRN 03/23/20 03/23/20 Previous Rx's Medication Instructions Recorded Famotidine [Pepcid] 20 mg PO DAILY #30 tablet 08/16/15 Potassium Chloride ER [K-Dur 10] 30 meq PO BID #180 tab.er.prt 07/26/18 Sucralfate [Carafate] 1 gm PO ACHS #120 tab 07/26/18 Colchicine [Colcrys] 0.6 mg PO DAILY #30 each 10/10/18 Metoclopramide HCl [Reglan] 10 mg PO Q6HR PRN #15 tablet 03/15/20 Allergies Allergy/AdvReac Type Severity Reaction Status Date / Time codeine Allergy Unknown Dyspnea Verified 03/23/20 10:02 Penicillins Allergy Unknown Rash/Hives Verified 03/23/20 10:02 Sulfa (Sulfonamide Allergy Unknown Rash/Hives Verified 03/23/20 10:02 Antibiotics) prednisone Allergy Dyspnea Verified 03/23/20 10:02 hydromorphone HCl AdvReac Severe Hallucinati Verified 03/23/20 10:02 [From Dilaudid] ons Iodinated Contrast Media AdvReac Nausea & Verified 03/23/20 10:02 [Iodinated Contrast Media - Vomiting Oral and] ondansetron [From Zofran] AdvReac Rapid Verified 03/23/20 10:02 Heart Rate Review of Systems ROS Statement: Those systems with pertinent positive or pertinent negative responses have been documented in the HPI. ROS Other: All systems not noted in ROS Statement are negative. Past Medical History Past Medical History: Chest Pain / Angina, CVA/TIA, Deep Vein Thrombosis (DVT), GERD/Reflux, Hyperlipidemia, Hypertension, Osteoarthritis (OA) Additional Past Medical History / Comment(s): Pt states she never had TIA/CVA- they were ruled out however 2016 medical record documents TIA, DVT L arm, arthritis multiple joints, cervical muscle spasms, R index finger injury and uses splint prn, constipation. Last Myocardial Infarction Date:: 01/08/15 History of Any Multi-Drug Resistant Organisms: C-DIFF Date of last positivie culture/infection: 2013 MDRO Source:: stool Past Surgical History: Breast Surgery, Section, Cholecystectomy, Heart Catheterization With Stent, Hernia Repair Additional Past Surgical History / Comment(s): 01/09/15 PTCA with stent to obtuse marginal branch of circ and stent to mid LAD, bilateral augmentation, 3 C-Sections, ventral hernia repair, bilateral cataract removal with lens implants, picc line in and out for ABX tx for C-Diff. Past Anesthesia/Blood Transfusion Reactions: No Reported Reaction, Motion Sickness Additional Past Anesthesia/Blood Transfusion Reaction / Comment(s): Pt has never recieved blood. Date of Last Stent Placement:: 01/09/15 Past Psychological History: Anxiety Smoking Status: Former smoker Past Alcohol Use History: None Reported Past Drug Use History: None Reported - Past Family History Mother Additional Family Medical History / Comment(s): Mother had a brain aneurysm. She after brain surgery at age 88 yrs. Father Family Medical History: CVA/TIA, Diabetes Mellitus, Hypertension Additional Family Medical History / Comment(s): Father of a CVA. General Exam Limitations: no limitations General appearance: alert, in no apparent distress, other (fatigued) Head exam: Present: atraumatic, normocephalic, normal inspection Eye exam: Present: normal appearance, PERRL, EOMI. Absent: scleral icterus, conjunctival injection, periorbital swelling ENT exam: Present: normal exam, mucous membranes moist Neck exam: Present: normal inspection. Absent: tenderness, meningismus, lymphadenopathy Respiratory exam: Present: normal lung sounds bilaterally. Absent: respiratory distress, wheezes, rales, rhonchi, stridor Cardiovascular Exam: Present: regular rate, normal rhythm, normal heart sounds. Absent: systolic murmur, diastolic murmur, rubs, gallop, clicks GI/Abdominal exam: Present: soft, normal bowel sounds. Absent: distended, tenderness, guarding, rebound, rigid Extremities exam: Present: normal inspection, full ROM, normal capillary refill. Absent: tenderness, pedal edema, joint swelling, calf tenderness Back exam: Present: normal inspection Neurological exam: Present: alert, oriented X3, CN II-XII intact Psychiatric exam: Present: normal affect, normal mood Skin exam: Present: warm, dry, intact, normal color. Absent: rash Course Vital Signs 03/23/20 03/23/20 03/23/20 08:50 09:01 11:35 Temperature 103.0 F H 102.4 F H Pulse Rate 93 81 Pulse Rate [ Pulse Oximetery ] Respiratory 18 20 18 Rate Blood Pressure 138/84 144/89 O2 Sat by Pulse 92 L 91 L Oximetry 03/23/20 03/23/20 03/23/20 14:35 16:00 18:00 Temperature 99.9 F H 98.5 F Pulse Rate 93 82 79 Pulse Rate [ Pulse Oximetery ] Respiratory 18 18 18 Rate Blood Pressure 130/70 132/76 131/79 O2 Sat by Pulse 92 L 98 92 L Oximetry 03/23/20 19:05 Temperature Pulse Rate Pulse Rate [ 86 Pulse Oximetery ] Respiratory 22 Rate Blood Pressure O2 Sat by Pulse Oximetry Medical Decision Making - Medical Decision Making The patient is placed into room 2 physical exam is performed. Patient is saturating 89% on room air. She has a temperature 100.3. Peripheral IV is established. Laboratory studies were conducted. Patient received fluids, antiemetics. She is requesting Ativan and therefore is given a dose. Lab studies demonstrate a potassium of 2.7. I did attempt to replace the patient's potassium however she is refusing it. She is of sound mind and capable of making this decision. Chest x-ray demonstrates bibasilar opacities concerning for pneumonia. I discussed the results with the patient. Call discuss the case with Dr. Marinelli. Recommended hospital admission for intractable nausea, vomiting, diarrhea and hypokalemia. Spoke with Dr. Marinelli who accepted admiss ion. Patient is currently awaiting a bed - Lab Data Result diagrams: 03/29/20 04:45 03/29/20 12:22 Lab Results 03/23/20 03/23/20 03/23/20 Range/Units 09:39 09:39 09:39 WBC 6.4 (3.8-10.6) k/uL RBC 5.35 (3.80-5.40) m/uL Hgb 15.3 (11.4-16.0) gm/dL Hct 46.0 (34.0-46.0) % MCV 85.9 (80.0-100.0) fL MCH 28.7 (25.0-35.0) pg MCHC 33.4 (31.0-37.0) g/dL RDW 14.0 (11.5-15.5) % Plt Count 116 L (150-450) k/uL MPV 9.2 Neutrophils % 83 % Lymphocytes % 9 % Monocytes % 7 % Eosinophils % 1 % Basophils % 0 % Neutrophils # 5.3 (1.3-7.7) k/uL Lymphocytes # 0.6 L (1.0-4.8) k/uL Monocytes # 0.5 (0-1.0) k/uL Eosinophils # 0.1 (0-0.7) k/uL Basophils # 0.0 (0-0.2) k/uL PT 10.2 (9.0-12.0) sec INR 1.0 (<1.2) APTT 24.5 (22.0-30.0) sec D-Dimer 0.48 (<0.60) mg/L FEU Sodium 137 (137-145) mmol/L Potassium 2.7 L* (3.5-5.1) mmol/L Chloride 100 (98-107) mmol/L Carbon Dioxide 23 (22-30) mmol/L Anion Gap 14 mmol/L BUN 19 H (7-17) mg/dL Creatinine 0.88 (0.52-1.04) mg/dL Est GFR (CKD-EPI)AfAm 72 (>60 ml/min/1.73 sqM) Est GFR (CKD-EPI)NonAf 62 (>60 ml/min/1.73 sqM) Glucose 131 H (74-99) mg/dL Plasma Lactic Acid Andre (0.7-2.0) mmol/L Calcium 8.7 (8.4-10.2) mg/dL Magnesium 1.9 (1.6-2.3) mg/dL Ferritin 438.4 H (10.0-291.0) ng/mL Total Bilirubin 0.8 (0.2-1.3) mg/dL AST 45 H (14-36) U/L ALT 26 (4-34) U/L Alkaline Phosphatase 120 (38-126) U/L Lactate Dehydrogenase 960 H (313-618) U/L C-Reactive Protein 82.2 H (<10.0) mg/L Total Protein 7.3 (6.3-8.2) g/dL Albumin 4.1 (3.5-5.0) g/dL Procalcitonin (0.02-0.09) ng/mL 03/23/20 03/23/20 Range/Units 09:39 09:39 WBC (3.8-10.6) k/uL RBC (3.80-5.40) m/uL Hgb (11.4-16.0) gm/dL Hct (34.0-46.0) % MCV (80.0-100.0) fL MCH (25.0-35.0) pg MCHC (31.0-37.0) g/dL RDW (11.5-15.5) % Plt Count (150-450) k/uL MPV Neutrophils % % Lymphocytes % % Monocytes % % Eosinophils % % Basophils % % Neutrophils # (1.3-7.7) k/uL Lymphocytes # (1.0-4.8) k/uL Monocytes # (0-1.0) k/uL Eosinophils # (0-0.7) k/uL Basophils # (0-0.2) k/uL PT (9.0-12.0) sec INR (<1.2) APTT (22.0-30.0) sec D-Dimer (<0.60) mg/L FEU Sodium (137-145) mmol/L Potassium (3.5-5.1) mmol/L Chloride (98-107) mmol/L Carbon Dioxide (22-30) mmol/L Anion Gap mmol/L BUN (7-17) mg/dL Creatinine (0.52-1.04) mg/dL Est GFR (CKD-EPI)AfAm (>60 ml/min/1.73 sqM) Est GFR (CKD-EPI)NonAf (>60 ml/min/1.73 sqM) Glucose (74-99) mg/dL Plasma Lactic Acid Andre 1.4 (0.7-2.0) mmol/L Calcium (8.4-10.2) mg/dL Magnesium (1.6-2.3) mg/dL Ferritin (10.0-291.0) ng/mL Total Bilirubin (0.2-1.3) mg/dL AST (14-36) U/L ALT (4-34) U/L Alkaline Phosphatase (38-126) U/L Lactate Dehydrogenase (313-618) U/L C-Reactive Protein (<10.0) mg/L Total Protein (6.3-8.2) g/dL Albumin (3.5-5.0) g/dL Procalcitonin 0.20 H (0.02-0.09) ng/mL - EKG Data EKG Comments: EKG demonstrates sinus rhythm with PACs. Rate of 83. ND interval 136. QRS 88. QTC of 460. ST depression in leads 2, 3, aVF V2 through V6. This is compared to patient's previous EKG for which these depressions are new Disposition Clinical Impression: COVID-19, Hypokalemia, Diarrhea, Nausea & vomiting, Fever Disposition: ADMITTED IP TO THIS [facility] Condition: Stable Is patient prescribed a controlled substance at d/c from ED?: No Decision to Admit Reason: Admit from EC Decision Date: 03/23/20 Decision Time: 10:54
[2020-03-23 10:04] LABS: Albumin 4.1 g/dL (3.5-5.0); C Reactive Protein 82.2 mg/L (<10.0); Calcium 8.7 mg/dL (8.4-10.2); Magnesium 1.9 mg/dL (1.6-2.3); Total Bilirubin 0.8 mg/dL (0.2-1.3); Total Protein 7.3 g/dL (6.3-8.2)
[2020-03-23 10:12] LABS: D-Dimer 0.48 mg/L FEU (<0.60); Partial Thromboplastin Time 24.5 sec (22.0-30.0); Prothrombin Time 10.2 sec (9.0-12.0)
[2020-03-23 10:19] LABS: Potassium 2.7 mmol/L (3.5-5.1)
[2020-03-23] MEDS ORDERED: POTASSIUM CHLORIDE 20 MEQ in WATER FOR INJECTION 1 100ML.BAG IVPB STA (10:31)
[2020-03-23] MEDS ORDERED: POTASSIUM CHLORIDE ER 20 MEQ TAB.ER PO STA (10:32)
[2020-03-23 10:38] LABS: Basophils % (A) 0 %; Eosinophils # (A) 0.1 k/uL (0-0.7); Eosinophils % (A) 1 %; HGB 15.3 gm/dL (11.4-16.0); Lymphocytes # (A) 0.6 k/uL (1.0-4.8); Lymphocytes % (A) 9 %; MCH 28.7 pg (25.0-35.0); MCHC 33.4 g/dL (31.0-37.0); MCV 85.9 fL (80.0-100.0); Mean Platelet Volume 9.2; Monocytes # (A) 0.5 k/uL (0-1.0); Monocytes % (A) 7 %; Neutrophils # (A) 5.3 k/uL (1.3-7.7); Neutrophils % (A) 83 %; Platelet Count 116 k/uL (150-450); RBC 5.35 m/uL (3.80-5.40); WBC 6.4 k/uL (3.8-10.6)
--- NOTE | 2020-03-23 10:48 | XR ---
EXAMINATION TYPE: XR chest 1V portable DATE OF EXAM: 03/23/2020 COMPARISON: 03/15/2020 INDICATION: Suspected Covid TECHNIQUE: Single frontal view of the chest is obtained. FINDINGS: The heart size is normal. The pulmonary vasculature is normal. Bilateral lung infiltrates or lung bases greater at the left lung base. Findings are nonspecific but can be compatible with atypical pneumonia in the proper clinical setting IMPRESSION: 1. Bibasilar infiltrates greater at the left lung base can be compatible with atypical pneumonia.
[2020-03-23] MEDS ORDERED: NALOXONE 0.4 MG/ML 1 ML VIAL IV PRN (10:54)
[2020-03-23] MEDS ORDERED: IBUPROFEN 600 MG TAB PO STA (11:49)
[2020-03-23] MEDS ORDERED: LORazepam 2 MG/ML INJ IV STA (12:01)
[2020-03-23] MEDS: SODIUM CHLORIDE 0.9% 1,000 ML IV SCH (12:09)
[2020-03-23 14:32] LABS: Ferritin 438.4 ng/mL (10.0-291.0)
[2020-03-23] MEDS ORDERED: METOCLOPRAMIDE 10 MG TAB PO PRN (21:26)
[2020-03-23] MEDS ORDERED: IBUPROFEN 800 MG TAB PO PRN (21:26)
[2020-03-23] MEDS ORDERED: HYDROcodone/APAP 10-325MG 1 EACH TAB PO PRN (21:26)
[2020-03-23] MEDS ORDERED: Potassium Replacement Protocol 1 EACH MISC MISCELLANE PRN (21:28)
[2020-03-23] MEDS: FAMOTIDINE 20 MG TAB PO SCH (22:26)
[2020-03-23] MEDS: DICYCLOMINE 20 MG TAB PO SCH (22:27)
[2020-03-23] MEDS: PRAVASTATIN SODIUM 20 MG TAB PO SCH (22:27)
[2020-03-24] MEDS: SODIUM CHLORIDE 0.9% 1,000 ML IV SCH (00:02)
[2020-03-24] MEDS ORDERED: ZOLPIDEM 5 MG TAB PO PRN (03:47)
[2020-03-24 07:37] LABS: Basophils % (A) 0 %; Eosinophils % (A) 0 %; HCT 41.3 % (34.0-46.0); HGB 13.9 gm/dL (11.4-16.0); Lymphocytes # (A) 0.5 k/uL (1.0-4.8); Lymphocytes % (A) 11 %; MCHC 33.5 g/dL (31.0-37.0); MCV 86.4 fL (80.0-100.0); Mean Platelet Volume 7.9; Monocytes # (A) 0.2 k/uL (0-1.0); Monocytes % (A) 6 %; Neutrophils # (A) 3.6 k/uL (1.3-7.7); Neutrophils % (A) 82 %; Platelet Count 128 k/uL (150-450); RBC 4.78 m/uL (3.80-5.40); RDW 13.7 % (11.5-15.5); WBC 4.4 k/uL (3.8-10.6)
[2020-03-24] MEDS: PRAVASTATIN SODIUM 20 MG TAB PO SCH (07:52)
[2020-03-24] MEDS: SUCRALFATE 1 GM TAB PO SCH ×4 (07:52→20:19)
[2020-03-24] MEDS: FAMOTIDINE 20 MG TAB PO SCH (07:53)
[2020-03-24] MEDS: allopurinoL 100 MG TAB PO SCH (07:53)
[2020-03-24] MEDS: COLCHICINE 0.6 MG EACH PO SCH (07:53)
[2020-03-24] MEDS: DICYCLOMINE 20 MG TAB PO SCH ×2 (07:53→20:19)
[2020-03-24] MEDS: ASPIRIN 81 MG PO SCH (07:53)
[2020-03-24] MEDS: PANTOPRAZOLE 40 MG TABLET PO SCH (07:53)
--- NOTE | 2020-03-24 08:17 | P.HPIM ---
History of Present Illness H&P Date: 03/24/20 Chief Complaint: Worsening cough and fever. This is an 79-year-old white female with known history of COPD and hypertension who tested positive for coronovirus last week. Symptoms have been declining and she was admitted secondary to bilateral infiltrate and pneumonia. She was having difficulty with by mouth intake but now with initial treatment appetite seems to be coming back. No voiding difficulties. No sniffing nausea or vomiting. Minimal frailty at home in general. She does not need ambulatory assistance. She has decent family support otherwise. Review of Systems Constitutional: Denies chills, Denies fever Eyes: denies blurred vision, denies pain Ears, nose, mouth and throat: Denies headache, Denies sore throat Cardiovascular: Denies chest pain, Denies shortness of breath Respiratory: Reports as per HPI, Reports cough, Reports pleurisy Gastrointestinal: Denies abdominal pain, Denies diarrhea, Denies nausea, Denies vomiting Genitourinary: Denies dysuria, Denies hematuria Musculoskeletal: Denies myalgias Past Medical History Past Medical History: Coronary Artery Disease (CAD), Chest Pain / Angina, CVA/TIA, Deep Vein Thrombosis (DVT), GERD/Reflux, Hyperlipidemia, Hypertension, Myocardial Infarction (HI), Osteoarthritis (OA) Additional Past Medical History / Comment(s): Pt covid + 03/15/20 [facility] ER. Pt states she never had TIA/CVA-they were ruled out however 2016 medical record documents TIA, DVT L arm, arthritis multiple joints, cervical muscle spasms, gout, constipation. Last Myocardial Infarction Date:: 2014 History of Any Multi-Drug Resistant Organisms: C-DIFF Date of last positivie culture/infection: 2013 MDRO Source:: stool Past Surgical History: Breast Surgery, Section, Cholecystectomy, Heart Catheterization With Stent, Hernia Repair Additional Past Surgical History / Comment(s): 01/09/15 PTCA with stent to obtuse marginal branch of circ and stent to mid LAD, bilateral augmentation, 3 C-Sections, ventral hernia repair, bilateral cataract removal with lens implants, picc line in and out for ABX tx for C-Diff. Past Anesthesia/Blood Transfusion Reactions: No Reported Reaction, Motion Sickness Additional Past Anesthesia/Blood Transfusion Reaction / Comment(s): Pt has never received blood. 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 History of having 3 children. Retired nurse's aide. No experience. No tobacco or alcohol use no recreational drug use. No animal exposures Smoking Status: Former smoker Past Alcohol Use History: None Reported Additional Past Alcohol Use History / Comment(s): Pt started smoking in 1959 and quit smoking in 2010. Past Drug Use History: None Reported - Past Family History Mother Family Medical History: Vascular Disorder Additional Family Medical History / Comment(s): Mother had a brain aneurysm. She after brain surgery at age 88 yrs. Father Family Medical History: CVA/TIA, Diabetes Mellitus, Hypertension Additional Family Medical History / Comment(s): Father of a CVA. Medications and Allergies Home Medications Medication Instructions Recorded Confirmed Type Famotidine [Pepcid] 20 mg PO DAILY #30 tablet 08/16/15 03/23/20 Rx Aspirin EC [Ecotrin Low Dose] 81 mg PO DAILY 07/21/17 03/23/20 History Pantoprazole [Protonix] 40 mg PO DAILY 07/21/17 03/23/20 History Dicyclomine [Bentyl] 20 mg PO BID 07/11/18 03/23/20 History Pravastatin Sodium [Pravachol] 20 mg PO DAILY 07/11/18 03/23/20 History Potassium Chloride ER [K-Dur 10] 30 meq PO BID #180 tab.er.prt 07/26/18 03/23/20 Rx Sucralfate [Carafate] 1 gm PO ACHS #120 tab 07/26/18 03/23/20 Rx Furosemide [Lasix] 20 mg PO BID 09/23/18 03/23/20 History Metoprolol Tartrate [Lopressor] 25 mg PO BID 10/05/18 03/23/20 History Colchicine [Colcrys] 0.6 mg PO DAILY #30 each 10/10/18 03/23/20 Rx Febuxostat [Uloric] 80 mg PO DAILY 03/15/20 03/23/20 History HYDROcodone/APAP 10-325MG [[place] 1 tab PO TID PRN 03/15/20 03/23/20 History 10-325] Ibuprofen [Motrin] 800 mg PO BID PRN 03/15/20 03/23/20 History Metoclopramide HCl [Reglan] 10 mg PO Q6HR PRN #15 tablet 03/15/20 03/23/20 Rx amLODIPine [Norvasc] 5 mg PO HS 03/15/20 03/23/20 History Acetaminophen Tab [Tylenol] 500 mg PO DAILY PRN 03/23/20 03/23/20 History Allergies Allergy/AdvReac Type Severity Reaction Status Date / Time codeine Allergy Unknown Dyspnea Verified 03/23/20 10:02 Penicillins Allergy Unknown Rash/Hives Verified 03/23/20 10:02 Sulfa (Sulfonamide Allergy Unknown Rash/Hives Verified 03/23/20 10:02 Antibiotics) prednisone Allergy Dyspnea Verified 03/23/20 10:02 hydromorphone HCl AdvReac Severe Hallucinati Verified 03/23/20 10:02 [From Dilaudid] ons Iodinated Contrast Media AdvReac Nausea & Verified 03/23/20 10:02 [Iodinated Contrast Media - Vomiting Oral and] ondansetron [From Zofran] AdvReac Rapid Verified 03/23/20 10:02 Heart Rate Physical Exam Vitals: Vital Signs Temp Pulse Pulse Resp BP BP Pulse Ox 03/24/20 06:09 99.0 F 90 18 106/61 91 L 03/24/20 01:28 100.1 F H 92 20 144/78 91 L 03/23/20 22:27 98.2 F 03/23/20 20:15 98.7 F 86 22 140/82 94 L 03/23/20 19:05 86 22 03/23/20 18:00 98.5 F 79 18 131/79 92 L 03/23/20 16:00 82 18 132/76 98 03/23/20 14:35 99.9 F H 93 18 130/70 92 L 03/23/20 11:35 102.4 F H 81 18 144/89 91 L 03/23/20 09:01 20 03/23/20 08:50 103.0 F H 93 18 138/84 92 L Intake and Output 03/23/20 03/24/20 03/24/20 22:59 06:59 14:59 Intake Total 480 Balance 480 Intake: Oral 480 Other: Voiding Method Toilet Diaper # Voids 1 # Bowel Movements 1 Weight 68.039 kg - Constitutional General appearance: no acute distress - EENT Eyes: EOMI - Neck Neck: no lymphadenopathy - Cardiovascular Rhythm: regular Heart sounds: normal: S1, S2 Abnormal Heart Sounds: no S3 Gallop - Gastrointestinal General gastrointestinal: soft, no tenderness - Integumentary Integumentary: no cyanotic - Psychiatric Psychiatric: A&O x's 3 Results CBC & Chem 7: 03/24/20 06:52 03/23/20 09:39 Labs: Abnormal Lab Results - Last 24 Hours (Table) 03/23/20 03/23/20 03/23/20 Range/Units 09:39 09:39 09:39 Plt Count 116 L (150-450) k/uL Lymphocytes # 0.6 L (1.0-4.8) k/uL Potassium 2.7 L* (3.5-5.1) mmol/L BUN 19 H (7-17) mg/dL Glucose 131 H (74-99) mg/dL Ferritin 438.4 H (10.0-291.0) ng/mL AST 45 H (14-36) U/L Lactate Dehydrogenase 960 H (313-618) U/L C-Reactive Protein 82.2 H (<10.0) mg/L Procalcitonin 0.20 H (0.02-0.09) ng/mL 03/24/20 Range/Units 06:52 Plt Count 128 L (150-450) k/uL Lymphocytes # 0.5 L (1.0-4.8) k/uL Potassium (3.5-5.1) mmol/L BUN (7-17) mg/dL Glucose (74-99) mg/dL Ferritin (10.0-291.0) ng/mL AST (14-36) U/L Lactate Dehydrogenase (313-618) U/L C-Reactive Protein (<10.0) mg/L Procalcitonin (0.02-0.09) ng/mL Thrombosis Risk Factor Assmnt - Choose All That Apply Any of the Below Risk Factors Present?: Yes Each Factor Represents 1 point: Serious lung disease incl. pneumonia (< 1month) Other Risk Factors: Yes Each Risk Factor Represents 3 Points: Age 75 years or older, History of DVT/PE Other congenital or acquired thrombophilia - If yes, enter type in comment: No Thrombosis Risk Factor Assessment Total Risk Factor Score: 7 Thrombosis Risk Factor Assessment Level: High Risk Assessment and Plan (1) COVID-19 Current Visit: Yes Status: Acute Code(s): U07.1 - COVID-19 SNOMED Code(s): 438655752 (2) Hypokalemia Current Visit: Yes Status: Acute Code(s): E87.6 - HYPOKALEMIA SNOMED C ode(s): 23329097 (3) Chronic low back pain Current Visit: No Status: Acute Code(s): M54.5 - LOW BACK PAIN; G89.29 - OTHER CHRONIC PAIN SNOMED Code(s): 679652441 (4) Dehydration Current Visit: No Status: Acute Code(s): E86.0 - DEHYDRATION SNOMED Code(s): 66903895 (5) High risk for readmission Current Visit: No Status: Acute Code(s): Z91.89 - OTH PERSONAL RISK FACTORS, NOT ELSEWHERE CLASSIFIED SNOMED Code(s): 363763447 (6) Lumbar degenerative disc disease Current Visit: No Status: Acute Code(s): M51.36 - OTHER INTERVERTEBRAL DISC DEGENERATION, LUMBAR REGION SNOMED Code(s): 76012299 Plan: Placed on appropriate protocol for potassium. Consult pulmonology for probable rhonchi severe treatment. Supportive care otherwise. Reconcile home medications. Check CBC and CMP in a.m.
[2020-03-24] MEDS ORDERED: METOPROLOL TARTRATE 25 MG TAB PO SCH (09:00)
--- NOTE | 2020-03-24 10:26 | P.CNPUL ---
History of Present Illness Consult date: 03/24/20 Requesting physician: Daren Marinelli Reason for consult: other Chief complaint: intractable nausea vomiting and diarrhea, mild cough History of present illness: 79-year-old white female patient with past medical history of COPD, hypertension and emergency department on 03/15/2020 for evaluation of nausea, vomiting, and she tested positive for COVID 19, her onset of symptoms was around a week prior to presentation on 03/08/2020. Patient had decreased oral intake. No fever, chills. Other medical history includes a history of CVA, DVT, GERD/reflux, osteoarthritis, CAD with previous PTCA and stenting, anxiety, and history of smoking. Patient discharged home at that time with cxyp-opm-hxkiesv vitamin D, vitamin C, zinc, and was instructed to come back for worsening symptoms. On 2019 patient came back to the emergency department for reevaluation of intractable nausea, vomiting and diarrhea, patient was unable to tolerate any food water and she was unable to take any of her medications, she has had fevers, for which she is been taking Tylenol, no abdominal pain, no shortness of breath or coughing. Is x-ray reveals bibasilar infiltrates greater at the left lung base. Labs have been reviewed showing lymphopenia with lymphocyte count of 0.5, potassium is 2.7, d-dimer is 0.48, BUN of 19 creatinine 0.8, plasma lactic acid is 1.4, ferritin level is 438, AST is 45, ALT is 26, alkaline phosphatase is 120, LDH is 960, CRP is 82, pro calcitonin level is 0.2. She was given IV fluid hydration, her vital signs have been stable overnight, the low-grade fever this morning, with a temp of 100.1F, she is on 2 L of oxygen and the pulse ox of 91-94%, she has a congested cough but denies any shortness of breath. Review of Systems All systems: negative Constitutional: Reports weakness, Denies chills, Denies fever Eyes: denies blurred vision, denies pain Ears, nose, mouth and throat: Denies headache, Denies sore throat Cardiovascular: Denies chest pain, Denies shortness of breath Respiratory: Denies cough Gastrointestinal: Reports diarrhea, Reports nausea, Reports vomiting, Denies a bdominal pain Genitourinary: Denies dysuria, Denies hematuria Musculoskeletal: Denies myalgias Integumentary: Denies pruritus, Denies rash Neurological: Denies numbness, Denies weakness Psychiatric: Denies anxiety, Denies depression Endocrine: Denies fatigue, Denies weight change Past Medical History Past Medical History: Coronary Artery Disease (CAD), Chest Pain / Angina, CVA/TIA, Deep Vein Thrombosis (DVT), GERD/Reflux, Hyperlipidemia, Hypertension, Myocardial Infarction (DE), Osteoarthritis (OA) Additional Past Medical History / Comment(s): Pt covid + 03/15/20 [facility] ER. Pt states she never had TIA/CVA-they were ruled out however 2016 medical record documents TIA, DVT L arm, arthritis multiple joints, cervical muscle spasms, gout, constipation. Last Myocardial Infarction Date:: 2014 History of Any Multi-Drug Resistant Organisms: C-DIFF Date of last positivie culture/infection: 2013 MDRO Source:: stool Past Surgical History: Breast Surgery, Section, Cholecystectomy, Heart Catheterization With Stent, Hernia Repair Additional Past Surgical History / Comment(s): 01/09/15 PTCA with stent to obtuse marginal branch of circ and stent to mid LAD, bilateral augmentation, 3 C-Sections, ventral hernia repair, bilateral cataract removal with lens implants, picc line in and out for ABX tx for C-Diff. Past Anesthesia/Blood Transfusion Reactions: No Reported Reaction, Motion Sickness Additional Past Anesthesia/Blood Transfusion Reaction / Comment(s): Pt has never received blood. Date of Last Stent Placement:: 01/09/15 Past Psychological History: Anxiety Additional Psychological History / Comment(s): With her current male meal cook for the last 13 years. History of having 3 children. Retired nurse's aide. No experience. No tobacco or alcohol use no recreational drug use. No animal exposures Smoking Status: Former smoker Past Alcohol Use History: None Reported Additional Past Alcohol Use History / Comment(s): Pt started smoking in 1959 and quit smoking in 2010. Past Drug Use History: None Reported - Past Family History Mother Family Medical History: Vascular Disorder Additional Family Medical History / Comment(s): Mother had a brain aneurysm. She after brain surgery at age 88 yrs. Father Family Medical History: CVA/TIA, Diabetes Mellitus, Hypertension Additional Family Medical History / Comment(s): Father of a CVA. Medications and Allergies Home Medications Medication Instructions Recorded Confirmed Type Famotidine [Pepcid] 20 mg PO DAILY #30 tablet 08/16/15 03/23/20 Rx Aspirin EC [Ecotrin Low Dose] 81 mg PO DAILY 07/21/17 03/23/20 History Pantoprazole [Protonix] 40 mg PO DAILY 07/21/17 03/23/20 History Dicyclomine [Bentyl] 20 mg PO BID 07/11/18 03/23/20 History Pravastatin Sodium [Pravachol] 20 mg PO DAILY 07/11/18 03/23/20 History Potassium Chloride ER [K-Dur 10] 30 meq PO BID #180 tab.er.prt 07/26/18 03/23/20 Rx Sucralfate [Carafate] 1 gm PO ACHS #120 tab 07/26/18 03/23/20 Rx Furosemide [Lasix] 20 mg PO BID 09/23/18 03/23/20 History Metoprolol Tartrate [Lopressor] 25 mg PO BID 10/05/18 03/23/20 History Colchicine [Colcrys] 0.6 mg PO DAILY #30 each 10/10/18 03/23/20 Rx Febuxostat [Uloric] 80 mg PO DAILY 03/15/20 03/23/20 History HYDROcodone/APAP 10-325MG [[place] 1 tab PO TID PRN 03/15/20 03/23/20 History 10-325] Ibuprofen [Motrin] 800 mg PO BID PRN 03/15/20 03/23/20 History Metoclopramide HCl [Reglan] 10 mg PO Q6HR PRN #15 tablet 03/15/20 03/23/20 Rx amLODIPine [Norvasc] 5 mg PO HS 03/15/20 03/23/20 History Acetaminophen Tab [Tylenol] 500 mg PO DAILY PRN 03/23/20 03/23/20 History Allergies Allergy/AdvReac Type Severity Reaction Status Date / Time codeine Allergy Unknown Dyspnea Verified 03/23/20 10:02 Penicillins Allergy Unknown Rash/Hives Verified 03/23/20 10:02 Sulfa (Sulfonamide Allergy Unknown Rash/Hives Verified 03/23/20 10:02 Antibiotics) prednisone Allergy Dyspnea Verified 03/23/20 10:02 hydromorphone HCl AdvReac Severe Hallucinati Verified 03/23/20 10:02 [From Dilaudid] ons Iodinated Contrast Media AdvReac Nausea & Verified 03/23/20 10:02 [Iodinated Contrast Media - Vomiting Oral and] ondansetron [From Zofran] AdvReac Rapid Verified 03/23/20 10:02 Heart Rate Physical Exam Vitals: Vital Signs Temp Pulse Pulse Resp BP BP Pulse Ox 03/24/20 06:09 99.0 F 90 18 106/61 91 L 03/24/20 01:28 100.1 F H 92 20 144/78 91 L 03/23/20 22:27 98.2 F 03/23/20 20:15 98.7 F 86 22 140/82 94 L 03/23/20 19:05 86 22 03/23/20 18:00 98.5 F 79 18 131/79 92 L 03/23/20 16:00 82 18 132/76 98 03/23/20 14:35 99.9 F H 93 18 130/70 92 L 03/23/20 11:35 102.4 F H 81 18 144/89 91 L Intake and Output 03/23/20 03/24/20 03/24/20 22:59 06:59 14:59 Intake Total 480 Balance 480 Intake: Oral 480 Other: Voiding Method Toilet Diaper # Voids 1 # Bowel Movements 1 Weight 68.039 kg GENERAL EXAM: Alert, very pleasant, 79-year-old white female, on 2 L of oxygen with a pulse ox of 91% comfortable in no apparent distress. HEAD: Normocephalic/atraumatic. EYES: Normal reaction of pupils, equal size. Conjunctiva pink, sclera white. NOSE: Clear with pink turbinates. THROAT: No erythema or exudates. NECK: No masses, no JVD, no thyroid enlargement, no adenopathy. CHEST: No chest wall deformity. Symmetrical expansion. LUNGS: Equal air entry with Mild crackles at the bases CVS: Regular rate and rhythm, normal S1 and S2, no gallops, no murmurs, no rubs ABDOMEN: Soft, nontender. No hepatosplenomegaly, normal bowel sounds, no guarding or rigidity. EXTREMITIES: No clubbing, no edema, no cyanosis, 2+ pulses and upper and lower extremities. MUSCULOSKELETAL: Muscle strength and tone normal. SPINE: No scoliosis or deformity SKIN: No rashes CENTRAL NERVOUS SYSTEM: Alert and oriented -3. No focal deficits, tone is normal in all 4 extremities. PSYCHIATRIC: Alert and oriented -3. Appropriate affect. Intact judgment and insight. Results - Laboratory Findings CBC and BMP: 03/24/20 06:52 03/23/20 09:39 PT/INR, D-dimer PT 10.2 sec (9.0-12.0) 03/23/20 09:39 INR 1.0 (<1.2) 03/23/20 09:39 D-Dimer 0.48 mg/L FEU (<0.60) 03/23/20 09:39 Abnormal lab findings: Abnormal Labs 03/23/20 03/23/20 03/23/20 09:39 09:39 09:39 Plt Count 116 L Lymphocytes # 0.6 L Potassium 2.7 L* BUN 19 H Glucose 131 H Ferritin 438.4 H AST 45 H Lactate Dehydrogenase 960 H C-Reactive Protein 82.2 H Procalcitonin 0.20 H 03/24/20 06:52 Plt Count 128 L Lymphocytes # 0.5 L Potassium BUN Glucose Ferritin AST Lactate Dehydrogenase C-Reactive Protein Procalcitonin - Diagnostic Findings Chest x-ray: report reviewed, image reviewed Assessment and Plan Plan: Assessment: #1. Acute COVID 19 infection first diagnosed on 03/15/2020 with the onset of symptoms around 03/08/2020 #2. Intractable nausea vomiting and diarrhea related to the above #3. Acute COVID 19 pneumonia and acute hypoxic respiratory failure related to it #4. History of COPD #5. CAD with previous history of stenting #6. Previous history of DVT #7. GERD/reflux #8. Hyperlipidemia #9. Hypertension #10. CVA/TIA #11. Former smoker #12. Hypokalemia related to decreased oral intake nausea vomiting and diarrhea Plan: Continue current medical treatment, continue IV hydration, replace serum potassium per protocol, we'll add Decadron 6 mg by mouth daily, and will add Lovenox, continue vitamin and supplements. If x-ray has been reviewed showing bibasilar infiltrates consistent with viral infection, patient has a mild congestive cough but no significant pulmonary symptoms at this time, we'll continue to monitor, patient is out of the window for Remdesivir treatment. I performed a history & physical examination of the patient and discussed their management with my nurse practitioner, Carmella Baker. I reviewed the nurse practitioner's note and agree with the documented findings and plan of care. Lung sounds are positive for diminished breath sounds with basilar crackles throughout the lung aparicio. The findings and the impression was discussed with the patient. I attest to the documentation by the nurse practitioner. Time with Patient: Greater than 30
[2020-03-24] MEDS: dexAMETHasone 2 MG TAB PO SCH (10:47)
[2020-03-24] MEDS: ENOXAPARIN 40 MG/0.4 ML SYRINGE SQ SCH (10:47)
[2020-03-24 12:25] LABS: African American GFR (CKD) 61.2 (60.0-200.0); Albumin 3.7 g/dL (3.80-4.90); Albumin/Globulin Ratio 1.95 (1.60-3.17); Anion Gap 11.6 mmol/L (4.00-12.00); Calcium 8.2 mg/dL (8.7-10.3); Carbon Dioxide 20.4 mmol/L (21.6-31.8); Globulin 1.9 g/dL (1.6-3.3); Non-African American GFR(CKD) 52.8 (60.0-200.0); Total Bilirubin 0.6 mg/dL (0.2-1.2); Total Protein 5.6 g/dL (6.2-8.2)
[2020-03-24] MEDS ORDERED: POTASSIUM CHLORIDE ER 20 MEQ TAB.ER PO SCH ×2 (13:00→21:00)
[2020-03-24] MEDS: POTASSIUM CHLORIDE ER 10 MEQ TAB.ER.PRT PO SCH ×4 (13:19→20:19)
[2020-03-24] MEDS: ALPRAZolam 0.5 MG TAB PO PRN ×2 (15:27→20:19)
[2020-03-24] MEDS: amLODIPine 5 MG TAB PO SCH (20:19)
[2020-03-24] MEDS: METOPROLOL TARTRATE 12.5 MG TAB PO SCH (20:19)
[2020-03-25] MEDS: POTASSIUM CHLORIDE ER 20 MEQ TAB.ER PO SCH ×2 (01:03→01:59)
[2020-03-25 07:00] LABS: HCT 44.6 % (34.0-46.0); HGB 14.9 gm/dL (11.4-16.0); MCH 29.5 pg (25.0-35.0); MCHC 33.5 g/dL (31.0-37.0); MCV 87.9 fL (80.0-100.0); Mean Platelet Volume 7.5; Platelet Count 160 k/uL (150-450); RBC 5.07 m/uL (3.80-5.40); WBC 4.6 k/uL (3.8-10.6)
[2020-03-25 07:03] LABS: Potassium 2.4 mmol/L (3.5-5.5)
[2020-03-25] MEDS: COLCHICINE 0.6 MG EACH PO SCH (07:20)
[2020-03-25] MEDS: ENOXAPARIN 40 MG/0.4 ML SYRINGE SQ SCH (07:36)
[2020-03-25] MEDS: PANTOPRAZOLE 40 MG TABLET PO SCH (07:37)
[2020-03-25] MEDS: METOPROLOL TARTRATE 12.5 MG TAB PO SCH ×2 (07:37→21:14)
[2020-03-25] MEDS: POTASSIUM CHLORIDE ER 10 MEQ TAB.ER.PRT PO SCH ×2 (07:37→21:13)
[2020-03-25] MEDS: PRAVASTATIN SODIUM 20 MG TAB PO SCH (07:37)
[2020-03-25] MEDS: dexAMETHasone 2 MG TAB PO SCH (07:37)
[2020-03-25] MEDS: DICYCLOMINE 20 MG TAB PO SCH ×2 (07:37→21:14)
[2020-03-25] MEDS: ASPIRIN 81 MG PO SCH (07:37)
[2020-03-25] MEDS: SUCRALFATE 1 GM TAB PO SCH ×4 (07:37→21:14)
[2020-03-25] MEDS: allopurinoL 100 MG TAB PO SCH (07:37)
[2020-03-25] MEDS: FAMOTIDINE 20 MG TAB PO SCH (07:37)
[2020-03-25] MEDS: FUROSEMIDE 20 MG TAB PO SCH ×2 (08:03→16:38)
--- NOTE | 2020-03-25 08:34 | P.PN ---
Subjective Progress Note Date: 03/25/20 Principal diagnosis: Pneumonia with Covid The patient has been diagnosed with Covid 19 last week and is now admitted for worsening respiratory symptoms. She is not tolerating diet as well as expected. She has an element of hypokalemia otherwise. No fever or chills stated. Ap preciate multiple consultants input. Element of diarrhea stated. Objective - Vital Signs Vital signs: Vital Signs Temp 97.9 F 03/25/20 05:05 Pulse 89 03/25/20 05:05 Resp 19 03/25/20 05:05 BP 123/74 03/25/20 05:05 Pulse Ox 94 L 03/25/20 05:05 Intake & Output 03/24/20 03/25/20 03/25/20 18:59 06:59 18:59 Weight 68.039 kg Other: # Voids 3 # Bowel Movements 1 2 - Constitutional General appearance: Present: obese - EENT Eyes: Absent: abnormal pupil - Neck Neck: Absent: lymphadenopathy - Respiratory Respiratory: bilateral: diminished - Cardiovascular Rhythm: regular Heart sounds: normal: S1, S2 Abnormal Heart Sounds: Absent: S3 Gallop - Gastrointestinal General gastrointestinal: Present: soft. Absent: tenderness - Integumentary Integumentary: Absent: cellulitis - Labs CBC & Chem 7: 03/25/20 06:30 03/24/20 22:20 Labs: Abnormal Lab Results - Last 24 Hours (Table) 03/24/20 03/24/20 03/24/20 Range/Units 06:52 18:13 22:20 Potassium 2.4 L* 3.2 L 3.2 L (3.5-5.5) mmol/L Carbon Dioxide 20.4 L (21.6-31.8) mmol/L Est GFR (CKD-EPI)NonAf 52.8 L (60.0-200.0) Glucose 140 H (70-110) mg/dL Calcium 8.2 L (8.7-10.3) mg/dL AST 41 H (13-35) U/L Alkaline Phosphatase 148 H (41-126) U/L Total Protein 5.6 L (6.2-8.2) g/dL Albumin 3.70 L (3.80-4.90) g/dL Microbiology - Last 24 Hours (Table) 03/23/20 09:47 Blood Culture - Preliminary Blood No Growth after 24 hours Assessment and Plan (1) COVID-19 Current Visit: Yes Status: Acute Code(s): U07.1 - COVID-19 SNOMED Code(s): 840200195 (2) Hypokalemia Current Visit: Yes Status: Acute Code(s): E87.6 - HYPOKALEMIA SNOMED Code(s): 76999685 (3) Chronic low back pain Current Visit: No Status: Acute Code(s): M54.5 - LOW BACK PAIN; G89.29 - OTHER CHRONIC PAIN SNOMED Code(s): 709985180 (4) Dehydration Current Visit: No Status: Acute Code(s): E86.0 - DEHYDRATION SNOMED Code(s): 52946819 (5) High risk for readmission Current Visit: No Status: Acute Code(s): Z91.89 - OTH PERSONAL RISK FACTORS, NOT ELSEWHERE CLASSIFIED SNOMED Code(s): 757511743 (6) Lumbar degenerative disc disease Current Visit: No Status: Acute Code(s): M51.36 - OTHER INTERVERTEBRAL DISC DEGENERATION, LUMBAR REGION SNOMED Code(s): 93138451 Plan: Placed on appropriate protocol for potassium. Supportive care otherwise. Reconcile home medications. Check CBC and CMP in a.m.
[2020-03-25] MEDS: ALPRAZolam 0.5 MG TAB PO PRN ×3 (09:47→21:13)
[2020-03-25 10:03] LABS: African American GFR (CKD) 80.1 (60.0-200.0); Albumin 3.9 g/dL (3.80-4.90); Albumin/Globulin Ratio 1.86 (1.60-3.17); Anion Gap 10.1 mmol/L (4.00-12.00); BUN/Creat Ratio 17.5 Ratio (12.00-20.00); Calcium 8.9 mg/dL (8.7-10.3); Carbon Dioxide 18.9 mmol/L (21.6-31.8); Globulin 2.1 g/dL (1.6-3.3); Non-African American GFR(CKD) 69.1 (60.0-200.0); Potassium 3.4 mmol/L (3.5-5.5); Total Bilirubin 0.6 mg/dL (0.2-1.2)
--- NOTE | 2020-03-25 11:21 | P.PN ---
Subjective Progress Note Date: 03/25/20 79-year-old white female patient with past medical history of COPD, hypertensio n and emergency department on 03/15/2020 for evaluation of nausea, vomiting, and she tested positive for COVID 19, her onset of symptoms was around a week prior to presentation on 03/08/2020. Patient had decreased oral intake. No fever, chills. Other medical history includes a history of CVA, DVT, GERD/reflux, osteoarthritis, CAD with previous PTCA and stenting, anxiety, and history of smoking. Patient discharged home at that time with [id number]-[id number] vitamin D, vitamin C, zinc, and was instructed to come back for worsening symptoms. On 2019 patient came back to the emergency department for reevaluation of intractable nausea, vomiting and diarrhea, patient was unable to tolerate any food water and she was unable to take any of her medications, she has had fevers, for which she is been taking Tylenol, no abdominal pain, no shortness of breath or coughing. Is x-ray reveals bibasilar infiltrates greater at the left lung base. Labs have been reviewed showing lymphopenia with lymphocyte count of 0.5, potassium is 2.7, d-dimer is 0.48, BUN of 19 creatinine 0.8, plasma lactic acid is 1.4, ferritin level is 438, AST is 45, ALT is 26, alkaline phosphatase is 120, LDH is 960, CRP is 82, pro calcitonin level is 0.2. She was given IV fluid hydration, her vital signs have been stable overnight, the low-grade fever this morning, with a temp of 100.1F, she is on 2 L of oxygen and the pulse ox of 91-94%, she has a congested cough but denies any shortness of breath. on today's evaluation of03/25/2020, the patient is still having diarrhea. She had several bouts of diarrhea. Stool for C. diff came back negative. No abdominal pain. No emesis. She continues to have episodic cough. Potassium has been replaced.she is having also some worsening shortness of breath. Tootie carmichael this morning she was found to be hypoxic and she is currently on 15 L of oxygen by nasal cannula. She is quite restless. Her mentation is waxing and waning. I feel like she is a bit confused on today's evaluation. Note that when she came in she was only on 2 L of oxygen by nasal cannula. Objective - Vital Signs Vital signs: Vital Signs Temp 97.9 F 03/25/20 09:03 Pulse 75 03/25/20 09:03 Resp 20 03/25/20 09:03 BP 120/76 03/25/20 09:03 Pulse Ox 96 03/25/20 09:40 Intake & Output 03/24/20 03/25/20 03/25/20 18:59 06:59 18:59 Weight 68.039 kg Other: # Voids 3 # Bowel Movements 1 2 - Exam GENERAL EXAM: Alert, very pleasant, 79-year-old white female, on 15 L of oxygen with a pulse ox of 91% comfortable in no apparent distress. HEAD: Normocephalic/atraumatic. EYES: Normal reaction of pupils, equal size. Conjunctiva pink, sclera white. NOSE: Clear with pink turbinates. THROAT: No erythema or exudates. NECK: No masses, no JVD, no thyroid enlargement, no adenopathy. CHEST: No chest wall deformity. Symmetrical expansion. LUNGS: Equal air entry with Mild crackles at the bases CVS: Regular rate and rhythm, normal S1 and S2, no gallops, no murmurs, no rubs ABDOMEN: Soft, nontender. No hepatosplenomegaly, normal bowel sounds, no guarding or rigidity. EXTREMITIES: No clubbing, no edema, no cyanosis, 2+ pulses and upper and lower extremities. MUSCULOSKELETAL: Muscle strength and tone normal. SPINE: No scoliosis or deformity SKIN: No rashes CENTRAL NERVOUS SYSTEM: Alert and oriented -3. No focal deficits, tone is normal in all 4 extremities. PSYCHIATRIC: Alert and oriented -3. Appropriate affect. Intact judgment and insight. - Labs CBC & Chem 7: 03/25/20 06:30 03/25/20 06:30 Labs: Abnormal Lab Results - Last 24 Hours (Table) 03/24/20 03/24/20 03/24/20 Range/Units 06:52 18:13 22:20 Potassium 2.4 L* 3.2 L 3.2 L (3.5-5.5) mmol/L Chloride (96-109) mmol/L Carbon Dioxide 20.4 L (21.6-31.8) mmol/L Est GFR (CKD-EPI)NonAf 52.8 L (60.0-200.0) Glucose 140 H (70-110) mg/dL Calcium 8.2 L (8.7-10.3) mg/dL AST 41 H (13-35) U/L Alkaline Phosphatase 148 H (41-126) U/L Total Protein 5.6 L (6.2-8.2) g/dL Albumin 3.70 L (3.80-4.90) g/dL 03/25/20 Range/Units 06:30 Potassium 3.4 L (3.5-5.5) mmol/L Chloride 113 H (96-109) mmol/L Carbon Dioxide 18.9 L (21.6-31.8) mmol/L Est GFR (CKD-EPI)NonAf (60.0-200.0) Glucose 129 H (70-110) mg/dL Calcium (8.7-10.3) mg/dL AST 48 H (13-35) U/L Alkaline Phosphatase 171 H (41-126) U/L Total Protein 6.0 L (6.2-8.2) g/dL Albumin (3.80-4.90) g/dL Microbiology - Last 24 Hours (Table) 03/23/20 09:47 Blood Culture - Preliminary Blood No Growth after 24 hours Assessment and Plan Plan: #1. Acute COVID 19 infection first diagnosed on 03/15/2020 with the onset of symptoms around 03/08/2020. There has been some interval worsening in the patient's oxygenation and currently the patient is on 15 L of oxygen by nasal cannula. #2. Intractable nausea vomiting and diarrhea related to the above, no emesis for now and the patient is still having diarrhea. Stool for C. diff is negative. #3. Acute COVID 19 pneumonia and acute hypoxic respiratory failure related to it #4. History of COPD #5. CAD with previous history of stenting #6. Previous history of DVT #7. GERD/reflux #8. Hyperlipidemia #9. Hypertension #10. CVA/TIA #11. Former smoker #12. Hypokalemia related to decreased oral intake nausea vomiting and diarrhea Plan: Continue current medical treatment, continue IV hydration, replace serum potassium per protocol, we'll add Decadron 6 mg by mouth daily, and will add L ovenox, continue vitamin and supplements. the patient is, patient is out of the window for Remdesivir. I'm going to continue same treatment. Repeat chest x- ray. Normal saline with 20 mEq of potassium at the rate of 75 mL an hour. We'll continue to follow. Repeat lipid markers in a.m. titrate down FiO2 down to maintain a saturation above 90%.
[2020-03-25] MEDS ORDERED: SODIUM CHLORIDE 0.9% 1,000 ML with POTASSIUM CHLORIDE 20 MEQ IV SCH ×2 (11:45)
[2020-03-25] MEDS: 0.9% NACL WITH KCL 20 MEQ/L 1,000 ML IV SCH ×2 (12:14→21:14)
--- NOTE | 2020-03-25 15:48 | CDI ---
Documentation Clarification Form Date: 03/25/2020 03:34:25 PM From: Caryl FrancoisFlemingJOSE, CCDS Admit Date: 03/23/2020 10:54:00 AM Patient Name: Reena Mckeon Visit Number: [id number] Discharge Date: ATTENTION: The Clinical Documentation Specialists (CDI) and [facility] Coding Staff appreciate your assistance in clarifying documentation. Please respond to the clarification below the line at the bottom and electronically sign. The CDI & [facility] Coding staff will review the response and follow-up if needed. Please note: Queries are made part of the Legal Health Record. If you have any questions, please contact the author of this message via ITS. Dr. Halley Devi: Per the 03/25 Pulmonary Progress Note: "on today's evaluation of03/25/2020, the patient is still having diarrhea. .... Stool for C. diff came back negative. .... She continues to have episodic cough. Potassium has been replaced. She is having also some worsening shortness of breath. Earlier this morning she was found to be hypoxic and she is currently on 15 L of oxygen by nasal cannula. She is quite restless. Her mentation is waxing and waning. I feel like she is a bit confused on today's evaluation. Note that when she came in she was only on 2 L of oxygen by nasal cannula." History/Risk Factors: Chest pain/Angina, TIA, DVT, GERD, Hyperlipidemia, Hypertension, Osteoarthritis, [place], C Diff, CAD, Heart Catheterization with Stent. Anxiety, Former smoker. Clinical Indicators: Presented to the ED on 03/23 with fever, intractable nausea, vomiting, diarrhea, + COVID on 03/15. Admit with COVID 19, Hypokalemia, Diarrhea, Nausea, Vomiting and Fever. VS 03/23: T 103.0, P 93, R 18 - 20, BP 138/84, PO 92 RA - 98 2Lnc VS 03/25: T 98.4, P 87, R 20, BP 129/73, PO 80 6Lnc - 95 15L high flow LAB 03/23: Pl Ct 116*, Lymph 0.6*, K 2.7, BUN 19^, Glucose 131^, Ferritin 438.4^, AST 45^, Lactate Dehydrogenase 960^, CRP 82.2^, Procalcitonin 0.20^. 03/24 C Diff negative LAB 03/25: K 3.4*, Cl 113^, CO2 18.9*, Glucose 129^, AST 48^, Alk Phos 171^, Total Protein 6.0*. Treatment 03/23: IV fluid 1,000 mls @ 999 mls/hr q1, IV Reglan, IV Kcl, po KDur, IV fluid 1,000 mls @ 75 mls/hr q13H, IV Ativan. 03/24: po Hexadrol, Lovenox sq, po Xanax, po KDur 20 meq q1 x4 03/25: IV fluid 1100 mls @ 75 mls/hr, IV Kcl In your professional opinion, please clarify the etiology of the Altered Mental Status, if known. Delirium (specify cause): Encephalopathy (specify Type and Underlying Medical Illness) Other condition (please specify) Unable to determine (Last Revision: July 2017) Encephalopathy (specify Type and Underlying Medical Illness) MTDD
--- NOTE | 2020-03-25 16:11 | XR ---
EXAMINATION TYPE: XR chest 1V DATE OF EXAM: 03/25/2020 COMPARISON: 03/23/2020 INDICATION: Covid TECHNIQUE: Single frontal view of the chest is obtained. FINDINGS: The heart size is normal. The pulmonary vasculature is prominent. Diffuse increased lung markings are present. Findings can be compatible with atypical pneumonia. Bila teral breast prostheses are noted IMPRESSION: 1. Diffuse increased lung markings bilaterally can be compatible with atypical pneumonia.
[2020-03-25 20:24] LABS: C Reactive Protein 14.9 mg/dL (0.0-0.8)
[2020-03-25] MEDS: amLODIPine 5 MG TAB PO SCH (21:13)
[2020-03-26 07:40] LABS: HCT 45.9 % (34.0-46.0); HGB 15.3 gm/dL (11.4-16.0); MCH 29.2 pg (25.0-35.0); MCHC 33.5 g/dL (31.0-37.0); MCV 87.2 fL (80.0-100.0); Mean Platelet Volume 7.8; Platelet Count 238 k/uL (150-450); RBC 5.26 m/uL (3.80-5.40); RDW 14.1 % (11.5-15.5); WBC 10.3 k/uL (3.8-10.6)
[2020-03-26] MEDS: allopurinoL 100 MG TAB PO SCH (09:57)
[2020-03-26] MEDS: FAMOTIDINE 20 MG TAB PO SCH (09:57)
[2020-03-26] MEDS: ENOXAPARIN 40 MG/0.4 ML SYRINGE SQ SCH (09:57)
[2020-03-26] MEDS: FUROSEMIDE 20 MG TAB PO SCH (09:58)
[2020-03-26] MEDS: SUCRALFATE 1 GM TAB PO SCH ×4 (09:58→20:16)
[2020-03-26] MEDS: POTASSIUM CHLORIDE ER 10 MEQ TAB.ER.PRT PO SCH ×2 (09:58→20:15)
[2020-03-26] MEDS: DICYCLOMINE 20 MG TAB PO SCH ×2 (09:58→20:14)
[2020-03-26] MEDS: ASPIRIN 81 MG PO SCH (09:58)
[2020-03-26] MEDS: dexAMETHasone 2 MG TAB PO SCH (09:58)
[2020-03-26] MEDS: PRAVASTATIN SODIUM 20 MG TAB PO SCH (09:58)
[2020-03-26] MEDS: METOPROLOL TARTRATE 12.5 MG TAB PO SCH ×2 (09:58→20:14)
[2020-03-26] MEDS: PANTOPRAZOLE 40 MG TABLET PO SCH (09:58)
[2020-03-26 11:17] LABS: African American GFR (CKD) 69.5 (60.0-200.0); Albumin 4.1 g/dL (3.80-4.90); Albumin/Globulin Ratio 1.78 (1.60-3.17); BUN/Creat Ratio 18.89 Ratio (12.00-20.00); Globulin 2.3 g/dL (1.6-3.3); Potassium 3.3 mmol/L (3.5-5.5); Total Bilirubin 0.9 mg/dL (0.2-1.2); Total Protein 6.4 g/dL (6.2-8.2)
[2020-03-26] MEDS ORDERED: KCL IV SCH ×2 (11:42)
[2020-03-26] MEDS ORDERED: NACL IV SCH ×2 (11:42)
--- NOTE | 2020-03-26 16:24 | P.PN ---
Subjective Principal diagnosis: Pneumonia with Covid The patient has been diagnosed with Covid 19 last week and is now admitted for worsening respiratory symptoms. She is not tolerating diet as well as expected. She has an element of hypokalemia otherwise. No fever or chills stated. Appreciate multiple consultants input. Element of diarrhea stated. She seems to be more tachypnea this morning but is Stable to hold a conversation but I suspect she will be getting tired. Objective - Vital Signs Vital signs: Vital Signs Temp 98.4 F 03/26/20 15:30 Pulse 80 03/26/20 13:59 Resp 20 03/26/20 13:59 BP 122/77 03/26/20 13:59 Pulse Ox 92 L 03/26/20 15:37 Intake & Output 03/25/20 03/26/20 03/26/20 18:59 06:59 18:59 Intake Total 300 1500 Balance 300 1500 Weight 68.039 kg Intake: IV 300 900 0.9% NaCl with KCl 20 Meq 300 900 /l 1,000 ml @ 75 mls/hr IV .[id number] [facility] Rx#: [id number] Oral 600 Other: Voiding Method Toilet Diaper # Voids 1 1 # Bowel Movements 1 - Constitutional General appearance: Present: mild distress - EENT Eyes: Absent: abnormal pupil - Neck Neck: Absent: lymphadenopathy - Respiratory Respiratory: bilateral: diminished - Cardiovascular Rhythm: regular Heart sounds: normal: S1, S2 Abnormal Heart Sounds: Absent: S3 Gallop - Gastrointestinal General gastrointestinal: Present: soft. Absent: tenderness - Integumentary Integumentary: Absent: cyanotic - Musculoskeletal Musculoskeletal: Present: generalized weakness - Labs CBC & Chem 7: 03/26/20 07:19 03/26/20 07:19 Labs: Abnormal Lab Results - Last 24 Hours (Table) 03/25/20 03/26/20 Range/Units 06:30 07:19 Sodium 149 H (135-145) mmol/L Potassium 3.3 L (3.5-5.5) mmol/L Chloride 116 H (96-109) mmol/L AST 82 H (13-35) U/L ALT 72 H (8-44) U/L Alkaline Phosphatase 210 H (41-126) U/L Lactate Dehydrogenase 465 H (120-246) U/L C-Reactive Protein 14.9 H (0.0-0.8) mg/dL Microbiology - Last 24 Hours (Table) 03/23/20 09:47 Blood Culture - Preliminary Blood No Growth after 72 hours Assessment and Plan (1) COVID-19 Current Visit: Yes Status: Acute Code(s): U07.1 - COVID-19 SNOMED Code(s): 235465354 (2) Hypokalemia Current Visit: Yes Status: Acute Code(s): E87.6 - HYPOKALEMIA SNOMED Code(s): 05128565 (3) Chronic low back pain Current Visit: No Status: Acute Code(s): M54.5 - LOW BACK PAIN; G89.29 - OT HER CHRONIC PAIN SNOMED Code(s): 968068776 (4) Dehydration Current Visit: No Status: Acute Code(s): E86.0 - DEHYDRATION SNOMED Code(s): 10702697 (5) High risk for readmission Current Visit: No Status: Acute Code(s): Z91.89 - OTH PERSONAL RISK FACTORS, NOT ELSEWHERE CLASSIFIED SNOMED Code(s): 233097026 (6) Lumbar degenerative disc disease Current Visit: No Status: Acute Code(s): M51.36 - OTHER INTERVERTEBRAL DISC DEGENERATION, LUMBAR REGION SNOMED Code(s): 19307227 Plan: Placed on appropriate protocol for potassium. Supportive care otherwise. Reconcile home medications. Check CBC and CMP in a.m. She seems to be getting tired and I am worried That she might need more supplemental oxygen. Dr. Bernard's group will be covering for the weekend.
[2020-03-26] MEDS ORDERED: Potassium Replacement Protocol 1 EACH MISC MISCELLANE PRN (17:22)
[2020-03-26] MEDS: COLCHICINE 0.6 MG EACH PO SCH (17:31)
--- NOTE | 2020-03-26 18:52 | P.PN ---
Subjective Progress Note Date: 03/26/20 79-year-old white female patient with past medical history of COPD, hypertensio n and emergency department on 03/15/2020 for evaluation of nausea, vomiting, and she tested positive for COVID 19, her onset of symptoms was around a week prior to presentation on 03/08/2020. Patient had decreased oral intake. No fever, chills. Other medical history includes a history of CVA, DVT, GERD/reflux, osteoarthritis, CAD with previous PTCA and stenting, anxiety, and history of smoking. Patient discharged home at that time with juyg-uwi-axdspsh vitamin D, vitamin C, zinc, and was instructed to come back for worsening symptoms. On 2019 patient came back to the emergency department for reevaluation of intractable nausea, vomiting and diarrhea, patient was unable to tolerate any food water and she was unable to take any of her medications, she has had fevers, for which she is been taking Tylenol, no abdominal pain, no shortness of breath or coughing. Is x-ray reveals bibasilar infiltrates greater at the left lung base. Labs have been reviewed showing lymphopenia with lymphocyte count of 0.5, potassium is 2.7, d-dimer is 0.48, BUN of 19 creatinine 0.8, plasma lactic acid is 1.4, ferritin level is 438, AST is 45, ALT is 26, alkaline phosphatase is 120, LDH is 960, CRP is 82, pro calcitonin level is 0.2. She was given IV fluid hydration, her vital signs have been stable overnight, the low-grade fever this morning, with a temp of 100.1F, she is on 2 L of oxygen and the pulse ox of 91-94%, she has a congested cough but denies any shortness of breath. on today's evaluation of03/25/2020, the patient is still having diarrhea. She had several bouts of diarrhea. Stool for C. diff came back negative. No abdominal pain. No emesis. She continues to have episodic cough. Potassium has been replaced.she is having also some worsening shortness of breath. Tootie carmichael this morning she was found to be hypoxic and she is currently on 15 L of oxygen by nasal cannula. She is quite restless. Her mentation is waxing and waning. I feel like she is a bit confused on today's evaluation. Note that when she came in she was only on 2 L of oxygen by nasal cannula. On 03/26/2020, seeing the patient for a follow-up. The patient is still confused. She is quite restless in bed. She is still having some loose diarrhea. She is also on high flow oxygen at 15 L per minute nasal cannula to maintain a saturation above 90%. However, this afternoon, the patient's condition decompensated. She became progressively more hypoxic. As such, the patient was placed on high flow oxygen and she is currently on 15 L of oxygen by nasal cannula.. Level is on the rise in the patient's sodium level is at 149. Renal function remains stable. LDH from yesterday was 465 with a CRP level of 14.9. The patient otherwise is hemodynamically stable. She is on Lovenox 40 mg subcu for DVT prophylaxis. She is on Decadron 6 mg by mouth daily. Home medications of been ordered resume. As mentioned earlier, the patient has history of COPD and hypertension. I gave her IV fluids and I switched IV fluids to half-normal saline along with a 20 mEq of potassium chloride to run at 75 mL an hour. Objective - Vital Signs Vital signs: Vital Signs Temp 96.9 F L 03/26/20 17:52 Pulse 98 03/26/20 17:52 Resp 18 03/26/20 17:52 BP 137/82 03/26/20 17:52 Pulse Ox 98 03/26/20 17:52 Intake & Output 03/25/20 03/26/20 03/26/20 18:59 06:59 18:59 Intake Total 300 1500 Balance 300 1500 Weight 68.039 kg Intake: IV 300 900 0.9% NaCl with KCl 20 Meq 300 900 /l 1,000 ml @ 75 mls/hr IV .[id number] [facility] Rx#: [id number] Oral 600 Other: Voiding Method Toilet Diaper # Voids 1 1 # Bowel Movements 1 - Exam GENERAL EXAM: Alert, very pleasant, 79-year-old white female, on 15 L of oxygen with a pulse ox of 91% comfortable in no apparent distress. HEAD: Normocephalic/atraumatic. EYES: Normal reaction of pupils, equal size. Conjunctiva pink, sclera white. NOSE: Clear with pink turbinates. THROAT: No erythema or exudates. NECK: No masses, no JVD, no thyroid enlargement, no adenopathy. CHEST: No chest wall deformity. Symmetrical expansion. LUNGS: Equal air entry with Mild crackles at the bases CVS: Regular rate and rhythm, normal S1 and S2, no gallops, no murmurs, no rubs ABDOMEN: Soft, nontender. No hepatosplenomegaly, normal bowel sounds, no guarding or rigidity. EXTREMITIES: No clubbing, no edema, no cyanosis, 2+ pulses and upper and lower extremities. MUSCULOSKELETAL: Muscle strength and tone normal. SPINE: No scoliosis or deformity SKIN: No rashes CENTRAL NERVOUS SYSTEM: Alert and oriented -3. No focal deficits, tone is normal in all 4 extremities. PSYCHIATRIC: Alert and oriented -3. Appropriate affect. Intact judgment and insight. - Labs CBC & Chem 7: 03/26/20 07:19 03/26/20 07:19 Labs: Abnormal Lab Results - Last 24 Hours (Table) 03/25/20 03/26/20 Range/Units 06:30 07:19 Sodium 149 H (135-145) mmol/L Potassium 3.3 L (3.5-5.5) mmol/L Chloride 116 H (96-109) mmol/L AST 82 H (13-35) U/L ALT 72 H (8-44) U/L Alkaline Phosphatase 210 H (41-126) U/L Lactate Dehydrogenase 465 H (120-246) U/L C-Reactive Protein 14.9 H (0.0-0.8) mg/dL Microbiology - Last 24 Hours (Table) 03/23/20 09:47 Blood Culture - Preliminary Blood No Growth after 72 hours Assessment and Plan Plan: #1. Acute COVID 19 infection first diagnosed on 03/15/2020 with the onset of symptoms around 03/08/2020. There has been some interval worsening in the patient's oxygenation and currently the patient the patient initially required 15 L of oxygen by nasal cannula and subsequently she was placed on high flow oxygen at 15 L per minute. She visited FiO2 of 60%. She is able to maintain a saturation above 92%.her chest x-ray from yesterday showed increased lung markings bilaterally compatible with coronavirus Covid 19 infection. #2. Intractable nausea vomiting and diarrhea related to the above, no emesis for now and the patient is still having diarrhea. Stool for C. diff is negative. #3. Acute COVID 19 pneumonia and acute hypoxic respiratory failure related to above #4. History of COPD #5. CAD with previous history of stenting #6. Previous history of DVT #7. GERD/reflux #8. Hyperlipidemia #9. Hypertension #10. CVA/TIA #11. Former smoker #12. Hypokalemia related to decreased oral intake nausea vomiting and diarrhea #13 hypernatremia Plan: Utilize high flow oxygen at 6 L to maintain a saturation above 90% Put the patient half-normal saline along with potassium supplements Continue Decadron 6 mg by mouth daily Continue Lovenox Continue vitamin supplements the patient is, patient is out of the window for Remdesivir. Prognosis guarded. We will continue to follow.
[2020-03-26] MEDS: 0.45% NACL WITH KCL 20 MEQ/L 1,000 ML IV SCH ×2 (18:53→20:17)
[2020-03-26] MEDS: POTASSIUM CHLORIDE ER 20 MEQ TAB.ER PO SCH ×2 (20:14→20:16)
[2020-03-26] MEDS: amLODIPine 5 MG TAB PO SCH (20:15)
[2020-03-26] MEDS: ALPRAZolam 0.5 MG TAB PO PRN (20:15)
[2020-03-27] MEDS: ALPRAZolam 0.5 MG TAB PO PRN ×3 (06:01→21:00)
[2020-03-27] MEDS: dexAMETHasone 2 MG TAB PO SCH (07:48)
[2020-03-27] MEDS: DICYCLOMINE 20 MG TAB PO SCH ×2 (07:48→21:00)
[2020-03-27] MEDS: ASPIRIN 81 MG PO SCH (07:48)
[2020-03-27] MEDS: PANTOPRAZOLE 40 MG TABLET PO SCH (07:48)
[2020-03-27] MEDS: ENOXAPARIN 40 MG/0.4 ML SYRINGE SQ SCH (07:48)
[2020-03-27] MEDS: SUCRALFATE 1 GM TAB PO SCH ×4 (07:48→21:00)
[2020-03-27] MEDS: METOPROLOL TARTRATE 12.5 MG TAB PO SCH ×2 (07:48→21:00)
[2020-03-27] MEDS: FAMOTIDINE 20 MG TAB PO SCH (07:48)
[2020-03-27] MEDS: allopurinoL 100 MG TAB PO SCH (07:49)
[2020-03-27] MEDS: POTASSIUM CHLORIDE ER 10 MEQ TAB.ER.PRT PO SCH ×2 (07:49→21:00)
[2020-03-27] MEDS: COLCHICINE 0.6 MG EACH PO SCH (07:49)
[2020-03-27] MEDS: PRAVASTATIN SODIUM 20 MG TAB PO SCH (07:49)
[2020-03-27] MEDS: 0.45% NACL WITH KCL 20 MEQ/L 1,000 ML IV SCH (07:54)
[2020-03-27 08:08] LABS: HCT 44.3 % (34.0-46.0); HGB 15.1 gm/dL (11.4-16.0); MCH 29.7 pg (25.0-35.0); MCHC 34.1 g/dL (31.0-37.0); MCV 87.1 fL (80.0-100.0); Mean Platelet Volume 7.4; Platelet Count 286 k/uL (150-450); RBC 5.09 m/uL (3.80-5.40); RDW 14.3 % (11.5-15.5); WBC 12.4 k/uL (3.8-10.6)
[2020-03-27] MEDS ORDERED: HALOPERIDOL LACTATE 5 MG/ML 1 ML VIAL IM PRN (12:06)
--- NOTE | 2020-03-27 12:06 | P.PN ---
Subjective Progress Note Date: 03/27/20 79-year-old white female patient with past medical history of COPD, hypertensio n and emergency department on 03/15/2020 for evaluation of nausea, vomiting, and she tested positive for COVID 19, her onset of symptoms was around a week prior to presentation on 03/08/2020. Patient had decreased oral intake. No fever, chills. Other medical history includes a history of CVA, DVT, GERD/reflux, osteoarthritis, CAD with previous PTCA and stenting, anxiety, and history of smoking. Patient discharged home at that time with gvgv-rxb-rscronk vitamin D, vitamin C, zinc, and was instructed to come back for worsening symptoms. On 2019 patient came back to the emergency department for reevaluation of intractable nausea, vomiting and diarrhea, patient was unable to tolerate any food water and she was unable to take any of her medications, she has had fevers, for which she is been taking Tylenol, no abdominal pain, no shortness of breath or coughing. Is x-ray reveals bibasilar infiltrates greater at the left lung base. Labs have been reviewed showing lymphopenia with lymphocyte count of 0.5, potassium is 2.7, d-dimer is 0.48, BUN of 19 creatinine 0.8, plasma lactic acid is 1.4, ferritin level is 438, AST is 45, ALT is 26, alkaline phosphatase is 120, LDH is 960, CRP is 82, pro calcitonin level is 0.2. She was given IV fluid hydration, her vital signs have been stable overnight, the low-grade fever this morning, with a temp of 100.1F, she is on 2 L of oxygen and the pulse ox of 91-94%, she has a congested cough but denies any shortness of breath. on today's evaluation of03/25/2020, the patient is still having diarrhea. She had several bouts of diarrhea. Stool for C. diff came back negative. No abdominal pain. No emesis. She continues to have episodic cough. Potassium has been replaced.she is having also some worsening shortness of breath. Tootie carmichael this morning she was found to be hypoxic and she is currently on 15 L of oxygen by nasal cannula. She is quite restless. Her mentation is waxing and waning. I feel like she is a bit confused on today's evaluation. Note that when she came in she was only on 2 L of oxygen by nasal cannula. On 03/26/2020, seeing the patient for a follow-up. The patient is still confused. She is quite restless in bed. She is still having some loose diarrhea. She is also on high flow oxygen at 15 L per minute nasal cannula to maintain a saturation above 90%. However, this afternoon, the patient's condition decompensated. She became progressively more hypoxic. As such, the patient was placed on high flow oxygen and she is currently on 15 L of oxygen by nasal cannula.. Level is on the rise in the patient's sodium level is at 149. Renal function remains stable. LDH from yesterday was 465 with a CRP level of 14.9. The patient otherwise is hemodynamically stable. She is on Lovenox 40 mg subcu for DVT prophylaxis. She is on Decadron 6 mg by mouth daily. Home medications of been ordered resume. As mentioned earlier, the patient has history of COPD and hypertension. I gave her IV fluids and I switched IV fluids to half-normal saline along with a 20 mEq of potassium chloride to run at 75 mL an hour. On 03/27/2020, the patient is restless, confused, moaning, and she is sitting in obvious respiratory distress. The patient remains on 100% nonrebreather facemask addition to high flow oxygen which is running at 60 L with a FiO2 of 93% and her pulse ox currently is 95-96%. Patient has received 2 tablets of Xanax 0.5 mg earlier today. Her last chest x-ray showed bilateral pulmonary infiltrates and this was done on 03/25/2020. A repeat chest x-ray is to be done today. Meanwhile, the rest of the blood work is pending. Her CBC shows no significant abnormalities. Neurologic exam is nonfocal. She is moving all 4 extremities. She is on IV fluid with half-normal saline and potassium running at 75 mL an hour. Objective - Vital Signs Vital signs: Vital Signs Temp 98.5 F 03/27/20 10:00 Pulse 107 H 03/27/20 10:00 Resp 21 03/27/20 10:00 BP 161/89 03/27/20 10:00 Pulse Ox 94 L 03/27/20 10:00 Intake & Output 03/26/20 03/27/20 03/27/20 18:59 06:59 18:59 Intake Total 1899 Balance 190 Weight 68.039 kg Intake: IV 1000 0.9% NaCl with KCl 20 Meq 1000 /l 1,000 ml @ 75 mls/hr IV .[id number] [facility] Rx#: [id number] Oral 900 Other: Voiding Method Toilet Incontinent Diaper # Voids 1 1 # Bowel Movements 1 1 - Exam GENERAL EXAM: Alert, very pleasant, 79-year-old white female, on 100% nonrebreather facemask in addition to high flow oxygen at 60 L with an FiO2 of 90%. She is somnolent and lethargic. She is the previous. She is moaning. At times she feels. She is having waxing and waning mentation and her level of alertness fluctuates between OA2 and 3. HEAD: Normocephalic/atraumatic. EYES: Normal reaction of pupils, equal size. Conjunctiva pink, sclera white. NOSE: Clear with pink turbinates. THROAT: No erythema or exudates. NECK: No masses, no JVD, no thyroid enlargement, no adenopathy. CHEST: No chest wall deformity. Symmetrical expansion. LUNGS: Equal air entry with Mild crackles at the bases, the patient has bilateral breast implants CVS: Regular rate and rhythm, normal S1 and S2, no gallops, no murmurs, no rubs ABDOMEN: Soft, nontender. No hepatosplenomegaly, normal bowel sounds, no guarding or rigidity. EXTREMITIES: No clubbing, no edema, no cyanosis, 2+ pulses and upper and lower extremities. MUSCULOSKELETAL: Muscle strength and tone normal. SPINE: No scoliosis or deformity SKIN: No rashes CENTRAL NERVOUS SYSTEM: Somnolent and lethargic and altered mentation. Somewhat the previous. Occasional agitation. The patient moaning. No focal deficits, tone is normal in all 4 extremities. PSYCHIATRIC: Unable to assess. - Labs CBC & Chem 7: 03/27/20 07:32 03/26/20 07:19 Labs: Abnormal Lab Results - Last 24 Hours (Table) 03/27/20 Range/Units 07:32 WBC 12.4 H (3.8-10.6) k/uL Microbiology - Last 24 Hours (Table) 03/23/20 09:47 Blood Culture - Preliminary Blood No Growth after 96 hours Assessment and Plan Plan: #1. Acute COVID 19 infection first diagnosed on 03/15/2020 with the onset of symptoms around 03/08/2020. There has been some interval worsening in the patient's oxygenation and currently the patient the patient initially required 15 L of oxygen by nasal cannula and subsequently she was placed on high flow oxygen at 15 L per minute. There is a further decompensation the patient's respiratory status. The patient became progressively more hypoxic and currently she is on high flow oxygen at 60L in addition to 100% nonrebreather facemask. #2. Intractable nausea vomiting and diarrhea related to the above, no emesis for now and the patient is still having diarrhea. Stool for C. diff is negative. Her GI symptoms have subsided. The patient is not interested. She was not eating for now and she is not having any diarrhea. The patient IV fluid with half-normal saline #3. Acute COVID 19 pneumonia and acute hypoxic respiratory failure related to above #4. History of COPD #5. CAD with previous history of stenting #6. Previous history of DVT #7. GERD/reflux #8. Hyperlipidemia #9. Hypertension #10. CVA/TIA #11. Former smoker #12. Hypokalemia related to decreased oral intake nausea vomiting and diarrhea #13 hypernatremia awaiting follow-up labs Plan: Utilize high flow oxygen at 60 liters in addition to 100% nonrebreather facemask. Repeat chest x-ray Awaiting inflammatory markers Haldol 1 mg every 2-3 hours on a when necessary basis for agitation and delirium. Put the patient half-normal saline along with potassium supplements Continue Decadron 6 mg IV daily Continue Lovenox Continue vitamin supplements the patient is, patient is out of the window for Remdesivir. Prognosis guarded. We will continue to follow.
[2020-03-27] MEDS: DEXAMETHASONE SOD PHOSPHATE 10 MG/ML 1 ML VIAL IV SCH (12:37)
[2020-03-27 12:44] LABS: Potassium 3.6 mmol/L (3.5-5.5)
[2020-03-27 12:45] LABS: African American GFR (CKD) 80.1 (60.0-200.0); Albumin 3.9 g/dL (3.80-4.90); Albumin/Globulin Ratio 1.7 (1.60-3.17); BUN/Creat Ratio 23.75 Ratio (12.00-20.00); Calcium 9.1 mg/dL (8.7-10.3); Globulin 2.3 g/dL (1.6-3.3); Non-African American GFR(CKD) 69.1 (60.0-200.0); Total Bilirubin 1.1 mg/dL (0.2-1.2); Total Protein 6.2 g/dL (6.2-8.2)
--- NOTE | 2020-03-27 12:47 | XR ---
EXAMINATION TYPE: XR chest 1V DATE OF EXAM: 03/27/2020 COMPARISON: 03/25/2020 INDICATION: Covid pneumonitis short of breath TECHNIQUE: Single frontal view of the chest is obtained. FINDINGS: The heart size is normal. The pulmonary vasculature is prominent. Diffuse increased lung markings are present. Bilateral breast prostheses are evident IMPRESSION: 1. Diffuse bilateral lung infiltrates, stable.
[2020-03-27] MEDS: amLODIPine 5 MG TAB PO SCH (21:00)
[2020-03-28] MEDS: ACETAMINOPHEN TAB 325 MG TAB PO PRN (01:40)
[2020-03-28] MEDS: 0.45% NACL WITH KCL 20 MEQ/L 1,000 ML IV SCH ×2 (03:01→21:52)
[2020-03-28] MEDS: METOPROLOL TARTRATE 12.5 MG TAB PO SCH ×2 (07:34→21:52)
[2020-03-28] MEDS: DICYCLOMINE 20 MG TAB PO SCH ×3 (07:34→21:52)
[2020-03-28] MEDS: DEXAMETHASONE SOD PHOSPHATE 10 MG/ML 1 ML VIAL IV SCH (07:34)
[2020-03-28] MEDS: PRAVASTATIN SODIUM 20 MG TAB PO SCH ×2 (07:34→09:40)
[2020-03-28] MEDS: SUCRALFATE 1 GM TAB PO SCH ×5 (07:34→21:54)
[2020-03-28] MEDS: FAMOTIDINE 20 MG TAB PO SCH ×2 (07:34→09:39)
[2020-03-28] MEDS: ASPIRIN 81 MG PO SCH ×2 (07:34→09:39)
[2020-03-28] MEDS: ENOXAPARIN 40 MG/0.4 ML SYRINGE SQ SCH (07:34)
[2020-03-28] MEDS: PANTOPRAZOLE 40 MG TABLET PO SCH ×2 (07:34→09:39)
[2020-03-28] MEDS: COLCHICINE 0.6 MG EACH PO SCH ×2 (07:35→09:39)
[2020-03-28] MEDS: POTASSIUM CHLORIDE ER 10 MEQ TAB.ER.PRT PO SCH ×3 (07:35→21:52)
[2020-03-28] MEDS: allopurinoL 100 MG TAB PO SCH ×2 (07:35→09:39)
[2020-03-28] MEDS: ALPRAZolam 0.5 MG TAB PO PRN (09:20)
[2020-03-28 10:18] LABS: C Reactive Protein 14.7 mg/dL (0.0-0.8)
[2020-03-28] MEDS ORDERED: SUCCINYLCHOLINE CHLORIDE VIAL 200 MG/10 ML VIAL IV ONE (11:13)
[2020-03-28] MEDS ORDERED: PROPOFOL 10 MG/ML 20 ML VIAL IV ONE (11:13)
--- NOTE | 2020-03-28 11:55 | P.PN ---
Subjective Progress Note Date: 03/28/20 79-year-old white female patient with past medical history of COPD, hypertensio n and emergency department on 03/15/2020 for evaluation of nausea, vomiting, and she tested positive for COVID 19, her onset of symptoms was around a week prior to presentation on 03/08/2020. Patient had decreased oral intake. No fever, chills. Other medical history includes a history of CVA, DVT, GERD/reflux, osteoarthritis, CAD with previous PTCA and stenting, anxiety, and history of smoking. Patient discharged home at that time with [id number] vitamin D, vitamin C, zinc, and was instructed to come back for worsening symptoms. On 2019 patient came back to the emergency department for reevaluation of intractable nausea, vomiting and diarrhea, patient was unable to tolerate any food water and she was unable to take any of her medications, she has had fevers, for which she is been taking Tylenol, no abdominal pain, no shortness of breath or coughing. Is x-ray reveals bibasilar infiltrates greater at the left lung base. Labs have been reviewed showing lymphopenia with lymphocyte count of 0.5, potassium is 2.7, d-dimer is 0.48, BUN of 19 creatinine 0.8, plasma lactic acid is 1.4, ferritin level is 438, AST is 45, ALT is 26, alkaline phosphatase is 120, LDH is 960, CRP is 82, pro calcitonin level is 0.2. She was given IV fluid hydration, her vital signs have been stable overnight, the low-grade fever this morning, with a temp of 100.1F, she is on 2 L of oxygen and the pulse ox of 91-94%, she has a congested cough but denies any shortness of breath. on today's evaluation of03/25/2020, the patient is still having diarrhea. She had several bouts of diarrhea. Stool for C. diff came back negative. No abdominal pain. No emesis. She continues to have episodic cough. Potassium has been replaced.she is having also some worsening shortness of breath. Tootie carmichael this morning she was found to be hypoxic and she is currently on 15 L of oxygen by nasal cannula. She is quite restless. Her mentation is waxing and waning. I feel like she is a bit confused on today's evaluation. Note that when she came in she was only on 2 L of oxygen by nasal cannula. On 03/26/2020, seeing the patient for a follow-up. The patient is still confused. She is quite restless in bed. She is still having some loose diarrhea. She is also on high flow oxygen at 15 L per minute nasal cannula to maintain a saturation above 90%. However, this afternoon, the patient's condition decompensated. She became progressively more hypoxic. As such, the patient was placed on high flow oxygen and she is currently on 15 L of oxygen by nasal cannula.. Level is on the rise in the patient's sodium level is at 149. Renal function remains stable. LDH from yesterday was 465 with a CRP level of 14.9. The patient otherwise is hemodynamically stable. She is on Lovenox 40 mg subcu for DVT prophylaxis. She is on Decadron 6 mg by mouth daily. Home medications of been ordered resume. As mentioned earlier, the patient has history of COPD and hypertension. I gave her IV fluids and I switched IV fluids to half-normal saline along with a 20 mEq of potassium chloride to run at 75 mL an hour. On 03/27/2020, the patient is restless, confused, moaning, and she is sitting in obvious respiratory distress. The patient remains on 100% nonrebreather facemask addition to high flow oxygen which is running at 60 L with a FiO2 of 93% and her pulse ox currently is 95-96%. Patient has received 2 tablets of Xanax 0.5 mg earlier today. Her last chest x-ray showed bilateral pulmonary infiltrates and this was done on 03/25/2020. A repeat chest x-ray is to be done today. Meanwhile, the rest of the blood work is pending. Her CBC shows no significant abnormalities. Neurologic exam is nonfocal. She is moving all 4 extremities. She is on IV fluid with half-normal saline and potassium running at 75 mL an hour. On 03/28/2020, the patient is worse in terms of her mentation. Although she is not as much restless, she continues to moan and she is confused. She is also painful stimulation. She is unable to hold a conversation. There is a change in her condition over the past 48 hours. She remains on the percent nonrebreather facemask in addition to high flow oxygen at 60 L. I repeated the chest x-ray yesterday showed some limited infiltration lung bases. Lungs are showing limited In the lung bases. Pulse ox remained about 90% as long as the patient is able to deliver the oxygen through the nonrebreather and there was a high flow. She is also on half normal saline running at 75 mL an hour. As mentioned earlier, her neurologic exam is nonfocal. The patient is still on Decadron 6 mg IV. She has not received any sedatives. She has not received any Haldol. She will need a blood gas and possibly transfer to the intensive care unit. Her LDH from yesterday 78. Her CRP is at 14.7. The patient's temperature is at 100.5. Objective - Vital Signs Vital signs: Vital Signs Temp 98.3 F 03/28/20 10:00 Pulse 117 H 03/28/20 10:00 Resp 22 03/28/20 10:00 BP 165/77 03/28/20 10:00 Pulse Ox 97 03/28/20 10:00 Intake & Output 03/27/20 03/28/20 03/28/20 18:59 06:59 18:59 Intake Total 600 600 Balance 600 600 Intake: IV 600 600 0.45% NaCl with KCl 20 600 600 Meq/l 1,000 ml @ 75 mls/ hr IV .[id number] [facility] Rx#: [id number] Other: Voiding Method Incontinent Diaper Incontinent Incontinent # Voids 3 - Exam GENERAL EXAM: Alert, very pleasant, 79-year-old white female, on 100% nonrebreather facemask in addition to high flow oxygen at 60 L with an FiO2 of 90%. She is somnolent and lethargic. She is the previous. She is moaning. At times she feels. She is having waxing and waning mentation and her level of alertness fluctuates between OA2 and 3. HEAD: Normocephalic/atraumatic. EYES: Normal reaction of pupils, equal size. Conjunctiva pink, sclera white. NOSE: Clear with pink turbinates. THROAT: No erythema or exudates. NECK: No masses, no JVD, no thyroid enlargement, no adenopathy. CHEST: No chest wall deformity. Symmetrical expansion. LUNGS: Equal air entry with Mild crackles at the bases, the patient has bilateral breast implants CVS: Regular rate and rhythm, normal S1 and S2, no gallops, no murmurs, no rubs ABDOMEN: Soft, nontender. No hepatosplenomegaly, normal bowel sounds, no guarding or rigidity. EXTREMITIES: No clubbing, no edema, no cyanosis, 2+ pulses and upper and lower extremities. MUSCULOSKELETAL: Muscle strength and tone normal. SPINE: No scoliosis or deformity SKIN: No rashes CENTRAL NERVOUS SYSTEM: Somnolent and lethargic and altered mentation. Somewhat the previous. Occasional agitation. The patient moaning. No focal deficits, tone is normal in all 4 extremities. PSYCHIATRIC: Unable to assess. - Labs CBC & Chem 7: 03/27/20 07:32 03/27/20 07:32 Labs: Abnormal Lab Results - Last 24 Hours (Table) 03/27/20 03/28/20 03/28/20 Range/Units 07:32 05:46 05:46 D-Dimer 1.91 H (<0.60) mg/L FEU Sodium 148 H (135-145) mmol/L Chloride 119 H (96-109) mmol/L Carbon Dioxide 16.0 L (21.6-31.8) mmol/L Anion Gap 13.00 H (4.00-12.00) mmol/L BUN/Creatinine Ratio 23.75 H (12.00-20.00) Ratio Glucose 117 H (70-110) mg/dL AST 67 H (13-35) U/L ALT 85 H (8-44) U/L Alkaline Phosphatase 230 H (41-126) U/L Lactate Dehydrogenase 670 H (120-246) U/L C-Reactive Protein 14.7 H (0.0-0.8) mg/dL Microbiology - Last 24 Hours (Table) 03/23/20 09:47 Blood Culture - Preliminary Blood No Growth after 96 hours Assessment and Plan Plan: #1. Acute COVID 19 infection first diagnosed on 03/15/2020 with the onset of symptoms around 03/08/2020. There has been some interval worsening in the patient's oxygenation and currently the patient the patient initially required 60 L of oxygen by nasal cannula and subsequently she was placed on high flow oxygen at 60 L per minute. #2. Intractable nausea vomiting and diarrhea related to the above, no emesis for now and the patient is still having diarrhea. Stool for C. diff is negative. This has subsided significantly. #3. Acute COVID 19 pneumonia and acute hypoxic respiratory failure related to above, still on 100 % nonrebreather facemask and a 60 L of oxygen by nasal cannula, high flow. #4. History of COPD #5. CAD with previous history of stenting #6. Previous history of DVT #7. GERD/reflux #8. Hyperlipidemia #9. Hypertension #10. CVA/TIA #11. Former smoker #12. Hypokalemia related to decreased oral intake nausea vomiting and diarrhea #13 hypernatremia awaiting follow-up labs Plan: Utilize high flow oxygen at 60 liters in addition to 100% nonrebreather facemask. Repeat chest x-ray in the ICU today Repeat blood work and inflammatory markers today Haldol 1 mg every 2-3 hours on a when necessary basis for agitation and delirium. Put the patient half-normal saline along with potassium supplements Continue Decadron 6 mg IV daily Continue Lovenox Transferred to the ICU Consider addition of Precedex to control her agitation and restlessness Obtain a blood gas the patient is, patient is out of the window for Remdesivir. Prognosis guarded. We will continue to follow. Because status is full her boyfriend. She also has advanced directives to be a full code.
[2020-03-28 12:17] LABS: Basophils # (A) 0.1 k/uL (0-0.2); Basophils % (A) 1 %; Eosinophils % (A) 0 %; HCT 46.5 % (34.0-46.0); Hypochromasia Slight; Lymphocytes # (A) 0.3 k/uL (1.0-4.8); Lymphocytes % (A) 2 %; MCHC 32.3 g/dL (31.0-37.0); Monocytes # (A) 0.3 k/uL (0-1.0); Monocytes % (A) 2 %; Neutrophils # (A) 13.3 k/uL (1.3-7.7); Neutrophils % (A) 95 %; Platelet Count 275 k/uL (150-450); RBC 5.17 m/uL (3.80-5.40); RDW 14.5 % (11.5-15.5); WBC 14.1 k/uL (3.8-10.6)
[2020-03-28 12:23] LABS: ALT 73 U/L (4-34); AST 58 U/L (14-36); African American GFR (CKD) 79 (>60 ml/min/1.73 sqM); Albumin 3.1 g/dL (3.5-5.0); Alkaline Phosphatase 236 U/L (38-126); Anion Gap 13 mmol/L; Blood Urea Nitrogen 18 mg/dL (7-17); Calcium 9.1 mg/dL (8.4-10.2); Carbon Dioxide 13 mmol/L (22-30); Chloride 130 mmol/L (98-107); Globulin 3.2 g/dL; Glucose 148 mg/dL (74-99); Non-African American GFR(CKD) 69 (>60 ml/min/1.73 sqM); Potassium 3.8 mmol/L (3.5-5.1); Sodium 156 mmol/L (137-145); Total Bilirubin 1.9 mg/dL (0.2-1.3); Total Protein 6.3 g/dL (6.3-8.2)
[2020-03-28 12:44] LABS: Glucose,Whole Blood 191 mg/dL (75-99)
[2020-03-28 12:58] LABS: ABG Base Excess -12.8 mmol/L; ABG HCO3 12 mmol/L (21-25); ABG Oxygen Saturation 90.8 % (94-97); ABG PH 7.41 (7.35-7.45); ABG TCO2 13 mmol/L (19-24); Allen Test Performed? Yes
[2020-03-28 13:01] LABS: ABG PCO2 19 mmHg (35-45); ABG PO2 57 mmHg (83-108)
[2020-03-28 13:05] LABS: Glucose,Whole Blood 164 mg/dL (75-99)
[2020-03-28] MEDS: DEXMEDETOMIDINE/0.9% NACL(PMX) 400 MCG in EMPTY BAG 1 BAG IV SCH ×2 (13:44→22:08)
--- NOTE | 2020-03-28 14:38 | P.PCN ---
Date of Procedure: 03/28/20 Preoperative Diagnosis: Acute hypoxic respiratory failure Postoperative Diagnosis: Acute hypoxic respiratory failure Procedure(s) Performed: Central line insertion Anesthesia: local Surgeon: Halley Devi Estimated Blood Loss (ml): 0 Pathology: none sent Condition: critical Disposition: ICU Operative Findings: Indication: Hemodynamic monitoring/Intravenous access. A time-out was completed verifying correct patient, procedure, site, positioning, and implant(s) or special equipment if applicable. The patient was placed in a dependent position appropriate for central line placement based on the vein to be cannulated. The patients left neck was prepped and draped in sterile fashion. 1% Lidocaine was used to anesthetize the surrounding skin area. A triple lumen 9F Cordis catheter was introduced into the internal jugular vein using Seldinger technique. The catheter was threaded smoothly over the guide wire and appropriate blood return was obtained. Each lumen of the catheter was evacuated of air and flushed with sterile saline. The catheter was then sutured in place to the skin and a sterile dressing applied. Perfusion to the extremity distal to the point of catheter insertion was checked and found to be adequate. The patient tolerated the procedure well and there were no complications. I
--- NOTE | 2020-03-28 15:05 | XR ---
EXAMINATION TYPE: XR chest 1V portable DATE OF EXAM: 03/28/2020 COMPARISON: 03/27/2020. HISTORY: Line placement. TECHNIQUE: Single frontal view of the chest is obtained. FINDINGS: There is interval placement of a left IJ catheter with tip overlying the caudal SVC. There is unchanged bilateral diffuse moderate interstitial opacities, most pronounced peripherally and at the lung bases. No significant pleural effusion or pneumothorax. The cardiac silhouette size is with in normal limits. The osseous structures are intact. Bilateral breast implants are again seen. IMPRESSION: As above.
--- NOTE | 2020-03-28 16:00 | P.PN ---
Subjective Progress Note Date: 03/28/20 Principal diagnosis: Acute hypoxic respiratory failure secondary to covert 19 bilateral pneumonia Intractable nausea/vomiting and diarrhea related to acute covert 19 vital infection Altered mental status 03/28/2020, Patient has been transferred to ICU due to worsening mental status and respiratory status. Patient is currently on the percent nonrebreather facemask in addition to high flow oxygen at 60 L; repeat chest x-ray yesterday showed some limited infiltration lung bases. Lungs are showing limited In the lung bases. Pulse ox remained about 90% as long as the patient is able to deliver the oxygen through the nonrebreather and there was a high flow. She is also on half normal saline running at 75 mL an hour. Patient remains on on Decadron 6 mg IV; Lovenox subcu; Precedex for control of agitation and restlessness. She has not received any sedatives. She has not received any Haldol. She will need a blood gas and possibly transfer to the intensive care unit. Her LDH from yesterday 78. Her CRP is at 14.7. The patient's temperature is at 100.5; patient is out of the window for Remdesivir Objective - Vital Signs Vital signs: Vital Signs Temp 98.6 F 03/28/20 13:00 Pulse 92 03/28/20 15:30 Resp 31 H 03/28/20 15:30 BP 109/73 03/28/20 15:30 Pulse Ox 93 L 03/28/20 15:30 Intake & Output 03/27/20 03/28/20 03/28/20 18:59 06:59 18:59 Intake Total 600 600 Output Total 500 Balance 600 100 Intake: IV 600 600 0.45% NaCl with KCl 20 600 600 Meq/l 1,000 ml @ 75 mls/ hr IV .[id number] [facility] Rx#: [id number] Output: Urine 500 Other: Voiding Method Incontinent Diaper Incontinent Incontinent # Voids 3 - Labs CBC & Chem 7: 03/28/20 05:46 03/28/20 05:46 Labs: Abnormal Lab Results - Last 24 Hours (Table) 03/28/20 03/28/20 03/28/20 Range/Units 05:46 05:46 05:46 WBC 14.1 H (3.8-10.6) k/uL Hct 46.5 H (34.0-46.0) % Neutrophils # 13.3 H (1.3-7.7) k/uL Lymphocytes # 0.3 L (1.0-4.8) k/uL D-Dimer 1.91 H (<0.60) mg/L FEU ABG pCO2 (35-45) mmHg ABG pO2 (83-108) mmHg ABG HCO3 (21-25) mmol/L ABG Total CO2 (19-24) mmol/L ABG O2 Saturation (94-97) % Sodium (137-145) mmol/L Chloride (98-107) mmol/L Carbon Dioxide (22-30) mmol/L BUN (7-17) mg/dL Glucose (74-99) mg/dL POC Glucose (mg/dL) (75-99) mg/dL Total Bilirubin (0.2-1.3) mg/dL AST (14-36) U/L ALT (4-34) U/L Alkaline Phosphatase (38-126) U/L Lactate Dehydrogenase 670 H (120-246) U/L C-Reactive Protein 14.7 H (0.0-0.8) mg/dL Albumin (3.5-5.0) g/dL 03/28/20 03/28/20 03/28/20 Range/Units 05:46 12:43 12:58 WBC (3.8-10.6) k/uL Hct (34.0-46.0) % Neutrophils # (1.3-7.7) k/uL Lymphocytes # (1.0-4.8) k/uL D-Dimer (<0.60) mg/L FEU ABG pCO2 19 L* (35-45) mmHg ABG pO2 57 L* (83-108) mmHg ABG HCO3 12 L (21-25) mmol/L ABG Total CO2 13 L (19-24) mmol/L ABG O2 Saturation 90.8 L (94-97) % Sodium 156 H (137-145) mmol/L Chloride 130 H (98-107) mmol/L Carbon Dioxide 13 L (22-30) mmol/L BUN 18 H (7-17) mg/dL Glucose 148 H (74-99) mg/dL POC Glucose (mg/dL) 191 H (75-99) mg/dL Total Bilirubin 1.9 H (0.2-1.3) mg/dL AST 58 H (14-36) U/L ALT 73 H (4-34) U/L Alkaline Phosphatase 236 H (38-126) U/L Lactate Dehydrogenase (120-246) U/L C-Reactive Protein (0.0-0.8) mg/dL Albumin 3.1 L (3.5-5.0) g/dL 03/28/20 Range/Units 13:03 WBC (3.8-10.6) k/uL Hct (34.0-46.0) % Neutrophils # (1.3-7.7) k/uL Lymphocytes # (1.0-4.8) k/uL D-Dimer (<0.60) mg/L FEU ABG pCO2 (35-45) mmHg ABG pO2 (83-108) mmHg ABG HCO3 (21-25) mmol/L ABG Total CO2 (19-24) mmol/L ABG O2 Saturation (94-97) % Sodium (137-145) mmol/L Chloride (98-107) mmol/L Carbon Dioxide (22-30) mmol/L BUN (7-17) mg/dL Glucose (74-99) mg/dL POC Glucose (mg/dL) 164 H (75-99) mg/dL Total Bilirubin (0.2-1.3) mg/dL AST (14-36) U/L ALT (4-34) U/L Alkaline Phosphatase (38-126) U/L Lactate Dehydrogenase (120-246) U/L C-Reactive Protein (0.0-0.8) mg/dL Albumin (3.5-5.0) g/dL Microbiology - Last 24 Hours (Table) 03/23/20 09:47 Blood Culture - Preliminary Blood No Growth after 120 hours Assessment and Plan Assessment: 1. Acute COVID 19 infection first diagnosed on 03/15/2020 with the onset of symptoms around 03/08/2020. There has been some interval worsening in the patient's oxygenation and currently the patient the patient initially required 60 L of oxygen by nasal cannula and subsequently she was placed on high flow oxygen at 60 L per minute. 2. Intractable nausea vomiting and diarrhea related to the above, no emesis for now and the patient is still having diarrhea. Stool for C. diff is negative. This has subsided significantly. 3. Acute COVID 19 pneumonia and acute hypoxic respiratory failure related to above, still on 100 % nonrebreather facemask and a 60 L of oxygen by nasal cannula, high flow. 4. History of COPD 5. CAD with previous history of stenting 6. Previous history of DVT 7. GERD/reflux; continue with Protonix and Carafate 8. Hyperlipidemia; pravastatin 20 mg by mouth daily at bedtime 9. Hypertension; stable on amlodipine and Lopressor 10. CVA/TIA Plan: Utilize high flow oxygen at 60 liters in addition to 100% nonrebreather facemask. Repeat chest x-ray in the ICU today Repeat blood work and inflammatory markers today Haldol 1 mg every 2-3 hours on a when necessary basis for agitation and delirium. Put the patient half-normal saline along with potassium supplements Continue Decadron 6 mg IV daily Continue Lovenox Transferred to the ICU Consider addition of Precedex to control her agitation and restlessness Obtain a blood gas the patient is, patient is out of the window for Remdesivir. Prognosis guarded. We will continue to follow. Because status is full her boyfriend. She also has advanced directives to be a full code.
[2020-03-28] MEDS: amLODIPine 5 MG TAB PO SCH (21:52)
[2020-03-28] MEDS ORDERED: LORazepam 2 MG/ML INJ IV PRN (22:05)
[2020-03-28] MEDS ORDERED: HALOPERIDOL LACTATE 5 MG/ML 1 ML VIAL IVP PRN (22:05)
[2020-03-28 22:45] LABS: ABG Base Excess -13.2 mmol/L; ABG HCO3 12 mmol/L (21-25); ABG Oxygen Saturation 83.5 % (94-97); ABG PCO2 21 mmHg (35-45); ABG PH 7.37 (7.35-7.45); ABG TCO2 13 mmol/L (19-24); Allen Test Performed? Yes
[2020-03-29] MEDS ORDERED: NOREPINEPHRIN 4 MG-0.9% NS PMX 4 MG/250 ML ML IV ONE (00:05)
[2020-03-29 00:45] LABS: Allen Test Performed? Yes
[2020-03-29 00:46] LABS: ABG Base Excess -14.4 mmol/L; ABG HCO3 14 mmol/L (21-25); ABG Oxygen Saturation 93.8 % (94-97); ABG PCO2 34 mmHg (35-45); ABG PH 7.21 (7.35-7.45); ABG PO2 82 mmHg (83-108); ABG TCO2 15 mmol/L (19-24)
--- NOTE | 2020-03-29 00:54 | XR ---
EXAM: XR Chest, 1 View CLINICAL HISTORY: ITS.REASON XR Reason: Tube placement TECHNIQUE: Frontal view of the chest. COMPARISON: 03/15/2020 FINDINGS: Lungs: Mild bilateral peripheral perihilar reticulation, unchanged from 03/15/2020. No consolidation. Pleural space: Unremarkable. No pneumothorax. Heart: Unremarkable. No cardiomegaly. Mediastinum: Unremarkable. Bones/joints: Unremarkable. Soft tissues: Peripherally calcified bilateral breast implants. Lines and tubes: none visualized IMPRESSION: Mild bilateral peripheral perihilar reticulation, unchanged from 03/15/2020.
[2020-03-29] MEDS: NOREPINEPHRINE 4 MG in SODIUM CHLORIDE 0.9% 250 ML IV SCH (01:41)
[2020-03-29] MEDS: 0.45% NACL WITH KCL 20 MEQ/L 1,000 ML IV SCH (01:42)
[2020-03-29] MEDS ORDERED: SODIUM BICARB 8.4% 50 ML SYR (1 MEQ/ML) IV STA ×2 (04:41→05:01)
[2020-03-29] MEDS ORDERED: DEXTROSE 5% IN WATER 1,000 ML with SODIUM ACETATE 50 MEQ IV SCH (04:45)
[2020-03-29 04:57] LABS: Basophils # (A) 0.1 k/uL (0-0.2); Basophils % (A) 1 %; Eosinophils % (A) 0 %; HCT 44.1 % (34.0-46.0); HGB 13.8 gm/dL (11.4-16.0); Hypochromasia Slight; Lymphocytes # (A) 0.3 k/uL (1.0-4.8); Lymphocytes % (A) 2 %; MCH 28.4 pg (25.0-35.0); MCHC 31.3 g/dL (31.0-37.0); MCV 90.8 fL (80.0-100.0); Mean Platelet Volume 7.9; Monocytes # (A) 0.2 k/uL (0-1.0); Monocytes % (A) 1 %; Neutrophils # (A) 12.2 k/uL (1.3-7.7); Neutrophils % (A) 96 %; Platelet Count 292 k/uL (150-450); RBC 4.85 m/uL (3.80-5.40); RDW 14.9 % (11.5-15.5); WBC 12.8 k/uL (3.8-10.6)
[2020-03-29] MEDS ORDERED: STERILE IV ONE (05:00)
[2020-03-29] MEDS ORDERED: WATER FOR INJECTION IV ONE (05:00)
[2020-03-29] MEDS ORDERED: SODIUM ACETATE IV ONE (05:00)
[2020-03-29 05:28] LABS: ABG Base Excess -0.8 mmol/L; ABG HCO3 25 mmol/L (21-25); ABG Oxygen Saturation 95.4 % (94-97); ABG PCO2 44 mmHg (35-45); ABG PH 7.36 (7.35-7.45); ABG PO2 75 mmHg (83-108); ABG TCO2 26 mmol/L (19-24); Allen Test Performed? Yes
[2020-03-29 05:32] LABS: C Reactive Protein 198.1 mg/L (<10.0)
[2020-03-29 06:14] LABS: Albumin 2.4 g/dL (3.5-5.0); Potassium 3.7 mmol/L (3.5-5.1); Total Bilirubin 1.6 mg/dL (0.2-1.3); Total Protein 5.3 g/dL (6.3-8.2)
[2020-03-29] MEDS: SUCRALFATE 1 GM TAB PO SCH ×4 (06:39→21:07)
[2020-03-29] MEDS ORDERED: DEXTROSE 5% IN WATER 1,000 ML with SODIUM BICARB (1 MEQ/ML) 50 ML IV SCH (07:00)
[2020-03-29] MEDS ORDERED: POTASSIUM BICARBONATE/CIT AC 20 MEQ TABLET.EFF NG-TUBE SCH (07:00)
--- NOTE | 2020-03-29 07:16 | XR ---
EXAMINATION TYPE: XR chest 1V portable DATE OF EXAM: 03/29/2020 COMPARISON: 03/29/2020 HISTORY: SOB, Follow Up FINDINGS: Indwelling tubes and catheters are unchanged. Diffuse bilateral reticulonodular infiltrates are unchanged. Stable appearance of the cardio-mediastinal structures at this time. IMPRESSION: 1. Stable portable chest. Clinical correlation and follow up until resolution is recommended.
[2020-03-29] MEDS: PANTOPRAZOLE 40 MG/10 ML VIAL IVP SCH (07:59)
[2020-03-29] MEDS: ENOXAPARIN 40 MG/0.4 ML SYRINGE SQ SCH ×2 (07:59→21:04)
[2020-03-29] MEDS: CHLORHEXIDINE GLUCONATE 15 ML CUP MUCOUS MEM SCH ×2 (08:00→21:04)
[2020-03-29] MEDS: DEXAMETHASONE SOD PHOSPHATE 10 MG/ML 1 ML VIAL IV SCH (08:01)
[2020-03-29] MEDS: allopurinoL 100 MG TAB PO SCH (08:01)
[2020-03-29] MEDS: DICYCLOMINE 20 MG TAB PO SCH ×2 (08:01→23:25)
[2020-03-29] MEDS: ASPIRIN 81 MG PO SCH (08:02)
[2020-03-29] MEDS: PRAVASTATIN SODIUM 20 MG TAB PO SCH (08:02)
[2020-03-29] MEDS: METOPROLOL TARTRATE 12.5 MG TAB PO SCH ×2 (08:02→21:04)
[2020-03-29] MEDS: POTASSIUM CHLORIDE ER 10 MEQ TAB.ER.PRT PO SCH ×2 (08:03→21:08)
[2020-03-29] MEDS: FAMOTIDINE 20 MG TAB PO SCH (08:03)
[2020-03-29] MEDS: COLCHICINE 0.6 MG EACH PO SCH (08:03)
[2020-03-29] MEDS: ACETAMINOPHEN TAB 325 MG TAB PO PRN (08:37)
[2020-03-29 08:53] LABS: ABG PO2 48 mmHg (83-108)
[2020-03-29] MEDS: DEXTROSE 5% IN WATER 1,000 ML IV SCH ×2 (10:15→21:35)
--- NOTE | 2020-03-29 12:09 | CDI ---
Documentation Clarification Form Date: 03/25/2020 03:34:00 PM From: Caryl Fleming Phone: Admit Date: 03/23/2020 10:54:00 AM Patient Name: Reena Mckeon Visit Number: [id number] Discharge Date: ATTENTION: The Clinical Documentation Specialists (CDI) and [facility] Coding Staff appreciate your assistance in clarifying documentation. Please respond to the clarification below the line at the bottom and electronically sign. The CDI & [facility] Coding staff will review the response and follow-up if needed. Please note: Queries are made part of the Legal Health Record. If you have any questions, please contact the author of this message via ITS. Dr. Halley Devi: Thank you for responding to this query. Please further specify the type of encephalopathy if possible. Per the 03/25 Pulmonary Progress Note: "on today's evaluation of03/25/2020, the patient is still having diarrhea. .... Stool for C. diff came back negative. .... She continues to have episodic cough. Potassium has been replaced. She is having also some worsening shortness of breath. Earlier this morning she was found to be hypoxic and she is currently on 15 L of oxygen by nasal cannula. She is quite restless. Her mentation is waxing and waning. I feel like she is a bit confused on today's evaluation. Note that when she came in she was only on 2 L of oxygen by nasal cannula." 03/28: The patient continued to have documented confusion and worsening respiratory status, transferred to ICU. 03/29: Respiratory status continued to worsen, patient was intubated in ICU. History/Risk Factors: Chest pain/Angina, TIA, DVT, GERD, Hyperlipidemia, Hypertension, Osteoarthritis, NH, C Diff, CAD, Heart Catheterization with Stent. Anxiety, Former smoker. Clinical Indicators: Presented to the ED on 03/23 with fever, intractable nausea, vomiting, diarrhea, + COVID on 03/15. Admit with COVID 19, Hypokalemia, Diarrhea, Nausea, Vomiting and Fever. VS 03/23: T 103.0, P 93, R 18 - 20, BP 138/84, PO 92 RA - 98 2Lnc VS 03/25: T 98.4, P 87, R 20, BP 129/73, PO 80 6Lnc - 95 15L high flow LAB 03/23: Pl Ct 116*, Lymph 0.6*, K 2.7, BUN 19^, Glucose 131^, Ferritin 438.4^, AST 45^, Lactate Dehydrogenase 960^, CRP 82.2^, Procalcitonin 0.20^. 03/24 C Diff negative LAB 03/25: K 3.4*, Cl 113^, CO2 18.9*, Glucose 129^, AST 48^, Alk Phos 171^, Total Protein 6.0*. Treatment 03/23: IV fluid 1,000 mls @ 999 mls/hr q1, IV Reglan, IV Kcl, po KDur, IV fluid 1,000 mls @ 75 mls/hr q13H, IV Ativan. 03/24: po Hexadrol, Lovenox sq, po Xanax, po KDur 20 meq q1 x4 03/25: IV fluid 1100 mls @ 75 mls/hr, IV Kcl In your professional opinion, please clarify the type of Encephalopathy, if known: Metabolic Encephalopathy Toxic Encephalopathy Other Encephalopathy, please specify: Other condition (please specify) Unable to determine (Last Revision: July 2017) Metabolic Encephalopathy, also possible COVID related MTDD
--- NOTE | 2020-03-29 12:11 | P.PN ---
Subjective Progress Note Date: 03/29/20 Principal diagnosis: Acute hypoxic respiratory failure secondary to covid 19 pneumonia 79-year-old white female patient with past medical history of COPD, hypertension and emergency department on 03/15/2020 for evaluation of nausea, vomiting, and she tested positive for COVID 19, her onset of symptoms was around a week prior to presentation on 03/08/2020. Patient had decreased oral intake. No fever, chills. Other medical history includes a history of CVA, DVT, GERD/reflux, osteoarthritis, CAD with previous PTCA and stenting, anxiety, and history of smoking. Patient discharged home at that time with [id number] vitamin D, vitamin C, zinc, and was instructed to come back for worsening symptoms. On 2019 patient came back to the emergency department for reevaluation of intractable nausea, vomiting and diarrhea, patient was unable to tolerate any food water and she was unable to take any of her medications, she has had fevers, for which she is been taking Tylenol, no abdominal pain, no shortness of breath or coughing. Is x-ray reveals bibasilar infiltrates greater at the left lung base. Labs have been reviewed showing lymphopenia with lymphocyte count of 0.5, potassium is 2.7, d-dimer is 0.48, BUN of 19 creatinine 0.8, plasma lactic acid is 1.4, ferritin level is 438, AST is 45, ALT is 26, alkaline phosphatase is 120, LDH is 960, CRP is 82, pro calcitonin level is 0.2. She was given IV fluid hydration, her vital signs have been stable overnight, the low-grade fever this morning, with a temp of 100.1F, she is on 2 L of oxygen and the pulse ox of 91-94%, she has a congested cough but denies any shortness of breath. on today's evaluation of03/25/2020, the patient is still having diarrhea. She had several bouts of diarrhea. Stool for C. diff came back negative. No abdominal pain. No emesis. She continues to have episodic cough. Potassium has been replaced.she is having also some worsening shortness of breath. Earlier this morning she was found to be hypoxic and she is currently on 15 L of oxygen by nasal cannula. She is quite restless. Her mentation is waxing and waning. I feel like she is a bit confused on today's evaluation. Note that when she came in she was only on 2 L of oxygen by nasal cannula. On 03/26/2020, seeing the patient for a follow-up. The patient is still confused. She is quite restless in bed. She is still having some loose diarrhea. She is also on high flow oxygen at 15 L per minute nasal cannula to maintain a saturation above 90%. However, this afternoon, the patient's condition decompensated. She became progressively more hypoxic. As such, the patient was placed on high flow oxygen and she is currently on 15 L of oxygen by nasal cannula.. Level is on the rise in the patient's sodium level is at 149. Renal function remains stable. LDH from yesterday was 465 with a CRP level of 14.9. The patient otherwise is hemodynamically stable. She is on Lovenox 40 mg subcu for DVT prophylaxis. She is on Decadron 6 mg by mouth daily. Home medications of been ordered resume. As mentioned earlier, the patient has history of COPD and hypertension. I gave her IV fluids and I switched IV fluids to half-normal saline along with a 20 mEq of potassium chloride to run at 75 mL an hour. On 03/27/2020, the patient is restless, confused, moaning, and she is sitting in obvious respiratory distress. The patient remains on 100% nonrebreather facemask addition to high flow oxygen which is running at 60 L with a FiO2 of 93% and her pulse ox currently is 95-96%. Patient has received 2 tablets of Xanax 0.5 mg earlier today. Her last chest x-ray showed bilateral pulmonary infiltrates and this was done on 03/25/2020. A repeat chest x-ray is to be done today. Meanwhile, the rest of the blood work is pending. Her CBC shows no significant abnormalities. Neurologic exam is nonfocal. She is moving all 4 extremities. She is on IV fluid with half-normal saline and potassium running at 75 mL an hour. On 03/28/2020, the patient is worse in terms of her mentation. Although she is not as much restless, she continues to moan and she is confused. She is also painful stimulation. She is unable to hold a conversation. There is a change in her condition over the past 48 hours. She remains on the percent nonrebreather facemask in addition to high flow oxygen at 60 L. I repeated the chest x-ray yesterday showed some limited infiltration lung bases. Lungs are showing limited In the lung bases. Pulse ox remained about 90% as long as the patient is able to deliver the oxygen through the nonrebreather and there was a high flow. She is also on half normal saline running at 75 mL an hour. As mentioned earlier, her neurologic exam is nonfocal. The patient is still on Decadron 6 mg IV. She has not received any sedatives. She has not received any Haldol. She will need a blood gas and possibly transfer to the intensive care unit. Her LDH from yesterday 78. Her CRP is at 14.7. The patient's temperature is at 100.5. Patient was reevaluated today on 03/29/20, patient remains intubated and mechanically ventilated. She is on assist control rate of 28 tidal volume is 400 FiO2 is 100% and PEEP is 12. ABG showed a pO2 of 75 pCO2 of 44 pH of 7.36. Hence her PEEP was increased to 14. Patient remains on norepinephrine at 1 mcg/kg/m, and she is on a bicarb drip which I have discontinued this morning. I kept her on D5W at 1 25 mL/h, increase her free water flushes to 400 MLS every 4 hours specially with her sodium climbing up to 158 this morning. Patient was admitted on 03/23 she was intubated on 03/29, and she remains intubated and mechanically ventilated. Chest x-ray continues to show diffuse bilateral interstitial infiltrates. Labs today showed elevated sodium bicarb is 21, and her renal functioning is basically normal. ABG yesterday before intubation showed a pO2 of 48 pCO2 of 21 pH of 7.37. Patient is on propofol which I have increased to 75 mcg/kg/m. Not requiring any pressors. Objective - Vital Signs Vital signs: Vital Signs Temp 101.7 F H 03/29/20 08:30 Pulse 96 03/29/20 11:00 Resp 28 H 03/29/20 11:00 BP 92/60 03/29/20 11:00 Pulse Ox 93 L 03/29/20 11:00 Intake & Output 03/28/20 03/29/20 03/29/20 18:59 06:59 18:59 Intake Total 880.243 2339.278 1050.318 Output Total 730 450 220 Balance 117.538 878.278 830.318 Weight 69.9 kg Intake: IV 825 925 300 0.45% NaCl with KCl 20 825 825 Meq/l 1,000 ml @ 75 mls/ hr IV .[id number] [facility] Rx#: [id number] Dextrose 5% in Water 1, 100 300 000 ml @ 100 mls/hr IV . [id number] [facility] with Sodium Bicarb (1 Meq/ml) 50 ml Rx#:[id number] Intake, IV Titration 22.538 103.278 450.318 Amount Dexmedetomidine/0.9% NaCl 22.538 33.878 (Pmx) 400 mcg In Empty Bag 1 bag @ Titrate IV . Q0M [facility] Rx#:[id number] Dextrose 5% in Water 1, 250 000 ml @ 125 mls/hr IV . Q8H [facility] Rx#:[id number] Norepinephrine 4 mg In 59.495 Sodium Chloride 0.9% 250 ml @ 0.05 MCG/KG/MIN 12. 961 mls/hr IV .[id number] [facility] Rx#:[id number] propofoL 1,000 mg In 69.400 140.823 Empty Bag 1 bag @ Titrate IV .Q0M [facility] Rx#: [id number] Other 300 300 Output: Urine 730 450 220 Other: Voiding Method Indwelling Catheter Indwelling Catheter # Bowel Movements 1 ABP, PAP, CO, CI - Last Documented Arterial Blood Pressure 91/46 - Exam GENERAL EXAM: Revealed 79-year-old female intubated, mechanically ventilated, and sedated. HEAD: Normocephalic/atraumatic. Endotracheal tube is intact. EYES: PERRLA, EOMI, no icterus. NOSE: Nasal mucosa is normal.. THROAT: Moist mucous membranes NECK: No neck masses no JVD. No cervical adenopathy CHEST: Symmetrical chest expansion.. LUNGS: Fine crackles at the bases. No rhonchi and no wheezes. CVS: S1 and S2, no S3 gallop. ABDOMEN: Soft nontender no megaly no rebound no guarding. EXTREMITIES: Good pulses bilaterally no clubbing edema or cyanosis MUSCULOSKELETAL; cannot assess. SKIN: No rashes CENTRAL NERVOUS SYSTEM: Not assess patient is on propofol drip. Psychiatric: Could not assess - Labs CBC & Chem 7: 03/29/20 04:45 03/29/20 05:50 Labs: Abnormal Lab Results - Last 24 Hours (Table) 03/28/20 03/28/20 03/28/20 Range/Units 05:46 05:46 05:46 WBC 14.1 H (3.8-10.6) k/uL Hct 46.5 H (34.0-46.0) % Neutrophils # 13.3 H (1.3-7.7) k/uL Lymphocytes # 0.3 L (1.0-4.8) k/uL D-Dimer (<0.60) mg/L FEU ABG pH (7.35-7.45) ABG pCO2 (35-45) mmHg ABG pO2 (83-108) mmHg ABG HCO3 (21-25) mmol/L ABG Total CO2 (19-24) mmol/L ABG O2 Saturation (94-97) % Sodium 156 H (137-145) mmol/L Chloride 130 H (98-107) mmol/L Carbon Dioxide 13 L (22-30) mmol/L BUN 18 H (7-17) mg/dL Glucose 148 H (74-99) mg/dL POC Glucose (mg/dL) (75-99) mg/dL Calcium (8.4-10.2) mg/dL Ferritin (10.0-291.0) ng/mL Total Bilirubin 1.9 H (0.2-1.3) mg/dL AST 58 H (14-36) U/L ALT 73 H (4-34) U/L Alkaline Phosphatase 236 H (38-126) U/L Lactate Dehydrogenase (313-618) U/L C-Reactive Protein (<10.0) mg/L Total Protein (6.3-8.2) g/dL Albumin 3.1 L (3.5-5.0) g/dL Procalcitonin 0.14 H (0.02-0.09) ng/mL 03/28/20 03/28/20 03/28/20 Range/Units 12:43 12:58 13:03 WBC (3.8-10.6) k/uL Hct (34.0-46.0) % Neutrophils # (1.3-7.7) k/uL Lymphocytes # (1.0-4.8) k/uL D-Dimer (<0.60) mg/L FEU ABG pH (7.35-7.45) ABG pCO2 19 L* (35-45) mmHg ABG pO2 57 L* (83-108) mmHg ABG HCO3 12 L (21-25) mmol/L ABG Total CO2 13 L (19-24) mmol/L ABG O2 Saturation 90.8 L (94-97) % Sodium (137-145) mmol/L Chloride (98-107) mmol/L Carbon Dioxide (22-30) mmol/L BUN (7-17) mg/dL Glucose (74-99) mg/dL POC Glucose (mg/dL) 191 H 164 H (75-99) mg/dL Calcium (8.4-10.2) mg/dL Ferritin (10.0-291.0) ng/mL Total Bilirubin (0.2-1.3) mg/dL AST (14-36) U/L ALT (4-34) U/L Alkaline Phosphatase (38-126) U/L Lactate Dehydrogenase (313-618) U/L C-Reactive Protein (<10.0) mg/L Total Protein (6.3-8.2) g/dL Albumin (3.5-5.0) g/dL Procalcitonin (0.02-0.09) ng/mL 03/28/20 03/29/20 03/29/20 Range/Units 22:37 00:36 04:45 WBC (3.8-10.6) k/uL Hct (34.0-46.0) % Neutrophils # (1.3-7.7) k/uL Lymphocytes # (1.0-4.8) k/uL D-Dimer 7.86 H (<0.60) mg/L FEU ABG pH 7.21 L (7.35-7.45) ABG pCO2 21 L 34 L (35-45) mmHg ABG pO2 48 L* 82 L (83-108) mmHg ABG HCO3 12 L 14 L (21-25) mmol/L ABG Total CO2 13 L 15 L (19-24) mmol/L ABG O2 Saturation 83.5 L 93.8 L (94-97) % Sodium (137-145) mmol/L Chloride (98-107) mmol/L Carbon Dioxide (22-30) mmol/L BUN (7-17) mg/dL Glucose (74-99) mg/dL POC Glucose (mg/dL) (75-99) mg/dL Calcium (8.4-10.2) mg/dL Ferritin (10.0-291.0) ng/mL Total Bilirubin (0.2-1.3) mg/dL AST (14-36) U/L ALT (4-34) U/L Alkaline Phosphatase (38-126) U/L Lactate Dehydrogenase (313-618) U/L C-Reactive Protein (<10.0) mg/L Total Protein (6.3-8.2) g/dL Albumin (3.5-5.0) g/dL Procalcitonin (0.02-0.09) ng/mL 03/29/20 03/29/20 03/29/20 Range/Units 04:45 04:45 04:45 WBC 12.8 H (3.8-10.6) k/uL Hct (34.0-46.0) % Neutrophils # 12.2 H (1.3-7.7) k/uL Lymphocytes # 0.3 L (1.0-4.8) k/uL D-Dimer (<0.60) mg/L FEU ABG pH (7.35-7.45) ABG pCO2 (35-45) mmHg ABG pO2 (83-108) mmHg ABG HCO3 (21-25) mmol/L ABG Total CO2 (19-24) mmol/L ABG O2 Saturation (94-97) % Sodium (137-145) mmol/L Chloride (98-107) mmol/L Carbon Dioxide (22-30) mmol/L BUN (7-17) mg/dL Glucose (74-99) mg/dL POC Glucose (mg/dL) (75-99) mg/dL Calcium (8.4-10.2) mg/dL Ferritin 1016.9 H (10.0-291.0) ng/mL Total Bilirubin (0.2-1.3) mg/dL AST (14-36) U/L ALT (4-34) U/L Alkaline Phosphatase (38-126) U/L Lactate Dehydrogenase 1432 H (313-618) U/L C-Reactive Protein 198.1 H (<10.0) mg/L Total Protein (6.3-8.2) g/dL Albumin (3.5-5.0) g/dL Procalcitonin (0.02-0.09) ng/mL 03/29/20 03/29/20 Range/Units 05:18 05:50 WBC (3.8-10.6) k/uL Hct (34.0-46.0) % Neutrophils # (1.3-7.7) k/uL Lymphocytes # (1.0-4.8) k/uL D-Dimer (<0.60) mg/L FEU ABG pH (7.35-7.45) ABG pCO2 (35-45) mmHg ABG pO2 75 L (83-108) mmHg ABG HCO3 (21-25) mmol/L ABG Total CO2 26 H (19-24) mmol/L ABG O2 Saturation (94-97) % Sodium 158 H (137-145) mmol/L Chloride 129 H (98-107) mmol/L Carbon Dioxide 21 L (22-30) mmol/L BUN 30 H (7-17) mg/dL Glucose 169 H (74-99) mg/dL POC Glucose (mg/dL) (75-99) mg/dL Calcium 8.0 L (8.4-10.2) mg/dL Ferritin (10.0-291.0) ng/mL Total Bilirubin 1.6 H (0.2-1.3) mg/dL AST 53 H (14-36) U/L ALT 58 H (4-34) U/L Alkaline Phosphatase 181 H (38-126) U/L Lactate Dehydrogenase (313-618) U/L C-Reactive Protein (<10.0) mg/L Total Protein 5.3 L (6.3-8.2) g/dL Albumin 2.4 L (3.5-5.0) g/dL Procalcitonin (0.02-0.09) ng/mL Microbiology - Last 24 Hours (Table) 03/23/20 09:47 Blood Culture - Final Blood No Growth after 144 hours Assessment and Plan Assessment: Impression: Acute hypoxic respiratory failure secondary to covid 19 pneumonitis. Requiring intubation and mechanical ventilation on 03/29/20. Intractable nausea and vomiting on presentation as well as diarrhea felt to be related to Covid 19 infection History of severe COPD. History of coronary artery disease. Previous history of DVT. History of GERD. Benign essential hypertension. Dyslipidemia. Former smoker. Hypernatremia secondary to free water losses. Recommendation: Continue ventilatory support. Increase PEEP to 14. Titrate FiO2 down maintain O2 saturation above 90% if possible. Otherwise increase PEEP. Increase propofol. Continue Decadron. Patient was out of the window for the severe. Continue bronchodilators. Continue GI and DVT prophylaxis. Continue Lovenox. Prognosis is definitely poor and guarded. We'll continue to follow. Critical care time is 35 minutes Time with Patient: Greater than 30
--- NOTE | 2020-03-29 12:20 | CDI ---
Documentation Clarification Form Date: 03/29/2020 12:09:57 PM From: Caryl FrancoisFlemingJOSE rodriguez, CCDS Admit Date: 03/23/2020 10:54:00 AM Patient Name: Reena Mckeon Visit Number: [id number] Discharge Date: ATTENTION: The Clinical Documentation Specialists (CDI) and [facility] Coding Staff appreciate your assistance in clarifying documentation. Please respond to the clarification below the line at the bottom and electronically sign. The CDI & [facility] Coding staff will review the response and follow-up if needed. Please note: Queries are made part of the Legal Health Record. If you have any questions, please contact the author of this message via ITS. Dr. William Grant or Dr. Daren Marinelli: This patient initially presented to the ED on 03/23 with Fever, vomiting & + COVID. The patient's respiratory status continued to decline despite increased respiratory treatments. On 03/28, she was transferred to ICU on 60 L nc high flow, on 03/29, she was intubated. History/Risk Factors: Chest pain/Angina, TIA, DVT, GERD, Hyperlipidemia, Hypertension, Osteoarthritis, [place], C Diff, CAD, Heart Catheterization with Stent. Anxiety, Former smoker. Clinical Indicators: Presented to the ED on 03/23 with fever, intractable nausea, vomiting, diarrhea, + COVID on 03/15. Admit with COVID 19, Hypokalemia, Diarrhea, Nausea, Vomiting and Fever and Acute Hypoxic Respiratory Failure and Encephalopathy. VS 03/23: T 103.0, P 93, R 18 - 20, BP 138/84, PO 92 RA - 98 2Lnc VS 03/25: T 98.4, P 87, R 20, BP 129/73, PO 80 6Lnc - 95 15L high flow LAB 03/23: Pl Ct 116*, Lymph 0.6*, K 2.7, BUN 19^, Glucose 131^, Ferritin 438.4^, AST 45^, Lactate Dehydrogenase 960^, CRP 82.2^, Procalcitonin 0.20^. 03/24 C Diff negative LAB 03/25: K 3.4*, Cl 113^, CO2 18.9*, Glucose 129^, AST 48^, Alk Phos 171^, Total Protein 6.0*. LAB 03/28: WBC 14.1^, Neut 13.3^, ABG: pCO2 19, pO2 57, HCO3 12*, Total CO2 13*. Treatment 03/23: IV fluid 1,000 mls @ 999 mls/hr q1, IV Reglan, IV Kcl, po KDur, IV fluid 1,000 mls @ 75 mls/hr q13H, IV Ativan. 03/24: po Hexadrol, Lovenox sq, po Xanax, po KDur 20 meq q1 x4 03/25: IV fluid 1100 mls @ 75 mls/hr, IV Kcl 03/26: IV Kcl. 03/27: IV Decadron 03/28: IV Decadron, IV Haldol, IV Ativan, IV propofol, IV Levophed, IV Na Bicarb In your professional opinion, please clarify if these findings signify one of the following conditions, whether the condition is POA, and cause, if known: Sepsis o With: Severe Sepsis -This is the correct diagnosis. This was not present on admission Septic Shock Other, please specify Unable to determine Present on Admission: Yes or No Link or clarify if there is associated (due to/with): Organ failure Shock (Last Revision: July 2017) MTDD
[2020-03-29 16:29] LABS: Glucose,Whole Blood 293 mg/dL (75-99)
[2020-03-29] MEDS: INSULIN ASPART (NovoLOG) 100 UNIT/ML VIAL SQ SCH ×4 (16:50→23:51)
--- NOTE | 2020-03-29 18:17 | P.PN ---
Subjective Principal diagnosis: Pneumonia with Covid The patient is an 79-year-old white female essential admitted with Covid pneumonia. She has progressed to requiring intubation for respiratory failure. Appreciate multiple consultants input. Objective - Vital Signs Vital signs: Vital Signs Temp 99.2 F 03/29/20 12:00 Pulse 89 03/29/20 18:00 Resp 28 H 03/29/20 18:00 BP 96/56 03/29/20 16:00 Pulse Ox 97 03/29/20 18:00 Intake & Output 03/28/20 03/29/20 03/29/20 18:59 06:59 18:59 Intake Total 651.406 1536.278 2821.942 Output Total 730 450 430 Balance 117.538 673.390 1270.942 Weight 69.9 kg 69.9 kg Intake: IV 825 925 300 0.45% NaCl with KCl 20 825 825 Meq/l 1,000 ml @ 75 mls/ hr IV .[id number] [facility] Rx#: [id number] Dextrose 5% in Water 1, 100 300 000 ml @ 100 mls/hr IV . [id number] [facility] with Sodium Bicarb (1 Meq/ml) 50 ml Rx#:[id number] Intake, IV Titration 22.538 842.246 4567.942 Amount Dexmedetomidine/0.9% NaCl 22.538 33.878 (Pmx) 400 mcg In Empty Bag 1 bag @ Titrate IV . Q0M [facility] Rx#:[id number] Dextrose 5% in Water 1, 1000 000 ml @ 125 mls/hr IV . Q8H [facility] Rx#:[id number] Norepinephrine 4 mg In 91.942 Sodium Chloride 0.9% 250 ml @ 0.05 MCG/KG/MIN 12. 961 mls/hr IV .[id number] [facility] Rx#:[id number] propofoL 1,000 mg In 69.400 200.000 Empty Bag 1 bag @ Titrate IV .Q0M [facility] Rx#: [id number] Tube Feeding 130 Other 300 1100 Output: Urine 730 450 430 Other: Voiding Method Indwelling Catheter Indwelling Catheter Indwelling Catheter # Bowel Movements 1 ABP, PAP, CO, CI - Last Documented Arterial Blood Pressure 101/54 - Constitutional General appearance: Present: no acute distress - Respiratory Respiratory: bilateral: diminished - Cardiovascular Rhythm: regular Heart sounds: normal: S1, S2 Abnormal Heart Sounds: Absent: S3 Gallop - Gastrointestinal General gastrointestinal: Present: soft. Absent: tenderness - Psychiatric Psychiatric: Absent: A&O x's 3 - Labs CBC & Chem 7: 03/29/20 04:45 03/29/20 12:22 Labs: Abnormal Lab Results - Last 24 Hours (Table) 03/28/20 03/28/20 03/29/20 Range/Units 05:46 22:37 00:36 WBC (3.8-10.6) k/uL Neutrophils # (1.3-7.7) k/uL Lymphocytes # (1.0-4.8) k/uL D-Dimer (<0.60) mg/L FEU ABG pH 7.21 L (7.35-7.45) ABG pCO2 21 L 34 L (35-45) mmHg ABG pO2 48 L* 82 L (83-108) mmHg ABG HCO3 12 L 14 L (21-25) mmol/L ABG Total CO2 13 L 15 L (19-24) mmol/L ABG O2 Saturation 83.5 L 93.8 L (94-97) % Sodium (137-145) mmol/L Chloride (98-107) mmol/L Carbon Dioxide (22-30) mmol/L BUN (7-17) mg/dL Glucose (74-99) mg/dL POC Glucose (mg/dL) (75-99) mg/dL Calcium (8.4-10.2) mg/dL Ferritin (10.0-291.0) ng/mL Total Bilirubin (0.2-1.3) mg/dL AST (14-36) U/L ALT (4-34) U/L Alkaline Phosphatase (38-126) U/L Lactate Dehydrogenase (313-618) U/L C-Reactive Protein (<10.0) mg/L Total Protein (6.3-8.2) g/dL Albumin (3.5-5.0) g/dL Procalcitonin 0.14 H (0.02-0.09) ng/mL 03/29/20 03/29/20 03/29/20 Range/Units 04:45 04:45 04:45 WBC (3.8-10.6) k/uL Neutrophils # (1.3-7.7) k/uL Lymphocytes # (1.0-4.8) k/uL D-Dimer 7.86 H (<0.60) mg/L FEU ABG pH (7.35-7.45) ABG pCO2 (35-45) mmHg ABG pO2 (83-108) mmHg ABG HCO3 (21-25) mmol/L ABG Total CO2 (19-24) mmol/L ABG O2 Saturation (94-97) % Sodium (137-145) mmol/L Chloride (98-107) mmol/L Carbon Dioxide (22-30) mmol/L BUN (7-17) mg/dL Glucose (74-99) mg/dL POC Glucose (mg/dL) (75-99) mg/dL Calcium (8.4-10.2) mg/dL Ferritin 1016.9 H (10.0-291.0) ng/mL Total Bilirubin (0.2-1.3) mg/dL AST (14-36) U/L ALT (4-34) U/L Alkaline Phosphatase (38-126) U/L Lactate Dehydrogenase 1432 H (313-618) U/L C-Reactive Protein 198.1 H (<10.0) mg/L Total Protein (6.3-8.2) g/dL Albumin (3.5-5.0) g/dL Procalcitonin (0.02-0.09) ng/mL 03/29/20 03/29/20 03/29/20 Range/Units 04:45 05:18 05:50 WBC 12.8 H (3.8-10.6) k/uL Neutrophils # 12.2 H (1.3-7.7) k/uL Lymphocytes # 0.3 L (1.0-4.8) k/uL D-Dimer (<0.60) mg/L FEU ABG pH (7.35-7.45) ABG pCO2 (35-45) mmHg ABG pO2 75 L (83-108) mmHg ABG HCO3 (21-25) mmol/L ABG Total CO2 26 H (19-24) mmol/L ABG O2 Saturation (94-97) % Sodium 158 H (137-145) mmol/L Chloride 129 H (98-107) mmol/L Carbon Dioxide 21 L (22-30) mmol/L BUN 30 H (7-17) mg/dL Glucose 169 H (74-99) mg/dL POC Glucose (mg/dL) (75-99) mg/dL Calcium 8.0 L (8.4-10.2) mg/dL Ferritin (10.0-291.0) ng/mL Total Bilirubin 1.6 H (0.2-1.3) mg/dL AST 53 H (14-36) U/L ALT 58 H (4-34) U/L Alkaline Phosphatase 181 H (38-126) U/L Lactate Dehydrogenase (313-618) U/L C-Reactive Protein (<10.0) mg/L Total Protein 5.3 L (6.3-8.2) g/dL Albumin 2.4 L (3.5-5.0) g/dL Procalcitonin (0.02-0.09) ng/mL 03/29/20 Range/Units 16:28 WBC (3.8-10.6) k/uL Neutrophils # (1.3-7.7) k/uL Lymphocytes # (1.0-4.8) k/uL D-Dimer (<0.60) mg/L FEU ABG pH (7.35-7.45) ABG pCO2 (35-45) mmHg ABG pO2 (83-108) mmHg ABG HCO3 (21-25) mmol/L ABG Total CO2 (19-24) mmol/L ABG O2 Saturation (94-97) % Sodium (137-145) mmol/L Chloride (98-107) mmol/L Carbon Dioxide (22-30) mmol/L BUN (7-17) mg/dL Glucose (74-99) mg/dL POC Glucose (mg/dL) 293 H (75-99) mg/dL Calcium (8.4-10.2) mg/dL Ferritin (10.0-291.0) ng/mL Total Bilirubin (0.2-1.3) mg/dL AST (14-36) U/L ALT (4-34) U/L Alkaline Phosphatase (38-126) U/L Lactate Dehydrogenase (313-618) U/L C-Reactive Protein (<10.0) mg/L Total Protein (6.3-8.2) g/dL Albumin (3.5-5.0) g/dL Procalcitonin (0.02-0.09) ng/mL Microbiology - Last 24 Hours (Table) 03/23/20 09:47 Blood Culture - Final Blood No Growth after 144 hours Assessment and Plan (1) COVID-19 Current Visit: Yes Status: Acute Code(s): U07.1 - COVID-19 SNOMED Code(s): 758463199 (2) Hypokalemia Current Visit: Yes Status: Acute Code(s): E87.6 - HYPOKALEMIA SNOMED Code(s): 62707739 (3) Chronic low back pain Current Visit: No Status: Acute Code(s): M54.5 - LOW BACK PAIN; G89.29 - OTHER CHRONIC PAIN SNOMED Code(s): 222587814 (4) Dehydration Current Visit: No Status: Acute Code(s): E86.0 - DEHYDRATION SNOMED Code(s): 89190855 (5) High risk for readmission Current Visit: No Status: Acute Code(s): Z91.89 - OTH PERSONAL RISK FACTORS, NOT ELSEWHERE CLASSIFIED SNOMED Code(s): 540788024 (6) Lumbar degenerative disc disease Current Visit: No Status: Acute Code(s): M51.36 - OTHER INTERVERTEBRAL DISC DEGENERATION, LUMBAR REGION SNOMED Code(s): 30531996 Plan: Placed on appropriate protocol for potassium. Supportive care otherwise. She is requiring intubation at This time. Check CBC and CMP in the a.m. See orders otherwise Prognosis is guarded Time with Patient: Greater than 30
[2020-03-29 19:02] LABS: Glucose,Whole Blood 349 mg/dL (75-99)
[2020-03-29] MEDS: amLODIPine 5 MG TAB PO SCH (21:02)
[2020-03-29 21:16] LABS: Glucose,Whole Blood 285 mg/dL (75-99)
[2020-03-29 23:46] LABS: Glucose,Whole Blood 274 mg/dL (75-99)
[2020-03-30] MEDS: INSULIN ASPART (NovoLOG) 100 UNIT/ML VIAL SQ SCH ×11 (00:47→19:47)
[2020-03-30 05:10] LABS: ABG Base Excess -10.8 mmol/L; ABG HCO3 17 mmol/L (21-25); ABG Oxygen Saturation 96.7 % (94-97); ABG PCO2 45 mmHg (35-45); ABG PO2 87 mmHg (83-108); ABG TCO2 19 mmol/L (19-24)
[2020-03-30 05:13] LABS: Glucose,Whole Blood 189 mg/dL (75-99)
[2020-03-30] MEDS: DEXTROSE 5% IN WATER 1,000 ML IV SCH (05:17)
[2020-03-30] MEDS: SUCRALFATE 1 GM TAB PO SCH ×4 (05:32→23:28)
[2020-03-30 05:46] LABS: HCT 41.7 % (34.0-46.0); HGB 12.8 gm/dL (11.4-16.0); Hypochromasia Marked; MCH 28.7 pg (25.0-35.0); MCHC 30.6 g/dL (31.0-37.0); MCV 93.6 fL (80.0-100.0); Mean Platelet Volume 8.1; Platelet Count 241 k/uL (150-450); RBC 4.46 m/uL (3.80-5.40); RDW 14.9 % (11.5-15.5)
[2020-03-30 05:58] LABS: Albumin 2.2 g/dL (3.5-5.0); Calcium 7.9 mg/dL (8.4-10.2); D-Dimer 2.03 mg/L FEU (<0.60); Potassium 3.1 mmol/L (3.5-5.1); Total Bilirubin 0.6 mg/dL (0.2-1.3)
[2020-03-30] MEDS ORDERED: SODIUM BICARB 8.4% 50 ML SYR (1 MEQ/ML) IV STA (06:13)
[2020-03-30] MEDS: POTASSIUM BICARBONATE/CIT AC 20 MEQ TABLET.EFF NG-TUBE SCH ×2 (06:17→06:43)
[2020-03-30 06:30] LABS: Band Neutrophils % 9 %; Neutrophils % (M) 77 %; Nucleated Red Blood Cells 0 /100 WBC (0-0); Total Cells Counted 100
[2020-03-30 06:31] LABS: Anisocytosis (M) Present; Polychromasia Present
[2020-03-30] MEDS: NOREPINEPHRINE 4 MG in SODIUM CHLORIDE 0.9% 250 ML IV SCH ×2 (07:08→20:55)
[2020-03-30] MEDS: CHLORHEXIDINE GLUCONATE 15 ML CUP MUCOUS MEM SCH ×2 (07:46→19:46)
[2020-03-30] MEDS: DEXTROSE 5% IN WATER 1,000 ML with SODIUM BICARB (1 MEQ/ML) 150 ML IV SCH ×2 (07:46→23:28)
[2020-03-30] MEDS: FAMOTIDINE 20 MG TAB PO SCH (07:47)
[2020-03-30] MEDS: ENOXAPARIN 40 MG/0.4 ML SYRINGE SQ SCH ×2 (07:47→19:46)
[2020-03-30] MEDS: ASPIRIN 81 MG PO SCH (07:47)
[2020-03-30] MEDS: PRAVASTATIN SODIUM 20 MG TAB PO SCH (07:47)
[2020-03-30] MEDS: COLCHICINE 0.6 MG EACH PO SCH (07:48)
[2020-03-30] MEDS: DICYCLOMINE 20 MG TAB PO SCH ×2 (07:48→19:48)
[2020-03-30] MEDS: DEXAMETHASONE SOD PHOSPHATE 10 MG/ML 1 ML VIAL IV SCH (07:48)
[2020-03-30] MEDS: PANTOPRAZOLE 40 MG/10 ML VIAL IVP SCH (07:49)
[2020-03-30] MEDS: POTASSIUM CHLORIDE ER 10 MEQ TAB.ER.PRT PO SCH ×2 (07:51→23:27)
[2020-03-30] MEDS: allopurinoL 100 MG TAB PO SCH (07:51)
[2020-03-30 08:17] LABS: Glucose,Whole Blood 205 mg/dL (75-99)
--- NOTE | 2020-03-30 08:21 | XR ---
EXAMINATION TYPE: XR chest 1V portable DATE OF EXAM: 03/30/2020 COMPARISON: 03/29/2020 INDICATION: Tube placement TECHNIQUE: Single frontal view of the chest is obtained. FINDINGS: The heart size is normal. The pulmonary vasculature is dominant. Diffuse infiltrate is present bilaterally. Findings are similar. Endotracheal tube tip is above the nadine. Nasogastric tube transverses the thorax. IMPRESSION: 1. Stable diffuse increased lung infiltrates with prominent pulmonary vascular markings. 2. Lines and catheters discussed above
[2020-03-30] MEDS: METOPROLOL TARTRATE 12.5 MG TAB PO SCH ×2 (11:07→23:27)
[2020-03-30 12:54] LABS: Glucose,Whole Blood 167 mg/dL (75-99)
--- NOTE | 2020-03-30 12:58 | P.PN ---
Subjective Progress Note Date: 03/30/20 Principal diagnosis: Acute hypoxic respiratory failure secondary to covid 19 pneumonia 79-year-old white female patient with past medical history of COPD, hypertension and emergency department on 03/15/2020 for evaluation of nausea, vomiting, and she tested positive for COVID 19, her onset of symptoms was around a week prior to presentation on 03/08/2020. Patient had decreased oral intake. No fever, chills. Other medical history includes a history of CVA, DVT, GERD/reflux, osteoarthritis, CAD with previous PTCA and stenting, anxiety, and history of smoking. Patient discharged home at that time with [id number] vitamin D, vitamin C, zinc, and was instructed to come back for worsening symptoms. On 2019 patient came back to the emergency department for reevaluation of intractable nausea, vomiting and diarrhea, patient was unable to tolerate any food water and she was unable to take any of her medications, she has had fevers, for which she is been taking Tylenol, no abdominal pain, no shortness of breath or coughing. Is x-ray reveals bibasilar infiltrates greater at the left lung base. Labs have been reviewed showing lymphopenia with lymphocyte count of 0.5, potassium is 2.7, d-dimer is 0.48, BUN of 19 creatinine 0.8, plasma lactic acid is 1.4, ferritin level is 438, AST is 45, ALT is 26, alkaline phosphatase is 120, LDH is 960, CRP is 82, pro calcitonin level is 0.2. She was given IV fluid hydration, her vital signs have been stable overnight, the low-grade fever this morning, with a temp of 100.1F, she is on 2 L of oxygen and the pulse ox of 91-94%, she has a congested cough but denies any shortness of breath. on today's evaluation of03/25/2020, the patient is still having diarrhea. She had several bouts of diarrhea. Stool for C. diff came back negative. No abdominal pain. No emesis. She continues to have episodic cough. Potassium has been replaced.she is having also some worsening shortness of breath. Earlier this morning she was found to be hypoxic and she is currently on 15 L of oxygen by nasal cannula. She is quite restless. Her mentation is waxing and waning. I feel like she is a bit confused on today's evaluation. Note that when she came in she was only on 2 L of oxygen by nasal cannula. On 03/26/2020, seeing the patient for a follow-up. The patient is still confused. She is quite restless in bed. She is still having some loose diarrhea. She is also on high flow oxygen at 15 L per minute nasal cannula to maintain a saturation above 90%. However, this afternoon, the patient's condition decompensated. She became progressively more hypoxic. As such, the patient was placed on high flow oxygen and she is currently on 15 L of oxygen by nasal cannula.. Level is on the rise in the patient's sodium level is at 149. Renal function remains stable. LDH from yesterday was 465 with a CRP level of 14.9. The patient otherwise is hemodynamically stable. She is on Lovenox 40 mg subcu for DVT prophylaxis. She is on Decadron 6 mg by mouth daily. Home medications of been ordered resume. As mentioned earlier, the patient has history of COPD and hypertension. I gave her IV fluids and I switched IV fluids to half-normal saline along with a 20 mEq of potassium chloride to run at 75 mL an hour. On 03/27/2020, the patient is restless, confused, moaning, and she is sitting in obvious respiratory distress. The patient remains on 100% nonrebreather facemask addition to high flow oxygen which is running at 60 L with a FiO2 of 93% and her pulse ox currently is 95-96%. Patient has received 2 tablets of Xanax 0.5 mg earlier today. Her last chest x-ray showed bilateral pulmonary infiltrates and this was done on 03/25/2020. A repeat chest x-ray is to be done today. Meanwhile, the rest of the blood work is pending. Her CBC shows no significant abnormalities. Neurologic exam is nonfocal. She is moving all 4 extremities. She is on IV fluid with half-normal saline and potassium running at 75 mL an hour. On 03/28/2020, the patient is worse in terms of her mentation. Although she is not as much restless, she continues to moan and she is confused. She is also painful stimulation. She is unable to hold a conversation. There is a change in her condition over the past 48 hours. She remains on the percent nonrebreather facemask in addition to high flow oxygen at 60 L. I repeated the chest x-ray yesterday showed some limited infiltration lung bases. Lungs are showing limited In the lung bases. Pulse ox remained about 90% as long as the patient is able to deliver the oxygen through the nonrebreather and there was a high flow. She is also on half normal saline running at 75 mL an hour. As mentioned earlier, her neurologic exam is nonfocal. The patient is still on Decadron 6 mg IV. She has not received any sedatives. She has not received any Haldol. She will need a blood gas and possibly transfer to the intensive care unit. Her LDH from yesterday 78. Her CRP is at 14.7. The patient's temperature is at 100.5. Patient was reevaluated today on 03/29/20, patient remains intubated and mechanically ventilated. She is on assist control rate of 28 tidal volume is 400 FiO2 is 100% and PEEP is 12. ABG showed a pO2 of 75 pCO2 of 44 pH of 7.36. Hence her PEEP was increased to 14. Patient remains on norepinephrine at 1 mcg/kg/m, and she is on a bicarb drip which I have discontinued this morning. I kept her on D5W at 1 25 mL/h, increase her free water flushes to 400 MLS every 4 hours specially with her sodium climbing up to 158 this morning. Patient was admitted on 03/23 she was intubated on 03/29, and she remains intubated and mechanically ventilated. Chest x-ray continues to show diffuse bilateral interstitial infiltrates. Labs today showed elevated sodium bicarb is 21, and her renal functioning is basically normal. ABG yesterday before intubation showed a pO2 of 48 pCO2 of 21 pH of 7.37. Patient is on propofol which I have increased to 75 mcg/kg/m. Not requiring any pressors. Reevaluated today on 03/30/20, remains in the ICU, intubated and mechanically ventilated. Patient is on assist control rate of 28 tidal volume is 400 FiO2 is 70% and PEEP of 14. ABG before the change in assist control rate up to 28 showed a pO2 of 87 pCO2 of 45 pH of 7.20. Patient did receive sodium bicarb drip, and she remains presently on bicarb drip, she is also on IV fluid at 20 mL/h, norepinephrine has been discontinued. Patient also on enteral feeding and she continues to receive free water flushes because of her elevated sodium yeste rday. This morning her FiO2 was decreased down to 60% and her free water flushes down to 200 mL every 4 hours. Basic metabolic profile is relatively normal. CBC is relatively normal Objective - Vital Signs Vital signs: Vital Signs Temp 97.9 F 03/30/20 08:00 Pulse 79 03/30/20 11:00 Resp 28 H 03/30/20 11:00 BP 104/61 03/30/20 11:00 Pulse Ox 92 L 03/30/20 11:00 Intake & Output 03/29/20 03/30/20 03/30/20 18:59 06:59 18:59 Intake Total 3046.942 3449.035 572 Output Total 460 835 475 Balance 2586.942 2614.035 97 Weight 69.9 kg 69.7 kg Intake: IV 300 86 12 Bicarb ampule 50 Dextrose 5% in Water 1, 300 000 ml @ 100 mls/hr IV . [id number] [facility] with Sodium Bicarb (1 Meq/ml) 50 ml Rx#:[id number] Pressure Bag 36 12 Intake, IV Titration 7073.255 5533.035 400 Amount Dextrose 5% in Water 1, 1125 1625 000 ml @ 125 mls/hr IV . Q8H [facility] Rx#:[id number] Dextrose 5% in Water 1, 300 000 ml @ 75 mls/hr IV . [id number] [facility] with Sodium Bicarb (1 Meq/ml) 150 ml Rx#:[id number] Norepinephrine 4 mg In 91.942 162.058 Sodium Chloride 0.9% 250 ml @ 0.05 MCG/KG/MIN 12. 961 mls/hr IV .[id number] [facility] Rx#:[id number] propofoL 1,000 mg In 300.000 185.977 100 Empty Bag 1 bag @ Titrate IV .Q0M [facility] Rx#: [id number] Tube Feeding 130 390 130 Other 1100 1000 30 Output: Urine 460 835 475 Other: Voiding Method Indwelling Catheter Indwelling Catheter Indwelling Catheter # Bowel Movements 1 1 1 ABP, PAP, CO, CI - Last Documented Arterial Blood Pressure 124/50 - Exam GENERAL EXAM: Revealed 79-year-old female intubated, mechanically ventilated, and sedated. HEAD: Normocephalic/atraumatic. Endotracheal tube is intact. EYES: PERRLA, EOMI, no icterus. NOSE: Nasal mucosa is normal.. THROAT: Moist mucous membranes NECK: No neck masses no JVD. No cervical adenopathy CHEST: Symmetrical chest expansion.. LUNGS: Rhonchi and crackles at the bases bilaterally. CVS: S1 and S2, no S3 gallop. ABDOMEN: Soft nontender no megaly no rebound no guarding. EXTREMITIES: Good pulses bilaterally no clubbing edema or cyanosis MUSCULOSKELETAL; cannot assess. SKIN: No rashes CENTRAL NERVOUS SYSTEM: Could not assess, remains on propofol drip. Not ready for any weaning. Psychiatric: Could not assess - Labs CBC & Chem 7: 03/30/20 04:50 03/30/20 04:50 Labs: Abnormal Lab Results - Last 24 Hours (Table) 03/29/20 03/29/20 03/29/20 Range/Units 16:28 19:01 21:15 MCHC (31.0-37.0) g/dL Neutrophils # (Manual) (1.3-7.7) k/uL Fibrinogen (200-500) mg/dL D-Dimer (<0.60) mg/L FEU ABG pH (7.35-7.45) ABG HCO3 (21-25) mmol/L Potassium (3.5-5.1) mmol/L Chloride (98-107) mmol/L Carbon Dioxide (22-30) mmol/L BUN (7-17) mg/dL Creatinine (0.52-1.04) mg/dL Glucose (74-99) mg/dL POC Glucose (mg/dL) 293 H 349 H 285 H (75-99) mg/dL Calcium (8.4-10.2) mg/dL ALT (4-34) U/L Alkaline Phosphatase (38-126) U/L Total Protein (6.3-8.2) g/dL Albumin (3.5-5.0) g/dL 03/29/20 03/30/20 03/30/20 Range/Units 23:44 04:50 04:50 MCHC 30.6 L (31.0-37.0) g/dL Neutrophils # (Manual) 8.60 H (1.3-7.7) k/uL Fibrinogen (200-500) mg/dL D-Dimer (<0.60) mg/L FEU ABG pH (7.35-7.45) ABG HCO3 (21-25) mmol/L Potassium 3.1 L (3.5-5.1) mmol/L Chloride 114 H (98-107) mmol/L Carbon Dioxide 18 L (22-30) mmol/L BUN 32 H (7-17) mg/dL Creatinine 1.06 H (0.52-1.04) mg/dL Glucose 201 H (74-99) mg/dL POC Glucose (mg/dL) 274 H (75-99) mg/dL Calcium 7.9 L (8.4-10.2) mg/dL ALT 44 H (4-34) U/L Alkaline Phosphatase 163 H (38-126) U/L Total Protein 5.0 L (6.3-8.2) g/dL Albumin 2.2 L (3.5-5.0) g/dL 03/30/20 03/30/20 03/30/20 Range/Units 04:50 05:01 05:03 MCHC (31.0-37.0) g/dL Neutrophils # (Manual) (1.3-7.7) k/uL Fibrinogen 640 H (200-500) mg/dL D-Dimer 2.03 H (<0.60) mg/L FEU ABG pH 7.20 L (7.35-7.45) ABG HCO3 17 L (21-25) mmol/L Potassium (3.5-5.1) mmol/L Chloride (98-107) mmol/L Carbon Dioxide (22-30) mmol/L BUN (7-17) mg/dL Creatinine (0.52-1.04) mg/dL Glucose (74-99) mg/dL POC Glucose (mg/dL) 189 H (75-99) mg/dL Calcium (8.4-10.2) mg/dL ALT (4-34) U/L Alkaline Phosphatase (38-126) U/L Total Protein (6.3-8.2) g/dL Albumin (3.5-5.0) g/dL 03/30/20 Range/Units 08:16 MCHC (31.0-37.0) g/dL Neutrophils # (Manual) (1.3-7.7) k/uL Fibrinogen (200-500) mg/dL D-Dimer (<0.60) mg/L FEU ABG pH (7.35-7.45) ABG HCO3 (21-25) mmol/L Potassium (3.5-5.1) mmol/L Chloride (98-107) mmol/L Carbon Dioxide (22-30) mmol/L BUN (7-17) mg/dL Creatinine (0.52-1.04) mg/dL Glucose (74-99) mg/dL POC Glucose (mg/dL) 205 H (75-99) mg/dL Calcium (8.4-10.2) mg/dL ALT (4-34) U/L Alkaline Phosphatase (38-126) U/L Total Protein (6.3-8.2) g/dL Albumin (3.5-5.0) g/dL Microbiology - Last 24 Hours (Table) 03/23/20 09:47 Blood Culture - Final Blood No Growth after 144 hours Assessment and Plan Assessment: Impression: Acute hypoxic respiratory failure secondary to covid 19 pneumonitis. Requiring intubation and mechanical ventilation on 03/29/20. Intractable nausea and vomiting on presentation as well as diarrhea felt to be related to Covid 19 infection History of severe COPD. History of coronary artery disease. Previous history of DVT. History of GERD. Benign essential hypertension. Dyslipidemia. Former smoker. Hypernatremia secondary to free water losses. Recommendation: Continue ventilatory support. Vent changes were made this morning, she is down to 60%, assist control rate is up to 28, tidal volume remains 400, and PEEP remains at 14. Continue propofol. Continue Decadron. Patient was out of the window for remdesivir Continue bronchodilators. Continue GI and DVT prophylaxis. Continue Lovenox. Prognosis is definitely poor and guarded. We'll continue to follow. Critical care time is 33 minutes Time with Patient: Greater than 30
[2020-03-30] MEDS ORDERED: POTASSIUM BICARBONATE/CIT AC 20 MEQ TABLET.EFF NG-TUBE SCH (15:00)
[2020-03-30 16:07] LABS: Glucose,Whole Blood 170 mg/dL (75-99)
[2020-03-30 19:36] LABS: Glucose,Whole Blood 186 mg/dL (75-99)
[2020-03-30] MEDS: HYDROmorphone 1 MG/ML 1 ML SYRINGE IVP PRN (19:46)
[2020-03-30] MEDS: amLODIPine 5 MG TAB PO SCH (23:27)
[2020-03-30 23:38] LABS: Glucose,Whole Blood 174 mg/dL (75-99)
[2020-03-31] MEDS: INSULIN ASPART (NovoLOG) 100 UNIT/ML VIAL SQ SCH ×14 (00:17→23:55)
[2020-03-31 04:34] LABS: Glucose,Whole Blood 117 mg/dL (75-99)
[2020-03-31 04:58] LABS: ABG Base Excess 1.6 mmol/L; ABG HCO3 27 mmol/L (21-25); ABG Oxygen Saturation 88.6 % (94-97); ABG PCO2 51 mmHg (35-45); ABG PH 7.34 (7.35-7.45); ABG TCO2 29 mmol/L (19-24)
[2020-03-31 05:03] LABS: ABG PO2 55 mmHg (83-108)
[2020-03-31] MEDS: HYDROmorphone 1 MG/ML 1 ML SYRINGE IVP PRN ×2 (05:05→22:03)
[2020-03-31 05:45] LABS: Basophils % (A) 0 %; Eosinophils # (A) 0.1 k/uL (0-0.7); Eosinophils % (A) 1 %; HCT 38.7 % (34.0-46.0); HGB 12.1 gm/dL (11.4-16.0); Hypochromasia Slight; Lymphocytes # (A) 0.5 k/uL (1.0-4.8); Lymphocytes % (A) 6 %; MCH 27.8 pg (25.0-35.0); MCHC 31.2 g/dL (31.0-37.0); MCV 88.9 fL (80.0-100.0); Mean Platelet Volume 8.5; Monocytes # (A) 0.1 k/uL (0-1.0); Monocytes % (A) 2 %; Neutrophils # (A) 7.9 k/uL (1.3-7.7); Neutrophils % (A) 91 %; Platelet Count 238 k/uL (150-450); RBC 4.35 m/uL (3.80-5.40); RDW 14.9 % (11.5-15.5); WBC 8.6 k/uL (3.8-10.6)
[2020-03-31 05:49] LABS: Albumin 2.1 g/dL (3.5-5.0); Calcium 7.4 mg/dL (8.4-10.2); Potassium 3.1 mmol/L (3.5-5.1); Total Bilirubin 0.5 mg/dL (0.2-1.3); Total Protein 4.8 g/dL (6.3-8.2)
[2020-03-31 06:00] LABS: C Reactive Protein 179.5 mg/L (<10.0)
[2020-03-31 06:19] LABS: Glucose,Whole Blood 118 mg/dL (75-99)
[2020-03-31] MEDS: SUCRALFATE 1 GM TAB PO SCH ×4 (06:48→21:01)
--- NOTE | 2020-03-31 07:02 | XR ---
EXAMINATION TYPE: XR chest 1V portable DATE OF EXAM: 03/31/2020 COMPARISON: 03/30/2020 HISTORY: SOB, Follow Up FINDINGS: Indwelling tubes and catheters are unchanged. Diffuse bilateral infiltrates persist greatest at the lung bases. Mild progression suggested. Stable appearance of the cardio-mediastinal structures at this time. Pleural effusion unchanged. IMPRESSION: 1. Diffuse bilateral infiltrates persist greatest at the lung bases. Mild progression suggested.
[2020-03-31] MEDS: ENOXAPARIN 40 MG/0.4 ML SYRINGE SQ SCH ×2 (08:09→21:10)
[2020-03-31] MEDS: ASPIRIN 81 MG PO SCH (08:09)
[2020-03-31] MEDS: METOPROLOL TARTRATE 12.5 MG TAB PO SCH ×2 (08:09→21:11)
[2020-03-31] MEDS: DEXAMETHASONE SOD PHOSPHATE 10 MG/ML 1 ML VIAL IV SCH (08:09)
[2020-03-31] MEDS: PANTOPRAZOLE 40 MG/10 ML VIAL IVP SCH (08:09)
[2020-03-31] MEDS: CHLORHEXIDINE GLUCONATE 15 ML CUP MUCOUS MEM SCH ×2 (08:10→21:11)
[2020-03-31] MEDS: DICYCLOMINE 20 MG TAB PO SCH ×2 (08:10→21:10)
[2020-03-31] MEDS: PRAVASTATIN SODIUM 20 MG TAB PO SCH (08:10)
[2020-03-31] MEDS: FAMOTIDINE 20 MG TAB PO SCH (08:10)
[2020-03-31] MEDS: COLCHICINE 0.6 MG EACH PO SCH (08:10)
[2020-03-31] MEDS: POTASSIUM CHLORIDE ER 10 MEQ TAB.ER.PRT PO SCH ×2 (08:10→21:01)
[2020-03-31] MEDS: allopurinoL 100 MG TAB PO SCH (08:14)
[2020-03-31 10:03] LABS: Ferritin 640.1 ng/mL (10.0-291.0)
[2020-03-31 10:41] LABS: ABG Base Excess 1.2 mmol/L; ABG HCO3 27 mmol/L (21-25); ABG Oxygen Saturation 97.1 % (94-97); ABG PCO2 54 mmHg (35-45); ABG PH 7.31 (7.35-7.45); ABG PO2 67 mmHg (83-108); ABG TCO2 29 mmol/L (19-24); Allen Test Performed? Yes
[2020-03-31] MEDS ORDERED: Potassium Replacement Protocol 1 EACH MISC MISCELLANE PRN ×2 (10:43→11:03)
[2020-03-31] MEDS: SODIUM CHLORIDE 0.9% 1,000 ML IV SCH ×2 (11:06→21:11)
[2020-03-31] MEDS: POTASSIUM CHLORIDE 20 MEQ in WATER FOR INJECTION 1 100ML.BAG IVPB SCH ×2 (11:08→13:06)
[2020-03-31 11:26] LABS: Glucose,Whole Blood 152 mg/dL (75-99)
--- NOTE | 2020-03-31 13:41 | P.PN ---
Subjective Progress Note Date: 03/31/20 Principal diagnosis: Acute hypoxic respiratory failure secondary to covid 19 pneumonia 79-year-old white female patient with past medical history of COPD, hypertension and emergency department on 03/15/2020 for evaluation of nausea, vomiting, and she tested positive for COVID 19, her onset of symptoms was around a week prior to presentation on 03/08/2020. Patient had decreased oral intake. No fever, chills. Other medical history includes a history of CVA, DVT, GERD/reflux, osteoarthritis, CAD with previous PTCA and stenting, anxiety, and history of smoking. Patient discharged home at that time with [id number] vitamin D, vitamin C, zinc, and was instructed to come back for worsening symptoms. On 2019 patient came back to the emergency department for reevaluation of intractable nausea, vomiting and diarrhea, patient was unable to tolerate any food water and she was unable to take any of her medications, she has had fevers, for which she is been taking Tylenol, no abdominal pain, no shortness of breath or coughing. Is x-ray reveals bibasilar infiltrates greater at the left lung base. Labs have been reviewed showing lymphopenia with lymphocyte count of 0.5, potassium is 2.7, d-dimer is 0.48, BUN of 19 creatinine 0.8, plasma lactic acid is 1.4, ferritin level is 438, AST is 45, ALT is 26, alkaline phosphatase is 120, LDH is 960, CRP is 82, pro calcitonin level is 0.2. She was given IV fluid hydration, her vital signs have been stable overnight, the low-grade fever this morning, with a temp of 100.1F, she is on 2 L of oxygen and the pulse ox of 91-94%, she has a congested cough but denies any shortness of breath. on today's evaluation of03/25/2020, the patient is still having diarrhea. She had several bouts of diarrhea. Stool for C. diff came back negative. No abdominal pain. No emesis. She continues to have episodic cough. Potassium has been replaced.she is having also some worsening shortness of breath. Earlier this morning she was found to be hypoxic and she is currently on 15 L of oxygen by nasal cannula. She is quite restless. Her mentation is waxing and waning. I feel like she is a bit confused on today's evaluation. Note that when she came in she was only on 2 L of oxygen by nasal cannula. On 03/26/2020, seeing the patient for a follow-up. The patient is still confused. She is quite restless in bed. She is still having some loose diarrhea. She is also on high flow oxygen at 15 L per minute nasal cannula to maintain a saturation above 90%. However, this afternoon, the patient's condition decompensated. She became progressively more hypoxic. As such, the patient was placed on high flow oxygen and she is currently on 15 L of oxygen by nasal cannula.. Level is on the rise in the patient's sodium level is at 149. Renal function remains stable. LDH from yesterday was 465 with a CRP level of 14.9. The patient otherwise is hemodynamically stable. She is on Lovenox 40 mg subcu for DVT prophylaxis. She is on Decadron 6 mg by mouth daily. Home medications of been ordered resume. As mentioned earlier, the patient has history of COPD and hypertension. I gave her IV fluids and I switched IV fluids to half-normal saline along with a 20 mEq of potassium chloride to run at 75 mL an hour. On 03/27/2020, the patient is restless, confused, moaning, and she is sitting in obvious respiratory distress. The patient remains on 100% nonrebreather facemask addition to high flow oxygen which is running at 60 L with a FiO2 of 93% and her pulse ox currently is 95-96%. Patient has received 2 tablets of Xanax 0.5 mg earlier today. Her last chest x-ray showed bilateral pulmonary infiltrates and this was done on 03/25/2020. A repeat chest x-ray is to be done today. Meanwhile, the rest of the blood work is pending. Her CBC shows no significant abnormalities. Neurologic exam is nonfocal. She is moving all 4 extremities. She is on IV fluid with half-normal saline and potassium running at 75 mL an hour. On 03/28/2020, the patient is worse in terms of her mentation. Although she is not as much restless, she continues to moan and she is confused. She is also painful stimulation. She is unable to hold a conversation. There is a change in her condition over the past 48 hours. She remains on the percent nonrebreather facemask in addition to high flow oxygen at 60 L. I repeated the chest x-ray yesterday showed some limited infiltration lung bases. Lungs are showing limited In the lung bases. Pulse ox remained about 90% as long as the patient is able to deliver the oxygen through the nonrebreather and there was a high flow. She is also on half normal saline running at 75 mL an hour. As mentioned earlier, her neurologic exam is nonfocal. The patient is still on Decadron 6 mg IV. She has not received any sedatives. She has not received any Haldol. She will need a blood gas and possibly transfer to the intensive care unit. Her LDH from yesterday 78. Her CRP is at 14.7. The patient's temperature is at 100.5. Patient was reevaluated today on 03/29/20, patient remains intubated and mechanically ventilated. She is on assist control rate of 28 tidal volume is 400 FiO2 is 100% and PEEP is 12. ABG showed a pO2 of 75 pCO2 of 44 pH of 7.36. Hence her PEEP was increased to 14. Patient remains on norepinephrine at 1 mcg/kg/m, and she is on a bicarb drip which I have discontinued this morning. I kept her on D5W at 1 25 mL/h, increase her free water flushes to 400 MLS every 4 hours specially with her sodium climbing up to 158 this morning. Patient was admitted on 03/23 she was intubated on 03/29, and she remains intubated and mechanically ventilated. Chest x-ray continues to show diffuse bilateral interstitial infiltrates. Labs today showed elevated sodium bicarb is 21, and her renal functioning is basically normal. ABG yesterday before intubation showed a pO2 of 48 pCO2 of 21 pH of 7.37. Patient is on propofol which I have increased to 75 mcg/kg/m. Not requiring any pressors. Reevaluated today on 03/30/20, remains in the ICU, intubated and mechanically ventilated. Patient is on assist control rate of 28 tidal volume is 400 FiO2 is 70% and PEEP of 14. ABG before the change in assist control rate up to 28 showed a pO2 of 87 pCO2 of 45 pH of 7.20. Patient did receive sodium bicarb drip, and she remains presently on bicarb drip, she is also on IV fluid at 20 mL/h, norepinephrine has been discontinued. Patient also on enteral feeding and she continues to receive free water flushes because of her elevated sodium yeste rday. This morning her FiO2 was decreased down to 60% and her free water flushes down to 200 mL every 4 hours. Basic metabolic profile is relatively normal. CBC is relatively normal Reevaluated today on 03/31/20, patient seems to be doing worse today compared to the last couple of days, had to increase her assist control rate to 30, increased her FiO2 to 100%, Tidal Volume Is 400, and PEEP Is 16. Her O2 Saturation Is Marginal In Spite Of Higher FiO2 and High Rate. Chest X-Ray Continues to Show Diffuse Interstitial Infiltrates Consistent with covid 19 pneumonitis. Patient is also requiring norepinephrine at 0.03 mcg/kg/m, she is on propofol at 75 and she is also on sodium bicarb which I will go ahead and discontinue based on her ABG. Bicarb today is 27 ABG showed a pO2 of 67 pCO2 of 54 pH of 7.31 and this is on 100% FiO2 with PEEP of 16. CBC is basically about the same. WBC is 8.6 hemoglobin is 12.1. X-ray today is a bit worse, continues to show bilateral interstitial infiltrates. Patient is on bolus feedings, and she is also on water flushes every 4 hours. Receiving 200 mL of free water. Objective - Vital Signs Vital signs: Vital Signs Temp 99.2 F 03/31/20 12:00 Pulse 90 03/31/20 13:00 Resp 31 H 03/31/20 13:00 BP 108/61 03/31/20 13:00 Pulse Ox 90 L 03/31/20 13:00 Intake & Output 03/30/20 03/31/20 03/31/20 18:59 06:59 18:59 Intake Total 1569 2368.685 1438.061 Output Total 1275 1300 450 Balance 294 1068.685 988.061 Weight 76 kg 76 kg Intake: IV 54 678 486 Dextrose 5% in Water 1, 600 000 ml @ 75 mls/hr IV . [id number] [facility] with Sodium Bicarb (1 Meq/ml) 150 ml Rx#:[id number] Pressure Bag 54 78 36 ns 450 Intake, IV Titration 1025 700.685 292.061 Amount Dextrose 5% in Water 1, 825 375 000 ml @ 75 mls/hr IV . [id number] [facility] with Sodium Bicarb (1 Meq/ml) 150 ml Rx#:[id number] Norepinephrine 4 mg In 62.432 5.962 Sodium Chloride 0.9% 250 ml @ 0.05 MCG/KG/MIN 12. 961 mls/hr IV .[id number] [facility] Rx#:[id number] Potassium Chloride 20 meq 100 In Water For Injection 1 100ml.bag @ 50 mls/hr IVPB Q2H [facility] Rx#: [id number] propofoL 1,000 mg In 200 263.253 186.099 Empty Bag 1 bag @ Titrate IV .Q0M [facility] Rx#: [id number] Tube Feeding 260 390 260 Other 230 600 400 Output: Urine 1275 1300 450 Other: Voiding Method Indwelling Catheter Indwelling Catheter Indwelling Catheter # Bowel Movements 1 ABP, PAP, CO, CI - Last Documented Arterial Blood Pressure 98/48 - Exam GENERAL EXAM: Revealed 79-year-old female sedated, on mechanical ventilation. HEAD: Normocephalic/atraumatic. Endotracheal tube is intact. EYES: PERRLA, EOMI, no icterus. NOSE: Nasal mucosa is normal.. THROAT: Moist mucous membranes NECK: No neck masses no JVD. No cervical adenopathy CHEST: Symmetrical chest expansion.. LUNGS: Fine crackles noted bilaterally. No rhonchi and no wheezes. CVS: S1 and S2, no S3 gallop. ABDOMEN: Soft nontender no megaly no rebound no guarding. EXTREMITIES: Good pulses bilaterally no clubbing edema or cyanosis MUSCULOSKELETAL; cannot assess. SKIN: No rashes CENTRAL NERVOUS SYSTEM: Could not assess, Psychiatric: Could not assess - Labs CBC & Chem 7: 03/31/20 05:26 03/31/20 05:26 Labs: Abnormal Lab Results - Last 24 Hours (Table) 03/30/20 03/30/20 03/30/20 Range/Units 16:06 19:33 23:37 Neutrophils # (1.3-7.7) k/uL Lymphocytes # (1.0-4.8) k/uL D-Dimer (<0.60) mg/L FEU ABG pH (7.35-7.45) ABG pCO2 (35-45) mmHg ABG pO2 (83-108) mmHg ABG HCO3 (21-25) mmol/L ABG Total CO2 (19-24) mmol/L ABG O2 Saturation (94-97) % Potassium (3.5-5.1) mmol/L BUN (7-17) mg/dL Glucose (74-99) mg/dL POC Glucose (mg/dL) 170 H 186 H 174 H (75-99) mg/dL Calcium (8.4-10.2) mg/dL Ferritin (10.0-291.0) ng/mL Alkaline Phosphatase (38-126) U/L C-Reactive Protein (<10.0) mg/L Total Protein (6.3-8.2) g/dL Albumin (3.5-5.0) g/dL 03/31/20 03/31/20 03/31/20 Range/Units 04:32 04:52 05:26 Neutrophils # (1.3-7.7) k/uL Lymphocytes # (1.0-4.8) k/uL D-Dimer (<0.60) mg/L FEU ABG pH 7.34 L (7.35-7.45) ABG pCO2 51 H (35-45) mmHg ABG pO2 55 L* (83-108) mmHg ABG HCO3 27 H (21-25) mmol/L ABG Total CO2 29 H (19-24) mmol/L ABG O2 Saturation 88.6 L (94-97) % Potassium 3.1 L (3.5-5.1) mmol/L BUN 32 H (7-17) mg/dL Glucose 116 H (74-99) mg/dL POC Glucose (mg/dL) 117 H (75-99) mg/dL Calcium 7.4 L (8.4-10.2) mg/dL Ferritin 640.1 H (10.0-291.0) ng/mL Alkaline Phosphatase 135 H (38-126) U/L C-Reactive Protein 179.5 H (<10.0) mg/L Total Protein 4.8 L (6.3-8.2) g/dL Albumin 2.1 L (3.5-5.0) g/dL 03/31/20 03/31/20 03/31/20 Range/Units 05:26 05:26 06:17 Neutrophils # 7.9 H (1.3-7.7) k/uL Lymphocytes # 0.5 L (1.0-4.8) k/uL D-Dimer 1.07 H (<0.60) mg/L FEU ABG pH (7.35-7.45) ABG pCO2 (35-45) mmHg ABG pO2 (83-108) mmHg ABG HCO3 (21-25) mmol/L ABG Total CO2 (19-24) mmol/L ABG O2 Saturation (94-97) % Potassium (3.5-5.1) mmol/L BUN (7-17) mg/dL Glucose (74-99) mg/dL POC Glucose (mg/dL) 118 H (75-99) mg/dL Calcium (8.4-10.2) mg/dL Ferritin (10.0-291.0) ng/mL Alkaline Phosphatase (38-126) U/L C-Reactive Protein (<10.0) mg/L Total Protein (6.3-8.2) g/dL Albumin (3.5-5.0) g/dL 03/31/20 03/31/20 Range/Units 10:41 11:25 Neutrophils # (1.3-7.7) k/uL Lymphocytes # (1.0-4.8) k/uL D-Dimer (<0.60) mg/L FEU ABG pH 7.31 L (7.35-7.45) ABG pCO2 54 H (35-45) mmHg ABG pO2 67 L (83-108) mmHg ABG HCO3 27 H (21-25) mmol/L ABG Total CO2 29 H (19-24) mmol/L ABG O2 Saturation 97.1 H (94-97) % Potassium (3.5-5.1) mmol/L BUN (7-17) mg/dL Glucose (74-99) mg/dL POC Glucose (mg/dL) 152 H (75-99) mg/dL Calcium (8.4-10.2) mg/dL Ferritin (10.0-291.0) ng/mL Alkaline Phosphatase (38-126) U/L C-Reactive Protein (<10.0) mg/L Total Protein (6.3-8.2) g/dL Albumin (3.5-5.0) g/dL Assessment and Plan Assessment: Impression: Acute hypoxic respiratory failure secondary to covid 19 pneumonitis. Requiring intubation and mechanical ventilation on 03/29/20. Intractable nausea and vomiting on presentation as well as diarrhea felt to be related to Covid 19 infection History of severe COPD. History of coronary artery disease. Previous history of DVT. History of GERD. Benign essential hypertension. Dyslipidemia. Former smoker. Hypernatremia secondary to free water losses. Improving with the free water. Sodium today is 138. Recommendation: Continue ventilatory support. Vent changes were made today, she is now on rate of 30 tidal volume 400 FiO2 is 100% and PEEP is 16 Continue propofol. Continue Decadron. Patient was out of the window for remdesivir Continue bronchodilators. Continue GI and DVT prophylaxis. Continue Lovenox. Prognosis is definitely poor and guarded. We'll continue to follow. Critical care time is greater than 30 minutes. Time with Patient: Greater than 30
[2020-03-31] MEDS: NOREPINEPHRINE 4 MG in SODIUM CHLORIDE 0.9% 250 ML IV SCH ×2 (14:25→20:00)
[2020-03-31 16:06] LABS: Glucose,Whole Blood 133 mg/dL (75-99)
[2020-03-31 20:15] LABS: Glucose,Whole Blood 132 mg/dL (75-99)
[2020-03-31] MEDS: amLODIPine 5 MG TAB PO SCH (21:00)
--- NOTE | 2020-03-31 21:32 | P.PN ---
Subjective Principal diagnosis: Pneumonia with Covid The patient is an 79-year-old white female essential admitted with Covid pneumonia. She has progressed to requiring intubation for respiratory failure. Appreciate multiple consultants input. She still continues to struggle and requires about 80% FiO2. Objective - Vital Signs Vital signs: Vital Signs Temp 99.1 F 03/31/20 16:00 Pulse 95 03/31/20 19:00 Resp 30 H 03/31/20 19:00 BP 130/66 03/31/20 19:00 Pulse Ox 93 L 03/31/20 19:00 Intake & Output 03/31/20 03/31/20 04/01/20 06:59 18:59 06:59 Intake Total 2368.685 2826.443 100 Output Total 1300 845 Balance 0635.804 8156.443 100 Weight 76 kg 76 kg Intake: IV 678 522 Dextrose 5% in Water 1, 600 000 ml @ 75 mls/hr IV . [id number] [facility] with Sodium Bicarb (1 Meq/ml) 150 ml Rx#:[id number] Pressure Bag 78 72 ns 450 Intake, IV Titration 405.143 9441.443 100 Amount Dextrose 5% in Water 1, 375 000 ml @ 75 mls/hr IV . [id number] [facility] with Sodium Bicarb (1 Meq/ml) 150 ml Rx#:[id number] Norepinephrine 4 mg In 62.432 378.344 Sodium Chloride 0.9% 250 ml @ 0.05 MCG/KG/MIN 12. 961 mls/hr IV .[id number] [facility] Rx#:[id number] Potassium Chloride 20 meq 100 In Water For Injection 1 100ml.bag @ 50 mls/hr IVPB Q2H [facility] Rx#: [id number] Sodium Chloride 0.9% 1, 450 000 ml @ 75 mls/hr IV . [id number] [facility] Rx#:[id number] propofoL 1,000 mg In 263.253 386.099 100 Empty Bag 1 bag @ Titrate IV .Q0M [facility] Rx#: [id number] Tube Feeding 390 390 Other 600 600 Output: Urine 1300 845 Other: Voiding Method Indwelling Catheter Indwelling Catheter ABP, PAP, CO, CI - Last Documented Arterial Blood Pressure 111/62 - Constitutional General appearance: Present: no acute distress - EENT Eyes: Absent: abnormal pupil - Neck Neck: Absent: lymphadenopathy - Respiratory Respiratory: bilateral: diminished - Cardiovascular Rhythm: regular Heart sounds: normal: S1, S2 Abnormal Heart Sounds: Absent: S3 Gallop - Integumentary Integumentary: Absent: cellulitis - Psychiatric Psychiatric: Absent: A&O x's 3 - Labs CBC & Chem 7: 03/31/20 05:26 03/31/20 16:05 Labs: Abnormal Lab Results - Last 24 Hours (Table) 03/30/20 03/31/20 03/31/20 Range/Units 23:37 04:32 04:52 Neutrophils # (1.3-7.7) k/uL Lymphocytes # (1.0-4.8) k/uL D-Dimer (<0.60) mg/L FEU ABG pH 7.34 L (7.35-7.45) ABG pCO2 51 H (35-45) mmHg ABG pO2 55 L* (83-108) mmHg ABG HCO3 27 H (21-25) mmol/L ABG Total CO2 29 H (19-24) mmol/L ABG O2 Saturation 88.6 L (94-97) % Potassium (3.5-5.1) mmol/L BUN (7-17) mg/dL Glucose (74-99) mg/dL POC Glucose (mg/dL) 174 H 117 H (75-99) mg/dL Calcium (8.4-10.2) mg/dL Ferritin (10.0-291.0) ng/mL Alkaline Phosphatase (38-126) U/L C-Reactive Protein (<10.0) mg/L Total Protein (6.3-8.2) g/dL Albumin (3.5-5.0) g/dL 03/31/20 03/31/20 03/31/20 Range/Units 05:26 05:26 05:26 Neutrophils # 7.9 H (1.3-7.7) k/uL Lymphocytes # 0.5 L (1.0-4.8) k/uL D-Dimer 1.07 H (<0.60) mg/L FEU ABG pH (7.35-7.45) ABG pCO2 (35-45) mmHg ABG pO2 (83-108) mmHg ABG HCO3 (21-25) mmol/L ABG Total CO2 (19-24) mmol/L ABG O2 Saturation (94-97) % Potassium 3.1 L (3.5-5.1) mmol/L BUN 32 H (7-17) mg/dL Glucose 116 H (74-99) mg/dL POC Glucose (mg/dL) (75-99) mg/dL Calcium 7.4 L (8.4-10.2) mg/dL Ferritin 640.1 H (10.0-291.0) ng/mL Alkaline Phosphatase 135 H (38-126) U/L C-Reactive Protein 179.5 H (<10.0) mg/L Total Protein 4.8 L (6.3-8.2) g/dL Albumin 2.1 L (3.5-5.0) g/dL 03/31/20 03/31/20 03/31/20 Range/Units 06:17 10:41 11:25 Neutrophils # (1.3-7.7) k/uL Lymphocytes # (1.0-4.8) k/uL D-Dimer (<0.60) mg/L FEU ABG pH 7.31 L (7.35-7.45) ABG pCO2 54 H (35-45) mmHg ABG pO2 67 L (83-108) mmHg ABG HCO3 27 H (21-25) mmol/L ABG Total CO2 29 H (19-24) mmol/L ABG O2 Saturation 97.1 H (94-97) % Potassium (3.5-5.1) mmol/L BUN (7-17) mg/dL Glucose (74-99) mg/dL POC Glucose (mg/dL) 118 H 152 H (75-99) mg/dL Calcium (8.4-10.2) mg/dL Ferritin (10.0-291.0) ng/mL Alkaline Phosphatase (38-126) U/L C-Reactive Protein (<10.0) mg/L Total Protein (6.3-8.2) g/dL Albumin (3.5-5.0) g/dL 03/31/20 03/31/20 Range/Units 16:05 20:14 Neutrophils # (1.3-7.7) k/uL Lymphocytes # (1.0-4.8) k/uL D-Dimer (<0.60) mg/L FEU ABG pH (7.35-7.45) ABG pCO2 (35-45) mmHg ABG pO2 (83-108) mmHg ABG HCO3 (21-25) mmol/L ABG Total CO2 (19-24) mmol/L ABG O2 Saturation (94-97) % Potassium (3.5-5.1) mmol/L BUN (7-17) mg/dL Glucose (74-99) mg/dL POC Glucose (mg/dL) 133 H 132 H (75-99) mg/dL Calcium (8.4-10.2) mg/dL Ferritin (10.0-291.0) ng/mL Alkaline Phosphatase (38-126) U/L C-Reactive Protein (<10.0) mg/L Total Protein (6.3-8.2) g/dL Albumin (3.5-5.0) g/dL Assessment and Plan (1) COVID-19 Current Visit: Yes Status: Acute Code(s): U07.1 - COVID-19 SNOMED Code(s): 432807065 (2) Hypokalemia Current Visit: Yes Status: Acute Code(s): E87.6 - HYPOKALEMIA SNOMED Code(s): 60066443 (3) Chronic low back pain Current Visit: No Status: Acute Code(s): M54.5 - LOW BACK PAIN; G89.29 - OTHER CHRONIC PAIN SNOMED Code(s): 322092553 (4) Dehydration Current Visit: No Status: Acute Code(s): E86.0 - DEHYDRATION SNOMED Code(s): 43328027 (5) High risk for readmission Current Visit: No Status: Acute Code(s): Z91.89 - OT PERSONAL RISK FACTORS, NOT ELSEWHERE CLASSIFIED SNOMED Code(s): 006593886 (6) Lumbar degenerative disc disease Current Visit: No Status: Acute Code(s): M51.36 - OTHER INTERVERTEBRAL DISC DEGENERATION, LUMBAR REGION SNOMED Code(s): 27287424 Plan: Placed on appropriate protocol for potassium. Supportive care otherwise. She is requiring intubation at This time. Check CBC and CMP in the a.m. See orders otherwise Prognosis is guarded Time with Patient: Greater than 30
[2020-03-31 23:40] LABS: Glucose,Whole Blood 144 mg/dL (75-99)
[2020-04-01] MEDS: NOREPINEPHRINE 4 MG in SODIUM CHLORIDE 0.9% 250 ML IV SCH ×2 (03:59→22:15)
[2020-04-01 04:07] LABS: Glucose,Whole Blood 117 mg/dL (75-99)
[2020-04-01] MEDS: INSULIN ASPART (NovoLOG) 100 UNIT/ML VIAL SQ SCH ×10 (04:08→20:19)
[2020-04-01 04:18] LABS: ABG Base Excess -2.2 mmol/L; ABG HCO3 25 mmol/L (21-25); ABG Oxygen Saturation 96.6 % (94-97); ABG PCO2 56 mmHg (35-45); ABG PH 7.26 (7.35-7.45); ABG PO2 88 mmHg (83-108); ABG TCO2 27 mmol/L (19-24); Allen Test Performed? Yes
[2020-04-01 04:42] LABS: Albumin 2.1 g/dL (3.5-5.0); Calcium 7.4 mg/dL (8.4-10.2); Potassium 3.5 mmol/L (3.5-5.1); Total Bilirubin 0.5 mg/dL (0.2-1.3); Total Protein 4.9 g/dL (6.3-8.2)
[2020-04-01] MEDS: POTASSIUM BICARBONATE/CIT AC 20 MEQ TABLET.EFF NG-TUBE SCH ×2 (05:40→06:32)
[2020-04-01] MEDS: SUCRALFATE 1 GM TAB PO SCH ×4 (06:32→20:03)
--- NOTE | 2020-04-01 06:32 | XR ---
EXAMINATION TYPE: XR chest 1V portable DATE OF EXAM: 04/01/2020 CLINICAL HISTORY: Difficulty breathing progress study. TECHNIQUE: Single AP portable semiupright view of the chest is obtained. COMPARISON: Chest x-ray from one day earlier and older studies FINDINGS: Stable endotracheal and orogastric tubes. Stable left internal jugular central venous cath eter. Osseous structures are demineralized. Background chronic parenchymal changes with reticular inc reased opacities bilaterally greatest in the lower lungs where there is organizing consolidations. He art size upper limits of normal with atherosclerotic thoracic aorta. Overlying rim calcified breast i mplants redemonstrated. IMPRESSION: Multifocal bilateral acute infiltrates with organizing basilar consolidations on backgrou nd chronic parenchymal change consistent with covid 19 infection. No significant change from most rec ent x-ray.
[2020-04-01] MEDS: PANTOPRAZOLE 40 MG/10 ML VIAL IVP SCH (08:26)
[2020-04-01] MEDS: allopurinoL 100 MG TAB PO SCH (08:26)
[2020-04-01] MEDS: ASPIRIN 81 MG PO SCH (08:27)
[2020-04-01] MEDS: DEXAMETHASONE SOD PHOSPHATE 10 MG/ML 1 ML VIAL IV SCH (08:27)
[2020-04-01] MEDS: CHLORHEXIDINE GLUCONATE 15 ML CUP MUCOUS MEM SCH ×2 (08:27→20:38)
[2020-04-01] MEDS: DICYCLOMINE 20 MG TAB PO SCH ×2 (08:28→22:18)
[2020-04-01] MEDS: METOPROLOL TARTRATE 12.5 MG TAB PO SCH ×2 (08:28→20:38)
[2020-04-01] MEDS: PRAVASTATIN SODIUM 20 MG TAB PO SCH (08:28)
[2020-04-01] MEDS: FAMOTIDINE 20 MG TAB PO SCH (08:28)
[2020-04-01] MEDS: ENOXAPARIN 40 MG/0.4 ML SYRINGE SQ SCH ×2 (08:28→20:38)
[2020-04-01] MEDS: COLCHICINE 0.6 MG EACH PO SCH (08:28)
[2020-04-01 08:44] LABS: Glucose,Whole Blood 132 mg/dL (75-99)
--- NOTE | 2020-04-01 11:36 | CDI ---
Documentation Clarification Form Date: 04/01/2020 11:15:35 AM From: Caryl FrancoisFlemingJOSE rodriguez, CCDS Admit Date: 03/23/2020 10:54:00 AM Patient Name: Reena Mckeon Visit Number: [id number] Discharge Date: ATTENTION: The Clinical Documentation Specialists (CDI) and [facility] Coding Staff appreciate your assistance in clarifying documentation. Please respond to the clarification below the line at the bottom and electronically sign. The CDI & [facility] Coding staff will review the response and follow-up if needed. Please note: Queries are made part of the Legal Health Record. If you have any questions, please contact the author of this message via ITS. Dr. Malissa Sahu: Per the 03/27 Pulmonary/Critical Care Progress and subsequent Progress Notes, the following is documented: "On 03/27/2020, the patient is restless, confused, moaning, and she is sitting in obvious respiratory distress." History/Risk Factors: COPD, Hypertension, CAD with stenting, CT, C Diff, CVA, DVT, GERD, OA, Anxiety and Former Smoker. Clinical Indicators: Presented to the ED on 03/23 with fever, Tested positive for COVID 19 ON 03/15 in the ED, discharged to home. Developed intractable nausea, vomiting and diarrhea, fevers. Admitted with COVID 19, Hypokalemia, Diarrhea, Nausea, Vomiting & Fever. Placed on nrb on 03/26, PO 80%, placed on Airvo. On 03/29 the patient's respiratory rate was 38-40, intubated and remains on vent. 03/29 ABG: pH: 7.21*, pCO2: 34*, pHCO3: 14* 03/31 ABG: pH 7.34*, pCO2: 51^, pHCO3: 27^ Vital Signs 03/23: T 103.0^, P 93, R 18-20, BP 138/84, PO 92 RA Vital Signs 03/29: T 96.8*, P 99, R 30 (sob) - 42^ (vent: tachypnea), BP 152/95 - 97/63; PO 71-87 100% vent. RAD: 03/23 CXR: Bibasilar infiltrates greater at the left lung base can be compatible with atypical pneumonia. RAD: 03/29 CXR: Mild bilateral peripheral perihilar reticulation, unchanged from previous 03/15/2020. RAD: 03/31 CXR: Diffuse bilateral infiltrates persist greatest at the lung bases. Mild progression suggested. Treatment 03/23: O2 2-4Lnc, IV fluid 1,000 mls @ 999 mls/hr q1H, IV Benadryl, IV Reglan, IV Kcl, IV fluid 1,000 mls @ 75 mls/hr q13H, IV Ativan. (Patient was out of the window to receive Remdesivir). 03/24: po Hexadrol, Lovenox sq 03/25 O2 increased to 6L - 15L high flow; IV Kcl, 03/27: IV Decadron, IM Haldol 03/28 O2 15L high flow - 60L nrb; IV Ativan, IV Propofol 03/29: Intubated; IV Levophed, IV Na Bicarb In order to accurately reflect the severity of condition, please indicate if the above clinical findings and treatment signify a respiratory condition, such as: Acute Respiratory Distress Syndrome Other, please specify Unable to determine (Last Revision: January 2017) MTDD
[2020-04-01 11:46] LABS: Glucose,Whole Blood 147 mg/dL (75-99)
[2020-04-01 13:39] LABS: C Reactive Protein 339.9 mg/L (<10.0)
[2020-04-01] MEDS ORDERED: LORazepam 2 MG/ML INJ IV PRN (13:42)
[2020-04-01] MEDS ORDERED: MORPHINE SULFATE 2 MG/ML SYRINGE IV PRN (13:42)
[2020-04-01] MEDS ORDERED: MORPHINE SULFATE 4 MG/ML SYRINGE IV PRN (13:42)
[2020-04-01] MEDS ORDERED: MORPHINE SULFATE (100 MG/2 ML) 100 MG in SODIUM CHLORIDE 0.9% 100 ML IV SCH (13:45)
[2020-04-01] MEDS: SODIUM CHLORIDE 0.9% 1,000 ML IV SCH (14:23)
--- NOTE | 2020-04-01 15:33 | P.PN ---
Subjective Progress Note Date: 04/01/20 Principal diagnosis: Acute hypoxic respiratory failure secondary to covid 19 pneumonia 79-year-old white female patient with past medical history of COPD, hypertension and emergency department on 03/15/2020 for evaluation of nausea, vomiting, and she tested positive for COVID 19, her onset of symptoms was around a week prior to presentation on 03/08/2020. Patient had decreased oral intake. No fever, chills. Other medical history includes a history of CVA, DVT, GERD/reflux, osteoarthritis, CAD with previous PTCA and stenting, anxiety, and history of smoking. Patient discharged home at that time with [id number] vitamin D, vitamin C, zinc, and was instructed to come back for worsening symptoms. On 2019 patient came back to the emergency department for reevaluation of intractable nausea, vomiting and diarrhea, patient was unable to tolerate any food water and she was unable to take any of her medications, she has had fevers, for which she is been taking Tylenol, no abdominal pain, no shortness of breath or coughing. Is x-ray reveals bibasilar infiltrates greater at the left lung base. Labs have been reviewed showing lymphopenia with lymphocyte count of 0.5, potassium is 2.7, d-dimer is 0.48, BUN of 19 creatinine 0.8, plasma lactic acid is 1.4, ferritin level is 438, AST is 45, ALT is 26, alkaline phosphatase is 120, LDH is 960, CRP is 82, pro calcitonin level is 0.2. She was given IV fluid hydration, her vital signs have been stable overnight, the low-grade fever this morning, with a temp of 100.1F, she is on 2 L of oxygen and the pulse ox of 91-94%, she has a congested cough but denies any shortness of breath. on today's evaluation of03/25/2020, the patient is still having diarrhea. She had several bouts of diarrhea. Stool for C. diff came back negative. No abdominal pain. No emesis. She continues to have episodic cough. Potassium has been replaced.she is having also some worsening shortness of breath. Earlier this morning she was found to be hypoxic and she is currently on 15 L of oxygen by nasal cannula. She is quite restless. Her mentation is waxing and waning. I feel like she is a bit confused on today's evaluation. Note that when she came in she was only on 2 L of oxygen by nasal cannula. On 03/26/2020, seeing the patient for a follow-up. The patient is still confused. She is quite restless in bed. She is still having some loose diarrhea. She is also on high flow oxygen at 15 L per minute nasal cannula to maintain a saturation above 90%. However, this afternoon, the patient's condition decompensated. She became progressively more hypoxic. As such, the patient was placed on high flow oxygen and she is currently on 15 L of oxygen by nasal cannula.. Level is on the rise in the patient's sodium level is at 149. Renal function remains stable. LDH from yesterday was 465 with a CRP level of 14.9. The patient otherwise is hemodynamically stable. She is on Lovenox 40 mg subcu for DVT prophylaxis. She is on Decadron 6 mg by mouth daily. Home medications of been ordered resume. As mentioned earlier, the patient has history of COPD and hypertension. I gave her IV fluids and I switched IV fluids to half-normal saline along with a 20 mEq of potassium chloride to run at 75 mL an hour. On 03/27/2020, the patient is restless, confused, moaning, and she is sitting in obvious respiratory distress. The patient remains on 100% nonrebreather facemask addition to high flow oxygen which is running at 60 L with a FiO2 of 93% and her pulse ox currently is 95-96%. Patient has received 2 tablets of Xanax 0.5 mg earlier today. Her last chest x-ray showed bilateral pulmonary infiltrates and this was done on 03/25/2020. A repeat chest x-ray is to be done today. Meanwhile, the rest of the blood work is pending. Her CBC shows no significant abnormalities. Neurologic exam is nonfocal. She is moving all 4 extremities. She is on IV fluid with half-normal saline and potassium running at 75 mL an hour. On 03/28/2020, the patient is worse in terms of her mentation. Although she is not as much restless, she continues to moan and she is confused. She is also painful stimulation. She is unable to hold a conversation. There is a change in her condition over the past 48 hours. She remains on the percent nonrebreather facemask in addition to high flow oxygen at 60 L. I repeated the chest x-ray yesterday showed some limited infiltration lung bases. Lungs are showing limited In the lung bases. Pulse ox remained about 90% as long as the patient is able to deliver the oxygen through the nonrebreather and there was a high flow. She is also on half normal saline running at 75 mL an hour. As mentioned earlier, her neurologic exam is nonfocal. The patient is still on Decadron 6 mg IV. She has not received any sedatives. She has not received any Haldol. She will need a blood gas and possibly transfer to the intensive care unit. Her LDH from yesterday 78. Her CRP is at 14.7. The patient's temperature is at 100.5. Patient was reevaluated today on 03/29/20, patient remains intubated and mechanically ventilated. She is on assist control rate of 28 tidal volume is 400 FiO2 is 100% and PEEP is 12. ABG showed a pO2 of 75 pCO2 of 44 pH of 7.36. Hence her PEEP was increased to 14. Patient remains on norepinephrine at 1 mcg/kg/m, and she is on a bicarb drip which I have discontinued this morning. I kept her on D5W at 1 25 mL/h, increase her free water flushes to 400 MLS every 4 hours specially with her sodium climbing up to 158 this morning. Patient was admitted on 03/23 she was intubated on 03/29, and she remains intubated and mechanically ventilated. Chest x-ray continues to show diffuse bilateral interstitial infiltrates. Labs today showed elevated sodium bicarb is 21, and her renal functioning is basically normal. ABG yesterday before intubation showed a pO2 of 48 pCO2 of 21 pH of 7.37. Patient is on propofol which I have increased to 75 mcg/kg/m. Not requiring any pressors. Reevaluated today on 03/30/20, remains in the ICU, intubated and mechanically ventilated. Patient is on assist control rate of 28 tidal volume is 400 FiO2 is 70% and PEEP of 14. ABG before the change in assist control rate up to 28 showed a pO2 of 87 pCO2 of 45 pH of 7.20. Patient did receive sodium bicarb drip, and she remains presently on bicarb drip, she is also on IV fluid at 20 mL/h, norepinephrine has been discontinued. Patient also on enteral feeding and she continues to receive free water flushes because of her elevated sodium yeste rday. This morning her FiO2 was decreased down to 60% and her free water flushes down to 200 mL every 4 hours. Basic metabolic profile is relatively normal. CBC is relatively normal Reevaluated today on 03/31/20, patient seems to be doing worse today compared to the last couple of days, had to increase her assist control rate to 30, increased her FiO2 to 100%, Tidal Volume Is 400, and PEEP Is 16. Her O2 Saturation Is Marginal In Spite Of Higher FiO2 and High Rate. Chest X-Ray Continues to Show Diffuse Interstitial Infiltrates Consistent with covid 19 pneumonitis. Patient is also requiring norepinephrine at 0.03 mcg/kg/m, she is on propofol at 75 and she is also on sodium bicarb which I will go ahead and discontinue based on her ABG. Bicarb today is 27 ABG showed a pO2 of 67 pCO2 of 54 pH of 7.31 and this is on 100% FiO2 with PEEP of 16. CBC is basically about the same. WBC is 8.6 hemoglobin is 12.1. X-ray today is a bit worse, continues to show bilateral interstitial infiltrates. Patient is on bolus feedings, and she is also on water flushes every 4 hours. Receiving 200 mL of free water. Reevaluated today on 04/01/20, patient remains in the ICU, intubated and mechanically ventilated. Chest x-ray continues to show diffuse bilateral infiltrates. Patient remains on assist control mode of mechanical ventilation, rate is 30 tidal volume is 400 FiO2 is 100% and PEEP is 16. ABG showed a pO2 of 88 pCO2 of 56 pCO2 of 7.26. Patient remains on propofol at 75 mcg/kg/m, she is off norepinephrine, she is on bolus tube feedings, and she is also on water flushes. Considering the chest x-ray findings and considering that ABG findings, and considering that the patient is not making any progress, I went ahead and discussed her condition with her daughter over the phone. Explained to the daughter that her condition is actually worse, and I have a feeling that her prognosis is extremely poor. Suggested considering comfort care measures, and the daughter seems to be very agreeable. She would like to discuss this with her significant other. The family members seem to be all on the same page as far as comfort care measures. In the meantime we'll change the CODE STATUS to DO NOT RESUSCITATE CODE STATUS. Electrolytes are normal renal profile is normal inflammatory markers remain high, C-reactive protein is 339. Objective - Vital Signs Vital signs: Vital Signs Temp 99 F 04/01/20 12:00 Pulse 98 04/01/20 14:00 Resp 37 H 04/01/20 14:00 BP 125/59 04/01/20 07:00 Pulse Ox 92 L 04/01/20 14:00 Intake & Output 03/31/20 04/01/20 04/01/20 18:59 06:59 18:59 Intake Total 2826.443 2570.849 1385.772 Output Total 845 1075 560 Balance 6672.727 5634.849 825.772 Weight 76 kg 76.6 kg Intake: IV 522 891 486 Pressure Bag 72 66 36 Sodium Chloride 0.9% 1, 825 450 000 ml @ 75 mls/hr IV . [id number] [facility] Rx#:[id number] ns 450 Intake, IV Titration 1314.443 689.849 239.772 Amount Norepinephrine 4 mg In 378.344 304.118 62.214 Sodium Chloride 0.9% 250 ml @ 0.05 MCG/KG/MIN 12. 961 mls/hr IV .[id number] [facility] Rx#:[id number] Potassium Chloride 20 meq 100 In Water For Injection 1 100ml.bag @ 50 mls/hr IVPB Q2H [facility] Rx#: [id number] Sodium Chloride 0.9% 1, 450 000 ml @ 75 mls/hr IV . [id number] [facility] Rx#:[id number] propofoL 1,000 mg In 386.099 385.731 177.558 Empty Bag 1 bag @ Titrate IV .Q0M [facility] Rx#: [id number] Tube Feeding 390 390 260 Other 600 600 400 Output: Urine 845 1075 560 Other: Voiding Method Indwelling Catheter Indwelling Catheter Indwelling Catheter ABP, PAP, CO, CI - Last Documented Arterial Blood Pressure 101/47 - Exam GENERAL EXAM: Revealed 79-year-old female sedated, on mechanical ventilation. HEAD: Normocephalic/atraumatic. Endotracheal tube is intact. EYES: PERRLA, EOMI, no icterus. NOSE: Nasal mucosa is normal.. THROAT: Moist mucous membranes NECK: No neck masses no JVD. No cervical adenopathy CHEST: Symmetrical chest expansion.. LUNGS: Fine crackles noted bilaterally. No rhonchi and no wheezes. CVS: S1 and S2, no S3 gallop. ABDOMEN: Soft nontender no megaly no rebound no guarding. EXTREMITIES: Good pulses bilaterally no clubbing edema or cyanosis MUSCULOSKELETAL; cannot assess. SKIN: No rashes CENTRAL NERVOUS SYSTEM: Could not assess, Psychiatric: Could not assess - Labs CBC & Chem 7: 03/31/20 05:26 04/01/20 04:00 Labs: Abnormal Lab Results - Last 24 Hours (Table) 03/31/20 03/31/20 03/31/20 Range/Units 16:05 20:14 23:38 ABG pH (7.35-7.45) ABG pCO2 (35-45) mmHg ABG Total CO2 (19-24) mmol/L Chloride (98-107) mmol/L BUN (7-17) mg/dL Glucose (74-99) mg/dL POC Glucose (mg/dL) 133 H 132 H 144 H (75-99) mg/dL Calcium (8.4-10.2) mg/dL AST (14-36) U/L ALT (4-34) U/L Alkaline Phosphatase (38-126) U/L C-Reactive Protein (<10.0) mg/L Total Protein (6.3-8.2) g/dL Albumin (3.5-5.0) g/dL 04/01/20 04/01/20 04/01/20 Range/Units 04:00 04:00 04:05 ABG pH (7.35-7.45) ABG pCO2 (35-45) mmHg ABG Total CO2 (19-24) mmol/L Chloride 109 H (98-107) mmol/L BUN 37 H (7-17) mg/dL Glucose 125 H (74-99) mg/dL POC Glucose (mg/dL) 117 H (75-99) mg/dL Calcium 7.4 L (8.4-10.2) mg/dL AST 46 H (14-36) U/L ALT 35 H (4-34) U/L Alkaline Phosphatase 128 H (38-126) U/L C-Reactive Protein 339.9 H (<10.0) mg/L Total Protein 4.9 L (6.3-8.2) g/dL Albumin 2.1 L (3.5-5.0) g/dL 04/01/20 04/01/20 04/01/20 Range/Units 04:06 08:42 11:45 ABG pH 7.26 L (7.35-7.45) ABG pCO2 56 H (35-45) mmHg ABG Total CO2 27 H (19-24) mmol/L Chloride (98-107) mmol/L BUN (7-17) mg/dL Glucose (74-99) mg/dL POC Glucose (mg/dL) 132 H 147 H (75-99) mg/dL Calcium (8.4-10.2) mg/dL AST (14-36) U/L ALT (4-34) U/L Alkaline Phosphatase (38-126) U/L C-Reactive Protein (<10.0) mg/L Total Protein (6.3-8.2) g/dL Albumin (3.5-5.0) g/dL Assessment and Plan Assessment: Impression: Acute hypoxic respiratory failure secondary to covid 19 pneumonitis. Requiring intubation and mechanical ventilation on 03/29/20. Intractable nausea and vomiting on presentation as well as diarrhea felt to be related to Covid 19 infection History of severe COPD. History of coronary artery disease. Previous history of DVT. History of GERD. Benign essential hypertension. Dyslipidemia. Former smoker. Recommendation: Continue ventilatory support. Remains on relatively high PEEP and high FiO2 with margins ABG. Continue propofol. Continue Decadron. Patient was out of the window for remdesivir Continue bronchodilators. Continue GI and DVT prophylaxis. Continue Lovenox. Prognosis is definitely poor and guarded. Discussed her condition with her daughter over the phone, and updated the daughter on her overall clinical status, and explained that her prognosis is very poor, daughter and other family members are inclined to consider comfort care measures, and would like to pursue this possibly in the next 24 hours. Critical care time is greater than 30 minutes. Time with Patient: Greater than 30
[2020-04-01 15:49] LABS: Glucose,Whole Blood 215 mg/dL (75-99)
[2020-04-01 19:41] LABS: LD Isoenzymes 1 16 % (19-38); LD Isoenzymes 2 36 % (30-43); LD Isoenzymes 3 18 % (16-26); LD Isoenzymes 4 10 % (3-12); LD Isoenzymes 5 20 % (3-14); Lactacte Dehydrogenase(LD) ISO 329 U/L (120-250)
[2020-04-01] MEDS: amLODIPine 5 MG TAB PO SCH (20:02)
[2020-04-01 20:09] LABS: Glucose,Whole Blood 98 mg/dL (75-99)
[2020-04-01] MEDS ORDERED: POTASSIUM BICARBONATE/CIT AC 20 MEQ TABLET.EFF PO SCH (21:00)
[2020-04-01 22:43] LABS: Ferritin 595.4 ng/mL (10.0-291.0)
[2020-04-01 23:58] LABS: Glucose,Whole Blood 115 mg/dL (75-99)
[2020-04-02 03:55] LABS: Glucose,Whole Blood 125 mg/dL (75-99)
[2020-04-02] MEDS: ACETAMINOPHEN TAB 325 MG TAB PO PRN (03:58)
[2020-04-02] MEDS: INSULIN ASPART (NovoLOG) 100 UNIT/ML VIAL SQ SCH ×4 (03:58)
[2020-04-02] MEDS: SODIUM CHLORIDE 0.9% 1,000 ML IV SCH (03:58)
[2020-04-02 05:03] VITALS: TEMP 100.8
[2020-04-02] MEDS: SUCRALFATE 1 GM TAB PO SCH (06:15)
--- NOTE | 2020-04-02 08:43 | P.PN ---
Subjective Principal diagnosis: Pneumonia with Covid The patient is an 79-year-old white female essential admitted with Covid pneumonia. She has progressed to requiring intubation for respiratory failure. Appreciate multiple consultants input. At this time, they have decided for comfort care measures. Objective - Vital Signs Vital signs: Vital Signs Temp 100.8 F H 04/02/20 04:00 Pulse 110 H 04/02/20 07:00 Resp 37 H 04/02/20 07:00 BP 123/72 04/02/20 07:00 Pulse Ox 92 L 04/02/20 07:00 Intake & Output 04/01/20 04/02/20 04/02/20 18:59 06:59 18:59 Intake Total 9847.868 1264.157 181 Output Total 880 910 60 Balance 9171.046 9979.157 121 Weight 79.3 kg Intake: IV 972 972 81 Pressure Bag 72 72 6 Sodium Chloride 0.9% 1, 900 900 75 000 ml @ 75 mls/hr IV . [id number] [facility] Rx#:[id number] Intake, IV Titration 262.214 235.157 100 Amount Norepinephrine 4 mg In 62.214 53.578 Sodium Chloride 0.9% 250 ml @ 0.05 MCG/KG/MIN 12. 961 mls/hr IV .[id number] [facility] Rx#:[id number] propofoL 1,000 mg In 200.000 181.579 100 Empty Bag 1 bag @ Titrate IV .Q0M [facility] Rx#: [id number] Tube Feeding 260 390 Other 400 600 Output: Urine 880 910 60 Other: Voiding Method Indwelling Catheter Indwelling Catheter ABP, PAP, CO, CI - Last Documented Arterial Blood Pressure 130/59 - Constitutional General appearance: Present: obese - EENT Eyes: Absent: abnormal pupil - Neck Neck: Absent: lymphadenopathy - Respiratory Respiratory: bilateral: diminished - Cardiovascular Rhythm: regular Heart sounds: normal: S1, S2 Abnormal Heart Sounds: Absent: S3 Gallop - Gastrointestinal General gastrointestinal: Present: soft. Absent: tenderness - Integumentary Integumentary: Absent: cyanotic - Labs CBC & Chem 7: 03/31/20 05:26 04/01/20 04:00 Labs: Abnormal Lab Results - Last 24 Hours (Table) 03/30/20 04/01/20 04/01/20 Range/Units 04:50 04:00 08:42 POC Glucose (mg/dL) 132 H (75-99) mg/dL Ferritin 595.4 H (10.0-291.0) ng/mL LD Isoenzymes 329 H (120-250) U/L LD 1 16 L (19-38) % LD 5 20 H (3-14) % C-Reactive Protein 339.9 H (<10.0) mg/L 04/01/20 04/01/20 04/01/20 Range/Units 11:45 15:47 23:56 POC Glucose (mg/dL) 147 H 215 H 115 H (75-99) mg/dL Ferritin (10.0-291.0) ng/mL LD Isoenzymes (120-250) U/L LD 1 (19-38) % LD 5 (3-14) % C-Reactive Protein (<10.0) mg/L 04/02/20 Range/Units 03:53 POC Glucose (mg/dL) 125 H (75-99) mg/dL Ferritin (10.0-291.0) ng/mL LD Isoenzymes (120-250) U/L LD 1 (19-38) % LD 5 (3-14) % C-Reactive Protein (<10.0) mg/L Assessment and Plan (1) COVID-19 Current Visit: Yes Status: Acute Code(s): U07.1 - COVID-19 SNOMED Code(s): 511379994 (2) Hypokalemia Current Visit: Yes Status: Acute Code(s): E87.6 - HYPOKALEMIA SNOMED Code(s): 74118306 (3) Chronic low back pain Current Visit: No Status: Acute Code(s): M54.5 - LOW BACK PAIN; G89.29 - OTHER CHRONIC PAIN SNOMED Code(s): 849280253 (4) Dehydration Current Visit: No Status: Acute Code(s): E86.0 - DEHYDRATION SNOMED Code(s): 42953252 (5) High risk for readmission Current Visit: No Status: Acute Code(s): Z91.89 - OTH PERSONAL RISK FACTORS, NOT ELSEWHERE CLASSIFIED SNOMED Code(s): 104670516 (6) Lumbar degenerative disc disease Current Visit: No Status: Acute Code(s): M51.36 - OTHER INTERVERTEBRAL DISC DEGENERATION, LUMBAR REGION SNOMED Code(s): 16711520 Plan: Due to poor prognosis, comfort care will be instituted today.
[2020-04-02] MEDS ORDERED: MORPHINE SULFATE 2 MG/ML SYRINGE IVP ONE (09:56)
[2020-04-02] MEDS ORDERED: MORPHINE SULFATE 2 MG/ML SYRINGE IV PRN (09:56)
[2020-04-02] MEDS ORDERED: MORPHINE SULFATE (100 MG/2 ML) 100 MG in SODIUM CHLORIDE 0.9% 100 ML IV SCH (10:00)
[2020-04-02] MEDS ORDERED: SCOPOLAMINE 1.5MG/72HR PATCH TRANSDERM SCH (10:00)
[2020-04-02 10:20] VITALS: BP 114/64; PULSE 110; RESP 32
[2020-04-02 13:08] VITALS: BMI 29.0
--- NOTE | 2020-04-02 14:06 | P.PN ---
Subjective Progress Note Date: 04/02/20 Principal diagnosis: Acute hypoxic respiratory failure secondary to covid 19 pneumonia 79-year-old white female patient with past medical history of COPD, hypertension and emergency department on 03/15/2020 for evaluation of nausea, vomiting, and she tested positive for COVID 19, her onset of symptoms was around a week prior to presentation on 03/08/2020. Patient had decreased oral intake. No fever, chills. Other medical history includes a history of CVA, DVT, GERD/reflux, osteoarthritis, CAD with previous PTCA and stenting, anxiety, and history of smoking. Patient discharged home at that time with [id number] vitamin D, vitamin C, zinc, and was instructed to come back for worsening symptoms. On 2019 patient came back to the emergency department for reevaluation of intractable nausea, vomiting and diarrhea, patient was unable to tolerate any food water and she was unable to take any of her medications, she has had fevers, for which she is been taking Tylenol, no abdominal pain, no shortness of breath or coughing. Is x-ray reveals bibasilar infiltrates greater at the left lung base. Labs have been reviewed showing lymphopenia with lymphocyte count of 0.5, potassium is 2.7, d-dimer is 0.48, BUN of 19 creatinine 0.8, plasma lactic acid is 1.4, ferritin level is 438, AST is 45, ALT is 26, alkaline phosphatase is 120, LDH is 960, CRP is 82, pro calcitonin level is 0.2. She was given IV fluid hydration, her vital signs have been stable overnight, the low-grade fever this morning, with a temp of 100.1F, she is on 2 L of oxygen and the pulse ox of 91-94%, she has a congested cough but denies any shortness of breath. on today's evaluation of03/25/2020, the patient is still having diarrhea. She had several bouts of diarrhea. Stool for C. diff came back negative. No abdominal pain. No emesis. She continues to have episodic cough. Potassium has been replaced.she is having also some worsening shortness of breath. Earlier this morning she was found to be hypoxic and she is currently on 15 L of oxygen by nasal cannula. She is quite restless. Her mentation is waxing and waning. I feel like she is a bit confused on today's evaluation. Note that when she came in she was only on 2 L of oxygen by nasal cannula. On 03/26/2020, seeing the patient for a follow-up. The patient is still confused. She is quite restless in bed. She is still having some loose diarrhea. She is also on high flow oxygen at 15 L per minute nasal cannula to maintain a saturation above 90%. However, this afternoon, the patient's condition decompensated. She became progressively more hypoxic. As such, the patient was placed on high flow oxygen and she is currently on 15 L of oxygen by nasal cannula.. Level is on the rise in the patient's sodium level is at 149. Renal function remains stable. LDH from yesterday was 465 with a CRP level of 14.9. The patient otherwise is hemodynamically stable. She is on Lovenox 40 mg subcu for DVT prophylaxis. She is on Decadron 6 mg by mouth daily. Home medications of been ordered resume. As mentioned earlier, the patient has history of COPD and hypertension. I gave her IV fluids and I switched IV fluids to half-normal saline along with a 20 mEq of potassium chloride to run at 75 mL an hour. On 03/27/2020, the patient is restless, confused, moaning, and she is sitting in obvious respiratory distress. The patient remains on 100% nonrebreather facemask addition to high flow oxygen which is running at 60 L with a FiO2 of 93% and her pulse ox currently is 95-96%. Patient has received 2 tablets of Xanax 0.5 mg earlier today. Her last chest x-ray showed bilateral pulmonary infiltrates and this was done on 03/25/2020. A repeat chest x-ray is to be done today. Meanwhile, the rest of the blood work is pending. Her CBC shows no significant abnormalities. Neurologic exam is nonfocal. She is moving all 4 extremities. She is on IV fluid with half-normal saline and potassium running at 75 mL an hour. On 03/28/2020, the patient is worse in terms of her mentation. Although she is not as much restless, she continues to moan and she is confused. She is also painful stimulation. She is unable to hold a conversation. There is a change in her condition over the past 48 hours. She remains on the percent nonrebreather facemask in addition to high flow oxygen at 60 L. I repeated the chest x-ray yesterday showed some limited infiltration lung bases. Lungs are showing limited In the lung bases. Pulse ox remained about 90% as long as the patient is able to deliver the oxygen through the nonrebreather and there was a high flow. She is also on half normal saline running at 75 mL an hour. As mentioned earlier, her neurologic exam is nonfocal. The patient is still on Decadron 6 mg IV. She has not received any sedatives. She has not received any Haldol. She will need a blood gas and possibly transfer to the intensive care unit. Her LDH from yesterday 78. Her CRP is at 14.7. The patient's temperature is at 100.5. Patient was reevaluated today on 03/29/20, patient remains intubated and mechanically ventilated. She is on assist control rate of 28 tidal volume is 400 FiO2 is 100% and PEEP is 12. ABG showed a pO2 of 75 pCO2 of 44 pH of 7.36. Hence her PEEP was increased to 14. Patient remains on norepinephrine at 1 mcg/kg/m, and she is on a bicarb drip which I have discontinued this morning. I kept her on D5W at 1 25 mL/h, increase her free water flushes to 400 MLS every 4 hours specially with her sodium climbing up to 158 this morning. Patient was admitted on 03/23 she was intubated on 03/29, and she remains intubated and mechanically ventilated. Chest x-ray continues to show diffuse bilateral interstitial infiltrates. Labs today showed elevated sodium bicarb is 21, and her renal functioning is basically normal. ABG yesterday before intubation showed a pO2 of 48 pCO2 of 21 pH of 7.37. Patient is on propofol which I have increased to 75 mcg/kg/m. Not requiring any pressors. Reevaluated today on 03/30/20, remains in the ICU, intubated and mechanically ventilated. Patient is on assist control rate of 28 tidal volume is 400 FiO2 is 70% and PEEP of 14. ABG before the change in assist control rate up to 28 showed a pO2 of 87 pCO2 of 45 pH of 7.20. Patient did receive sodium bicarb drip, and she remains presently on bicarb drip, she is also on IV fluid at 20 mL/h, norepinephrine has been discontinued. Patient also on enteral feeding and she continues to receive free water flushes because of her elevated sodium yeste rday. This morning her FiO2 was decreased down to 60% and her free water flushes down to 200 mL every 4 hours. Basic metabolic profile is relatively normal. CBC is relatively normal Reevaluated today on 03/31/20, patient seems to be doing worse today compared to the last couple of days, had to increase her assist control rate to 30, increased her FiO2 to 100%, Tidal Volume Is 400, and PEEP Is 16. Her O2 Saturation Is Marginal In Spite Of Higher FiO2 and High Rate. Chest X-Ray Continues to Show Diffuse Interstitial Infiltrates Consistent with covid 19 pneumonitis. Patient is also requiring norepinephrine at 0.03 mcg/kg/m, she is on propofol at 75 and she is also on sodium bicarb which I will go ahead and discontinue based on her ABG. Bicarb today is 27 ABG showed a pO2 of 67 pCO2 of 54 pH of 7.31 and this is on 100% FiO2 with PEEP of 16. CBC is basically about the same. WBC is 8.6 hemoglobin is 12.1. X-ray today is a bit worse, continues to show bilateral interstitial infiltrates. Patient is on bolus feedings, and she is also on water flushes every 4 hours. Receiving 200 mL of free water. Reevaluated today on 04/01/20, patient remains in the ICU, intubated and mechanically ventilated. Chest x-ray continues to show diffuse bilateral infiltrates. Patient remains on assist control mode of mechanical ventilation, rate is 30 tidal volume is 400 FiO2 is 100% and PEEP is 16. ABG showed a pO2 of 88 pCO2 of 56 pCO2 of 7.26. Patient remains on propofol at 75 mcg/kg/m, she is off norepinephrine, she is on bolus tube feedings, and she is also on water flushes. Considering the chest x-ray findings and considering that ABG findings, and considering that the patient is not making any progress, I went ahead and discussed her condition with her daughter over the phone. Explained to the daughter that her condition is actually worse, and I have a feeling that her prognosis is extremely poor. Suggested considering comfort care measures, and the daughter seems to be very agreeable. She would like to discuss this with her significant other. The family members seem to be all on the same page as far as comfort care measures. In the meantime we'll change the CODE STATUS to DO NOT RESUSCITATE CODE STATUS. Electrolytes are normal renal profile is normal inflammatory markers remain high, C-reactive protein is 339. Reevaluated today on 04/02/20, patient remains in the ICU, intubated and mechanically ventilated. Her ventilator settings are assist control rate of 30 tidal volume 400 FiO2 is 100% PEEP is 16. Patient remains on norepinephrine at 0.04 mcg/kg/m, IV fluid is at 75 mL per hour, on propofol at 75 mcg/kg/m. No major change overall in the last 24 hours, I addressed this patient's condition with her daughter yesterday, and the family is planning to proceed with comfort care measures today. Objective - Vital Signs Vital signs: Vital Signs Temp 100.8 F H 04/02/20 04:00 Pulse 110 H 04/02/20 10:15 Resp 32 H 04/02/20 10:15 BP 114/64 04/02/20 10:15 Pulse Ox 95 04/02/20 10:15 Intake & Output 04/01/20 04/02/20 04/02/20 18:59 06:59 18:59 Intake Total 5895.025 1933.157 607.050 Output Total 880 910 360 Balance 1130.717 7369.157 247.050 Weight 79.3 kg 79.3 kg Intake: IV 972 972 324 Pressure Bag 72 72 24 Sodium Chloride 0.9% 1, 900 900 300 000 ml @ 75 mls/hr IV . [id number] [facility] Rx#:[id number] Intake, IV Titration 262.214 235.157 283.050 Amount Morphine Sulfate (100 mg/ 8.993 2 ml) 100 mg In Sodium Chloride 0.9% 100 ml @ 1 MG/HR 1.02 mls/hr IV . Q24H [facility] Rx#:[id number] Norepinephrine 4 mg In 62.214 53.578 74.057 Sodium Chloride 0.9% 250 ml @ 0.05 MCG/KG/MIN 12. 961 mls/hr IV .[id number] [facility] Rx#:[id number] propofoL 1,000 mg In 200.000 181.579 200.000 Empty Bag 1 bag @ Titrate IV .Q0M [facility] Rx#: [id number] Tube Feeding 260 390 Other 400 600 Output: Urine 880 910 360 Other: Voiding Method Indwelling Catheter Indwelling Catheter Indwelling Catheter ABP, PAP, CO, CI - Last Documented Arterial Blood Pressure 128/54 - Exam GENERAL EXAM: Revealed 79-year-old female sedated, on mechanical ventilation. HEAD: Normocephalic/atraumatic. Endotracheal tube is intact. EYES: PERRLA, EOMI, no icterus. NOSE: Nasal mucosa is normal.. THROAT: Moist mucous membranes NECK: No neck masses no JVD. No cervical adenopathy CHEST: Symmetrical chest expansion.. LUNGS: Crackles and rhonchi noted bilaterally CVS: S1 and S2, no S3 gallop. ABDOMEN: Soft nontender no megaly no rebound no guarding. EXTREMITIES: Good pulses bilaterally no clubbing edema or cyanosis MUSCULOSKELETAL; cannot assess. SKIN: No rashes CENTRAL NERVOUS SYSTEM: Could not assess, Psychiatric: Could not assess - Labs CBC & Chem 7: 03/31/20 05:26 04/01/20 04:00 Labs: Abnormal Lab Results - Last 24 Hours (Table) 03/30/20 04/01/20 04/01/20 Range/Units 04:50 04:00 15:47 POC Glucose (mg/dL) 215 H (75-99) mg/dL Ferritin 595.4 H (10.0-291.0) ng/mL LD Isoenzymes 329 H (120-250) U/L LD 1 16 L (19-38) % LD 5 20 H (3-14) % 04/01/20 04/02/20 Range/Units 23:56 03:53 POC Glucose (mg/dL) 115 H 125 H (75-99) mg/dL Ferritin (10.0-291.0) ng/mL LD Isoenzymes (120-250) U/L LD 1 (19-38) % LD 5 (3-14) % Assessment and Plan Assessment: Impression: Acute hypoxic respiratory failure secondary to covid 19 pneumonitis. Requiring intubation and mechanical ventilation on 03/29/20. Intractable nausea and vomiting on presentation as well as diarrhea felt to be related to Covid 19 infection History of severe COPD. History of coronary artery disease. Previous history of DVT. History of GERD. Benign essential hypertension. Dyslipidemia. Former smoker. Recommendation: Instructed the nursestaking care of the patient today to proceed with comfort care measures once the family gives the final okay to proceed with that today. We will sign off and see when necessary Time with Patient: Less than 30
[2020-04-06 16:35] LABS: LD Isoenzymes 1 21 % (19-38); LD Isoenzymes 2 35 % (30-43); LD Isoenzymes 3 18 % (16-26); LD Isoenzymes 4 10 % (3-12); LD Isoenzymes 5 16 % (3-14); Lactacte Dehydrogenase(LD) ISO 255 U/L (120-250)
== END 2020-04-02 14:53 | disposition expired | DRG 207 ==
LOC: EC 08:43 → 4SSUR 10:54 → 2SICU 03-28 12:37
PROVIDERS: ADMIT Family Medicine; ATTEND Family Medicine
PROC: 02HV33Z Insertion of Infusion Device into Superior Vena Cava, Percutaneous Approach (ICD-10-PCS; 2020-03-28)
PROC: 0DH67UZ Insertion of Feeding Device into Stomach, Via Natural or Artificial Opening (ICD-10-PCS; 2020-03-28)
PROC: 4A133J1 Monitoring of Arterial Pulse, Peripheral, Percutaneous Approach (ICD-10-PCS; 2020-03-28)
PROC: 4A133B1 Monitoring of Arterial Pressure, Peripheral, Percutaneous Approach (ICD-10-PCS; 2020-03-28)
PROC: 03HY32Z Insertion of Monitoring Device into Upper Artery, Percutaneous Approach (ICD-10-PCS; 2020-03-28)
PROC: 0BH17EZ Insertion of Endotracheal Airway into Trachea, Via Natural or Artificial Opening (ICD-10-PCS; principal; 2020-03-29)
PROC: 5A1955Z Respiratory Ventilation, Greater than 96 Consecutive Hours (ICD-10-PCS; principal; 2020-03-29)
PROC: 3E033XZ Introduction of Vasopressor into Peripheral Vein, Percutaneous Approach (ICD-10-PCS; 2020-03-29)
PROC: 3E0G76Z Introduction of Nutritional Substance into Upper GI, Via Natural or Artificial Opening (ICD-10-PCS; 2020-03-29)
DX: U07.1 COVID-19 (principal); J80 Acute respiratory distress syndrome; J12.89 Other viral pneumonia; G93.41 Metabolic encephalopathy; A41.89 Other specified sepsis; R65.20 Severe sepsis without septic shock; E87.0 Hyperosmolality and hypernatremia; J44.0 Chronic obstructive pulmonary disease with (acute) lower respiratory infection; A08.39 Other viral enteritis; Z51.5 Encounter for palliative care; Z66 Do not resuscitate; E78.5 Hyperlipidemia, unspecified; E86.0 Dehydration; E87.6 Hypokalemia; F41.9 Anxiety disorder, unspecified; G89.29 Other chronic pain; I10 Essential (primary) hypertension; I25.10 Atherosclerotic heart disease of native coronary artery without angina pectoris; I25.2 Old myocardial infarction; K21.9 Gastro-esophageal reflux disease without esophagitis; M51.36 Other intervertebral disc degeneration, lumbar region; M15.9 Polyosteoarthritis, unspecified; M10.9 Gout, unspecified; R32 Unspecified urinary incontinence; Z79.82 Long term (current) use of aspirin; Z79.899 Other long term (current) drug therapy; Z98.42 Cataract extraction status, left eye; Z96.1 Presence of intraocular lens; Z98.41 Cataract extraction status, right eye; Z95.5 Presence of coronary angioplasty implant and graft; Z87.891 Personal history of nicotine dependence; Z86.73 Personal history of transient ischemic attack (TIA), and cerebral infarction without residual deficits; Z86.718 Personal history of other venous thrombosis and embolism; Z88.5 Allergy status to narcotic agent; Z88.0 Allergy status to penicillin; Z88.2 Allergy status to sulfonamides; Z88.8 Allergy status to other drugs, medicaments and biological substances; Z86.19 Personal history of other infectious and parasitic diseases; Z91.041 Radiographic dye allergy status; Z98.890 Other specified postprocedural states; Z90.49 Acquired absence of other specified parts of digestive tract; Z87.19 Personal history of other diseases of the digestive system; Z82.3 Family history of stroke; Z82.49 Family history of ischemic heart disease and other diseases of the circulatory system; Z83.3 Family history of diabetes mellitus
CPT/HCPCS: 36410; 36415; 36600; 71045; 76937; 80053; 82550; 82553; 82728; 82805; 83605; 83615; 83625; 83735; 84132; 84145; 85025; 85027; 85379; 85384; 85610; 85730; 86140; 87040; 87324; 93005; 94002; 94003; 96361; 96365; 96375; 99285